=== PATIENT | female | born 1970 | race Caucasian/White ===

== ENCOUNTER 2017-07-08 21:03 | Inpatient (IN) | payer SELFPAY ==
[~2017-07-08] VITALS: Ht 162.6 cm; Wt 78.2 kg
[2017-07-08] VITALS (7 sets, daily range): BP systolic 88–136; BP diastolic 51–72; PULSE 80–111; RESP 12; TEMP 98.8; O2SAT 100
[~2017-07-08 21:03] MED LIST: ALPR.25 PO; ORPH100T PO; PARO20 PO; TYLETAB36 PO; XANA1TAB6 PO
[2017-07-08] MEDS ORDERED: HEPARIN SODIUM - IV 10,000 UNITS/10 ML VIAL IV STA (21:13)
[2017-07-08] MEDS ORDERED: SODIUM CHLOR 0.9% 1000 ML INJ 1,000 ML IV ONE (21:13)
[2017-07-08] MEDS ORDERED: HEPARIN SODIUM - IV 10,000 UNITS/10 ML VIAL ONE ×2 (21:13→21:36)
[2017-07-08] MEDS ORDERED: SODIUM CHLOR 0.9% 1000 ML INJ 1,000 ML IV SCH (21:15)
[2017-07-08] MEDS ORDERED: SODIUM CHLORIDE 0.9% FLUSH 10 ML FLUSH IVF PRN (21:15)
[2017-07-08] MEDS ORDERED: HEPARIN-NS/PF INJ 1,000 ML ONE (21:18)
[2017-07-08] MEDS ORDERED: SODIUM CHLORID 0.9% 500 ML INJ 500 ML ONE (21:20)
[2017-07-08] MEDS ORDERED: fentaNYL DRIP 250 ML IV PRN (21:30)
[2017-07-08] MEDS ORDERED: PROPOFOL 1000 MG/100 ML INJ 100 ML IV PRN ×2 (21:30→22:15)
[2017-07-08] MEDS ORDERED: MIDAZOLAM HCL 5 MG/ML VIAL (1 ML) IV ONE (21:30)
[2017-07-08] MEDS ORDERED: NOREPINEPHRINE 4 MG/4 ML AMP ONE (21:35)
--- NOTE | 2017-07-08 21:37 | RADRPT ---
EXAM DATE/TIME: 07/08/2017 21:20 [place] COMPARISON: No previous studies available for comparison. INDICATIONS : Stemi Alert MEDICAL HISTORY : Unresponsive SURGICAL HISTORY : Unresponsive ENCOUNTER: Initial ACUITY: 1 day PAIN SCORE: Non-responsive. LOCATION: Bilateral chest FINDINGS: A single AP supine portable view the chest was obtained and demonstrates an endotracheal tube in plac e with the tip approximately 2 cm above the ruthy. A nasogastric tube is seen coursing through the e sophagus and into the stomach. There are no infiltrates or effusions. The heart size is at the upper limits of normal. The bony thorax is intact. CONCLUSION: 1. Intubation and placement of nasogastric tube. 2. No acute cardiopulmonary disease. Himanshu Tamez MD on July 08, 2017 at 21:34 Board Certified Radiologist. This report was verified electronically.
[2017-07-08] MEDS ORDERED: IOHEXOL 350 MG/ML 100 ML BTL (for Cath Lab) OTHER ONE (21:39)
[2017-07-08] MEDS ORDERED: NOREPINEPHRINE-DEXTROSE DRIP 250 ML IV PRN (21:45)
[2017-07-08] MEDS ORDERED: TERBUTALINE INJ 1 MG/ML AMP SQ PRN (21:45)
--- NOTE | 2017-07-08 21:45 | PD ---
HPI Chief Complaint: STEMI Alert Time Seen by Provider: 21:13 Travel History International Travel<30 days: No Contact w/Intl Traveler<30days: No Traveled to known affect area: No History of Present Illness HPI 47-year-old female was brought him EMS unresponsive. Patient was reported with complaint of chest pain for the past 2 days. Patient collapsed in the bathroom tonight. EMS was called. Patient was brought to the ED for evaluation. Patient responded to painful stimuli on the way to the ED. Unable to obtain any past medical information except patient has history of chronic pain. STEMI alert was called from the field. PFSH Past Medical History Arthritis: Yes Asthma: Yes Bipolar Disorder: Yes Anxiety: Yes Depression: Yes Cancer: No Cardiovascular Problems: No Cerebrovascular Accident: No Diabetes: No Diminished Hearing: No Endocrine: No Gastrointestinal Disorders: Yes (STATES BOWEL PROBLEMS, NON-SPECIFIC) Genitourinary: No Hepatitis: No Hiatal Hernia: No Hypertension: No Immune Disorder: No Implanted Vascular Access Dvce: No Musculoskeletal: No Neurologic: No Psychiatric: Yes (DEPRESSION ) Reproductive: No Respiratory: No Immunizations Current: Yes Migraines: No Schizophrenia: Yes Seizures: No Sleep Apnea: Yes Thyroid Disease: No : 4 Para: 2 Miscarriage: 2 Ectopic : Yes (RIGHT) Dilation and Curettage (D&C): Yes Tubal Ligation: Yes Past Surgical History Appendectomy: Yes Section: Yes (X1) Cholecystectomy: Yes Ear Surgery: No Eye Surgery: No Gynecologic Surgery: Yes (C SECTION D& C TUBAL LIGATION ) Hysterectomy: Yes (RIGHT TUBE AND OVARY REMOVED. ) Joint Replacement: No Oral Surgery: Yes (TONS ) Pacemaker: No Tonsillectomy: Yes Other Surgery: Yes Social History Alcohol Use: Yes (rarely) Tobacco Use: Yes (1.5 PPD) Substance Use: Yes Allergies-Medications (Allergen,Severity, Reaction): Coded Allergies: No Known Allergies (Unverified , 11/22/14) Reported Meds & Prescriptions Reported Meds & Active Scripts Active Paxil 20 Mg Tab (Paroxetine Hcl) 20 Mg Tab 20 Mg PO DAILY Xanax 0.25 Mg (Alprazolam) 0.25 Mg Tab 0.25 Mg PO Q8HR Reported Norflex (Orphenadrine Citrate) 100 Mg Cheryl 100 Mg PO ONCE Tylenol #4 (Acetaminophen/Codeine Phosphate) Acetaminophen 300/60 Codeine Tab 1 Tab PO Q8H PRN Xanax 1 mg (Alprazolam) Alprazolam 1 mg Tab 1 Tab PO Q6H PRN Review of Systems General / Constitutional: No: Fever Eyes: No: Visual changes HENT: No: Headaches Cardiovascular: Positive: Chest Pain or Discomfort Respiratory: No: Shortness of Breath Gastrointestinal: No: Abdominal Pain Genitourinary: No: Dysuria Musculoskeletal: No: Pain Skin: No Rash Neurologic: No: Weakness Psychiatric: No: Depression Endocrine: No: Polydipsia Hematologic/Lymphatic: No: Easy Bruising Physical Exam Narrative GENERAL: Well-nourished, well-developed patient. SKIN: Focused skin assessment warm/dry. HEAD: Normocephalic. EYES: No scleral icterus. No injection or drainage. Pupils 2 mm equal reactive. NECK: Supple, trachea midline. No JVD or lymphadenopathy. CARDIOVASCULAR: Regular rate and rhythm without murmurs, gallops, or rubs. RESPIRATORY: Breath sounds equal bilaterally. No accessory muscle use. GASTROINTESTINAL: Abdomen soft, non-tender, nondistended. MUSCULOSKELETAL: No cyanosis, or edema. BACK: Nontender without obvious deformity. No CVA tenderness. Neurologic exam: Patient only responded to painful stimuli. Deep tendon Reflexes 1+ and equal. Negative Babinski. Data Data Orders Orders Heparin Inj (Heparin Inj) (07/08/17 21:13) Troponin I (07/08/17 21:13) Ckmb (Isoenzyme) Profile (07/08/17 21:13) Complete Blood Count With Diff (07/08/17 21:13) I-Stat Profile (07/08/17 21:13) I-Stat Creatinine (07/08/17 21:13) Calcium (07/08/17 21:13) Magnesium (Mg) (07/08/17 21:13) Prothrombin Time / Inr (Pt) (07/08/17 21:13) Act Partial Throm Time (Ptt) (07/08/17 21:13) B-Type Natriuretic Peptide (07/08/17 21:13) Chest, Single Ap (07/08/17 21:13) Electrocardiogram (07/08/17 21:13) Oxygen Administration (07/08/17 21:13) Iv Access Insert/Monitor (07/08/17 21:13) Oximetry (07/08/17 21:13) Sodium Chlor 0.9% 1000 Ml Inj (Ns 1000 M (07/08/17 21:13) Sodium Chloride 0.9% Flush (Ns Flush) (07/08/17 21:15) Heparin Inj (Heparin Inj) (07/08/17 21:13) Sodium Chlor 0.9% 1000 Ml Inj (Ns 1000 M (07/08/17 21:15) Admit Order (Ed Use Only) (07/08/17 21:15) [facility] Medical Decision Making Medical Screen Exam Complete: Yes Emergency Medical Condition: Yes Differential Diagnosis Differential diagnosis including STEMI, respiratory failure. Narrative Course 47-year-old female with 2 days history of chest pain and collapse in the bathroom tonight. Patient came in unresponsive except to painful stimuli. EKG showed ST elevation in leads I and anterolateral leads. ST depression in inferior leads. STEMI alert was called. Patient was intubated for airway protection. Normal saline solution 2 L IV bolus. Heparin 4000 units IV given. I spoke with puttier Dr. Duncan. Patient Will be taken to [facility] immediately. Fentanyl drip and propofol was ordered for sedation. The Levophed drip as needed to keep MAP above 65. Critical Care Narrative Aggregate critical care time was 60 minutes. Time to perform other separately billable procedures was not included in the critical care time. My time did not include minutes spent treating any other patients simultaneously or on activities that did not directly contribute to the patient's treatment. The services I provided to this patient were to treat and/or prevent clinically significant deterioration that could result in: I provided critical care services requiring my management, as noted below: Chart data review, documentation time, medication orders and management, vital sign assessments/reviewing monitor data, ordering and reviewing lab tests, ordering and interpreting/reviewing x-rays and diagnostic studies, care of the patient and discussion of the patient with the admitting physicians. Procedures Procedure Narrative After the risks and benefits were discussed the following procedure was performed: INTUBATION: The patient was put in optimal position for the procedure. Rapid sequence intubation was initiated by me using 20 milligrams of etomidate IV and 100 milligrams of succinylcholine IV. The patient was intubated with a 7.5 cuffed endotracheal tube. Tube placement was confirmed by visualization of the tube and balloon passing through the cords, capnometry and subsequent chest x- ray. Breath sounds were equal and well aerated bilaterally postintubation. No breath sounds over stomach. Patient tolerated procedure well. Diagnosis Primary Impression: STEMI (ST elevation myocardial infarction) Qualified Codes: I21.02 - ST elevation (STEMI) myocardial infarction involving left anterior descending coronary artery Additional Impression: Respiratory failure Qualified Codes: J96.00 - Acute respiratory failure, unspecified whether with hypoxia or hypercapnia Admitting Information Admitting Physician Requests: Admit Navi Jasso MD Jul 08, 2017 21:45
[2017-07-08] MEDS ORDERED: MIDAZOLAM HCL 2 MG/2 ML VIAL ONE ×3 (21:46→23:11)
[2017-07-08 21:51] LABS: I-STAT POTASSIUM 3.8 MMOL/L (3.5-4.9)
[2017-07-08 21:54] LABS: AUTOMATED NEUTROPHIL # 15.5 TH/MM3 (1.8-7.7); BASOPHIL # 0.2 TH/MM3 (0-0.2); BASOPHIL % 0.7 % (0.0-2.0); EOSINOPHIL # 0.3 TH/MM3 (0-0.4); EOSINOPHIL % 1.4 % (0.0-4.0); HEMATOCRIT 45.8 % (35.0-46.0); LYMPH % 26.5 % (9.0-44.0); LYMPHOCYTE # 6.2 TH/MM3 (1.0-4.8); MEAN CELL VOLUME 95.6 FL (80.0-100.0); MEAN CORPUSCULAR HEMOGLOBIN 31.1 PG (27.0-34.0); MEAN CORPUSCULAR HGB CONC 32.6 % (32.0-36.0); MONO % 5.3 % (0.0-8.0); NEUT % 66.1 % (16.0-70.0); PLATELET COUNT 442 TH/MM3 (150-450); RED BLOOD COUNT 4.79 MIL/MM3 (4.00-5.30); RED CELL DISTRIBUTION WIDTH 13.1 % (11.6-17.2); WHITE BLOOD COUNT 23.5 TH/MM3 (4.0-11.0)
[2017-07-08 21:56] LABS: HEMO FLAGS AUTO DIFF
[2017-07-08 22:03] LABS: APTT (PATIENT) 24.7 SEC (24.3-30.1); PROTHROMBIN TIME - PATIENT 11.3 SEC (9.8-11.6)
[2017-07-08 22:15] LABS: MAGNESIUM 2.1 MG/DL (1.5-2.5)
[2017-07-08] MEDS ORDERED: PROPOFOL 1000 MG/100 ML IV PRN (22:15)
[2017-07-08 22:22] LABS: BANDS 9 % (0-6); BASOPHILS 2 % (0-2); NEUTROPHIL # MANUAL DIFF 17.4 TH/MM3 (1.8-7.7); POLYS (SEG NEUTROPHILS) 65 % (16-70); WBC DIFF SAMPLE 100
[2017-07-08 22:23] LABS: PLATELET ESTIMATE SMEAR NORMAL (NORMAL); PLATELET MORPHOLOGY NORMAL (NORMAL); SCAN/DIFF FINAL DIFF MANUAL
[2017-07-08] MEDS ORDERED: PAXI10TA2 PO (22:27)
[2017-07-08] MEDS ORDERED: ALPR.25 PO (22:27)
[2017-07-08] MEDS ORDERED: HYDR-4107 PO (22:27)
[2017-07-08] MEDS ORDERED: BACL10TA PO (22:27)
[2017-07-08] MEDS ORDERED: HEPARIN-D5W 25,000 U/250 ML 0 ML ONE (22:28)
[2017-07-08] MEDS ORDERED: HEPARIN-D5W 25,000 U/250 ML 250 ML ONE (22:30)
[2017-07-08] MEDS ORDERED: ADENOSINE IV SOLN 3 MG/ML 2 ML VIAL ONE (22:34)
[2017-07-08] MEDS ORDERED: TICAGRELOR 90 MG TAB PO ONE (22:44)
[2017-07-08] MEDS: MIDAZOLAM 100 MG/100 ML INJ 100 ML IV PRN (23:08)
--- NOTE | 2017-07-08 23:50 | CATHPROC ---
Neurodyn HIS Report Study Information Study Number Admission Scheduled Start Study Start [id number] Jul 08 2017 9:17PM 07/08/2017 Jul 08 2017 9:29PM [place] [facility] Cardiac Catheterization Admit Source Facility Department Emergency department [facility] - [employer] Clerk Physician and Clinical Staff Initial Gustavo Aguilera [employer] Technician Catrachita Stafford,SALIMA [employer] Technician Ivonne Mckeon RN Other cathlab, cathlab Recorder José Manuel Sierra RCIS(BS) Scrub Marcello Adorno RT(R) Procedures Performed Procedure Location (Site) Vessel Name Coronary Angiograms LCA Left Coronary Coronary Angiograms RCA Right Coronary Drug Eluting Inflatio LAD Prox Left Coronary IABP Fem Art (right) Femoral Art IVUS LAD Prox Left Coronary L Heart Cath PTCA LAD Prox Left Coronary Wire insertion Fem Art (right) Femoral Art Equipment Time Lime [employer]n And Recausticizing Operator Description Size Mfg Part Number Used/Scraped WIRE, BALANCE MIDDLEWEIGHT [id number] 22:10 [employer] 190CM Used 190CM *[id number] TRANSDUCER, TRUWAVE [id number] 21:31 BARNETT DO * Used W/STOCKCOCK *[id number]- INTRODUCER SET, 21:53 [employer]. FR 5 SC-NT-U-SST Used MICROPUNCTURE, STIFFENED *[id number] [id number] *[id number] *[id number] BALLOON, FR8 50CC SENSATION [id number] 23:09 MAQUET FR 8 50CC Used PLUS 01U [id number] 21:31 [employer]ES PACK, CCL CUSTOM * Used *[id number] 22:11 [employer] BALLOON, 2.5 X 10MM EUPHORA 10MM Used *[id number] BALLOON, 3.0 X 15MM NC [id number] 22:27 MEDTRONIC 15MM Used EUPHORA *[id number] BALLOON, 3.5 X 12MM NC [id number] 22:43 MEDTRONIC 12MM Used EUPHORA *[id number] 22:18 MED[employer]IC STENT, 3.0 18MM GATO 3.0 18MM Used *[id number] 21:58 [employer]TR[employer]IC/AVE EBU 3.5 Z2 GUIDE CATHETER FR 6 Used *[id number] [id number] 21:58 Scale Computing 30 ASHLEY INDEFLATOR Used *[id number] 21:31 [employer] MEDICAL WIRE, 3MMJ .035 180CM 180CM Used *[id number] 21:31 NAMIC MANIFOLD, 4 PORT * Used *[id number] 21:31 NYCOMED OMNIPAQUE, 350 MG, 150ML 150ML [id number] Used [id number] 21:31 MURRIETA MEDICAL BLANKET,WARM AIR CCL * Used *[id number] 21:53 TERUMO MEDICAL SHEATH, FR6 TERUMO (10CM) FR 6 Used *[id number] CATHETER, [place] [employer] [place] [id number] 22:38 VOLCAN[employer] Used IMAGING *[id number] Equipment Model, Serial, Lot Number and Expiration Data Description Model Number Serial Number Lot Number Expiration Date STENT, 3.0 18MM GATO [id number] 03-21-2019 History: Allergies Allergy Reaction No Known Allergies History: Risk Factors Family History of Hypertension Dyslipidemia Previous MO Previous Heart Failure Premature CAD Yes Yes No No No Prior Valve Prior PCI Prior CABG Surgery No No No Cerebrovascular Peripheral Artery Chronic Lung On Dialysis Diabetes Disease Disease Disease No No No No No History: Stress Tests Stress or Imaging Studies Performed No History: Other Current Smoker No Labs Hgb (g/dl) Hct (%) 11.60-17.00 35.00-51.00 15.3 45 Creatinine (mg/dl) 0.50-1.30 1.4 Na (meq/l) K (meq/l) Cl (meq/l) 136.00-145.00 3.50-5.10 98.00-107.00 141 3.8 113 CPK-MB (ng/ML) 0.50-3.60 Not Drawn Medication Medication Total Dose (Bolus/Oral) Medication Total Dosage/Unit 1% XYLOCAINE 20 mL ADENOSINE 30 mcg BRILINTA 180 mg FENTANYL 50 mcg/hr HEPARIN 5300 units VERSED 3 mg VERSED 5 mg/hr Medications (Bolus/Oral) Medication Time Given Dosage/Unit Administered By Reason FENTANYL 07/08/2017 9:39:49 PM 50 mcg/hr cathlab, cathlab Patient arrived on 50 mcg/hr FENTANYL given by cathlab, cathlab in Right Antecubital via Peripheral I V. Pump/Drip Flow = 0 ml/hr using D5W. Ordered by Gustavo Duncan. VERSED 07/08/2017 9:48:39 PM 0.5 mg Hesher, Ivonne 0.5 mg VERSED given in lab by Ivonne Mckeon RN in Left Antecubital via Peripheral IV. Ordered by Gustavo Bobo. VERSED 07/08/2017 9:48:57 PM 0.5 mg Hesher, Ivonne 0.5 mg VERSED given in lab by Ivonne Mckeon RN in Left Antecubital via Peripheral IV. Ordered by Gustavo Bobo. 1% XYLOCAINE 07/08/2017 9:50:56 PM 20 mL Gustavo Duncan 20 mL 1% XYLOCAINE given in lab by Gustavo Duncan in Right Groin via Subcutaneous. HEPARIN 07/08/2017 10:08:29 PM 5300 units Catrachita Stafford 5300 units HEPARIN given in lab by Catrachita Stafford RN in Left Antecubital via Peripheral IV. Ordered by Gustavo Duncan. VERSED 07/08/2017 10:29:06 PM 2 mg/hr Catrachita Stafford 2 mg/hr VERSED given in lab by Catrachita Stafford RN in Left Antecubital via Peripheral IV. Pump/Drip F low = 0 ml/hr using [Solution Name]. Ordered by Gustavo Duncan. VERSED 07/08/2017 10:32:51 PM 1 mg Hesher, Ivonne 1 mg VERSED given in lab by Ivonne Mckeon RN in Left Antecubital via Peripheral IV. Ordered by Gustavo Max. ADENOSINE 07/08/2017 10:51:07 PM 30 mcg Gustavo Duncan 30 mcg ADENOSINE given in lab by Gustavo Duncan via Intra-coronary. BRILINTA 07/08/2017 11:05:44 PM 180 mg Catrachita Stafford 180 mg BRILINTA given in lab by Catrachita Stafford RN via Oral (NG TUBE). Ordered by Gustavo Duncan. VERSED 07/08/2017 11:09:45 PM 1 mg Hesher, Ivonne 1 mg VERSED given in lab by Ivonne Mckeon RN in Left Antecubital via Peripheral IV. Ordered by Gustavo Max. VERSED 07/08/2017 11:10:23 PM 3 mg/hr Catrachita Stafford 3 mg/hr VERSED given in lab by Catrachita Stafford, RN in Left Antecubital via Peripheral IV. Pump/Drip F low = 0 ml/hr using [Solution Name]. Ordered by Gustavo Duncan. Medication (Drip) Medication Time Given Dosage/Unit Concentration/Unit Diluent (ml) Solution HEPARIN DRIP 07/08/2017 10:33:38 PM 1000 units/hr 33895 units 250 D5W 1000 units/hr HEPARIN DRIP given in lab by Catrachita Stafford, RN in Right Antecubital via Peripheral IV . Pump/Drip Flow = 10 ml/hr [place] D5W [place] [address] units in 250 ml. Ordered by Gustavo Duncan. Initial Case Assessment Cardiovascular HR Rhythm Chest Pain 100 stemi 10 Edema Present Skin color Skin None Cyanotic Dry Cool Circulatory - Right Pulses Dorsalis Pedis Femoral 1 1 Scale (0,1,2,3,4,d) Circulatory - Left Pulses Dorsalis Pedis Femoral 1 1 Scale (0,1,2,3,4,d) Neurological State Oriented to time-place- Alert Moves all extremities person Respiration - General Respiration Rate SpO2 (%) (B/min) 15 96 Final Case Assessment Cardiovascular HR Rhythm NIBP Chest Pain 92 sinus 125/79 0 Edema Present Skin color Skin None Cyanotic Dry Cool Circulatory - Right Pulses Dorsalis Pedis Femoral 1 1 Scale (0,1,2,3,4,d) Circulatory - Left Pulses Dorsalis Pedis Femoral 1 1 Scale (0,1,2,3,4,d) Neurological State Oriented to time-place- Alert Moves all extremities person Respiration - General Respiration Rate SpO2 (%) (B/min) 15 96 Chronological Log Time Study Chronological Log 21:39:01 MD arrived. 21:39:15 Patient arrived via Bed intubated and responsive. 21:39:16 Patient Name, D.O.B, / Armband Verified By R.N. 21:39:17 Consent signed by the physician and the patient and verified by the [employer] Clerk staff. 21:39:17 Pre-op and post- op instructions given; patient acknowledges understanding of instructions. Verbal Stimulation=~VERBAL~ Physical Stimulation=~PHYSICAL~ Airway=~AIRWAY~ Respiration=~RESPIR ATION~ 21:39:18 TOTAL=~TOTAL~. (0=absent, 1=limited, 2=present) 21:39:32 Skin Breakdown- 21:39:33 Patient Warmer Placed on the Table. 21:39:34 Disposable Defibrillator Pads Placed On Patient. 21:39:34 Teto Prominences Protected 21:39:47 A # 20 IV was noted in the Antecubital (right). Grade = 0 21:39:48 A # 20 IV was noted in the Hand (right). Grade = 0 21:39:48 A # 18 IV was noted in the Antecubital (left). Grade = 0 Patient arrived on 50 mcg/hr FENTANYL given by cathlab cathgoyo in Right Antecubital via Periph eral IV. Pump/Drip Flow 21:39:49 = 0 ml/hr using D5W. Ordered by Gustavo Duncan. 21:39:50 History and physical on the chart or being dictated. 21:42:52 NIBP STAT measurement started. 21:45:04 NIBP STAT measurement started. 21:45:41 HR=90 bpm, CGIZ=944/95 mmhg, SpO2=90.0 %, Resp=16 B/min, Lorenzo=9, Jacob=2 Assessment: Initial Case, ON=303 BPM, Rhythm=stemi, Chest Pain=10, Edema=None, Color=Cyanotic, Skin = Dry, Cool Right Pulses: Roshan Ped=1, Femoral=1 21:46:20 Left Pulses: Roshan Ped=1, Femoral=1 Neurological: State=Alert, Ox3, MADRIGAL Respiration: Resp=15 B/min, SpO2=96 % 21:46:29 Ventricular Tachycardia noted. 21:46:31 Patient defibrillated at 200 joules. The ECG rhythm was noted as VT. Patient converted to s inus. 21:48:39 0.5 mg VERSED given in lab by Ivonne Mckeon, SALIMA in Left Antecubital via Peripheral IV. Ord ered by Gustavo Duncan. 21:48:57 0.5 mg VERSED given in lab by Ivonne Mckeon, SALIMA in Left Antecubital via Peripheral IV. Ord ered by Gustavo Duncan. 21:49:15 NIBP STAT measurement started. 21:49:30 Bilateral groins prepped with 2% chlorhexidine, and with a 3 min. waiting time. 21:50:05 Reference ECG taken Time Out. Correct patient, correct procedure,correct physician, ,power injector not loaded with contrast with surgical 21:50:14 team present. Time Out Concurred by , individual staff in procedure 21:50:19 Case Start 21:50:45 Pressure channel 1 zeroed. 21:50:56 20 mL 1% XYLOCAINE given in lab by Gustavo Duncan in Right Groin via Subcutaneous. Vitals capture started with the following parameters, Patient=Adult, Interval=5 min, Initial Pr bhfsrj=002 mmHg, 21:52:01 Deflation Rate=5 mmHg, Cuff placed on Left Ankle 21:52:48 Access site was Right Femoral Artery. A INTRODUCER SET, MICROPUNCTURE, STIFFENED FR 5 was advanced into the Fem Art (right) using the 21:52:54 Percutaneous technique. A SHEATH, FR6 TERUMO (10CM) FR 6 was exchanged in the Fem Art (right). This was necessary in or [place] to 21:53:11 accomodate a larger catheter. Vitals capture started with the following parameters, Patient=Adult, Interval=5 min, Initial Pr ubrpdm=851 mmHg, 21:54:23 Deflation Rate=5 mmHg, Cuff placed on Left Ankle 21:55:01 An injection in the Fem Art (right) was made through the SHEATH, FR6 TERUMO (10CM) FR 6. A JR 4.0 INFINITI CATHETER FR 6 was advanced over a wire. OMNIPAQUE, 350 MG, 150ML 150ML was us ed for 21:55:37 injections. Vitals capture started with the following parameters, Patient=Adult, Interval=5 min, Initial Pr yipuxy=872 mmHg, 21:56:39 Deflation Rate=5 mmHg, Cuff placed on Left Ankle Recorded Pressure: LV, FL=402, Condition=Condition 1 21:56:41 (Left Ventricle) LV 88/26/46 Recorded Pressure: LV, Ao, AV=650, Condition=Condition 1 21:56:53 (Left Ventricle) LV 89/28/44, (Aorta) Ao 102/60/81 21:57:13 The RCA was injected and visualized at various angles. OMNIPAQUE, 350 MG, 150ML 150ML used . 21:58:00 AM=945 bpm, NIBP=95/53 mmhg, SpO2=98.0 %, Resp=16 B/min, Lorenzo=9, Jacob=2 After removing the current catheter a EBU 3.5 Z2 GUIDE CATHETER FR 6 was advanced over a WIRE, 3MMJ .035 21:58:59 180CM 180CM. 22:00:09 Ventricular Tachycardia noted. 22:00:39 Patient Converted 22:01:40 The LCA was injected and visualized at various angles. OMNIPAQUE, 350 MG, 150ML 150ML used . Recorded Pressure: Ao, MB=452, Condition=Condition 1 22:02:40 (Aorta) Ao 83/55/69 Vitals capture started with the following parameters, Patient=Adult, Interval=5 min, Initial Pr fawzds=598 mmHg, 22:03:41 Deflation Rate=5 mmHg, Cuff placed on Left Ankle After removing the current catheter a JL 3.0 GUIDE CATHETER FR 6 was advanced over a WIRE, 3MMJ .035 180CM 22:03:48 180CM. 22:04:23 OU=691 bpm, XZQQ=551/59 mmhg, SpO2=99.0 %, Resp=16 B/min, Lorenzo=9, Jacob=2 5300 units HEPARIN given in lab by Catrachita Stafford, RN in Left Antecubital via Peripheral IV. O rdered by [place], 22:08:29 Gustavo. 22:09:45 A WIRE, BALANCE MIDDLEWEIGHT 190CM 190CM was inserted via Fem Art (right). Vitals capture started with the following parameters, Patient=Adult, Interval=5 min, Initial Pr igrixl=304 mmHg, 22:10:45 Deflation Rate=5 mmHg, Cuff placed on Left Ankle 22:12:20 Interventional wire has crossed the lesion Vitals capture started with the following parameters, Patient=Adult, Interval=5 min, Initial Pr caryey=845 mmHg, 22:13:01 Deflation Rate=5 mmHg, Cuff placed on Left Ankle A BALLOON, 2.5 X 10MM EUPHORA 10MM was inserted over WIRE, BALANCE MIDDLEWEIGHT 190CM 190CM via the :14:09 LAD Prox. 22:14:25 XN=898 bpm, NIBP=99/62 mmhg, BbW3=002.0 %, Resp=16 B/min, Lorenzo=9, Jacob=2 A BALLOON, 2.5 X 10MM EUPHORA 10MM over a WIRE, BALANCE MIDDLEWEIGHT 190CM 190CM in the LAD Pro x was 22:14:30 inflated using a 30 ASHLEY INDEFLATOR at 12 ashley for 10 sec. 22:16:50 Balloon Removed. 22:17:18 Activated Clotting Time Drawn Vitals capture started with the following parameters, Patient=Adult, Interval=5 min, Initial Pr lwojta=452 mmHg, 22:20:25 Deflation Rate=5 mmHg, Cuff placed on Left Ankle Vitals capture started with the following parameters, Patient=Adult, Interval=5 min, Initial Pr zryyea=996 mmHg, :22:42 Deflation Rate=5 mmHg, Cuff placed on Left Ankle 22:23:22 HR=95 bpm, EQYN=131/64 mmhg, SpO2=93.0 %, Resp=16 B/min 22:23:50 ACT (Normal Range 90-180) = 293 A STENT, 3.0 18MM GATO 3.0 18MM was advanced through a JL 3.0 GUIDE CATHETER FR 6 over a WIRE, BALANCE 22:23:55 MIDDLEWEIGHT 190CM 190CM. A STENT, 3.0 18MM GATO 3.0 18MM was deployed using a 30 ASHLEY INDEFLATOR at 12 atmospheres for 17 seconds in 22:25:05 the LAD Prox. 22:25:54 Delivery device removed A BALLOON, 3.0 X 15MM NC EUPHORA 15MM was inserted over WIRE, BALANCE MIDDLEWEIGHT 190CM 190CM via 22:27:33 the LAD Prox. 2 mg/hr VERSED given in lab by Catrachita Stafford, RN in Left Antecubital via Peripheral IV. Pump/ Drip Flow = 0 ml/hr 22:29:06 using [Solution Name]. Ordered by Gustavo Duncan. Vitals capture started with the following parameters, Patient=Adult, Interval=5 min, Initial Pr zdofkh=368 mmHg, 22:29:46 Deflation Rate=5 mmHg, Cuff placed on Left Ankle A BALLOON, 3.0 X 15MM NC EUPHORA 15MM over a WIRE, BALANCE MIDDLEWEIGHT 190CM 190CM in the LAD Prox 22:30:03 was inflated using a 30 ASHLEY INDEFLATOR at ~ASHLEY~ ashley for ~SECONDS~ sec. A BALLOON, 3.0 X 15MM NC EUPHORA 15MM over a WIRE, BALANCE MIDDLEWEIGHT 190CM 190CM in the LAD Prox 22:30:47 was inflated using a 30 ASHLEY INDEFLATOR at 12 ashley for 10 sec. A BALLOON, 3.0 X 15MM NC EUPHORA 15MM over a WIRE, BALANCE MIDDLEWEIGHT 190CM 190CM in the LAD Prox 22:31:13 was inflated using a 30 ASHLEY INDEFLATOR at 12 ashley for 10 sec. 22:31:25 HR=98 bpm, NIBP=82/55 mmhg, SpO2=97.0 %, Resp=16 B/min, Lorenzo=9, Jacob=2 22:31:32 Balloon Removed. 22:32:51 1 mg VERSED given in lab by Ivonne Mckeon, RN in Left Antecubital via Peripheral IV. Order ed by Gustavo Duncan. 1000 units/hr HEPARIN DRIP given in lab by Catrachita Stafford RN in Right Antecubital via Periphe ral IV. Pump/Drip Flow 22:33:38 = 10 ml/hr [place] D5[place] [address] units in 250 ml. Ordered by Tez Duncan Vitals capture started with the following parameters, Patient=Adult, Interval=5 min, Initial Pr robmsd=058 mmHg, 22:36:46 Deflation Rate=5 mmHg, Cuff placed on Left Ankle 22:37:24 UJ=467 bpm, LRLY=736/76 mmhg, Resp=16 B/min, Lorenzo=9, Jacob=2 22:38:09 An CATHETER, [employer] [employer] IMAG[employer] was advanced through the lesion. Images saved o [employer] IVUS hard drive 22:38:53 IVUS in progress using CATHETER, [employer] [employer] IM[employer] 22:41:45 IVUS catheter removed Vitals capture started with the following parameters, Patient=Adult, Interval=5 min, Initial Pr uxgape=646 mmHg, 22:43:55 Deflation Rate=5 mmHg, Cuff placed on Left Ankle A BALLOON, 3.5 X 12MM NC EUPHORA 12MM was inserted over WIRE, BALANCE MIDDLEWEIGHT 190CM 190CM via 22:45:12 the LAD Prox. Vitals capture started with the following parameters, Patient=Adult, Interval=5 min, Initial Pr dkbspt=198 mmHg, 22:46:16 Deflation Rate=5 mmHg, Cuff placed on Left Ankle A BALLOON, 3.5 X 12MM NC EUPHORA 12MM over a WIRE, BALANCE MIDDLEWEIGHT 190CM 190CM in the LAD Prox 22:46:45 was inflated using a 30 ASHLEY INDEFLATOR at 12 ashley for 20 sec. A BALLOON, 3.5 X 12MM NC EUPHORA 12MM over a WIRE, BALANCE MIDDLEWEIGHT 190CM 190CM in the LAD Prox 22:49:25 was inflated using a 30 ASHLEY INDEFLATOR at 6 ashley for 10 sec. Vitals capture started with the following parameters, Patient=Adult, Interval=5 min, Initial Pr jkxdzh=037 mmHg, 22:49:30 Deflation Rate=5 mmHg, Cuff placed on Left Ankle 22:49:56 Balloon Removed. 22:51:07 30 mcg ADENOSINE given in lab by Gustavo Duncan via Intra-coronary. 22:51:38 XG=421 bpm, HDUV=683/79 mmhg, JwT3=731.0 %, Resp=16 B/min, Lorenzo=9, Jacob=2 A BALLOON, 2.5 X 10MM EUPHORA 10MM was inserted over WIRE, BALANCE MIDDLEWEIGHT 190CM 190CM via the 22:55:42 LAD Prox. 22:56:21 Balloon Removed. 22:59:12 Wire removed After removing the current catheter a JR 4.0 INFINITI CATHETER FR 6 was advanced over a WIRE, 3 MMJ .035 180CM 23:00:33 180CM. Vitals capture started with the following parameters, Patient=Adult, Interval=5 min, Initial Pr pmopjt=246 mmHg, 23:00:49 Deflation Rate=5 mmHg, Cuff placed on Left Ankle Recorded Pressure: LV, EJ=007, Condition=Condition 1 23:02:23 (Left Ventricle) LV 108/28/35 23:02:25 FS=024 bpm, PTMX=128/62 mmhg, SpO2=99.0 %, Resp=19 B/min, Lorenzo=9, Jacob=2 Recorded Pressure: LV, Ao, MN=914, Condition=Condition 1 23:02:40 (Left Ventricle) LV 107/27/33, (Aorta) Ao 101/70/86 23:04:00 The RCA was injected and visualized at various angles. OMNIPAQUE, 350 MG, 150ML 150ML used . 23:04:04 Catheter was removed 23:05:44 180 mg BRILINTA given in lab by Catrachita Stafford, SALIMA via Oral (NG TUBE). Ordered by Gustavo Duncan. 23:07:01 AQ=384 bpm, DqW6=271.0 %, Resp=18 B/min, Lorenzo=9, Jacob=2 23:07:09 NIBP STAT measurement started. 23:07:34 RI=473 bpm, NjQ5=277.0 %, Resp=19 B/min, Lorenzo=9, Jacob=3 23:07:52 Sheath exchanged for intra-aortic balloon insertion. 23:09:45 1 mg VERSED given in lab by Ivonne Mckeon, RN in Left Antecubital via Peripheral IV. Order ed by Gustavo Duncan. 3 mg/hr VERSED given in lab by Catrachita Stafford, SALIMA in Left Antecubital via Peripheral IV. Pump/ Drip Flow = 0 ml/hr 23:10:23 using [Solution Name]. Ordered by Gustavo Duncan. An BALLOON, FR8 50CC SENSATION PLUS FR 8 50CC was advanced to the descending aorta. Proper plac ement was 23:11:08 confired under fluoroscopy and the balloon was sutured in place. Ratio = 1. Augmented BP 99/72 23:11:13 CR=070 bpm, NIBP=67/40 mmhg, SpO2=93 %, Resp=16 B/min, Lorenzo=9, Jacob=3 Vitals capture started with the following parameters, Patient=Adult, Interval=5 min, Initial Pr ukedvz=647 mmHg, 23:11:29 Deflation Rate=5 mmHg, Cuff placed on Left Ankle 23:12:33 EA=652 bpm, YPVX=471/62 mmhg, IcK8=740.0 %, Resp=16 B/min, Lorenzo=9, Jacob=3 23:17:38 VM=985 bpm, TZPH=266/79 mmhg, MlS0=224.0 %, Resp=16 B/min, Lorenzo=9, Jacob=3 23:21:06 Case End Assessment: Final Case, HR=92 BPM, Rhythm=sinus, NGCI=486/79 mmhg, Chest Pain=0, Edema=None, Color=Cyanotic, Skin = Dry, Cool Right Pulses: Roshan Ped=1, Femoral=1 23:21:09 Left Pulses: Roshan Ped=1, Femoral=1 Neurological: State=Alert, Ox3, MADRIGAL Respiration: Resp=15 B/min, SpO2=96 % 23:21:25 Catheter(s) removed without difficulty 23:21:26 In the Fem Art (right) the sheath was sutured in place by Gustavo Duncan. 23:21:37 Sterile dressing applied to site 23:21:38 No case complications noted. 23:21:39 Cine recording checked. 23:21:39 Cine recording checked. 23:21:42 Bedside Report will be given. 23:21:43 Implantable Device card placed in patient's chart. 23:21:45 Contrast Scanned 23:21:49 A Left Heart Cath was performed. 23:22:07 HR=89 bpm, HPHQ=731/59 mmhg, MpQ8=836.0 %, Resp=14 B/min, Lorenzo=9, Jacob=3 23:28:32 FK=067 bpm, NIBP=98/48 mmhg, AjN2=912.0 %, Resp=18 B/min, Lorenzo=9, Jacob=3 23:37:43 DPKM=669/63 mmhg, Lorenzo=9, Jacob=3 23:38:00 Vitals capture stopped. 23:38:[address] [facility] End Study - Contrast Media Used In Study Contrast Total Opened (mL) Total Used (mL) Total Wasted (mL) Omnipaque 200 200 0 End Study - Maximum Contrast Load Max Contrast Load (mL) 276.1 End Study - Radiation Exposure Fluoro Time (minutes) 25.2 End Study - Patient Disposition Complications Transferred To Interventional Outcome No Critical Care Bed successful
[2017-07-09] VITALS (11 sets, daily range): BP systolic 100–144; BP diastolic 77–93; PULSE 97–108; RESP 19–28; TEMP 98.3–100.7; O2SAT 96–99
[2017-07-09 01:21] LABS: BLOOD GAS BASE EXCESS -7.2 mmol/L (-2-2); BLOOD GAS CARBOXYHEMOGLOBIN 1.4 % (0-4); BLOOD GAS HCO3 18 mmol/L (22-26); BLOOD GAS METHEMOGLOBIN 1.3 % (0-2); BLOOD GAS O2 HGB SATURATION 97 % (90-100); BLOOD GAS OXYGEN CONTENT 20.8 Vol % (12.0-20.0); BLOOD GAS PCO2 34 mmHg (38-42); BLOOD GAS PO2 489 mmHg (61-120); BLOOD GAS TOTAL HGB 14.3 G/DL (12.0-16.0); CRITICAL VALUE NO; DRAW SITE LT RADIAL; FIO2 100 %; NUMBER OF ARTERIAL PUNCTURES 1; OXYGEN DEVICE VENTILATOR; STAT NO; TEMP CORR TO 98.6; ULNAR PULSE PRESENT; VENT SETTINGS PRVC16/550/1.0/+8
[2017-07-09] MEDS ORDERED: FAMOTIDINE 20 MG/2 ML VIAL IV PUSH SCH (02:00)
--- NOTE | 2017-07-09 02:14 | PD.CONS ---
[facility] Service Critical Care Medicine Consult Requested By Dr. Duncan Reason for Consult Critical care management acute respiratory failure Primary Care Physician German Sierra, DO History of Present Illness 47-year-old female with past medical history of endometriosis who presented to [facility] emergency department unresponsive. She had collapsed on the floor of the bathroom after having complained of chest pain for 2 days. She was intubated upon arrival. Pulse was not palpable and she received a few chest compressions but she was responsive. EKG showed anterior lateral STEMI with 3-6 mm of elevation in lead I, V2-V6, AVL with reciprocal depression. She was taken emergently to the laborer steel handling where she underwent drug- eluting stent to proximal LAD 90% occlusion. There is 60% lesion at left main for which Dr. Duncan has consulted [facility] for possible bypass. She was defibrillated 1 for V. tach in the laborer steel handling. IABP was placed. She is not requiring pressors/inotropes. She is following commands upon arrival to CVICU. Review of Systems ROS Limitations: Clinical Condition, Intubated Past Family Social History Allergies: Coded Allergies: No Known Allergies (Unverified , 11/22/14) Past Medical History Endometriosis Anxiety Depression Past Surgical History Cholecystectomy Appendectomy Tonsillectomy Right salpingo-oophorectomy due to ectopic . D&C Tubal ligation Reported Medications Baclofen 10 mg Lortab I/325 one by mouth every 4 hours when necessary pain Paxil 10 mg by mouth daily Xanax 0.25 mg Family History Sister of myocardial infarction in her 30s or 40s One of her brothers had a myocardial infarction in his 20s. Social History She is She has smoked since age 14, 3 packs of cigarettes per day No alcohol or illicit drug use She is not employed Physical Exam Vital Signs Vital Signs Date Time Temp Pulse Resp B/P (MAP) Pulse Ox O2 Delivery O2 Flow Rate FiO2 07/09/17 00:00 102/81 (108) 07/08/17 23:50 100 100 07/08/17 22:12 100 Bag Valve 15.00 07/08/17 21:35 71 12 100/64 (76) 100 15.00 07/08/17 21:30 100 100 07/08/17 21:25 80 12 88/61 (70) 100 15.00 07/08/17 21:20 87 12 94/51 (65) 100 07/08/17 21:13 98.8 82 12 136/72 (93) 100 15.00 Physical Exam She is in normal sinus rhythm at a rate of 99 200. Blood pressure 103/82 mean 107. Augmentation pressure 140. GENERAL: Well-nourished, well-developed patient who is orotracheally intubated. SKIN: Warm and dry. HEAD: Atraumatic. Normocephalic. EYES: Pupils equal and round, 5 mm and reactive to 3 mm bilaterally.. No scleral icterus. No injection or drainage. ENT: No nasal bleeding or discharge. Mucous membranes pink and moist. NECK: Trachea midline. No JVD. CARDIOVASCULAR: Regular rate and rhythm, sinus rhythm on the monitor. +rub left SBP. GASTROINTESTINAL: Abdomen soft, non-tender, nondistended. Bowel sounds present. : Guerrero in place with light yellow urine output. MUSCULOSKELETAL: Extremities without clubbing, cyanosis, or edema. IABP in place R groin. No hematoma. Palpable bilateral DP/WEB CONTENT DEVELOPER pulses. NEUROLOGICAL: Eyes open to voice. Follows commands by moving feet and squeezing hands bilaterally. No apparent focal deficit Laboratory Laboratory Tests Test 07/08/17 21:09 07/08/17 21:13 07/09/17 01:10 White Blood Count 23.5 Red Blood Count 4.79 Hemoglobin 14.9 Hematocrit 45.8 Mean Corpuscular Volume 95.6 Mean Corpuscular Hemoglobin 31.1 Mean Corpuscular Hemoglobin Concent 32.6 Red Cell Distribution Width 13.1 Platelet Count 442 Mean Platelet Volume 8.4 Neutrophils (%) (Auto) 66.1 Lymphocytes (%) (Auto) 26.5 Monocytes (%) (Auto) 5.3 Eosinophils (%) (Auto) 1.4 Basophils (%) (Auto) 0.7 Neutrophils # (Auto) 15.5 Lymphocytes # (Auto) 6.2 Monocytes # (Auto) 1.3 Eosinophils # (Auto) 0.3 Basophils # (Auto) 0.2 CBC Comment AUTO DIFF Differential Total Cells Counted 100 Neutrophils % (Manual) 65 Band Neutrophils % 9 Lymphocytes % 20 Monocytes % 4 Basophils % 2 Neutrophils # (Manual) 17.4 Differential Comment FINAL DIFF MANUAL Platelet Estimate NORMAL Platelet Morphology Comment NORMAL Red Cell Morphology Comment NORMAL Prothrombin Time 11.3 Prothromb Time International Ratio 1.0 Activated Partial Thromboplast Time 24.7 B-Type Natriuretic Peptide 2 Bedside Hemoglobin 15.3 Bedside Hematocrit 45.0 Bedside Sodium 141 Bedside Potassium 3.8 Bedside Chloride 113 Bedside Blood Urea Nitrogen 13 Bedside Creatinine 1.4 Bedside Glucose 141 Calcium Level 9.1 Magnesium Level 2.1 Total Creatine Kinase 50 Troponin I 0.02 Blood Gas Puncture Site LT RADIAL Blood Gas Patient Temperature 98.6 Blood Gas HCO3 18 Blood Gas Base Excess -7.2 Blood Gas Oxygen Saturation 97 Arterial Blood pH 7.33 Arterial Blood Partial Pressure CO2 34 Arterial Blood Partial Pressure O2 489 Arterial Blood Oxygen Content 20.8 Arterial Blood Carboxyhemoglobin 1.4 Arterial Blood Methemoglobin 1.3 Blood Gas Hemoglobin 14.3 Oxygen Delivery Device VENTILATOR Blood Gas Ventilator Setting PRVC16/550/1.0/+8 Blood Gas Inspired Oxygen 100 Result Diagram: 07/08/172108 Assessment and Plan Problem List: (1) Anxiety ICD Code: F41.9 - Anxiety disorder, unspecified Status: Chronic (2) Leukocytosis ICD Code: D72.829 - Elevated white blood cell count, unspecified Status: Acute (3) Status post insertion of drug-eluting stent into left anterior descending ( LAD) artery ICD Code: Z95.5 - Presence of coronary angioplasty implant and graft Status: Acute (4) Left main coronary artery disease ICD Code: I25.10 - Atherosclerotic heart disease of havasupai coronary artery without angina pectoris (5) GERRTUDE (acute kidney injury) ICD Code: N17.9 - Acute kidney failure, unspecified Status: Acute (6) Tobacco abuse ICD Code: Z72.0 - Tobacco use Status: Acute (7) Cardiogenic shock ICD Code: R57.0 - Cardiogenic shock Status: Acute (8) On intra-aortic balloon pump assist ICD Code: Z98.890 - Other specified postprocedural states Status: Acute (9) Hyperglycemia ICD Code: R73.9 - Hyperglycemia, unspecified Status: Acute (10) Respiratory failure ICD Code: J96.90 - Respiratory failure, unspecified, unspecified whether with hypoxia or hypercapnia Status: Acute (11) STEMI (ST elevation myocardial infarction) ICD Code: I21.3 - ST elevation (STEMI) myocardial infarction of unspecified site Status: Acute Assessment and Plan NEURO: Depression Anxiety She is alert and following commands. Fentanyl/Versed for sedation. Target RASS -2 Hold Paxil 10 mg daily, Xanax her 0.25 mg, baclofen 10 mg for now. Unknown frequency of baclofen dosing, will need to confirm. RESP: Acute respiratory failure Tobacco abuse Intubated 07/08 in the ED. Ventilator bundle PRVC tidal volume 500/rate 18/I time 1/PEEP 5/FiO2 60%. Wean FiO2 for sat greater than 92%. Obtained chest x-ray. DuoNeb every 6 hours. Albuterol every 2 hours as needed. CV: Anterolateral STEMI now status post drug-eluting stent to the LAD Multivessel coronary artery disease with 60% left main lesion. Cardiogenic shock She underwent drug-eluting stent to the LAD. (07/08, Dr. Alejandra Duncan) Has L main 60% stenosis and CVS is being consulted for possible bypass. IABP placed to augment coronary perfusion. LVEDP 30. IABP 1:1 with augmentation pressure 135, BP 103/82 Mean 107. Aspirin 81 daily. Brillinta 90 mg by mouth twice a day. On heparin drip with goal PTT 40-75. No beta jayce at this time as blood pressure has been low. Follow-up 2-D echo Cardio thoracic surgery consult Lipid panel pending. Atorvastatin 80 mg by mouth daily at bedtime. GI: Nothing by mouth. OGT tube to low intermittent wall suction. FEN/RENAL: Guerrero is in place and will need to remain due to cardiogenic shock and need to for close monitoring of urine output. Lasix 20 mg IVx1 KCL 25 MEQ x1. ICU electrolyte replacement protocol. ID: Leukocytosis likely secondary to myocardial infarction. Monitor for signs and symptoms of infection. HEME: Hemoglobin normal. On heparin drip, Brillinta ENDO: Acute hyperglycemia likely secondary to stress response. We'll check hemoglobin A1c. Monitor bedside glucose before meals at bedtime and initiate low-dose insulin sliding scale as indicated. PROPH: On heparin drip which will also for DVT prophylaxis. Famotidine 20 mg IV every 12 for stress ulcer prophylaxis. ACCESS: Right groin intra-aortic balloon pump 07/08/#1 Presented to laborer steel handling to assist with patient sedation. Patient critically ill in cardiogenic shock, restless and in need of additional sedation to facilitate cardiac cath and enable reperfusion. Discussed with Dr. Duncan. Updated patients daughter at bedside. Discussed with laborer steel handling RN and ICU bedside RN. CCT 60 minutes Problem Qualifiers (1) Respiratory failure: Qualified Codes: J96.00 - Acute respiratory failure, unspecified whether with hypoxia or hypercapnia (2) STEMI (ST elevation myocardial infarction): Qualified Codes: I21.02 - ST elevation (STEMI) myocardial infarction involving left anterior descending coronary artery Sheela Hagen MD Jul 09, 2017 02:14
[2017-07-09] MEDS ORDERED: POTASSIUM CHLORIDE 25 MEQ EFFERVESCENT TAB PO PRN (02:15)
[2017-07-09] MEDS ORDERED: MAGNESIUM SULFATE INJ 2 GM in SODIUM CHLORIDE 0.9% INJ 96 ML IV PRN (02:15)
[2017-07-09] MEDS ORDERED: MAGNESIUM SULFATE INJ 4 GM in SODIUM CHLORIDE 0.9% INJ 92 ML IV PRN (02:15)
[2017-07-09] MEDS ORDERED: POTASSIUM PHOSPHATE MONOBASIC 500 MG TAB PO PRN (02:15)
[2017-07-09] MEDS ORDERED: RESP: ALBUTEROL 2.5 MG/3 ML NEB (PRN) NEB (02:15)
[2017-07-09] MEDS ORDERED: DEXTROSE 50% IN WATER 50 ML VIAL(D50) IV PUSH PRN (02:15)
[2017-07-09] MEDS ORDERED: POTASSIUM CHLOR 40 MEQ PREMIX 100 ML IV PRN ×2 (02:15)
[2017-07-09] MEDS ORDERED: POTASSIUM CHLOR 20 MEQ PREMIX 100 ML IV PRN ×2 (02:15)
[2017-07-09] MEDS ORDERED: SODIUM PHOSPHATE INJ 30 MMOL in SODIUM CHLOR 0.9% 250 ML INJ 240 ML IV PRN (02:15)
[2017-07-09] MEDS ORDERED: POTASSIUM PHOSPHATE MONOBASIC 500 MG TAB PO/TUBE PRN (02:15)
[2017-07-09] MEDS ORDERED: GLUCAGON 1 MG/ML VIAL OTHER PRN (02:15)
[2017-07-09] MEDS ORDERED: MAGNESIUM OXIDE 400 MG TAB PO PRN (02:15)
[2017-07-09] MEDS ORDERED: POTASSIUM PHOSPHATE INJ 30 MMOL in SODIUM CHLOR 0.9% 250 ML INJ 250 ML IV PRN (02:15)
--- NOTE | 2017-07-09 02:44 | RADRPT ---
EXAM DATE/TIME: 07/09/2017 02:20 [place] COMPARISON: CHEST SINGLE AP, July 08, 2017, 21:20. INDICATIONS : Short of breath. MEDICAL HISTORY : None. SURGICAL HISTORY : None. ENCOUNTER: Subsequent ACUITY: 1 day PAIN SCORE: 0/10 LOCATION: Bilateral chest FINDINGS: There is an endotracheal tube in good position and nasogastric tube entering stomach. Resumed aortic balloon pump tip is projected over the transverse aorta. Minimal basilar dependent atelectasis. No pn eumothorax or significant effusion. Heart size upper limits normal. CONCLUSION: 1. Endotracheal tube and nasogastric tube in good position. Tip of aortic balloon pump overlies trans verse aorta. Minimal basilar atelectasis. John Jacobson MD on July 09, 2017 at 2:41 Board Certified Radiologist. This report was verified electronically.
[2017-07-09] MEDS ORDERED: FUROSEMIDE 20 MG/2 ML VIAL IV PUSH ONE (02:45)
[2017-07-09] MEDS ORDERED: POTASSIUM CHLORIDE 25 MEQ EFFERVESCENT TAB OG-TUBE ONE (02:45)
[2017-07-09] MEDS: fentaNYL DRIP 250 ML IV PRN ×2 (03:53→23:08)
[2017-07-09] MEDS: HEPARIN-D5W 25,000 U/250 ML 250 ML IV PRN ×2 (03:53→16:54)
[2017-07-09] MEDS: RESP: ALBUTEROL 2.5 MG/IPRATROPIUM 0.5 MG NEB (SCH) NEB ×4 (05:28→20:36)
[2017-07-09] MEDS ORDERED: AMIODARONE INJ 150 MG in DEXTROSE 5% IN WATER 100ML INJ 100 ML IV ONE ×2 (05:34)
[2017-07-09] MEDS ORDERED: HEPARIN SODIUM - IV 10,000 UNITS/10 ML VIAL IV PRN (06:00)
--- NOTE | 2017-07-09 06:04 | MH ---
cc: GUSTAVO RUEDA DO DATE OF ADMISSION: 07/08/2017 CHIEF COMPLAINT Chest pain, syncope. HISTORY OF CHIEF COMPLAINT Brittni Shaffer is a 47-year-old female who presented to [facility] unresponsive on July 08, 2017. Per the family, the patient was out working in the yard today. She had been complaining of having chest pain for the past two days or so. She decided that she would go take a bath tonight and after getting out of the bath she called for help from the family. They called and by the time EMS got there she was collapsed on the floor. She was brought to the emergency room and was unresponsive and so she was intubated. EKG in the field as well as in the emergency room showed extensive ST elevations in anterior lateral portion. The patient is unable to supply any history. The history is taken from the ER physician and the chart. I was called emergently to evaluate the patient due to the STEMI and shock state with a blood pressure of 80/40. PAST MEDICAL HISTORY 1. Arthritis. 2. Asthma. 3. Bipolar. 4. Anxiety. 5. Depression. 6. Previous suicidal attempts (2008, 2009) PAST SURGICAL HISTORY 1. Appendectomy. 2. . 3. Cholecystectomy. 4. Partial hysterectomy 5. Tonsillectomy. ALLERGIES No known drug allergies. MEDICATIONS 1. Baclofen 10 mg. 2. Hydrocodone/acetaminophen 5/300 every 4 hours as needed for pain. 3. Paxil 10 mg. 4. Xanax 0.25 mg. FAMILY HISTORY Unable to obtain. SOCIAL HISTORY The patient rarely drinks. She smokes 1-1/2 pack of cigarettes daily. REVIEW OF SYSTEMS 14-systems were reviewed including osteopathic pertinent positives and negatives above, otherwise negative. PHYSICAL EXAMINATION VITAL SIGNS: Heart rate 80, blood pressure 88/61, respirations 12, pulse ox 100%, intubated. IN GENERAL: The patient is currently sedated and mostly unresponsive. Pupils are equal and reactive. Mucous membranes moist. NECK: Supple. No JVD at 45 degrees. No carotid bruits heard bilaterally. Carotid upstroke is brisk in nature. HEART: Regular rate and rhythm. Positive first and second heart sounds with no murmurs, gallops or rubs. LUNGS: Decreased breath sounds at the bilateral bases with no overt wheezes, rales or rhonchi. ABDOMEN: Soft, non-tender, non-distended. No organomegaly noted. EXTREMITIES: No clubbing, cyanosis or edema. Femoral and distal pulses intact bilaterally. NEUROLOGICALLY: Unable to obtain secondary to current condition. OSTEOPATHICALLY: Unable to obtain due to current situation. LABORATORY FINDINGS White blood cells 23.5, hemoglobin 14.9, hematocrit 45.8, platelets 442. INR 1.0. Potassium 3.8, BUN 13, creatinine 1.4. Troponin 0.02. ELECTROCARDIOGRAM (July 08, 2017) Sinus rhythm, ST elevations anterior laterally consistent with an acute ST elevation myocardial infarction. IMPRESSIONS 1. Acute anterior lateral ST elevation myocardial infarction. 2. Collapse secondary to acute ST elevation myocardial infarction. 3. Cardiogenic shock. 4. History of anxiety and depression. RECOMMENDATIONS 1. Ms. Shaffer has been stabilized as best we can and she needs to go to the cardiac catheterization lab as emergently as possible. 2. Postprocedure we will check an echo to look at her overall left ventricular function, cardiac structure and possible valvopathies. 3. Risks, benefits and alternatives were explained to the family and they consented as such. Thank you for allowing me to see Brittni Shaffer. If there are any questions, please do not hesitate to call. Gustavo Rueda DO VGP/SSB /12:37 AM /5:52 AM NORI
--- NOTE | 2017-07-09 06:31 | MA ---
cc: GUSTAVO RUEDA DO DATE OF PROCEDURE July 08, 2017 PROCEDURE Left heart catheterization, coronary angiogram, Felton drug-eluting stent (3 x 18) to the proximal LAD, IVUS left main, intraaortic balloon pump placement. Complex case. PREPROCEDURE DIAGNOSES 1. Anterior lateral STEMI. 2. Cardiogenic shock. 3. Ventricular tachycardia status post cardioversion. POSTPROCEDURE DIAGNOSES 1. Anterior lateral stenting. 2. Cardiogenic shock. 3. Ventricular tachycardia status post cardioversion, Leobardo drug-eluting stent (3 x 18) to the proximal LAD, IVUS left main. 4. Intraaortic balloon pump placement. MEDICATIONS 1. Versed 5 mg. 2. Heparin 5300 units. 3. Fentanyl drip. 4. Adenosine 30 mcg intracoronary 5. Brilinta 180 mg. CONTRAST USED 200 cc. FLUOROSCOPY 25.2 minutes MODERATE SEDATION 90 minutes ESTIMATED BLOOD LOSS 40 cc PROCEDURAL SUMMARY Brittni Shaffer is a 47-year-old female who collapsed while at home. She was brought in by emergency personnel to the [facility] and on EKG she was found to have anterior lateral ST elevations. Because she was so lethargic it was felt better that she be intubated before going to the [employer]. I talked to the family extensively about risks, benefits and alternatives and they consented as such. She was brought to lab and prepped in the usual sterile fashion. During prepping of her, she went into ventricular tachycardia was treated with cardioversion with 200 joules. Of note, due to needing to stabilizing the patient, intubating the patient, talking with family, the door to balloon time was missed. The right femoral artery was accessed using a modified Seldinger technique and placement of a 6-Lao sheath. This was easily aspirated and flushed. A JR-4 was then advanced to the ascending aorta and across the aortic valve for measurement of left ventricular pressure. This was then pulled back across the aortic valve showing no significant gradient of aortic stenosis. The JR-4 was used for selective angiography of the right coronary artery system. An EBU 3.5 catheter was then attempted to use on the left coronary system but was unable to fully engage the left main due to the angle On the first shot with the EBU, there was concern for left main disease. Heparin was given as an additional anticoagulant. The EBU 3.5 guide catheter was exchanged out for a JL3 guide. This was noted to dampened upon placement into the left main. Because of this, a BMW wire was floated into the distal diagonal while the guide was unengaged. A Compliant balloon ( 2.5 x 10) was then inflated over the lesion. This was exchanged out for an Felton drug-eluting stent (3 x 18) which was used to cover the entire length of the lesion. A Non-Compliant balloon (3 x 15) was then used to post-dilate the stent. Post dilatation, there was noted to be sluggish to no reflow to the distal apical LAD. Because there was significant left main disease it was felt that this needed to be further evaluated. An IVUS catheter was then placed distal to my stent and pulled back while recording. The stent appears mildly under-deployed throughout the midportion. The left main ostium area was measured at 3.7 mm2, showing significant stenosis. A Non-Compliant balloon (3.5 x 12)) was then used to dilate throughout the midportion of the stent. Because of the slow flow distally, the patient was given 30 mcg of adenosine intracoronary. The wire was noted to be in the diagonal and so it was pulled back and placed down the LAD. The Compliant balloon (2.5 x 10) was then run down the distal part of the LAD for [place]. Overall, the no reflow appeared less in nature. It was not felt that this was able to be intervened on with a balloon and stent, so felt that I should place an IABP. At this time the LAD has been stented but she has known left main disease by IVUS. I felt that, because she was young and had stabilized hemodynamically with a blood pressure of 116/70, I felt it was reasonable for her to be evaluated by CT surgery for CABG. The guide catheter was exchanged for a JR-4 diagnostic catheter which was used to measure left ventricular pressures. A final angiogram of the right coronary artery was done due to possible EKG changes on our hemodynamic monitor. No change in the RCA was noted. At this time, because of the elevated LVEDP, slow flow in the distal LAD and presenting symptoms, it was felt that an intraaortic balloon pump should be placed. At this time all equipment except of the intraaortic balloon pump was removed. Augmented pressure from the balloon pump was 140. The patient left the cardiac catheterization lab stable but in a very guarded condition. She was given Brilinta 180 mg through her OG tube. FINDINGS Left main 60% ostial. IVUS left main area 3.7 mm2. LAD proximal 90% lesion, status post Leobardo drug-eluting stent (3 x 18). Distal portion of the LAD appears to taper down. It gives off two small diagonals with no significant disease. Left circumflex overall is a small vessel with mild luminal irregularities. It gives off two obtuse marginals with no significant disease. RCA: Normal-size vessel with 30% disease in the midportion. Otherwise dominant vessel by nature. LVEDP 38. IMPRESSIONS 1. Anterior lateral ST elevation myocardial infarction. 2. Syncope with collapse secondary to #1. 3. Cardiogenic shock. 4. Ventricular tachycardia, status post cardioversion. 5. Leobardo drug-eluting stent (3 x 18) to LAD with residual left main disease. RECOMMENDATIONS 1. Ms. Anthony will be watched in the intensive care unit for now. 2. She will be placed on aspirin and Brilinta and this should continue for least one year. 3. We will hold off on beta jayce therapy at this time as she is somewhat recovering from cardiogenic shock at this time. 4. We will add statin therapy. 5. We will check a 2-D echo to look at her overall left ventricular function, cardiac structure and possible valvopathies. 6. As far as her intraaortic balloon pump goes, for now the plan will be to wean it tomorrow and removed if possible. 7. We will have Cardiothoracic Surgery see her while here for consideration of possible bypass due to left main disease. Thank you for allowing me to see Brittni Shaffer. If there area any questions, please do not hesitate to call. Gustavo Rueda DO VGP/SSB /12:48 AM /6:12 AM MTDSelvin
[2017-07-09 07:11] LABS: AUTOMATED NEUTROPHIL # 14.4 TH/MM3 (1.8-7.7); BASOPHIL # 0.1 TH/MM3 (0-0.2); BASOPHIL % 0.5 % (0.0-2.0); EOSINOPHIL % 0.1 % (0.0-4.0); HEMATOCRIT 43.1 % (35.0-46.0); HEMO FLAGS DIFF FINAL; LYMPH % 12.7 % (9.0-44.0); LYMPHOCYTE # 2.3 TH/MM3 (1.0-4.8); MEAN CELL VOLUME 95.2 FL (80.0-100.0); MEAN CORPUSCULAR HEMOGLOBIN 31.3 PG (27.0-34.0); MEAN CORPUSCULAR HGB CONC 32.9 % (32.0-36.0); MONO % 5.3 % (0.0-8.0); NEUT % 81.4 % (16.0-70.0); PLATELET COUNT 307 TH/MM3 (150-450); RED BLOOD COUNT 4.53 MIL/MM3 (4.00-5.30); RED CELL DISTRIBUTION WIDTH 13.3 % (11.6-17.2); WHITE BLOOD COUNT 17.7 TH/MM3 (4.0-11.0)
[2017-07-09] MEDS: AMIODARONE INJ 450 MG in DEXTROSE 5% IN WATE(EXCEL) INJ 241 ML IV SCH ×6 (07:16→19:00)
[2017-07-09 07:26] LABS: APTT (PATIENT) 40.8 SEC (24.3-30.1)
[2017-07-09 07:32] LABS: ANION GAP 11 MEQ/L (5-15); BICARBONATE 21.2 MEQ/L (21.0-32.0); BLOOD UREA NITROGEN 13 MG/DL (7-18); CHLORIDE 108 MEQ/L (98-107); GLOMERULAR FILTRATION RATE 73 ML/MIN (>89); POTASSIUM 4.1 MEQ/L (3.5-5.1); SODIUM (NA) 140 MEQ/L (136-145)
[2017-07-09 07:35] LABS: HDL CHOLESTEROL 38.9 MG/DL (40.0-60.0); LDL CHOLESTEROL 77 MG/DL (0-99)
[2017-07-09] MEDS: INSULIN ASPART SUPPLEMENTAL SCALE SQ SCH ×4 (08:00→21:00)
[2017-07-09] MEDS: ASPIRIN 81 MG CHEW TAB PO SCH (09:00)
[2017-07-09] MEDS ORDERED: TICAGRELOR 90 MG TAB PO SCH (09:00)
[2017-07-09] MEDS: CHLORHEXIDINE 0.12% (ORAL KIT) 15 ML CUP MT SCH ×2 (09:42→22:17)
[2017-07-09 10:42] LABS: BACTERIA, URINE FEW /hpf; BLOOD, URINE TRACE (NEG); GLUCOSE,URINE NEG (NEG); KETONE, URINE NEG (NEG); MUCUS URINE FEW /lpf (OCC); NITRITE,URINE NEG (NEG); PH, URINE 5.5 (5.0-8.5); URINE COLOR YELLOW (YELLW/STRAW)
[2017-07-09 10:45] LABS: COMMENT (UR) CATH-CULTURE IND; CULTURE IF INDICATED CATH CULTURE IND
[2017-07-09] MEDS: MIDAZOLAM 100 MG/100 ML INJ 100 ML IV PRN (11:23)
[2017-07-09] MEDS ORDERED: CHLORHEXIDINE GLUCONATE 4% SOLN 120 ML BTL TOPICAL SCH (12:00)
[2017-07-09] MEDS ORDERED: SODIUM CHLORIDE 0.9% FLUSH 10 ML FLUSH IV FLUSH PRN (12:00)
[2017-07-09] MEDS ORDERED: PAPAVERINE INJ 60 MG, NITROGLYCERIN INJ 100 MCG, DILTIAZEM INJ 100 MG in SODIUM CHLORID... IRRIGATION SCH (12:00)
[2017-07-09] MEDS ORDERED: INSULIN REGULAR (IV INFUSION) 100 UNITS in SODIUM CHLORIDE 0.9% INJ 100 ML IV SCH (12:00)
[2017-07-09] MEDS ORDERED: ceFAZolin 2 GM PREMIX 50 ML IV SCH (12:00)
[2017-07-09] MEDS ORDERED: CEFAZOLIN INJ 500 MG in SODIUM CHLORIDE 0.9% IRR BTL 500 ML IRRIGATION SCH (12:00)
[2017-07-09] MEDS ORDERED: METOPROLOL TARTRATE 25 MG TAB PO SCH (12:00)
--- NOTE | 2017-07-09 12:40 | MB ---
cc: MADYSON PRYOR MD DATE OF CONSULTATION 07/09/2017 DATE OF 1970 HISTORY OF PRESENT ILLNESS A 47-year-old female who apparently he was found by her family. She was working out in the yard yesterday and, this is per the emergency department notes. She had been complaining of chest pain for the past day or so, decided she would take a bath last evening. After she got out of that she called for help. They called and by the time the EMS got there she was collapsed on the floor. She was brought into the emergency room initially unresponsive. The pulse was not palpable. She received some compressions. She was found to have an ST-segment NM, immediately went to the oil field laborer, was also emergently intubated in the emergency department. Her EKG showed extensive anterior lateral ST-segment NM. The patient was also in cardiogenic shock. She also had some V-tach which required cardioversion. The patient had an [place] drug eluting stent to the proximal LAD and also placement of an intraaortic balloon pump for left main disease. The cardiac cath showed left main disease 60% ostial, the LAD had a proximal 90% lesion post drug-eluting stent, the left circ was a small vessel with mild luminal irregularities. The RCA had 30% in the midportion. Echocardiogram is pending to evaluate for ventricular function. We were consulted to evaluate for coronary artery bypass grafting to the LAD and the circ. PAST MEDICAL HISTORY Per notes showed - 1. Arthritis. 2. Asthma. 3. Bipolar disorder. 4. Anxiety, depression. 5. She has had two prior suicidal attempts in 2008 and 2009. 6. Endometriosis. PAST SURGICAL HISTORY 1. Appendectomy. 2. . 3. Cholecystectomy. 4. Partial hysterectomy. 5. Tonsillectomy. 6. Tight salpingo-oophorectomy secondary to ectopic . ALLERGIES No known allergies. HOME MEDICATIONS 1. Baclofen. 2. Lortab p.r.n. 3. Paxil. 4. Xanax. FAMILY HISTORY Significant for sister in her 30s or 40s with an NM. Brother had an NM in his 20s. SOCIAL HISTORY Patient is . Smokes 1-1/2 packs per day since the age of 14. REVIEW OF SYSTEMS Unobtainable. PHYSICAL EXAMINATION VITAL SIGNS: On exam blood pressure is 102/70, heart rate 98-100. The patient is afebrile. GENERAL: She is orally intubated, sedated on Versed and Fentanyl. Senile she will open her eyes. She will follow simple commands. However, during the evening she was somewhat combative. At this time now she does open her eyes. She will nod yes or no appropriately, move all extremities. HEENT: The patient's pupils are approximately 2-3 mm, midline reactive. She is orally intubated. Oral mucosa pink, moist. NECK: Supple. No JVD. HEART: Heart sounds S1-S2, regular rate and rhythm. No audible rubs, murmurs, gallops. LUNGS: Diminished in the bases, otherwise clear to auscultation. ABDOMEN: Slightly distended with hypoactive bowel sounds. OG tube is in place to low intermittent suction. EXTREMITIES: No cyanosis, clubbing or edema. She does have good distal pulses. The intraaortic balloon pump is one-to-one with good augmentation. LABORATORY FINDINGS Hemoglobin 14, hematocrit of 43, white cell count of 17 down from 23, platelet count of 307. Sodium 140, potassium 4.1, BUN 13, creatinine 0.84. Troponin as high as 40. Triglycerides 289, cholesterol 134, HDL of 38. CURRENT MEDICATIONS The patient is currently on - 1. Heparin drip. 2. Amiodarone. 3. Lasix. 4. Proton pump inhibitor. CHEST X-RAY ET tube in proper position. The IAB PE at the third intercostal space left sternal border. IMPRESSION This is a unfortunate 47-year-old female with extensive ST-segment NM to the anterior lateral wall with reciprocal changes in her inferior leads, status post emergent drug eluting stent to the proximal LAD, left main with 60% ostial stenosis. The cardiac films will be reviewed by Dr. Madyson Pryor in evaluation for coronary artery bypass grafting. We will await her 2-D echo to continue with her STS data and risk mortality. We will need to discuss this with her family since she will be unable to consent at this time. Hopefully the patient can be weaned, then extubated and then further well discussed with the patient regarding surgery. The procedures, alternatives and risks will be discussed then with the patient and then the family. Dictated by: FRIDA Perez Madyson BURTON/SSB /11:38 AM /12:36 PM
--- NOTE | 2017-07-09 13:22 | RADRPT ---
EXAM DATE/TIME: 07/09/2017 12:31 [facility] COMPARISON: No previous studies available for comparison. INDICATIONS : Pre-op cardiac surgery. MEDICAL HISTORY : Arthritis. Schizophrenia. Bipolar disorder. SURGICAL HISTORY : Tonsillectomy.Appendectomy. Cholecystectomy. section. Tubal ligation. Hysterectomy. Dilation and curettage. ENCOUNTER: Initial ACUITY: 1 day PAIN SCORE: Non-responsive LOCATION: Bilateral legs. TECHNIQUE: Venous ultrasound of the left and right leg was performed from the inguinal ligament to the proximal calf. Real-time, color Doppler and spectral tracing, compression and augmentation techniques were us ed. FINDINGS: RIGHT LEG: There is normal compressibility of the deep venous system from the inguinal region to the proximal ca lf. No echogenic clot is seen in the lumen of the femoral, popliteal, and posterior tibial veins. T here is a normal response of the venous system to proximal and distal augmentation and respiration. Common femoral is not visualized secondary to the patient's ventricular assist device obscuring evalu ation of this region. LEFT LEG: There is normal compressibility of the deep venous system from the inguinal region to the proximal ca lf. No echogenic clot is seen in the lumen of the common femoral, femoral, popliteal, and posterior tibial veins. There is a normal response of the venous system to proximal and distal augmentation an d respiration. CONCLUSION: Normal examination. Kade Tsang MD on July 09, 2017 at 13:20 Board Certified Radiologist. This report was verified electronically.
[2017-07-09] MEDS: LEVOFLOXACIN 500 MG PREMIX INJ 100 ML IV SCH (14:06)
[2017-07-09] MEDS: FAMOTIDINE 20 MG/2 ML VIAL IV PUSH SCH (14:07)
[2017-07-09 14:08] LABS: APTT (PATIENT) 30.6 SEC (24.3-30.1)
--- NOTE | 2017-07-09 14:17 | EKG ---
Date Performed: 07/09/2017 Time Performed: 06:07:00 PTAGE: 47 years EKG: CONSIDER ACUTE ST ELEVATION [place] Sinus rhythm Lateral ST elevation, CONSIDER ACUTE INFARCT Compared to prior tracing no significant change Abnorma l ECG PREVIOUS TRACING : 07/08/2017 21.07 DOCTOR: Baldev Anderson Interpretating Date/Time 07/09/2017 14:16:07
[2017-07-09 14:27] LABS: HEMOGLOBIN A1b 1.9 %; HEMOGLOBIN Ao 85.3 %; HEMOGLOBIN LA1C 2.3 %; HEMOGLOBIN P3 3.8 %
[2017-07-09] MEDS: HEPARIN SODIUM - IV 10,000 UNITS/10 ML VIAL IV PRN ×2 (14:27→23:56)
--- NOTE | 2017-07-09 14:27 | RADRPT ---
EXAM DATE/TIME: 07/09/2017 12:38 [facility] COMPARISON: US LEG BILATERAL VENOUS DOPPLER, July 09, 2017, 12:31. INDICATIONS : Pre-op cardiac surgery. MEDICAL HISTORY : Arthritis. Schizophrenia. Bipolar disorder. SURGICAL HISTORY : Tonsillectomy. Appendectomy. Cholecystectomy. section. Tubal ligation. Hysterectomy. Dilatio n and curettage. ENCOUNTER: Initial ACUITY: 1 day PAIN SCORE: Non-responsive LOCATION: Bilateral legs. GREATER SAPHENOUS VEIN THIGH: PROXIMAL: Right 4 mm Left 5 mm MID: Right 4 mm Left 4 mm DISTAL: Right 3 mm Left 4 mm CALF: PROXIMAL: Right Non-visualized Left 4 mm MID: Right Non-visualized Left 3 mm DISTAL: Right Non-visualized Left 3 mm FINDINGS: The venous system of the lower extremities are patent by color Doppler imaging. Measurements of the leg veins (in mm) are listed above. CONCLUSION: 1. Vein mapping as above. Enrrique Molina MD on July 09, 2017 at 14:24 Board Certified Radiologist. This report was verified electronically.
--- NOTE | 2017-07-09 14:28 | RADRPT ---
EXAM DATE/TIME: 07/09/2017 12:18 [facility] COMPARISON: No previous studies available for comparison. INDICATIONS : Pre-op cardiac surgery. MEDICAL HISTORY : Arthritis. Schizophrenia. Bipolar disorder. SURGICAL HISTORY : Tonsillectomy. Appendectomy. Cholecystectomy. section. Tubal ligation. Hysterectomy. Dilatio n and curettage. ENCOUNTER: Initial ACUITY: 1 day PAIN SCORE: Nonresponsive. LOCATION: Bilateral neck PEAK SYSTOLIC VELOCITIES (cm/sec): ICA/CCA RATIO: Right: 1.3 Left: 0.9 ICA: Right: 105 Left: 76 CCA: Right: 84 Left: 83 ECA: Right: 121 Left: 57 VERTEBRAL: Right: 59 antegrade Left: 50 antegrade Elevated flow velocities and ICA/CCA ratios have been found to correlate with increased degrees of vessel stenosis, calculated as percentage of diameter relative to a normal segment of distal ICA/CCA FINDINGS: RIGHT CAROTID: No significant stenosis is visualized. The waveforms are within normal limits. LEFT CAROTID: No significant stenosis is visualized. The waveforms are within normal limits. VERTEBRAL ARTERIES: Antegrade flow is seen in both vertebral arteries. MISCELLANEOUS: None. CONCLUSION: 1. No hemodynamically significant carotid artery stenosis identified. 2. Both vertebral arteries are patent. Enrrique Molina MD on July 09, 2017 at 14:25 Board Certified Radiologist. This report was verified electronically.
[2017-07-09 14:31] LABS: ALT (GPT) 119 U/L (10-53); AST (GOT) 410 U/L (15-37)
[2017-07-09 14:34] LABS: ALKALINE PHOSPHATASE 112 U/L (45-117); INDIRECT BILIRUBIN 0.7 MG/DL (0.0-0.8); TOTAL BILIRUBIN ADULT 0.9 MG/DL (0.2-1.0)
--- NOTE | 2017-07-09 15:17 | EKG ---
Date Performed: 07/08/2017 Time Performed: 21:07:07 PTAGE: 47 years EKG: JUNCTIONAL RHYTHM MARKED ST ELEVATION, CONSIDER ANTEROLATERAL INJURY ACUTE ID PREVIOUS TRACING : 08/23/2010 19.54 Acute anterolateral myocardial infarction. Clinical c orrelation strongly recommended. New since prior tracing. DOCTOR: Baldev Anderson Interpretating Date/Time 07/09/2017 15:17:03
--- NOTE | 2017-07-09 15:17 | ECHRPT ---
Indication: STEMI CONCLUSIONS Normal left ventricular size. Wall thickness is normal. The left ventricular systolic function is moderately reduced with an estimated ejection fraction of 40%. There is mild global hypokinesis with distal anteroseptal wall motion abnormality. BP: 106 / 86 HR: 95 Rhythm: Sinus MEASUREMENTS (Male / Female) Normal Values Technical Quality:Fair 2D ECHO LV Diastolic Diameter PLAX 5.3 cm 4.2 - 5.9 / 3.9 - 5.3 cm LV Systolic Diameter PLAX 4.7 cm IVS Diastolic Thickness 0.8 cm 0.6 - 1.0 / 0.6 - 0.9 cm LVPW Diastolic Thickness 0.6 cm 0.6 - 1.0 / 0.6 - 0.9 cm LV Relative Wall Thickness 0.3 LVOT Diameter 1.9 cm Aortic Root Diameter 3.0 cm LA Systolic Diameter LX 3.3 cm 3.0 - 4.0 / 2.7 - 3.8 cm M-MODE AV Cusp Separation MM 2.0 cm DOPPLER AV Peak Velocity 130.0 cm/s AV Peak Gradient 6.8 mmHg AV Mean Gradient 3.0 mmHg AV Velocity Time Integral 16.0 cm LVOT Peak Velocity 71.4 cm/s LVOT Peak Gradient 2.0 mmHg LVOT Velocity Time Integral 9.7 cm LVOT Cardiac Index 1355.9 cm/minm AV Area Cont Eq vti 1.7 cm AV Area Cont Eq pk 1.6 cm Mitral E Point Velocity 77.5 cm/s Mitral A Point Velocity 66.1 cm/s Mitral E to A Ratio 1.2 LV E' Lateral Velocity 3.5 cm/s Mitral E to LV E' Lateral Ratio 22.1 LV E' Septal Velocity 6.5 cm/s Mitral E to LV E' Septal Ratio 11.9 TR Peak Velocity 256.0 cm/s TR Peak Gradient 26.2 mmHg Right Atrial Pressure 10.0 mmHg Pulmonary Artery Systolic Pressu 36.2 mmHg Right Ventricular Systolic Press 36.2 mmHg PV Peak Velocity 54.9 cm/s PV Peak Gradient 1.2 mmHg FINDINGS LEFT VENTRICLE Normal left ventricular size. Wall thickness is normal. The left ventricular systolic function is moderately reduced with an estimated ejection fraction of 40%. RIGHT VENTRICLE Normal right ventricular size and systolic function. LEFT ATRIUM The left atrial size is mildly dilated. RIGHT ATRIUM The right atrial size is mildly dilated. ATRIAL SEPTUM No atrial level shunt is demonstrated by color flow Doppler interrogation. AORTA The aortic root and proximal ascending aorta are normal in size on limited imaging. MITRAL VALVE Structurally normal mitral valve. Trace mitral valve regurgitation. AORTIC VALVE Trileaflet aortic valve. No aortic valve stenosis or regurgitation. TRICUSPID VALVE Structurally normal tricuspid valve. There is trace tricuspid valve regurgitation. Normal estimated pulmonary pressures. PULMONARY VALVE No pulmonary valve regurgitation or stenosis. VESSELS The inferior vena cava (IVC) is normal in size. There is less than 50% respiratory change in dimension of the inferior vena cava (abnormal). PERICARDIUM No pericardial effusion. Ama Machuca MD, FACC (Electronically Signed) Final Date:09 July 2017 15:15
--- NOTE | 2017-07-09 15:23 | EKG ---
Date Performed: 07/09/2017 Time Performed: 01:59:28 PTAGE: 47 years EKG: CONSIDER ACUTE ST ELEVATION [place] Sinus tachycardia Lateral ST elevation, CONSIDER ACU TE INFARCT Abnormal ECG PREVIOUS TRACING 07/08/2017 21.07 Significant improvement of injury pattern, but with mild per sistent ST elevation in the anterolateral leads. DOCTOR: Baldev Anderson Interpretating Date/Time 07/09/2017 15:21:39
[2017-07-09] MEDS ORDERED: TIROFIBAN BOLUS IV ONE (16:30)
[2017-07-09 16:34] LABS: HEMOGLOBIN A1a 1.1 %; HEMOGLOBIN A1b 1.9 %; HEMOGLOBIN Ao 85.3 %; HEMOGLOBIN LA1C 2.1 %; HEMOGLOBIN P3 3.8 %
[2017-07-09] MEDS: TIROFIBAN INFUSION INJ 250 ML IV SCH (17:08)
--- NOTE | 2017-07-09 17:23 | PD.CARD.PN ---
Subjective Subjective Remarks Stable overnight Minimal short runs of VT noted with some ectopy IABP at 1:1 Objective Medications Current Medications Medications (Trade) Dose Ordered Sig/Latisha Route Start Time Stop Time Status Last Admin (NS Flush) 2 ml UNSCH PRN IVF 07/08/17 21:15 Norepinephrine Bitartrate 250 ml @ 7.5 mls/hr TITRATE PRN IV 07/08/17 21:45 (Brethine Inj) 1 mg UNSCH PRN SQ 07/08/17 21:45 Midazolam HCl 100 ml @ 2 mls/hr TITRATE PRN IV 07/08/17 22:15 07/09/17 11:23 (Aspirin Chew) 81 mg DAILY PO 07/09/17 09:00 (Brilinta) 90 mg BID PO 07/09/17 09:00 Future Hold (Lipitor) 80 mg HS PO 07/09/17 21:00 (Heparin Inj) 5,000 units UNSCH PRN IV 07/09/17 06:00 (Heparin Inj) 2,500 units UNSCH PRN IV 07/09/17 06:00 07/09/17 14:27 Heparin Sodium/ Dextrose 250 ml @ 9.6 mls/hr TITRATE PRN IV 07/09/17 00:00 07/09/17 16:54 (Duoneb Neb) 1 ampule Q6HR NEB NEB 07/09/17 04:00 07/09/17 16:42 (Albuterol Neb) 2.5 mg Q2HR NEB PRN NEB 07/09/17 02:15 (Peridex 0.12% Liq) 15 ml BID@08,20 MT 07/09/17 08:00 07/09/17 09:42 Fentanyl Citrate 250 ml @ 5 mls/hr TITRATE PRN IV 07/09/17 02:15 07/09/17 03:53 (D50w (Vial) Inj) 50 ml UNSCH PRN IV PUSH 07/09/17 02:15 (Glucagon Inj) 1 mg UNSCH PRN OTHER 07/09/17 02:15 (NovoLOG SUPPLEMENTAL SCALE) 1 ACHS SLIDING SCALE SQ 07/09/17 08:00 Potassium Chloride 100 ml @ 50 mls/hr Q2H PRN IV 07/09/17 02:15 Potassium Chloride 100 ml @ 50 mls/hr Q2H PRN IV 07/09/17 02:15 (K-Lyte Cl Eff) 50 meq UNSCH PRN PO 07/09/17 02:15 Potassium Chloride 100 ml @ 25 mls/hr UNSCH PRN IV 07/09/17 02:15 Potassium Chloride 100 ml @ 50 mls/hr Q2H PRN IV 07/09/17 02:15 Magnesium Sulfate 4 gm/Sodium Chloride 100 ml @ 50 mls/hr UNSCH PRN IV 07/09/17 02:15 (Mag-Ox) 800 mg UNSCH PRN PO 07/09/17 02:15 Magnesium Sulfate 2 gm/Sodium Chloride 100 ml @ 50 mls/hr UNSCH PRN IV 07/09/17 02:15 (K-Phos) 2,000 mg Q4H PRN PO 07/09/17 02:15 Sodium Phosphate 30 mmol/Sodium Chloride 250 ml @ 42 mls/hr UNSCH PRN IV 07/09/17 02:15 (K-Phos) 2,000 mg UNSCH PRN PO/TUBE 07/09/17 02:15 Potassium Phosphate 30 mmol/ Sodium Chloride 260 ml @ 42 mls/hr UNSCH PRN IV 07/09/17 02:15 Amiodarone HCl 450 mg/Dextrose 250 ml @ 33 mls/hr Q7H35M IV 07/09/17 05:44 07/09/17 13:31 (NS Flush) 2 ml BID IV FLUSH 07/09/17 21:00 (NS Flush) 2 ml UNSCH PRN IV FLUSH 07/09/17 12:00 Papaverine HCl 60 mg/Nitroglycerin 100 mcg/Diltiazem HCl 100 mg/Sodium Chloride 100 ml @ 0 mls/hr LEGAL RESEARCHER IRRIGATION 07/09/17 12:00 07/16/17 11:59 Cefazolin Sodium 500 mg/Sodium Chloride 505 ml @ 0 mls/hr LEGAL RESEARCHER IRRIGATION 07/09/17 12:00 07/16/17 11:59 Cefazolin Sodium/ Dextrose 50 ml @ 100 mls/hr LEGAL RESEARCHER IV 07/09/17 12:00 07/16/17 11:59 (Lopressor) 12.5 mg LEGAL RESEARCHER PO 07/09/17 12:00 07/16/17 11:59 (Hibiclens 4% Top Soln) 1 applic LEGAL RESEARCHER TOPICAL 07/09/17 12:00 07/16/17 11:59 Insulin Human Regular 100 units/ Sodium Chloride 101 ml @ 0 mls/hr LEGAL RESEARCHER IV 07/09/17 12:00 07/16/17 11:59 (Pepcid Inj) 20 mg Q12H IV PUSH 07/09/17 14:00 07/09/17 14:07 Levofloxacin/ Dextrose 100 ml @ 100 mls/hr Q24H IV 07/09/17 14:00 07/09/17 14:06 Tirofiban/Sodium Chloride 250 ml @ 14.814 mls/ hr [id number] IV 07/09/17 16:24 07/09/17 17:08 Vital Signs / I&O Vital Signs Date Time Temp Pulse Resp B/P (MAP) Pulse Ox O2 Delivery O2 Flow Rate FiO2 07/09/17 16:42 98 40 07/09/17 16:00 111/88 07/09/17 15:00 105 07/09/17 15:00 110/86 07/09/17 15:00 40 07/09/17 15:00 100.3 106 23 144/87 (106) 96 07/09/17 14:00 110/84 07/09/17 13:31 103 140/94 07/09/17 13:00 111/85 07/09/17 12:00 109/84 07/09/17 11:28 98 40 07/09/17 11:00 40 07/09/17 11:00 99.6 97 26 127/93 (104) 98 07/09/17 11:00 104/81 07/09/17 11:00 97 07/09/17 10:00 107/82 07/09/17 09:00 108/82 07/09/17 08:00 102/79 07/09/17 07:16 100 135/94 07/09/17 07:00 97 07/09/17 07:00 98.6 98 28 125/88 (100) 98 07/09/17 07:00 40 07/09/17 07:00 104/82 07/09/17 06:22 95 106/83 07/09/17 06:00 109/62 07/09/17 05:00 99/88 07/09/17 04:11 99 50 07/09/17 04:00 102/83 07/09/17 03:00 97 07/09/17 03:00 102/81 (108) 07/09/17 03:00 98.6 100 22 101/81 (88) 98 07/09/17 03:00 50 07/09/17 02:00 105/82 (108) 07/09/17 00:00 98.3 101 24 104/84 (91) 98 07/09/17 00:00 101 07/09/17 00:00 102/81 (108) 07/08/17 23:50 100 100 07/08/17 22:12 100 Bag Valve 15.00 07/08/17 21:35 71 12 100/64 (76) 100 15.00 07/08/17 21:30 100 100 07/08/17 21:25 80 12 88/61 (70) 100 15.00 07/08/17 21:20 87 12 94/51 (65) 100 07/08/17 21:13 98.8 82 12 136/72 (93) 100 15.00 I/O 07/08/17 07/08/17 07/08/17 07/09/17 07/09/17 07/09/17 07:00 15:00 23:00 07:00 15:00 23:00 Intake Total 218 ml Output Total 2200 ml Balance -1982 ml Intake IV Total 218 ml Output Urine Total 1800 ml Gastric Drainage Total 400 ml Physical Exam GENERAL: Sedated and intubated SKIN: Warm and dry. HEAD: Atraumatic. Normocephalic. EYES: Pupils equal and round. No scleral icterus. No injection or drainage. ENT: No nasal bleeding or discharge. Mucous membranes pink and moist. NECK: Trachea midline. No JVD. CARDIOVASCULAR: Tachycardic, no murmurs noted RESPIRATORY: No accessory muscle use. Decreased breath sounds bilaterally GASTROINTESTINAL: Abdomen soft, non-tender, nondistended. Hepatic and splenic margins not palpable. MUSCULOSKELETAL: Extremities without clubbing, cyanosis, or edema. No obvious deformities. Bilateral distal pulses intact, palpable NEUROLOGICAL: Sedated on the vent, does wake and follow commands Laboratory Laboratory Tests Test 07/08/17 21:09 07/08/17 21:13 07/09/17 01:10 07/09/17 06:43 White Blood Count 23.5 TH/MM3 17.7 TH/MM3 Red Blood Count 4.79 MIL/MM3 4.53 MIL/MM3 Hemoglobin 14.9 GM/DL 14.2 GM/DL Hematocrit 45.8 % 43.1 % Mean Corpuscular Volume 95.6 FL 95.2 FL Mean Corpuscular Hemoglobin 31.1 PG 31.3 PG Mean Corpuscular Hemoglobin Concent 32.6 % 32.9 % Red Cell Distribution Width 13.1 % 13.3 % Platelet Count 442 TH/MM3 307 TH/MM3 Mean Platelet Volume 8.4 FL 7.9 FL Neutrophils (%) (Auto) 66.1 % 81.4 % Lymphocytes (%) (Auto) 26.5 % 12.7 % Monocytes (%) (Auto) 5.3 % 5.3 % Eosinophils (%) (Auto) 1.4 % 0.1 % Basophils (%) (Auto) 0.7 % 0.5 % Neutrophils # (Auto) 15.5 TH/MM3 14.4 TH/MM3 Lymphocytes # (Auto) 6.2 TH/MM3 2.3 TH/MM3 Monocytes # (Auto) 1.3 TH/MM3 0.9 TH/MM3 Eosinophils # (Auto) 0.3 TH/MM3 0.0 TH/MM3 Basophils # (Auto) 0.2 TH/MM3 0.1 TH/MM3 CBC Comment AUTO DIFF DIFF FINAL Differential Total Cells Counted 100 Neutrophils % (Manual) 65 % Band Neutrophils % 9 % Lymphocytes % 20 % Monocytes % 4 % Basophils % 2 % Neutrophils # (Manual) 17.4 TH/MM3 Differential Comment FINAL DIFF MANUAL Platelet Estimate NORMAL Platelet Morphology Comment NORMAL Red Cell Morphology Comment NORMAL Prothrombin Time 11.3 SEC Prothromb Time International Ratio 1.0 RATIO Activated Partial Thromboplast Time 24.7 SEC 40.8 SEC B-Type Natriuretic Peptide 2 PG/ML Bedside Hemoglobin 15.3 G/DL Bedside Hematocrit 45.0 % Bedside Sodium 141 MMOL/L Bedside Potassium 3.8 MMOL/L Bedside Chloride 113 MMOL/L Bedside Blood Urea Nitrogen 13 MG/DL Bedside Creatinine 1.4 MG/DL Bedside Glucose 141 MG/DL Calcium Level 9.1 MG/DL 8.9 MG/DL Magnesium Level 2.1 MG/DL Total Creatine Kinase 50 U/L Troponin I 0.02 NG/ML GREATER THAN 40.00 NG/ML Blood Gas Puncture Site LT RADIAL Blood Gas Patient Temperature 98.6 Blood Gas HCO3 18 mmol/L Blood Gas Base Excess -7.2 mmol/L Blood Gas Oxygen Saturation 97 % Arterial Blood pH 7.33 Arterial Blood Partial Pressure CO2 34 mmHg Arterial Blood Partial Pressure O2 489 mmHg Arterial Blood Oxygen Content 20.8 Vol % Arterial Blood Carboxyhemoglobin 1.4 % Arterial Blood Methemoglobin 1.3 % Blood Gas Hemoglobin 14.3 G/DL Oxygen Delivery Device VENTILATOR Blood Gas Ventilator Setting PRVC16/550/1.0/+8 Blood Gas Inspired Oxygen 100 % Blood Urea Nitrogen 13 MG/DL Creatinine 0.84 MG/DL Random Glucose 123 MG/DL Sodium Level 140 MEQ/L Potassium Level 4.1 MEQ/L Chloride Level 108 MEQ/L Carbon Dioxide Level 21.2 MEQ/L Anion Gap 11 MEQ/L Estimat Glomerular Filtration Rate 73 ML/MIN Triglycerides Level 289 MG/DL Cholesterol Level 174 MG/DL LDL Cholesterol 77 MG/DL HDL Cholesterol 38.9 MG/DL Cholesterol/HDL Ratio 4.47 RATIO Test 07/09/17 09:45 07/09/17 13:30 Urine Color YELLOW Urine Turbidity CLOUDY Urine pH 5.5 Urine Specific [place] 1.030 Urine Protein TRACE mg/dL Urine Glucose (UA) NEG mg/dL Urine Ketones NEG mg/dL Urine Occult Blood TRACE Urine Nitrite NEG Urine Bilirubin NEG Urine Urobilinogen LESS THAN 2.0 MG/DL Urine Leukocyte Esterase SMALL Urine RBC /hpf Urine WBC 13 /hpf Urine WBC Clumps OCC Urine Amorphous Sediment MANY Urine Bacteria FEW /hpf Urine Mucus FEW /lpf Microscopic Urinalysis Comment CATH-CULTURE IND Activated Partial Thromboplast Time 30.6 SEC Hemoglobin A1c 5.3 % Total Bilirubin 0.9 MG/DL Direct Bilirubin 0.2 MG/DL Indirect Bilirubin 0.7 MG/DL Aspartate Amino Transf (AST/SGOT) 410 U/L Alanine Aminotransferase (ALT/SGPT) 119 U/L Alkaline Phosphatase 112 U/L Troponin I GREATER THAN 40.00 NG/ML Total Protein 7.3 GM/DL Albumin 3.5 GM/DL Assessment and Plan Problem List: (1) STEMI (ST elevation myocardial infarction) ICD Codes: I21.3 - ST elevation (STEMI) myocardial infarction of unspecified site Status: Acute (2) Cardiogenic shock ICD Codes: R57.0 - Cardiogenic shock Status: Acute (3) Status post insertion of drug-eluting stent into left anterior descending ( LAD) artery ICD Codes: Z95.5 - Presence of coronary angioplasty implant and graft Status: Acute (4) Ventricular tachycardia ICD Codes: I47.2 - Ventricular tachycardia (5) On intra-aortic balloon pump assist ICD Codes: Z98.890 - Other specified postprocedural states Status: Acute (6) Left main coronary artery disease ICD Codes: I25.10 - Atherosclerotic heart disease of [place] coronary artery without angina pectoris (7) Tobacco abuse ICD Codes: Z72.0 - Tobacco use Status: Acute (8) Respiratory failure ICD Codes: J96.90 - Respiratory failure, unspecified, unspecified whether with hypoxia or hypercapnia Status: Acute Assessment and Plan 1) STEMI/Cardiogenic shock S/p JB to LAD Con't ASA Brilinta held for possible CABG Will place on Heparin and Aggrastat drip 2) IABP for cardiogenic shock Attempted to wean down today Blood pressure stable but heart rate increased Will attempt again tomorrow Plan for DC of IABP and switch out IABP sheath for 8.5 Fr sheath with handle for A-line while on Heparin/Aggrastat, also if she becomes unstable hemodynamically or electrically due to Left main disease 3) Left main disease (Area 3.7mm2 by IVUS) Consideration of CABG by Dr. Candelario 4) Vent per critical care Consideration of extubating tomorrow if possible 5) Ventricular tachycardia Will continue on Amiodarone drip for now pre-operatively Problem Qualifiers (1) STEMI (ST elevation myocardial infarction): Qualified Codes: I21.02 - ST elevation (STEMI) myocardial infarction involving left anterior descending coronary artery (2) Respiratory failure: Qualified Codes: J96.00 - Acute respiratory failure, unspecified whether with hypoxia or hypercapnia Gustavo Duncan DO Jul 09, 2017 17:23
[2017-07-09] MEDS: SODIUM CHLORIDE 0.9% FLUSH 10 ML FLUSH IV FLUSH SCH (22:17)
[2017-07-09] MEDS: ATORVASTATIN 80 MG TAB PO SCH (22:18)
[2017-07-09 23:31] LABS: AUTOMATED NEUTROPHIL # 13.7 TH/MM3 (1.8-7.7); BASOPHIL # 0.1 TH/MM3 (0-0.2); BASOPHIL % 0.6 % (0.0-2.0); HEMATOCRIT 41.7 % (35.0-46.0); HEMO FLAGS DIFF FINAL; LYMPH % 15.8 % (9.0-44.0); LYMPHOCYTE # 2.8 TH/MM3 (1.0-4.8); MEAN CELL VOLUME 95.2 FL (80.0-100.0); MEAN CORPUSCULAR HEMOGLOBIN 32.1 PG (27.0-34.0); MEAN CORPUSCULAR HGB CONC 33.7 % (32.0-36.0); MONO % 6.7 % (0.0-8.0); NEUT % 76.9 % (16.0-70.0); PLATELET COUNT 255 TH/MM3 (150-450); RED BLOOD COUNT 4.38 MIL/MM3 (4.00-5.30); RED CELL DISTRIBUTION WIDTH 13.1 % (11.6-17.2); WHITE BLOOD COUNT 17.8 TH/MM3 (4.0-11.0)
[2017-07-09 23:41] LABS: APTT (PATIENT) 35.7 SEC (24.3-30.1)
[2017-07-10] VITALS (13 sets, daily range): BP systolic 90–131; BP diastolic 24–86; PULSE 101–116; RESP 15–22; TEMP 98.5–100.7; O2SAT 95–100
[2017-07-10] MEDS: FAMOTIDINE 20 MG/2 ML VIAL IV PUSH SCH ×2 (02:00→13:40)
[2017-07-10] MEDS: RESP: ALBUTEROL 2.5 MG/IPRATROPIUM 0.5 MG NEB (SCH) NEB ×4 (04:30→23:10)
[2017-07-10] MEDS: MIDAZOLAM 100 MG/100 ML INJ 100 ML IV PRN (06:05)
[2017-07-10 06:08] LABS: APTT (PATIENT) 49.7 SEC (24.3-30.1)
[2017-07-10 06:09] LABS: AUTOMATED NEUTROPHIL # 11.2 TH/MM3 (1.8-7.7); BASOPHIL # 0.1 TH/MM3 (0-0.2); BASOPHIL % 0.5 % (0.0-2.0); EOSINOPHIL # 0.1 TH/MM3 (0-0.4); EOSINOPHIL % 0.5 % (0.0-4.0); HEMATOCRIT 39.8 % (35.0-46.0); HEMO FLAGS DIFF FINAL; LYMPH % 19.7 % (9.0-44.0); LYMPHOCYTE # 3.1 TH/MM3 (1.0-4.8); MEAN CELL VOLUME 94.8 FL (80.0-100.0); MEAN CORPUSCULAR HGB CONC 33.8 % (32.0-36.0); MONO % 7.3 % (0.0-8.0); PLATELET COUNT 262 TH/MM3 (150-450); RED CELL DISTRIBUTION WIDTH 13.2 % (11.6-17.2); WHITE BLOOD COUNT 15.6 TH/MM3 (4.0-11.0)
[2017-07-10 06:24] LABS: BICARBONATE 23.3 MEQ/L (21.0-32.0); POTASSIUM 3.7 MEQ/L (3.5-5.1)
[2017-07-10] MEDS: TIROFIBAN INFUSION INJ 250 ML IV SCH (07:23)
[2017-07-10] MEDS: AMIODARONE INJ 450 MG in DEXTROSE 5% IN WATE(EXCEL) INJ 241 ML IV SCH ×4 (07:24→21:34)
[2017-07-10] MEDS: INSULIN ASPART SUPPLEMENTAL SCALE SQ SCH ×4 (08:00→21:00)
[2017-07-10] MEDS: CHLORHEXIDINE 0.12% (ORAL KIT) 15 ML CUP MT SCH ×2 (08:00→20:00)
[2017-07-10] MEDS: ASPIRIN 81 MG CHEW TAB PO SCH (09:45)
[2017-07-10] MEDS: SODIUM CHLORIDE 0.9% FLUSH 10 ML FLUSH IV FLUSH SCH ×2 (09:46→20:07)
--- NOTE | 2017-07-10 09:49 | PD.CAR.PN ---
CVT Progress Note Subjective/Hospital Course: sts data discussed with pt and family RISK SCORES About the STS Risk Calculator Procedure: CAB Only Risk of Mortality: 0.737% Morbidity or Mortality: 14.1% Long Length of Stay: 3.48% Short Length of Stay: 52.802% Permanent Stroke: 0.273% Prolonged Ventilation: 14.955% DSW Infection: 0.237% Renal Failure: 0.778% Reoperation: 4.147% Objective: Vital Signs Date Time Temp Pulse Resp B/P (MAP) Pulse Ox O2 Delivery O2 Flow Rate FiO2 07/10/17 09:00 85/67 (71) 07/10/17 08:00 86/67 (91) 07/10/17 07:24 102 111/71 07/10/17 07:00 100.2 104 20 90/70 (77) 97 07/10/17 07:00 90/70 (95) 07/10/17 07:00 97 Mechanical Ventilator 40 07/10/17 07:00 102 07/10/17 07:00 40 07/10/17 06:00 07/10/17 05:00 07/10/17 04:30 98 40 07/10/17 04:00 40 07/10/17 04:00 108 07/10/17 04:00 95/73 (93) 07/10/17 04:00 100.3 109 19 95/73 (80) 97 07/10/17 04:00 97 Mechanical Ventilator 40 07/10/17 03:00 07/10/17 02:08 97 40 07/10/17 02:00 07/10/17 01:00 07/10/17 00:00 98 Mechanical Ventilator 40 07/10/17 00:00 96/72 (93) 07/10/17 00:00 100.0 114 22 96/72 (80) 98 07/10/17 00:00 40 07/10/17 00:00 114 07/09/17 23:45 98 40 07/09/17 23:00 07/09/17 22:00 07/09/17 21:00 07/09/17 20:36 99 40 07/09/17 20:00 97 Mechanical Ventilator 40 07/09/17 20:00 100.7 108 19 100/77 (85) 97 07/09/17 20:00 40 07/09/17 20:00 108 07/09/17 20:00 100/77 (98) 07/09/17 19:00 112 135/84 07/09/17 18:00 108/80 07/09/17 17:00 112/86 07/09/17 16:42 98 40 07/09/17 16:00 111/88 07/09/17 15:00 105 07/09/17 15:00 110/86 07/09/17 15:00 40 07/09/17 15:00 100.3 106 23 144/87 (106) 96 07/09/17 14:00 110/84 07/09/17 13:31 103 140/94 07/09/17 13:00 111/85 07/09/17 12:00 109/84 07/09/17 11:28 98 40 07/09/17 11:00 40 07/09/17 11:00 99.6 97 26 127/93 (104) 98 07/09/17 11:00 104/81 07/09/17 11:00 97 07/09/17 10:00 107/82 Labs: Laboratory Tests Test 07/09/17 21:49 07/10/17 05:09 White Blood Count 17.8 TH/MM3 (4.0-11.0) 15.6 TH/MM3 (4.0-11.0) Red Blood Count 4.38 MIL/MM3 (4.00-5.30) 4.20 MIL/MM3 (4.00-5.30) Hemoglobin 14.1 GM/DL (11.6-15.3) 13.4 GM/DL (11.6-15.3) Hematocrit 41.7 % (35.0-46.0) 39.8 % (35.0-46.0) Mean Corpuscular Volume 95.2 FL (80.0-100.0) 94.8 FL (80.0-100.0) Mean Corpuscular Hemoglobin 32.1 PG (27.0-34.0) 32.0 PG (27.0-34.0) Mean Corpuscular Hemoglobin Concent 33.7 % (32.0-36.0) 33.8 % (32.0-36.0) Red Cell Distribution Width 13.1 % (11.6-17.2) 13.2 % (11.6-17.2) Platelet Count 255 TH/MM3 (150-450) 262 TH/MM3 (150-450) Mean Platelet Volume 8.6 FL (7.0-11.0) 8.3 FL (7.0-11.0) Neutrophils (%) (Auto) 76.9 % (16.0-70.0) 72.0 % (16.0-70.0) Lymphocytes (%) (Auto) 15.8 % (9.0-44.0) 19.7 % (9.0-44.0) Monocytes (%) (Auto) 6.7 % (0.0-8.0) 7.3 % (0.0-8.0) Eosinophils (%) (Auto) 0.0 % (0.0-4.0) 0.5 % (0.0-4.0) Basophils (%) (Auto) 0.6 % (0.0-2.0) 0.5 % (0.0-2.0) Neutrophils # (Auto) 13.7 TH/MM3 (1.8-7.7) 11.2 TH/MM3 (1.8-7.7) Lymphocytes # (Auto) 2.8 TH/MM3 (1.0-4.8) 3.1 TH/MM3 (1.0-4.8) Monocytes # (Auto) 1.2 TH/MM3 (0-0.9) 1.1 TH/MM3 (0-0.9) Eosinophils # (Auto) 0.0 TH/MM3 (0-0.4) 0.1 TH/MM3 (0-0.4) Basophils # (Auto) 0.1 TH/MM3 (0-0.2) 0.1 TH/MM3 (0-0.2) CBC Comment DIFF FINAL DIFF FINAL Differential Comment Activated Partial Thromboplast Time 35.7 SEC (24.3-30.1) 49.7 SEC (24.3-30.1) Platelet Function P2Y12 React Units PRU (194-418) Blood Urea Nitrogen 16 MG/DL (7-18) Creatinine 0.80 MG/DL (0.50-1.00) Random Glucose 109 MG/DL (74-106) Calcium Level 9.0 MG/DL (8.5-10.1) Phosphorus Level 3.1 MG/DL (2.5-4.9) Magnesium Level 2.0 MG/DL (1.5-2.5) Sodium Level 137 MEQ/L (136-145) Potassium Level 3.7 MEQ/L (3.5-5.1) Chloride Level 104 MEQ/L (98-107) Carbon Dioxide Level 23.3 MEQ/L (21.0-32.0) Anion Gap 10 MEQ/L (5-15) Estimat Glomerular Filtration Rate 77 ML/MIN (>89) Result Diagram: 07/10/17 0509 07/10/17 0509 (1) STEMI (ST elevation myocardial infarction) (2) Cardiogenic shock (3) Status post insertion of drug-eluting stent into left anterior descending ( LAD) artery (4) Ventricular tachycardia (5) On intra-aortic balloon pump assist (6) Left main coronary artery disease (7) Tobacco abuse (8) Respiratory failure Problem Qualifiers (1) STEMI (ST elevation myocardial infarction): Qualified Codes: I21.02 - ST elevation (STEMI) myocardial infarction involving left anterior descending coronary artery (2) Respiratory failure: Qualified Codes: J96.00 - Acute respiratory failure, unspecified whether with hypoxia or hypercapnia Afshan Rodríguez Jul 10, 2017 09:49
--- NOTE | 2017-07-10 09:53 | RADRPT ---
EXAM DATE/TIME: 07/10/2017 09:13 [place] COMPARISON: CHEST SINGLE AP, July 09, 2017, 2:20. INDICATIONS : Ballon pump tube and endotracheal tube placements. MEDICAL HISTORY : Arthritis. Schizophrenia, bipolar disorder SURGICAL HISTORY : Tonsillectomy. Appendectomy. Cholecystectomy. , tubal ligation, hysterectomy dilation and c urrettage ENCOUNTER: Initial ACUITY: 2 days PAIN SCORE: Non-responsive. LOCATION: Bilateral chest FINDINGS: The heart is at the upper limits of normal in size. The endotracheal tube and nasogastric tube are in good position. The lungs are clear. The exam does appear stable compared to the prior. The visualized bony structures are grossly intact. CONCLUSION: 1. The support equipment is in good position. 2. The lungs are clear. Enrrique Molina MD on July 10, 2017 at 9:51 Board Certified Radiologist. This report was verified electronically.
--- NOTE | 2017-07-10 10:21 | PD.CAR.PN ---
CVT Progress Note Subjective/Hospital Course: $&/ yr old female brought in unresponsive by EMS, intubated in ED, pulse initially not palpable , CPR was given / ACLS/ EKG showed extensive ST elevations anterior lateral leads/ Code STEMI activated/ pt went to cardiac catheterization technician, underwent emergent PCI with stent to LAD ( drug eluting) , IABP placed, one dose of Brilinta given , now on Heparin and aggrastat . We were consulted to eval for CABG x 2 / LAD/ Circ / Echo showed EF 40% PMH: arthritis, asthma, tobacco abuse, Bipolar disorder, anxiety depression, previous suicidal attempts 07/10 pt remains intubated on vent, 40% fi02 sedated with versed and fentanly, she will open eyes , follow simple commands and moves all extremities IABP 1:2 augmentation , + distal pulses unable to get PRU p2y12 ( pt on aggrastat / would need to be off x 48hrs to have accurate results per Lab plan for surgery timing per Dr Candelario Objective: GENERAL: orally intubated on vent SKIN: Warm and dry. HEAD: Normocephalic. EYES: No scleral icterus. No injection or drainage. NECK: Supple, trachea midline. No JVD or lymphadenopathy. CARDIOVASCULAR: Regular rate and rhythm without murmurs, gallops, or rubs. slightly tachycardic, IABP left groin , + distal pulses RESPIRATORY: Breath sounds equal bilaterally. No accessory muscle use. orally intubated on vent PSV mode GASTROINTESTINAL: Abdomen soft, non-tender, slightly distended OG tube in place car cath in place, urine cloudy with some light bloody sediment MUSCULOSKELETAL: No cyanosis, or edema. BACK: Nontender without obvious deformity. No CVA tenderness. Vital Signs Date Time Temp Pulse Resp B/P (MAP) Pulse Ox O2 Delivery O2 Flow Rate FiO2 07/10/17 09:00 85/67 (71) 07/10/17 08:00 86/67 (91) 07/10/17 07:24 102 111/71 07/10/17 07:00 100.2 104 20 90/70 (77) 97 07/10/17 07:00 90/70 (95) 07/10/17 07:00 97 Mechanical Ventilator 40 07/10/17 07:00 102 07/10/17 07:00 40 07/10/17 06:00 07/10/17 05:00 07/10/17 04:30 98 40 07/10/17 04:00 40 07/10/17 04:00 108 07/10/17 04:00 95/73 (93) 07/10/17 04:00 100.3 109 19 95/73 (80) 97 07/10/17 04:00 97 Mechanical Ventilator 40 07/10/17 03:00 07/10/17 02:08 97 40 07/10/17 02:00 07/10/17 01:00 07/10/17 00:00 98 Mechanical Ventilator 40 07/10/17 00:00 96/72 (93) 07/10/17 00:00 100.0 114 22 96/72 (80) 98 07/10/17 00:00 40 07/10/17 00:00 114 07/09/17 23:45 98 40 07/09/17 23:00 07/09/17 22:00 07/09/17 21:00 07/09/17 20:36 99 40 07/09/17 20:00 97 Mechanical Ventilator 40 07/09/17 20:00 100.7 108 19 100/77 (85) 97 07/09/17 20:00 40 07/09/17 20:00 108 07/09/17 20:00 100/77 (98) 07/09/17 19:00 112 135/84 07/09/17 18:00 108/80 07/09/17 17:00 112/86 07/09/17 16:42 98 40 07/09/17 16:00 111/88 07/09/17 15:00 105 07/09/17 15:00 110/86 07/09/17 15:00 40 07/09/17 15:00 100.3 106 23 144/87 (106) 96 07/09/17 14:00 110/84 07/09/17 13:31 103 140/94 07/09/17 13:00 111/85 07/09/17 12:00 109/84 07/09/17 11:28 98 40 07/09/17 11:00 40 07/09/17 11:00 99.6 97 26 127/93 (104) 98 07/09/17 11:00 104/81 07/09/17 11:00 97 07/09/17 10:00 107/82 Labs: Laboratory Tests Test 07/10/17 05:09 White Blood Count 15.6 TH/MM3 (4.0-11.0) Red Blood Count 4.20 MIL/MM3 (4.00-5.30) Hemoglobin 13.4 GM/DL (11.6-15.3) Hematocrit 39.8 % (35.0-46.0) Mean Corpuscular Volume 94.8 FL (80.0-100.0) Mean Corpuscular Hemoglobin 32.0 PG (27.0-34.0) Mean Corpuscular Hemoglobin Concent 33.8 % (32.0-36.0) Red Cell Distribution Width 13.2 % (11.6-17.2) Platelet Count 262 TH/MM3 (150-450) Mean Platelet Volume 8.3 FL (7.0-11.0) Neutrophils (%) (Auto) 72.0 % (16.0-70.0) Lymphocytes (%) (Auto) 19.7 % (9.0-44.0) Monocytes (%) (Auto) 7.3 % (0.0-8.0) Eosinophils (%) (Auto) 0.5 % (0.0-4.0) Basophils (%) (Auto) 0.5 % (0.0-2.0) Neutrophils # (Auto) 11.2 TH/MM3 (1.8-7.7) Lymphocytes # (Auto) 3.1 TH/MM3 (1.0-4.8) Monocytes # (Auto) 1.1 TH/MM3 (0-0.9) Eosinophils # (Auto) 0.1 TH/MM3 (0-0.4) Basophils # (Auto) 0.1 TH/MM3 (0-0.2) CBC Comment DIFF FINAL Differential Comment Activated Partial Thromboplast Time 49.7 SEC (24.3-30.1) Platelet Function P2Y12 React Units PRU (194-418) Blood Urea Nitrogen 16 MG/DL (7-18) Creatinine 0.80 MG/DL (0.50-1.00) Random Glucose 109 MG/DL (74-106) Calcium Level 9.0 MG/DL (8.5-10.1) Phosphorus Level 3.1 MG/DL (2.5-4.9) Magnesium Level 2.0 MG/DL (1.5-2.5) Sodium Level 137 MEQ/L (136-145) Potassium Level 3.7 MEQ/L (3.5-5.1) Chloride Level 104 MEQ/L (98-107) Carbon Dioxide Level 23.3 MEQ/L (21.0-32.0) Anion Gap 10 MEQ/L (5-15) Estimat Glomerular Filtration Rate 77 ML/MIN (>89) Result Diagram: 07/10/17 0509 07/10/17 0509 Telemetry: NSR (1) STEMI (ST elevation myocardial infarction) Plan: ASA , Heparin Aggrastat, statin eval for possible surgery on SUN (2) Cardiogenic shock Plan: resolved (3) Status post insertion of drug-eluting stent into left anterior descending ( LAD) artery Plan: will need to be on Brilinta post surgery (4) Ventricular tachycardia Plan: resolved, remains on amiodarone (5) On intra-aortic balloon pump assist Plan: 1:2 for possible removal today (6) Left main coronary artery disease (7) Tobacco abuse Plan: smoking cessation (8) Respiratory failure Plan: vent per [facility] Problem Qualifiers (1) STEMI (ST elevation myocardial infarction): Qualified Codes: I21.02 - ST elevation (STEMI) myocardial infarction involving left anterior descending coronary artery (2) Respiratory failure: Qualified Codes: J96.00 - Acute respiratory failure, unspecified whether with hypoxia or hypercapnia Afshan Rodríguez Jul 10, 2017 10:21
--- NOTE | 2017-07-10 12:52 | PD.CARD.PN ---
Subjective Subjective Remarks No events overnight Hemodynamically stable Wakes up, follows commands Urine with pink tinge, no gross hematuria Objective Medications Current Medications Medications (Trade) Dose Ordered Sig/Latisha Route Start Time Stop Time Status Last Admin (NS Flush) 2 ml UNSCH PRN IVF 07/08/17 21:15 Norepinephrine Bitartrate 250 ml @ 7.5 mls/hr TITRATE PRN IV 07/08/17 21:45 (Brethine Inj) 1 mg UNSCH PRN SQ 07/08/17 21:45 Midazolam HCl 100 ml @ 2 mls/hr TITRATE PRN IV 07/08/17 22:15 07/10/17 06:05 (Aspirin Chew) 81 mg DAILY PO 07/09/17 09:00 07/10/17 09:45 (Brilinta) 90 mg BID PO 07/09/17 09:00 Future Hold (Lipitor) 80 mg HS PO 07/09/17 21:00 07/09/17 22:18 (Heparin Inj) 5,000 units UNSCH PRN IV 07/09/17 06:00 (Heparin Inj) 2,500 units UNSCH PRN IV 07/09/17 06:00 07/09/17 23:56 Heparin Sodium/ Dextrose 250 ml @ 9.6 mls/hr TITRATE PRN IV 07/09/17 00:00 07/09/17 16:54 (Duoneb Neb) 1 ampule Q6HR NEB NEB 07/09/17 04:00 07/10/17 11:01 (Albuterol Neb) 2.5 mg Q2HR NEB PRN NEB 07/09/17 02:15 (Peridex 0.12% Liq) 15 ml BID@08,20 MT 07/09/17 08:00 07/10/17 08:00 Fentanyl Citrate 250 ml @ 5 mls/hr TITRATE PRN IV 07/09/17 02:15 07/09/17 23:08 (D50w (Vial) Inj) 50 ml UNSCH PRN IV PUSH 07/09/17 02:15 (Glucagon Inj) 1 mg UNSCH PRN OTHER 07/09/17 02:15 (NovoLOG SUPPLEMENTAL SCALE) 1 ACHS SLIDING SCALE SQ 07/09/17 08:00 Potassium Chloride 100 ml @ 50 mls/hr Q2H PRN IV 07/09/17 02:15 Potassium Chloride 100 ml @ 50 mls/hr Q2H PRN IV 07/09/17 02:15 (K-Lyte Cl Eff) 50 meq UNSCH PRN PO 07/09/17 02:15 Potassium Chloride 100 ml @ 25 mls/hr UNSCH PRN IV 07/09/17 02:15 Potassium Chloride 100 ml @ 50 mls/hr Q2H PRN IV 07/09/17 02:15 Magnesium Sulfate 4 gm/Sodium Chloride 100 ml @ 50 mls/hr UNSCH PRN IV 07/09/17 02:15 (Mag-Ox) 800 mg UNSCH PRN PO 07/09/17 02:15 Magnesium Sulfate 2 gm/Sodium Chloride 100 ml @ 50 mls/hr UNSCH PRN IV 07/09/17 02:15 (K-Phos) 2,000 mg Q4H PRN PO 07/09/17 02:15 Sodium Phosphate 30 mmol/Sodium Chloride 250 ml @ 42 mls/hr UNSCH PRN IV 07/09/17 02:15 (K-Phos) 2,000 mg UNSCH PRN PO/TUBE 07/09/17 02:15 Potassium Phosphate 30 mmol/ Sodium Chloride 260 ml @ 42 mls/hr UNSCH PRN IV 07/09/17 02:15 Amiodarone HCl 450 mg/Dextrose 250 ml @ 33 mls/hr Q7H35M IV 07/09/17 05:44 07/10/17 07:24 (NS Flush) 2 ml BID IV FLUSH 07/09/17 21:00 07/10/17 09:46 (NS Flush) 2 ml UNSCH PRN IV FLUSH 07/09/17 12:00 Papaverine HCl 60 mg/Nitroglycerin 100 mcg/Diltiazem HCl 100 mg/Sodium Chloride 100 ml @ 0 mls/hr PAINT STRIPING MACHINE OPERATOR IRRIGATION 07/09/17 12:00 07/16/17 11:59 Cefazolin Sodium 500 mg/Sodium Chloride 505 ml @ 0 mls/hr PA[employer] STRIPING MACHINE OPERATOR IRRIGATION 07/09/17 12:00 07/16/17 11:59 Cefazolin Sodium/ Dextrose 50 ml @ 100 mls/hr PAINT STRIPING MACHINE OPERATOR IV 07/09/17 12:00 07/16/17 11:59 (Lopressor) 12.5 mg PAINT STRIPING MACHINE OPERATOR PO 07/09/17 12:00 07/16/17 11:59 (Hibiclens 4% Top Soln) 1 applic PAINT STRIPING MACHINE OPERATOR TOPICAL 07/09/17 12:00 07/16/17 11:59 Insulin Human Regular 100 units/ Sodium Chloride 101 ml @ 0 mls/hr PAINT STRIPING MACHINE OPERATOR IV 07/09/17 12:00 07/16/17 11:59 (Pepcid Inj) 20 mg Q12H IV PUSH 07/09/17 14:00 07/10/17 02:00 Levofloxacin/ Dextrose 100 ml @ 100 mls/hr Q24H IV 07/09/17 14:00 07/09/17 14:06 Tirofiban/Sodium Chloride 250 ml @ 14.814 mls/ hr [id number] IV 07/09/17 16:24 07/10/17 07:23 Vital Signs / I&O Vital Signs Date Time Temp Pulse Resp B/P (MAP) Pulse Ox O2 Delivery O2 Flow Rate FiO2 07/10/17 11:02 97 40 07/10/17 11:00 98 Mechanical Ventilator 40 07/10/17 11:00 92/73 (81) 07/10/17 11:00 100.1 105 21 92/73 (79) 98 07/10/17 11:00 105 07/10/17 11:00 40 07/10/17 10:00 90/71 (87) 07/10/17 09:00 85/67 (71) 07/10/17 08:00 86/67 (91) 07/10/17 07:24 102 111/71 07/10/17 07:00 100.2 104 20 90/70 (77) 97 07/10/17 07:00 90/70 (95) 07/10/17 07:00 97 Mechanical Ventilator 40 07/10/17 07:00 102 07/10/17 07:00 40 07/10/17 06:00 07/10/17 05:00 07/10/17 04:30 98 40 07/10/17 04:00 40 07/10/17 04:00 108 07/10/17 04:00 95/73 (93) 07/10/17 04:00 100.3 109 19 95/73 (80) 97 07/10/17 04:00 97 Mechanical Ventilator 40 07/10/17 03:00 07/10/17 02:08 97 40 07/10/17 02:00 07/10/17 01:00 07/10/17 00:00 98 Mechanical Ventilator 40 07/10/17 00:00 96/72 (93) 07/10/17 00:00 100.0 114 22 96/72 (80) 98 07/10/17 00:00 40 07/10/17 00:00 114 07/09/17 23:45 98 40 07/09/17 23:00 07/09/17 22:00 07/09/17 21:00 07/09/17 20:36 99 40 07/09/17 20:00 97 Mechanical Ventilator 40 07/09/17 20:00 100.7 108 19 100/77 (85) 97 07/09/17 20:00 40 07/09/17 20:00 108 07/09/17 20:00 100/77 (98) 07/09/17 19:00 112 135/84 07/09/17 18:00 108/80 07/09/17 17:00 112/86 07/09/17 16:42 98 40 07/09/17 16:00 111/88 07/09/17 15:00 105 07/09/17 15:00 110/86 07/09/17 15:00 40 07/09/17 15:00 100.3 106 23 144/87 (106) 96 07/09/17 14:00 110/84 07/09/17 13:31 103 140/94 07/09/17 13:00 111/85 I/O 07/09/17 07/09/17 07/09/17 07/10/17 07/10/17 07/10/17 07:00 15:00 23:00 07:00 15:00 23:00 Intake Total 218 ml 821 ml 719 ml Output Total 2200 ml 725 ml 630 ml Balance -1982 ml 96 ml 89 ml Intake Oral 0 ml 0 ml IV Total 218 ml 821 ml 719 ml Output Urine Total 1800 ml 525 ml 430 ml Gastric Drainage Total 400 ml 200 ml 200 ml # Bowel Movements 0 0 Physical Exam GENERAL: Sedated and intubated SKIN: Warm and dry. HEAD: Atraumatic. Normocephalic. EYES: Pupils equal and round. No scleral icterus. No injection or drainage. ENT: No nasal bleeding or discharge. Mucous membranes pink and moist. NECK: Trachea midline. No JVD. CARDIOVASCULAR: Tachycardic, no murmurs noted RESPIRATORY: No accessory muscle use. Decreased breath sounds bilaterally GASTROINTESTINAL: Abdomen soft, non-tender, nondistended. Hepatic and splenic margins not palpable. MUSCULOSKELETAL: Extremities without clubbing, cyanosis, or edema. No obvious deformities. Bilateral distal pulses intact, palpable NEUROLOGICAL: Sedated on the vent, does wake and follow commands Laboratory Laboratory Tests Test 07/09/17 13:30 07/09/17 21:49 07/10/17 05:09 07/10/17 12:30 Activated Partial Thromboplast Time 30.6 SEC 35.7 SEC 49.7 SEC Hemoglobin A1c 5.4 % Total Bilirubin 0.9 MG/DL Direct Bilirubin 0.2 MG/DL Indirect Bilirubin 0.7 MG/DL Aspartate Amino Transf (AST/SGOT) 410 U/L Alanine Aminotransferase (ALT/SGPT) 119 U/L Alkaline Phosphatase 112 U/L Troponin I GREATER THAN 40.00 NG/ML Total Protein 7.3 GM/DL Albumin 3.5 GM/DL White Blood Count 17.8 TH/MM3 15.6 TH/MM3 Red Blood Count 4.38 MIL/MM3 4.20 MIL/MM3 Hemoglobin 14.1 GM/DL 13.4 GM/DL Hematocrit 41.7 % 39.8 % Mean Corpuscular Volume 95.2 FL 94.8 FL Mean Corpuscular Hemoglobin 32.1 PG 32.0 PG Mean Corpuscular Hemoglobin Concent 33.7 % 33.8 % Red Cell Distribution Width 13.1 % 13.2 % Platelet Count 255 TH/MM3 262 TH/MM3 Mean Platelet Volume 8.6 FL 8.3 FL Neutrophils (%) (Auto) 76.9 % 72.0 % Lymphocytes (%) (Auto) 15.8 % 19.7 % Monocytes (%) (Auto) 6.7 % 7.3 % Eosinophils (%) (Auto) 0.0 % 0.5 % Basophils (%) (Auto) 0.6 % 0.5 % Neutrophils # (Auto) 13.7 TH/MM3 11.2 TH/MM3 Lymphocytes # (Auto) 2.8 TH/MM3 3.1 TH/MM3 Monocytes # (Auto) 1.2 TH/MM3 1.1 TH/MM3 Eosinophils # (Auto) 0.0 TH/MM3 0.1 TH/MM3 Basophils # (Auto) 0.1 TH/MM3 0.1 TH/MM3 CBC Comment DIFF FINAL DIFF FINAL Differential Comment Platelet Function P2Y12 React Units PRU Blood Urea Nitrogen 16 MG/DL Creatinine 0.80 MG/DL Random Glucose 109 MG/DL Calcium Level 9.0 MG/DL Phosphorus Level 3.1 MG/DL Magnesium Level 2.0 MG/DL Sodium Level 137 MEQ/L Potassium Level 3.7 MEQ/L Chloride Level 104 MEQ/L Carbon Dioxide Level 23.3 MEQ/L Anion Gap 10 MEQ/L Estimat Glomerular Filtration Rate 77 ML/MIN Assessment and Plan Problem List: (1) STEMI (ST elevation myocardial infarction) ICD Codes: I21.3 - ST elevation (STEMI) myocardial infarction of unspecified site Status: Acute (2) Cardiogenic shock ICD Codes: R57.0 - Cardiogenic shock Status: Acute (3) Status post insertion of drug-eluting stent into left anterior descending ( LAD) artery ICD Codes: Z95.5 - Presence of coronary angioplasty implant and graft Status: Acute (4) Ventricular tachycardia ICD Codes: I47.2 - Ventricular tachycardia (5) On intra-aortic balloon pump assist ICD Codes: Z98.890 - Other specified postprocedural states Status: Acute (6) Left main coronary artery disease ICD Codes: I25.10 - Atherosclerotic heart disease of [place] coronary artery without angina pectoris (7) Tobacco abuse ICD Codes: Z72.0 - Tobacco use Status: Acute (8) Respiratory failure ICD Codes: J96.90 - Respiratory failure, unspecified, unspecified whether with hypoxia or hypercapnia Status: Acute Assessment and Plan 1) STEMI/Cardiogenic shock S/p JB to LAD Con't ASA Brilinta held for possible CABG Heparin and Aggrastat drip started 2) IABP for cardiogenic shock IABP removed (07/10/17) sterilely at the bedside 8.5 chadian sheath for A-line, or incase she becomes electrically or hemodynamically compromised for replacing IABP 3) Left main disease (Area 3.7mm2 by IVUS) Plan CABG by Dr. Candelario, possible 4) Vent per critical care Consideration of extubating today if possible 5) Ventricular tachycardia Will continue on Amiodarone drip for now pre-operatively No further events 6) Discussed with critical care, nursing and CT surgery Problem Qualifiers (1) STEMI (ST elevation myocardial infarction): Qualified Codes: I21.02 - ST elevation (STEMI) myocardial infarction involving left anterior descending coronary artery (2) Respiratory failure: Qualified Codes: J96.00 - Acute respiratory failure, unspecified whether with hypoxia or hypercapnia Gustavo Duncan DO Jul 10, 2017 12:51
[2017-07-10 12:56] LABS: APTT (PATIENT) 38.5 SEC (24.3-30.1)
[2017-07-10] MEDS: HEPARIN SODIUM - IV 10,000 UNITS/10 ML VIAL IV PRN ×2 (13:38→20:40)
[2017-07-10] MEDS: HEPARIN-D5W 25,000 U/250 ML 250 ML IV PRN (13:39)
[2017-07-10] MEDS: LEVOFLOXACIN 500 MG PREMIX INJ 100 ML IV SCH (13:40)
--- NOTE | 2017-07-10 15:29 | HHI.CCPN ---
Subjective Remarks/Hospital Course 07/09: 47-year-old female with past medical history of endometriosis who presented to [facility] emergency department unresponsive. She had collapsed on the floor of the bathroom after having complained of chest pain for 2 days. She was intubated upon arrival. Pulse was not palpable and she received a few chest compressions but she was responsive. EKG showed anterior lateral STEMI with 3-6 mm of elevation in lead I, V2-V6, AVL with reciprocal depression. She was taken emergently to the photo lab specialist where she underwent drug-eluting stent to proximal LAD 90% occlusion. There is 60% lesion at left main for which Dr. Duncan has consulted [facility] for possible bypass. She was defibrillated 1 for V. tach in the photo lab specialist. IABP was placed. She is not requiring pressors/inotropes. She is following commands upon arrival to CVICU. 07/10: Remains sedated, arousable, orally intubated on mechanical ventilation. IABP just discontinued. Objective Vital Signs Date Time Temp Pulse Resp B/P (MAP) Pulse Ox O2 Delivery O2 Flow Rate FiO2 07/10/17 15:00 40 07/10/17 15:00 97 Mechanical Ventilator 07/10/17 11:00 92/73 (81) 07/10/17 11:00 100.1 105 21 07/08/17 22:12 15.00 Intake and Output 07/10/17 07/10/17 07/11/17 08:00 16:00 00:00 Intake Total 670 ml Output Total 630 ml Balance 40 ml Result Diagram: 07/10/17 0509 07/10/17 0509 Objective Remarks GENERAL: Well-nourished, well-developed patient who is orotracheally intubated. SKIN: Warm and dry. HEAD: Atraumatic. Normocephalic. EYES: Pupils equal and round, 5 mm and reactive to 3 mm bilaterally.. No scleral icterus. No injection or drainage. ENT: No nasal bleeding or discharge. Mucous membranes pink and moist. NECK: Trachea midline. No JVD. CARDIOVASCULAR: Regular rate and rhythm, sinus rhythm on the monitor. GASTROINTESTINAL: Abdomen soft, non-tender, nondistended. Bowel sounds present. : Guerrero in place with light yellow urine output. MUSCULOSKELETAL: Extremities without clubbing, cyanosis, or edema. Dressing in place R groin. No hematoma. Palpable bilateral DP/LUMP ROOM SUPERVISOR pulses. NEUROLOGICAL: Eyes open to voice. Follows commands by moving feet and squeezing hands bilaterally. No apparent focal deficit A/P Problem List: (1) Anxiety ICD Code: F41.9 - Anxiety disorder, unspecified Status: Chronic (2) Leukocytosis ICD Code: D72.829 - Elevated white blood cell count, unspecified Status: Acute (3) Status post insertion of drug-eluting stent into left anterior descending ( LAD) artery ICD Code: Z95.5 - Presence of coronary angioplasty implant and graft Status: Acute (4) Left main coronary artery disease ICD Code: I25.10 - Atherosclerotic heart disease of [place] coronary artery without angina pectoris (5) GERTRUDE (acute kidney injury) ICD Code: N17.9 - Acute kidney failure, unspecified Status: Acute (6) Tobacco abuse ICD Code: Z72.0 - Tobacco use Status: Acute (7) Cardiogenic shock ICD Code: R57.0 - Cardiogenic shock Status: Acute (8) On intra-aortic balloon pump assist ICD Code: Z98.890 - Other specified postprocedural states Status: Acute (9) Hyperglycemia ICD Code: R73.9 - Hyperglycemia, unspecified Status: Acute (10) Respiratory failure ICD Code: J96.90 - Respiratory failure, unspecified, unspecified whether with hypoxia or hypercapnia Status: Acute (11) STEMI (ST elevation myocardial infarction) ICD Code: I21.3 - ST elevation (STEMI) myocardial infarction of unspecified site Status: Acute Assessment and Plan NEURO: Depression Anxiety She is alert and following commands. Fentanyl/Versed for sedation. Target RASS -2 Hold Paxil 10 mg daily, Xanax her 0.25 mg, baclofen 10 mg for now. Unknown frequency of baclofen dosing, will need to confirm. RESP: Acute respiratory failure Tobacco abuse Intubated 07/08 in the ED. Ventilator bundle PRVC tidal volume 500/rate 18/I time 1/PEEP 5/FiO2 60%. Wean FiO2 for sat greater than 92%. DuoNeb every 6 hours. Albuterol every 2 hours as needed. Start daily C Pap trials to decide extubation. CV: Anterolateral STEMI now status post drug-eluting stent to the LAD Multivessel coronary artery disease with 60% left main lesion. Cardiogenic shock She underwent drug-eluting stent to the LAD. (07/08, Dr. Alejandra Duncan) Has L main 60% stenosis and CVS consulted for possible bypass. IABP placed to augment coronary perfusion, discontinued 07/10. Aspirin 81 daily. Brillinta held for CABG and pt. on Aggrastat gtt. On heparin drip with goal PTT 40-75. No beta jayce at this time as blood pressure has been low. Follow-up 2-D echo Cardio thoracic surgery consult Lipid panel pending. Atorvastatin 80 mg by mouth daily at bedtime. GI: Nothing by mouth. OGT tube to low intermittent wall suction. FEN/RENAL: Guerrero is in place and will need to remain due to cardiogenic shock and need to for close monitoring of urine output. Lasix 20 mg IVx1 KCL 25 MEQ x1. ICU electrolyte replacement protocol. ID: Leukocytosis likely secondary to myocardial infarction. Monitor for signs and symptoms of infection. HEME: Hemoglobin normal. On heparin drip, Brillinta ENDO: Acute hyperglycemia likely secondary to stress response. We'll check hemoglobin A1c. Monitor bedside glucose before meals at bedtime and initiate low-dose insulin sliding scale as indicated. PROPH: On heparin drip which will also for DVT prophylaxis. Famotidine 20 mg IV every 12 for stress ulcer prophylaxis. ACCESS: Right groin intra-aortic balloon pump 07/08. discontinued 07/10.(Sheath left for A line) d/w Dr. Duncan CCT 40 minutes Problem Qualifiers (1) Respiratory failure: Qualified Codes: J96.00 - Acute respiratory failure, unspecified whether with hypoxia or hypercapnia (2) STEMI (ST elevation myocardial infarction): Qualified Codes: I21.02 - ST elevation (STEMI) myocardial infarction involving left anterior descending coronary artery Clinton Mata MD Jul 10, 2017 15:29
[2017-07-10] MEDS: ATORVASTATIN 80 MG TAB PO SCH (20:07)
[2017-07-10] MEDS: METOPROLOL TARTRATE 25 MG TAB PO SCH (20:08)
[2017-07-10 20:30] LABS: APTT (PATIENT) 38.3 SEC (24.3-30.1)
[2017-07-11] VITALS (7 sets, daily range): BP systolic 98–135; BP diastolic 36–84; PULSE 90–98; RESP 15–24; TEMP 98.4–99.7; O2SAT 91–96
[2017-07-11] MEDS: TIROFIBAN INFUSION INJ 250 ML IV SCH ×2 (00:06→17:31)
[2017-07-11] MEDS: FAMOTIDINE 20 MG/2 ML VIAL IV PUSH SCH ×2 (02:30→13:38)
[2017-07-11 02:56] LABS: AUTOMATED NEUTROPHIL # 11.2 TH/MM3 (1.8-7.7); BASOPHIL # 0.1 TH/MM3 (0-0.2); BASOPHIL % 0.5 % (0.0-2.0); EOSINOPHIL # 0.2 TH/MM3 (0-0.4); EOSINOPHIL % 1.5 % (0.0-4.0); HEMO FLAGS DIFF FINAL; LYMPH % 16.7 % (9.0-44.0); LYMPHOCYTE # 2.5 TH/MM3 (1.0-4.8); MEAN CELL VOLUME 93.9 FL (80.0-100.0); MEAN CORPUSCULAR HEMOGLOBIN 31.8 PG (27.0-34.0); MEAN CORPUSCULAR HGB CONC 33.9 % (32.0-36.0); MONO % 7.1 % (0.0-8.0); NEUT % 74.2 % (16.0-70.0); PLATELET COUNT 259 TH/MM3 (150-450); RED BLOOD COUNT 4.05 MIL/MM3 (4.00-5.30); RED CELL DISTRIBUTION WIDTH 13.3 % (11.6-17.2); WHITE BLOOD COUNT 15.1 TH/MM3 (4.0-11.0)
[2017-07-11 03:15] LABS: APTT (PATIENT) 44.9 SEC (24.3-30.1)
[2017-07-11] MEDS: RESP: ALBUTEROL 2.5 MG/IPRATROPIUM 0.5 MG NEB (SCH) NEB ×4 (04:23→21:45)
[2017-07-11] MEDS: CHLORHEXIDINE 0.12% (ORAL KIT) 15 ML CUP MT SCH ×2 (08:00→20:00)
[2017-07-11] MEDS: INSULIN ASPART SUPPLEMENTAL SCALE SQ SCH ×4 (08:00→21:00)
[2017-07-11] MEDS ORDERED: FUROSEMIDE 40 MG/4 ML VIAL ONE (08:08)
[2017-07-11] MEDS ORDERED: FUROSEMIDE 40 MG/4 ML VIAL IV PUSH ONE (08:30)
[2017-07-11 08:52] LABS: APTT (PATIENT) 41.5 SEC (24.3-30.1)
[2017-07-11] MEDS: METOPROLOL TARTRATE 25 MG TAB PO SCH ×2 (09:28→20:30)
[2017-07-11] MEDS: ASPIRIN 81 MG CHEW TAB PO SCH (09:28)
--- NOTE | 2017-07-11 09:53 | HHI.CCPN ---
Subjective Remarks/Hospital Course 07/09: 47-year-old female with past medical history of endometriosis who presented to [facility] emergency department unresponsive. She had collapsed on the floor of the bathroom after having complained of chest pain for 2 days. She was intubated upon arrival. Pulse was not palpable and she received a few chest compressions but she was responsive. EKG showed anterior lateral STEMI with 3-6 mm of elevation in lead I, V2-V6, AVL with reciprocal depression. She was taken emergently to the geotechnical laboratory technician where she underwent drug-eluting stent to proximal LAD 90% occlusion. There is 60% lesion at left main for which Dr. Duncan has consulted [facility] for possible bypass. She was defibrillated 1 for V. tach in the geotechnical laboratory technician. IABP was placed. She is not requiring pressors/inotropes. She is following commands upon arrival to CVICU. 07/10: Remains sedated, arousable, orally intubated on mechanical ventilation. IABP just discontinued. 07/11: Extubated on 07/10 following removal of intra-aortic balloon pump. On nasal cannula overnight 5 L/m. Appears comfortable. Objective Vital Signs Date Time Temp Pulse Resp B/P (MAP) Pulse Ox O2 Delivery O2 Flow Rate FiO2 07/11/17 09:16 93 Nasal Cannula 5.00 07/11/17 07:00 99.6 91 24 98/74 (82) 132/78 (96) 07/10/17 15:00 40 Intake and Output 07/11/17 07/11/17 07/12/17 08:00 16:00 00:00 Intake Total 930 ml Output Total 1385 ml Balance -455 ml Result Diagram: 07/11/17 0234 07/10/17 0509 Other Results Microbiology Date/Time Source Procedure Growth Status 07/09/17 09:45 Urine Catheterized Urine Urine Culture - Final NO GROWTH IN 48 HOURS. Complete Imaging Last 48 hours Impressions Chest X-Ray 07/10/17 0000 Signed Impressions: Service Date/Time: Monday, July 10, 2017 09:13 - CONCLUSION: 1. The support equipment is in good position. 2. The lungs are clear. Enrrique Molina MD Objective Remarks GENERAL: Well-nourished, well-developed patient laying in bed in no acute distress on nasal cannula 5 L/m SKIN: Warm and dry. HEAD: Atraumatic. Normocephalic. EYES: Pupils equal and round, 5 mm and reactive to 3 mm bilaterally.. No scleral icterus. No injection or drainage. ENT: No nasal bleeding or discharge. Mucous membranes pink and moist. NECK: Trachea midline. No JVD. CARDIOVASCULAR: Regular rate and rhythm, sinus rhythm on the monitor. Resp: Good air entry bilaterally, no wheezing or crackles. GASTROINTESTINAL: Abdomen soft, non-tender, nondistended. Bowel sounds present. : Guerrero in place with light yellow urine output. MUSCULOSKELETAL: Extremities without clubbing, cyanosis, or edema. Dressing in place R groin. No hematoma. Palpable bilateral DP/MOTORCYCLE TESTER pulses. NEUROLOGICAL: Drowsy, easily arousable. Follows commands by moving feet and squeezing hands bilaterally. No apparent focal deficit A/P Problem List: (1) Anxiety ICD Code: F41.9 - Anxiety disorder, unspecified Status: Chronic (2) Leukocytosis ICD Code: D72.829 - Elevated white blood cell count, unspecified Status: Acute (3) Status post insertion of drug-eluting stent into left anterior descending ( LAD) artery ICD Code: Z95.5 - Presence of coronary angioplasty implant and graft Status: Acute (4) Left main coronary artery disease ICD Code: I25.10 - Atherosclerotic heart disease of [place] coronary artery without angina pectoris (5) GERTRUDE (acute kidney injury) ICD Code: N17.9 - Acute kidney failure, unspecified Status: Acute (6) Tobacco abuse ICD Code: Z72.0 - Tobacco use Status: Acute (7) Cardiogenic shock ICD Code: R57.0 - Cardiogenic shock Status: Acute (8) On intra-aortic balloon pump assist ICD Code: Z98.890 - Other specified postprocedural states Status: Acute (9) Hyperglycemia ICD Code: R73.9 - Hyperglycemia, unspecified Status: Acute (10) Respiratory failure ICD Code: J96.90 - Respiratory failure, unspecified, unspecified whether with hypoxia or hypercapnia Status: Acute (11) STEMI (ST elevation myocardial infarction) ICD Code: I21.3 - ST elevation (STEMI) myocardial infarction of unspecified site Status: Acute Assessment and Plan NEURO: Depression Anxiety She is alert and following commands. Hold Paxil 10 mg daily, Xanax her 0.25 mg, baclofen 10 mg for now. Unknown frequency of baclofen dosing, will need to confirm. RESP: Acute respiratory failure Tobacco abuse Intubated 07/08 in the ED. extubated following C Pap trial on 07/10, currently on nasal cannula 5 L/m. We'll diurese DuoNeb every 6 hours. Albuterol every 2 hours as needed. CV: Anterolateral STEMI now status post drug-eluting stent to the LAD Multivessel coronary artery disease with 60% left main lesion. Cardiogenic shock She underwent drug-eluting stent to the LAD. (07/08, Dr. Alejandra Duncan) Has L main 60% stenosis and CVS consulted for possible bypass. IABP placed to augment coronary perfusion, discontinued 07/10. Aspirin 81 daily. Brillinta held for CABG and pt. on Aggrastat gtt. On heparin drip with goal PTT 40-75. Beta jayce per cardiology Follow-up 2-D echo Cardio thoracic surgery consult-patient needs CABG, to be scheduled by CT surgery. Atorvastatin 80 mg by mouth daily at bedtime. GI: Nothing by mouth. OGT tube to low intermittent wall suction. FEN/RENAL: Guerrero is in place and will need to remain due to need to for close monitoring of urine output and diuresis. Lasix 20 mg IVx1 KCL 25 MEQ x1. ICU electrolyte replacement protocol. ID: Leukocytosis likely secondary to myocardial infarction. Monitor for signs and symptoms of infection. HEME: Hemoglobin normal. On heparin drip, Brillinta ENDO: Acute hyperglycemia likely secondary to stress response. We'll check hemoglobin A1c. Monitor bedside glucose before meals at bedtime and initiate low-dose insulin sliding scale as indicated. PROPH: On heparin drip which will also for DVT prophylaxis. Famotidine 20 mg IV every 12 for stress ulcer prophylaxis. ACCESS: Right groin intra-aortic balloon pump 07/08. discontinued 07/10.(Sheath left for A line) Further recommendations per cardiology and CT surgery. If surgery delayed further, will transfer to hospitalist service and patient may be transferred out of ICU when okay with cardiology and CT surgery. Problem Qualifiers (1) Respiratory failure: Qualified Codes: J96.00 - Acute respiratory failure, unspecified whether with hypoxia or hypercapnia (2) STEMI (ST elevation myocardial infarction): Qualified Codes: I21.02 - ST elevation (STEMI) myocardial infarction involving left anterior descending coronary artery Clinton Mata MD Jul 11, 2017 09:53
[2017-07-11 10:05] LABS: PROTHROMBIN TIME - PATIENT 11.4 SEC (9.8-11.6)
--- NOTE | 2017-07-11 10:29 | PD.CAR.PN ---
CVT Progress Note Subjective/Hospital Course: 47/ yr old female brought in unresponsive by EMS, intubated in ED, pulse initially not palpable , CPR was given / ACLS/ EKG showed extensive ST elevations anterior lateral leads/ Code STEMI activated/ pt went to rn labor delivery, underwent emergent PCI with stent to LAD ( drug eluting) , IABP placed, one dose of Brilinta given , now on Heparin and aggrastat . We were consulted to eval for CABG x 2 / LAD/ Circ / Echo showed EF 40% PMH: arthritis, asthma, tobacco abuse, Bipolar disorder, anxiety depression, previous suicidal attempts 07/10 pt remains intubated on vent, 40% fi02 sedated with versed and fentanly, she will open eyes , follow simple commands and moves all extremities IABP 1:2 augmentation , + distal pulses unable to get PRU p2y12 ( pt on aggrastat / would need to be off x 48hrs to have accurate results per Lab plan for surgery timing per Dr Candelario 07/11 pt extubated yesterday, now on nasal cannula needs aggressive pulm toileting continue nebs/ ezpap acapella no pressors alert and oriented / will be able to sign own surgical consent scheduled for surgery in am Objective: GENERAL: A&O x 3 SKIN: Warm and dry. HEAD: Normocephalic. EYES: No scleral icterus. No injection or drainage. NECK: Supple, trachea midline. No JVD or lymphadenopathy. CARDIOVASCULAR: Regular rate and rhythm without murmurs, gallops, or rubs. right fem venous sheath in place / + distal pulses RESPIRATORY: Breath sounds equal bilaterally. No accessory muscle use. coarse bilateral breath sounds GASTROINTESTINAL: Abdomen soft, non-tender, nondistended. MUSCULOSKELETAL: No cyanosis, or edema. BACK: Nontender without obvious deformity. No CVA tenderness. Vital Signs Date Time Temp Pulse Resp B/P (MAP) Pulse Ox O2 Delivery O2 Flow Rate FiO2 07/11/17 09:16 93 Nasal Cannula 5.00 07/11/17 07:00 99.6 91 24 98/74 (82) 92 132/78 (96) 07/11/17 07:00 93 Nasal Cannula 5.00 07/11/17 07:00 92 07/11/17 03:10 99.3 97 15 99/68 (78) 95 135/83 (100) 07/11/17 03:10 95 Nasal Cannula 4.00 07/11/17 03:10 98 07/10/17 23:39 98.9 101 15 108/73 (85) 95 131/80 (97) 07/10/17 23:39 104 07/10/17 23:39 95 Nasal Cannula 4.00 07/10/17 23:10 95 Nasal Cannula 4.00 07/10/17 21:34 100 138/87 07/10/17 19:39 98.5 112 16 107/74 (85) 96 127/86 (100) 07/10/17 19:39 96 Nasal Cannula 4.00 07/10/17 19:36 112 07/10/17 16:17 96 Nasal Cannula 4.00 07/10/17 15:50 95 Nasal Cannula 4.00 07/10/17 15:50 95 Nasal Cannula 4 07/10/17 15:00 111 07/10/17 15:00 100.7 116 22 126/78 (94) 100 07/10/17 15:00 40 07/10/17 15:00 97 Mechanical Ventilator 40 07/10/17 13:35 40 07/10/17 11:02 97 40 07/10/17 11:00 98 Mechanical Ventilator 40 07/10/17 11:00 92/73 (81) 07/10/17 11:00 100.1 105 21 92/73 (79) 98 07/10/17 11:00 105 07/10/17 11:00 40 Labs: Laboratory Tests Test 07/11/17 02:34 07/11/17 08:00 07/11/17 09:30 White Blood Count 15.1 TH/MM3 (4.0-11.0) Red Blood Count 4.05 MIL/MM3 (4.00-5.30) Hemoglobin 12.9 GM/DL (11.6-15.3) Hematocrit 38.0 % (35.0-46.0) Mean Corpuscular Volume 93.9 FL (80.0-100.0) Mean Corpuscular Hemoglobin 31.8 PG (27.0-34.0) Mean Corpuscular Hemoglobin Concent 33.9 % (32.0-36.0) Red Cell Distribution Width 13.3 % (11.6-17.2) Platelet Count 259 TH/MM3 (150-450) Mean Platelet Volume 8.0 FL (7.0-11.0) Neutrophils (%) (Auto) 74.2 % (16.0-70.0) Lymphocytes (%) (Auto) 16.7 % (9.0-44.0) Monocytes (%) (Auto) 7.1 % (0.0-8.0) Eosinophils (%) (Auto) 1.5 % (0.0-4.0) Basophils (%) (Auto) 0.5 % (0.0-2.0) Neutrophils # (Auto) 11.2 TH/MM3 (1.8-7.7) Lymphocytes # (Auto) 2.5 TH/MM3 (1.0-4.8) Monocytes # (Auto) 1.1 TH/MM3 (0-0.9) Eosinophils # (Auto) 0.2 TH/MM3 (0-0.4) Basophils # (Auto) 0.1 TH/MM3 (0-0.2) CBC Comment DIFF FINAL Differential Comment Activated Partial Thromboplast Time 44.9 SEC (24.3-30.1) 41.5 SEC (24.3-30.1) Prothrombin Time 11.4 SEC (9.8-11.6) Prothromb Time International Ratio 1.0 RATIO Result Diagram: 07/11/17 0234 07/10/17 0509 Telemetry: NSR (1) STEMI (ST elevation myocardial infarction) Plan: ASA , Heparin Aggrastat, statin stop aggrastat at 10pm tonight hold Heparin gtt 4 hrs prior to surgery for surgery in am (2) Cardiogenic shock Plan: resolved (3) Status post insertion of drug-eluting stent into left anterior descending ( LAD) artery Plan: will need to be on Brilinta post surgery (4) Ventricular tachycardia Plan: resolved, remains on amiodarone (5) Left main coronary artery disease (6) Tobacco abuse Plan: smoking cessation (7) Respiratory failure Plan: resolved, continue aggressive pulm toileting Problem Qualifiers (1) STEMI (ST elevation myocardial infarction): Qualified Codes: I21.02 - ST elevation (STEMI) myocardial infarction involving left anterior descending coronary artery (2) Respiratory failure: Qualified Codes: J96.00 - Acute respiratory failure, unspecified whether with hypoxia or hypercapnia Afshan Rodríguez Jul 11, 2017 10:29
[2017-07-11 10:59] LABS: BICARBONATE 24.4 MEQ/L (21.0-32.0); POTASSIUM 2.9 MEQ/L (3.5-5.1)
[2017-07-11] MEDS: HEPARIN-D5W 25,000 U/250 ML 250 ML IV PRN (11:54)
[2017-07-11] MEDS: POTASSIUM CHLOR 20 MEQ PREMIX 100 ML IV SCH ×3 (12:00→20:00)
[2017-07-11] MEDS ORDERED: POTASSIUM CHLORIDE 20 MEQ CONTROLLED RELEASE TAB PO ONE (12:00)
[2017-07-11] MEDS: AMIODARONE INJ 450 MG in DEXTROSE 5% IN WATE(EXCEL) INJ 241 ML IV SCH ×2 (13:27)
[2017-07-11] MEDS: SODIUM CHLORIDE 0.9% FLUSH 10 ML FLUSH IV FLUSH SCH ×2 (13:28→21:00)
[2017-07-11] MEDS: LEVOFLOXACIN 500 MG PREMIX INJ 100 ML IV SCH (13:37)
[2017-07-11] MEDS ORDERED: POTASSIUM CHLORIDE 25 MEQ EFFERVESCENT TAB PO PRN (13:45)
[2017-07-11] MEDS ORDERED: MAGNESIUM OXIDE 400 MG TAB PO PRN (13:45)
[2017-07-11] MEDS ORDERED: POTASSIUM CHLOR 20 MEQ PREMIX 100 ML IV PRN ×2 (13:45)
[2017-07-11] MEDS ORDERED: POTASSIUM PHOSPHATE MONOBASIC 500 MG TAB PO/TUBE PRN (13:45)
[2017-07-11] MEDS ORDERED: SODIUM PHOSPHATE INJ 30 MMOL in SODIUM CHLOR 0.9% 250 ML INJ 240 ML IV PRN (13:45)
[2017-07-11] MEDS ORDERED: POTASSIUM PHOSPHATE MONOBASIC 500 MG TAB PO PRN (13:45)
[2017-07-11] MEDS ORDERED: POTASSIUM PHOSPHATE INJ 30 MMOL in SODIUM CHLOR 0.9% 250 ML INJ 250 ML IV PRN (13:45)
[2017-07-11] MEDS ORDERED: MAGNESIUM SULFATE INJ 4 GM in SODIUM CHLORIDE 0.9% INJ 92 ML IV PRN (13:45)
[2017-07-11] MEDS ORDERED: MAGNESIUM SULFATE INJ 2 GM in SODIUM CHLORIDE 0.9% INJ 96 ML IV PRN (13:45)
[2017-07-11] MEDS ORDERED: POTASSIUM CHLOR 40 MEQ PREMIX 100 ML IV PRN ×2 (13:45)
--- NOTE | 2017-07-11 17:23 | PD.CARD.PN ---
Subjective Subjective Remarks Doing well IABP out, extubated No complaints Objective Medications Current Medications Medications (Trade) Dose Ordered Sig/Latisha Route Start Time Stop Time Status Last Admin (NS Flush) 2 ml UNSCH PRN IVF 07/08/17 21:15 (Brethine Inj) 1 mg UNSCH PRN SQ 07/08/17 21:45 (Aspirin Chew) 81 mg DAILY PO 07/09/17 09:00 07/11/17 09:28 (Brilinta) 90 mg BID PO 07/09/17 09:00 Future Hold (Lipitor) 80 mg HS PO 07/09/17 21:00 07/10/17 20:07 (Heparin Inj) 5,000 units UNSCH PRN IV 07/09/17 06:00 (Heparin Inj) 2,500 units UNSCH PRN IV 07/09/17 06:00 07/10/17 20:40 Heparin Sodium/ Dextrose 250 ml @ 9.6 mls/hr TITRATE PRN IV 07/09/17 00:00 07/11/17 11:54 (Duoneb Neb) 1 ampule Q6HR NEB NEB 07/09/17 04:00 07/11/17 16:40 (Albuterol Neb) 2.5 mg Q2HR NEB PRN NEB 07/09/17 02:15 (Peridex 0.12% Liq) 15 ml BID@08,20 MT 07/09/17 08:00 07/11/17 08:00 (D50w (Vial) Inj) 50 ml UNSCH PRN IV PUSH 07/09/17 02:15 (Glucagon Inj) 1 mg UNSCH PRN OTHER 07/09/17 02:15 (NovoLOG SUPPLEMENTAL SCALE) 1 ACHS SLIDING SCALE SQ 07/09/17 08:00 Potassium Chloride 100 ml @ 50 mls/hr Q2H PRN IV 07/09/17 02:15 Potassium Chloride 100 ml @ 50 mls/hr Q2H PRN IV 07/09/17 02:15 07/11/17 11:35 (K-Lyte Cl Eff) 50 meq UNSCH PRN PO 07/09/17 02:15 07/11/17 13:00 Potassium Chloride 100 ml @ 25 mls/hr UNSCH PRN IV 07/09/17 02:15 Potassium Chloride 100 ml @ 50 mls/hr Q2H PRN IV 07/09/17 02:15 Magnesium Sulfate 4 gm/Sodium Chloride 100 ml @ 50 mls/hr UNSCH PRN IV 07/09/17 02:15 (Mag-Ox) 800 mg UNSCH PRN PO 07/09/17 02:15 Magnesium Sulfate 2 gm/Sodium Chloride 100 ml @ 50 mls/hr UNSCH PRN IV 07/09/17 02:15 (K-Phos) 2,000 mg Q4H PRN PO 07/09/17 02:15 Sodium Phosphate 30 mmol/Sodium Chloride 250 ml @ 42 mls/hr UNSCH PRN IV 07/09/17 02:15 (K-Phos) 2,000 mg UNSCH PRN PO/TUBE 07/09/17 02:15 Potassium Phosphate 30 mmol/ Sodium Chloride 260 ml @ 42 mls/hr UNSCH PRN IV 07/09/17 02:15 Amiodarone HCl 450 mg/Dextrose 250 ml @ 33 mls/hr Q7H35M IV 07/09/17 05:44 07/11/17 13:27 (NS Flush) 2 ml BID IV FLUSH 07/09/17 21:00 07/11/17 13:28 (NS Flush) 2 ml UNSCH PRN IV FLUSH 07/09/17 12:00 Papaverine HCl 60 mg/Nitroglycerin 100 mcg/Diltiazem HCl 100 mg/Sodium Chloride 100 ml @ 0 mls/hr OPERATING SYSTEM DESIGNER IRRIGATION 07/09/17 12:00 07/16/17 11:59 Cefazolin Sodium 500 mg/Sodium Chloride 505 ml @ 0 mls/hr OPERATING SYSTEM DESIGNER IRRIGATION 07/09/17 12:00 07/16/17 11:59 Cefazolin Sodium/ Dextrose 50 ml @ 100 mls/hr OPERATING SYSTEM DESIGNER IV 07/09/17 12:00 07/16/17 11:59 (Lopressor) 12.5 mg OPERATING SYSTEM DESIGNER PO 07/09/17 12:00 07/16/17 11:59 (Hibiclens 4% Top Soln) 1 applic OPERATING SYSTEM DESIGNER TOPICAL 07/09/17 12:00 07/16/17 11:59 Insulin Human Regular 100 units/ Sodium Chloride 101 ml @ 0 mls/hr OPERATING SYSTEM DESIGNER IV 07/09/17 12:00 07/16/17 11:59 (Pepcid Inj) 20 mg Q12H IV PUSH 07/09/17 14:00 07/11/17 13:38 Levofloxacin/ Dextrose 100 ml @ 100 mls/hr Q24H IV 07/09/17 14:00 07/11/17 13:37 Tirofiban/Sodium Chloride 250 ml @ 14.814 mls/ hr [id number] IV 07/09/17 16:24 07/11/17 00:06 (Lopressor) 12.5 mg Q12HR PO 07/10/17 21:00 07/11/17 09:28 Potassium Chloride 100 ml @ 50 mls/hr Q2H IV 07/11/17 12:00 07/11/17 13:29 Potassium Chloride 100 ml @ 50 mls/hr Q2H PRN IV 07/11/17 13:45 Potassium Chloride 100 ml @ 50 mls/hr Q2H PRN IV 07/11/17 13:45 (K-Lyte Cl Eff) 50 meq UNSCH PRN PO 07/11/17 13:45 Potassium Chloride 100 ml @ 25 mls/hr UNSCH PRN IV 07/11/17 13:45 Potassium Chloride 100 ml @ 50 mls/hr Q2H PRN IV 07/11/17 13:45 Magnesium Sulfate 4 gm/Sodium Chloride 100 ml @ 50 mls/hr UNSCH PRN IV 07/11/17 13:45 (Mag-Ox) 800 mg UNSCH PRN PO 07/11/17 13:45 Magnesium Sulfate 2 gm/Sodium Chloride 100 ml @ 50 mls/hr UNSCH PRN IV 07/11/17 13:45 (K-Phos) 2,000 mg Q4H PRN PO 07/11/17 13:45 Sodium Phosphate 30 mmol/Sodium Chloride 250 ml @ 42 mls/hr UNSCH PRN IV 07/11/17 13:45 (K-Phos) 2,000 mg UNSCH PRN PO/TUBE 07/11/17 13:45 Potassium Phosphate 30 mmol/ Sodium Chloride 260 ml @ 42 mls/hr UNSCH PRN IV 07/11/17 13:45 Vital Signs / I&O Vital Signs Date Time Temp Pulse Resp B/P (MAP) Pulse Ox O2 Delivery O2 Flow Rate FiO2 07/11/17 13:27 89 121/72 07/11/17 11:00 94 Nasal Cannula 5.00 07/11/17 11:00 99.7 93 18 105/77 (86) 91 126/78 (94) 07/11/17 11:00 96 07/11/17 09:16 93 Nasal Cannula 5.00 07/11/17 07:00 99.6 91 24 98/74 (82) 92 132/78 (96) 07/11/17 07:00 93 Nasal Cannula 5.00 07/11/17 07:00 92 07/11/17 03:10 99.3 97 15 99/68 (78) 95 135/83 (100) 07/11/17 03:10 95 Nasal Cannula 4.00 07/11/17 03:10 98 07/10/17 23:39 98.9 101 15 108/73 (85) 95 131/80 (97) 07/10/17 23:39 104 07/10/17 23:39 95 Nasal Cannula 4.00 07/10/17 23:10 95 Nasal Cannula 4.00 07/10/17 21:34 100 138/87 07/10/17 19:39 98.5 112 16 107/74 (85) 96 127/86 (100) 07/10/17 19:39 96 Nasal Cannula 4.00 07/10/17 19:36 112 I/O 07/10/17 07/10/17 07/10/17 07/11/17 07/11/17 07/11/17 07:00 15:00 23:00 07:00 15:00 23:00 Intake Total 719 ml 397 ml 352 ml 930 ml 100 ml Output Total 630 ml 600 ml 1385 ml Balance 89 ml 397 ml -248 ml -455 ml 100 ml Intake Oral 0 ml 0 ml 400 ml IV Total 719 ml 397 ml 352 ml 530 ml 100 ml Output Urine Total 430 ml 500 ml 1385 ml Gastric Drainage Total 200 ml 100 ml # Bowel Movements 0 0 Physical Exam GENERAL: NAD, AAOx3 SKIN: Warm and dry. HEAD: Atraumatic. Normocephalic. EYES: Pupils equal and round. No scleral icterus. No injection or drainage. ENT: No nasal bleeding or discharge. Mucous membranes pink and moist. NECK: Trachea midline. No JVD. CARDIOVASCULAR: RRR, no murmurs noted RESPIRATORY: No accessory muscle use. Decreased breath sounds bilaterally GASTROINTESTINAL: Abdomen soft, non-tender, nondistended. Hepatic and splenic margins not palpable. MUSCULOSKELETAL: Extremities without clubbing, cyanosis, or edema. No obvious deformities. Bilateral distal pulses intact, palpable. Right femoral line, no hematoma NEUROLOGICAL: No focal deficits Laboratory Laboratory Tests Test 07/10/17 17:30 07/10/17 20:01 07/11/17 02:34 07/11/17 08:00 Nasal Screen MRSA (PCR) MRSA NOT DETECTED Activated Partial Thromboplast Time 38.3 SEC 44.9 SEC 41.5 SEC White Blood Count 15.1 TH/MM3 Red Blood Count 4.05 MIL/MM3 Hemoglobin 12.9 GM/DL Hematocrit 38.0 % Mean Corpuscular Volume 93.9 FL Mean Corpuscular Hemoglobin 31.8 PG Mean Corpuscular Hemoglobin Concent 33.9 % Red Cell Distribution Width 13.3 % Platelet Count 259 TH/MM3 Mean Platelet Volume 8.0 FL Neutrophils (%) (Auto) 74.2 % Lymphocytes (%) (Auto) 16.7 % Monocytes (%) (Auto) 7.1 % Eosinophils (%) (Auto) 1.5 % Basophils (%) (Auto) 0.5 % Neutrophils # (Auto) 11.2 TH/MM3 Lymphocytes # (Auto) 2.5 TH/MM3 Monocytes # (Auto) 1.1 TH/MM3 Eosinophils # (Auto) 0.2 TH/MM3 Basophils # (Auto) 0.1 TH/MM3 CBC Comment DIFF FINAL Differential Comment Test 07/11/17 09:30 Prothrombin Time 11.4 SEC Prothromb Time International Ratio 1.0 RATIO Blood Urea Nitrogen 9 MG/DL Creatinine 0.72 MG/DL Random Glucose 139 MG/DL Calcium Level 9.6 MG/DL Magnesium Level 2.0 MG/DL Sodium Level 136 MEQ/L Potassium Level 2.9 MEQ/L Chloride Level 102 MEQ/L Carbon Dioxide Level 24.4 MEQ/L Anion Gap 10 MEQ/L Estimat Glomerular Filtration Rate 87 ML/MIN Assessment and Plan Problem List: (1) STEMI (ST elevation myocardial infarction) ICD Codes: I21.3 - ST elevation (STEMI) myocardial infarction of unspecified site Status: Acute (2) Cardiogenic shock ICD Codes: R57.0 - Cardiogenic shock Status: Acute (3) Status post insertion of drug-eluting stent into left anterior descending ( LAD) artery ICD Codes: Z95.5 - Presence of coronary angioplasty implant and graft Status: Acute (4) Ventricular tachycardia ICD Codes: I47.2 - Ventricular tachycardia (5) Left main coronary artery disease ICD Codes: I25.10 - Atherosclerotic heart disease of [place] coronary artery without angina pectoris (6) Tobacco abuse ICD Codes: Z72.0 - Tobacco use Status: Acute (7) Respiratory failure ICD Codes: J96.90 - Respiratory failure, unspecified, unspecified whether with hypoxia or hypercapnia Status: Acute Assessment and Plan 1) STEMI/Cardiogenic shock S/p JB to LAD Con't ASA Brilinta held for possible CABG Heparin and Aggrastat drip started 2) IABP for cardiogenic shock IABP removed (07/10/17) sterilely at the bedside 8.5 chadian sheath for A-line, or incase she becomes electrically or hemodynamically compromised for replacing IABP 3) Left main disease (Area 3.7mm2 by IVUS) Plan CABG by Dr. Candelario, possible tomorrow 4) Vent per critical care Consideration of extubating today if possible 5) Ventricular tachycardia Will continue on Amiodarone drip for now pre-operatively No further events 6) Discussed with critical care, nursing and CT surgery Problem Qualifiers (1) STEMI (ST elevation myocardial infarction): Qualified Codes: I21.02 - ST elevation (STEMI) myocardial infarction involving left anterior descending coronary artery (2) Respiratory failure: Qualified Codes: J96.00 - Acute respiratory failure, unspecified whether with hypoxia or hypercapnia Gustavo Duncan DO Jul 11, 2017 17:23
[2017-07-11] MEDS: ATORVASTATIN 80 MG TAB PO SCH (20:29)
[2017-07-12] VITALS (8 sets, daily range): BP systolic 71–116; BP diastolic 48–72; PULSE 75–95; RESP 16–41; TEMP 98.3–99.3; O2SAT 93–100
[2017-07-12] MEDS ORDERED: ACETAMINOPHEN 500 MG CPLT PO PRN
[2017-07-12] MEDS ORDERED: CHLORHEXIDINE GLUCONATE 2 % 1 PACK (2 CLOTHS) TOPICAL PRN (01:30)
[2017-07-12] MEDS ORDERED: POVIDONE IODINE 5% (ANTISEPSIS KIT) 4 APPLICATIONS EACH NARE PRN (01:30)
[2017-07-12] MEDS ORDERED: INSULIN HUMAN REGULAR 1,000 UNITS/10 ML VIAL SQ PRN (01:30)
[2017-07-12] MEDS ORDERED: LACTATED RINGER'S 1000 ML IV PRN (01:30)
[2017-07-12] MEDS ORDERED: SODIUM CHLORID 0.9% 500 ML IV PRN (01:30)
[2017-07-12] MEDS: AMIODARONE INJ 450 MG in DEXTROSE 5% IN WATE(EXCEL) INJ 241 ML IV SCH ×4 (01:59→05:34)
[2017-07-12] MEDS: FAMOTIDINE 20 MG/2 ML VIAL IV PUSH SCH (02:27)
[2017-07-12] MEDS: RESP: ALBUTEROL 2.5 MG/IPRATROPIUM 0.5 MG NEB (SCH) NEB ×4 (03:18→21:25)
[2017-07-12 05:16] LABS: AUTOMATED NEUTROPHIL # 9.5 TH/MM3 (1.8-7.7); BASOPHIL # 0.1 TH/MM3 (0-0.2); BASOPHIL % 0.6 % (0.0-2.0); EOSINOPHIL # 0.6 TH/MM3 (0-0.4); EOSINOPHIL % 4.6 % (0.0-4.0); HEMATOCRIT 37.3 % (35.0-46.0); HEMO FLAGS DIFF FINAL; LYMPH % 17.8 % (9.0-44.0); LYMPHOCYTE # 2.4 TH/MM3 (1.0-4.8); MEAN CELL VOLUME 93.5 FL (80.0-100.0); MEAN CORPUSCULAR HEMOGLOBIN 32.5 PG (27.0-34.0); MEAN CORPUSCULAR HGB CONC 34.7 % (32.0-36.0); MONO % 7.2 % (0.0-8.0); NEUT % 69.8 % (16.0-70.0); PLATELET COUNT 261 TH/MM3 (150-450); RED BLOOD COUNT 3.99 MIL/MM3 (4.00-5.30); RED CELL DISTRIBUTION WIDTH 12.9 % (11.6-17.2); WHITE BLOOD COUNT 13.7 TH/MM3 (4.0-11.0)
[2017-07-12] MEDS: METOPROLOL TARTRATE 25 MG TAB PO SCH (05:28)
--- NOTE | 2017-07-12 06:44 | HHI.CCPN ---
Subjective Remarks/Hospital Course 07/09: 47-year-old female with past medical history of endometriosis who presented to [facility] emergency department unresponsive. She had collapsed on the floor of the bathroom after having complained of chest pain for 2 days. She was intubated upon arrival. Pulse was not palpable and she received a few chest compressions but she was responsive. EKG showed anterior lateral STEMI with 3-6 mm of elevation in lead I, V2-V6, AVL with reciprocal depression. She was taken emergently to the [facility] where she underwent drug-eluting stent to proximal LAD 90% occlusion. There is 60% lesion at left main for which Dr. Duncan has consulted [facility] for possible bypass. She was defibrillated 1 for V. tach in the [facility]. IABP was placed. She is not requiring pressors/inotropes. She is following commands upon arrival to CVICU. 07/10: Remains sedated, arousable, orally intubated on mechanical ventilation. IABP just discontinued. 07/11: Extubated on 07/10 following removal of intra-aortic balloon pump. On nasal cannula overnight 5 L/m. Appears comfortable. 07/12: Resting comfortably on nasal cannula. Awaiting CABG this AM. Denies CP/ SOB. Objective Vital Signs Date Time Temp Pulse Resp B/P (MAP) Pulse Ox O2 Delivery O2 Flow Rate FiO2 07/12/17 05:34 86 116/66 07/12/17 03:00 98.3 16 96 07/12/17 03:00 Nasal Cannula 5.00 07/10/17 15:00 40 Intake and Output 07/12/17 07/12/17 07/13/17 08:00 16:00 00:00 Intake Total 667 ml Output Total 725 ml Balance -58 ml Result Diagram: 07/12/17 0500 07/11/17 2120 Other Results Microbiology Date/Time Source Procedure Growth Status 07/09/17 09:45 Urine Catheterized Urine Urine Culture - Final NO GROWTH IN 48 HOURS. Complete Imaging Last 48 hours Impressions Chest X-Ray 07/10/17 0000 Signed Impressions: Service Date/Time: Monday, July 10, 2017 09:13 - CONCLUSION: 1. The support equipment is in good position. 2. The lungs are clear. Enrrique Molina MD Objective Remarks GENERAL: Well-nourished, well-developed patient laying in bed in no acute distress on nasal cannula 5 L/m SKIN: Warm and dry. HEAD: Atraumatic. Normocephalic. EYES: No pallor/icterus. No injection or drainage. ENT: No nasal bleeding or discharge. Mucous membranes pink and moist. NECK: Trachea midline. No JVD. CARDIOVASCULAR: Regular rate and rhythm, sinus rhythm on the monitor. Resp: Good air entry bilaterally, no wheezing or crackles. GASTROINTESTINAL: Abdomen soft, non-tender, nondistended. Bowel sounds present. : Guerrero in place with light yellow urine output. MUSCULOSKELETAL: Extremities without clubbing, cyanosis, or edema. Dressing in place R groin. No hematoma. Palpable bilateral DP/INFORMATION RECEPTIONIST pulses. NEUROLOGICAL: AAO x3. No apparent focal deficit A/P Problem List: (1) Anxiety ICD Code: F41.9 - Anxiety disorder, unspecified Status: Chronic (2) Leukocytosis ICD Code: D72.829 - Elevated white blood cell count, unspecified Status: Acute (3) Status post insertion of drug-eluting stent into left anterior descending ( LAD) artery ICD Code: Z95.5 - Presence of coronary angioplasty implant and graft Status: Acute (4) Left main coronary artery disease ICD Code: I25.10 - Atherosclerotic heart disease of [place] coronary artery without angina pectoris (5) GERTRUDE (acute kidney injury) ICD Code: N17.9 - Acute kidney failure, unspecified Status: Acute (6) Tobacco abuse ICD Code: Z72.0 - Tobacco use Status: Acute (7) Cardiogenic shock ICD Code: R57.0 - Cardiogenic shock Status: Acute (8) On intra-aortic balloon pump assist ICD Code: Z98.890 - Other specified postprocedural states Status: Acute (9) Hyperglycemia ICD Code: R73.9 - Hyperglycemia, unspecified Status: Acute (10) Respiratory failure ICD Code: J96.90 - Respiratory failure, unspecified, unspecified whether with hypoxia or hypercapnia Status: Acute (11) STEMI (ST elevation myocardial infarction) ICD Code: I21.3 - ST elevation (STEMI) myocardial infarction of unspecified site Status: Acute Assessment and Plan NEURO: Depression Anxiety She is alert and following commands. Hold Paxil 10 mg daily, Xanax her 0.25 mg, baclofen 10 mg for now. Unknown frequency of baclofen dosing, will need to confirm. RESP: Acute respiratory failure Tobacco abuse Intubated 07/08 in the ED. extubated following C Pap trial on 07/10, currently on nasal cannula 5 L/m. Diuresed DuoNeb every 6 hours. Albuterol every 2 hours as needed. CV: Anterolateral STEMI now status post drug-eluting stent to the LAD Multivessel coronary artery disease with 60% left main lesion. Cardiogenic shock She underwent drug-eluting stent to the LAD. (07/08, Dr. Alejandra Duncan) Has L main 60% stenosis and CVS consulted for possible bypass. IABP placed to augment coronary perfusion, discontinued 07/10. Aspirin 81 daily. Brillinta held for CABG. Off heparin/ Aggrastat. Beta jayce per cardiology Follow-up 2-D echo Cardio thoracic surgery consult-patient needs CABG, to be scheduled by CT surgery. Atorvastatin 80 mg by mouth daily at bedtime. GI: Nothing by mouth. OGT tube to low intermittent wall suction. FEN/RENAL: Guerrero is in place and will need to remain due to need to for close monitoring of urine output and diuresis. Lasix 20 mg IVx1 KCL 25 MEQ x1. ICU electrolyte replacement protocol. ID: Leukocytosis likely secondary to myocardial infarction. Monitor for signs and symptoms of infection. HEME: Hemoglobin normal. On heparin drip, Brillinta ENDO: Acute hyperglycemia likely secondary to stress response. We'll check hemoglobin A1c. Monitor bedside glucose before meals at bedtime and initiate low-dose insulin sliding scale as indicated. PROPH: SCDs for DVT prophylaxis. SQ lovenox post CABG when OK with CTS. Famotidine 20 mg IV every 12 for stress ulcer prophylaxis. ACCESS: Right groin intra-aortic balloon pump 07/08. discontinued 07/10.(Sheath left for A line) Further recommendations per cardiology and CT surgery. Problem Qualifiers (1) Respiratory failure: Qualified Codes: J96.00 - Acute respiratory failure, unspecified whether with hypoxia or hypercapnia (2) STEMI (ST elevation myocardial infarction): Qualified Codes: I21.02 - ST elevation (STEMI) myocardial infarction involving left anterior descending coronary artery Clinton Mata MD Jul 12, 2017 06:44
[2017-07-12] MEDS ORDERED: HEPARIN SODIUM - SQ 10,000 UNITS/ML VIAL ONE (07:07)
[2017-07-12] MEDS ORDERED: VANCOMYCIN HCL 1000 MG VIAL ONE (07:08)
[2017-07-12] MEDS ORDERED: ceFAZolin 2 GM PREMIX 50 ML ONE (07:08)
[2017-07-12] MEDS ORDERED: SODIUM CHLORIDE 0.9% INJ 50 ML ONE (07:24)
[2017-07-12] MEDS ORDERED: DEXMEDETOMIDINE HCL 200 MCG/2 ML VIAL ONE (07:25)
[2017-07-12] MEDS ORDERED: BUPIVACAINE LIPOSO PF 1.3% INJ 20 ML, DEXAMETHASONE INJ 4 MG, MORPHINE INJ 8 MG in SODI... IRRIGATION ONE (07:45)
[2017-07-12] MEDS: ASPIRIN 81 MG CHEW TAB PO SCH (09:00)
[2017-07-12] MEDS ORDERED: ePHEDrine/NS 25 MG/5 ML SYR IV ONE (09:56)
[2017-07-12] MEDS ORDERED: NORMOSOL R INJ 3,000 ML IV ONE (09:56)
[2017-07-12] MEDS ORDERED: ARTIFICIAL TEARS OPTH OINT 3.5 APPLIC/3.5 GM TUBO ONE (09:56)
[2017-07-12] MEDS ORDERED: HEPARIN - 10,000 UNITS/ML IV ADDITIVE IV ONE (09:56)
[2017-07-12] MEDS ORDERED: PHENYLEPH/NS 1000 MCG/10 ML SYR IV ONE (09:56)
[2017-07-12] MEDS ORDERED: LACTATED RINGER'S 1000 ML INJ 2,000 ML IV ONE (09:56)
[2017-07-12] MEDS ORDERED: AMINOCAPROIC ACID INJ 250 MG/ML 20 ML VIAL IV ONE (09:56)
[2017-07-12] MEDS ORDERED: MAGNESIUM SULFATE 1000 MG/2 ML VIAL (PED) IV ONE (09:56)
[2017-07-12] MEDS ORDERED: SODIUM CHLORID 0.9% 500 ML INJ 500 ML IV ONE (09:56)
[2017-07-12] MEDS ORDERED: MIDAZOLAM HCL 5 MG/5 ML VIAL IV ONE (09:56)
[2017-07-12] MEDS: DOBUTamine PREMIX DRIP 250 ML IV SCH (12:46)
[2017-07-12] MEDS ORDERED: ceFAZolin INJ 1,000 MG VIAL ONE (12:53)
--- NOTE | 2017-07-12 12:57 | PD.OP ---
cc: Deepak Candelario MD; Gustavo Duncan DO Operative Report Date of Surgery: Jul 12, 2017 Preoperative Diagnosis: Postoperative Diagnosis: Procedure: 1. Urgent Off-pump Coronary Artery Bypass Grafting x 2 with Left Internal Mammary Artery (FINNEY) to the Left Anterior Descending (LAD), reverse saphenous vein graft to the OM1 2. Left Leg Endoscopic Vein Guion 3. Intraoperative Vein Mapping 4. Multi-Level Intercostal Nerve Block. Surgeon: Deepak Candelario Filer And Sander(s): Irene Romero Operation and Findings: PREPROCEDURE DIAGNOSES 1. Severe Left Main Coronary Artery Disease. 2. Acute Myocardial Infarction 3. Cardiogenic Shock 4. Moderate Left Ventricular Dysfunction POSTPROCEDURE DIAGNOSES Same SURGICAL PROCEDURE 1. Urgent Off-pump Coronary Artery Bypass Grafting x 2 with Left Internal Mammary Artery (FINNEY) to the Left Anterior Descending (LAD), reverse saphenous vein graft to the OM1 2. Left Leg Endoscopic Vein Guion 3. Intraoperative Vein Mapping 4. Multi-Level Intercostal Nerve Block. SURGEON Deepak Candelario MD BACK MAKER ANTWON Hardy ANESTHESIA General endotracheal ELECTRICAL ENGINEER LUBNA Rojas MD PREPARATION ChloraPrep. COUNTS Needle, sponge, and instrument counts were correct. DRAINS Two 32-[place] mediastinal tubes. COMPLICATIONS None. INDICATIONS FOR PROCEDURE The patient is a 47-year-old presenting with AMI, cardiac arrest and cardiogenic shock. Pt underwent emergent PCI to the LAD but was noted to have severe Left Main ostial stenosis and, therefore, is being brought to the operating room for surgical revascularization therapy. PROCEDURE Patient was brought to the operating room and placed supine on the OR table. Following the induction of adequate general endotracheal anesthesia and placement of appropriate monitoring devices, intraoperative vein mapping was performed which revealed suitable-caliber conduit in both legs. The patient was then prepped and draped in standard sterile fashion. Next, 2500 units of intravenous heparin was given. The left greater saphenous vein was harvested endoscopically. This appeared to be a useable-caliber conduit. Simultaneously, a median sternotomy was performed and the left internal mammary artery dissected free off the posterior sternal table. The patient was systemically heparinized and anticoagulation monitored by serial ACT measurements. The internal mammary artery had good pulsatile flow in it and was a decent-caliber conduit. The pericardium was then divided in the midline, the cradle created and targets analyzed. At this point, all anastomoses were performed in a beating -heart fashion using the Maquet stabilizing system. The left internal mammary artery was anastomosed to the LAD (2 mm) in an end-to-side fashion using 7-0 Prolene. The next segment was anastomosed to the OM1 (1 mm) in an end-to-side fashion using a running 7-0 Prolene. The proximal anastomosis was then constructed to the ascending aorta in a running manner using 6-0 Prolene. All anastomotic sites were inspected and appeared to be hemostatic and patent. Protamine solution was given. Strict hemostasis was assured. The closure was undertaken. 2 chest tubes were placed. The pericardium was reapproximated in the midline. Bilateral multi-level intercostal nerve block was performed using Exparel solution. The sternum was approximated using sternal wires. The muscular and fascial layer were then closed in 3 layers. The endoscopic vein harvest site was closed in 2 layers. The patient tolerated the procedure well and was transferred to CVICU in stable condition. Deepak Candelario MD Jul 12, 2017 12:57
[2017-07-12] MEDS ORDERED: CALCIUM CHLORIDE INJ 1 GM in SODIUM CHLORIDE 0.9% INJ 100 ML IV PRN (13:00)
[2017-07-12] MEDS ORDERED: Post-op Orders (for Pharmacy) MISC OTHER ONE (13:00)
[2017-07-12] MEDS ORDERED: CLEVIDIPINE INJ 50 ML IV PRN (13:00)
[2017-07-12] MEDS ORDERED: SODIUM BICARBONATE 8.4% SOLN 50 MEQ/50 ML VIAL IV PUSH PRN ×2 (13:00)
[2017-07-12] MEDS ORDERED: CALCIUM CHLORIDE 10% 1 GRAM/10 ML VIAL IV PUSH PRN (13:00)
[2017-07-12] MEDS ORDERED: NITROGLYCERIN-D5W 50 MG/250 ML 250 ML IV PRN (13:00)
[2017-07-12] MEDS ORDERED: DEXMEDETOMIDINE INJ 200 MCG in SODIUM CHLORIDE 0.9% INJ 50 ML IV PRN (13:00)
[2017-07-12] MEDS ORDERED: MORPHINE SULFATE 4 MG/ML INJ IV PUSH PRN (13:00)
[2017-07-12] MEDS ORDERED: POTASSIUM CHLOR 20 MEQ PREMIX 100 ML IV PRN ×3 (13:00)
[2017-07-12] MEDS ORDERED: ONDANSETRON HCL 4 MG/2 ML VIAL IV PUSH PRN (13:00)
[2017-07-12] MEDS ORDERED: DOPamine INJ PREMIX 500 ML IV PRN (13:00)
[2017-07-12] MEDS ORDERED: PHENYLEPHRINE INJ 40 MG in DEXTROSE 5% IN WATE 500 ML INJ 496 ML IV PRN ×2 (13:00)
[2017-07-12] MEDS ORDERED: RESP: RACEPINEPHRINE 2.25% 0.5 ML NEB NEB PRN (13:00)
[2017-07-12] MEDS ORDERED: MEPERIDINE HCL 25 MG/ML VIAL IV PUSH PRN (13:00)
[2017-07-12] MEDS ORDERED: hydrALAZINE HCL 20 MG/ML VIAL IV PUSH PRN (13:00)
[2017-07-12] MEDS ORDERED: INSULIN REGULAR (IV INFUSION) 100 UNITS in SODIUM CHLORIDE 0.9% INJ 99 ML IV SCH (13:00)
[2017-07-12] MEDS ORDERED: MAGNESIUM SULFATE INJ 2 GM in SODIUM CHLORIDE 0.9% INJ 100 ML IV PRN ×4 (13:00)
[2017-07-12] MEDS ORDERED: RESP: ALBUTEROL 2.5 MG/IPRATROPIUM 0.5 MG NEB (PRN) NEB (13:00)
[2017-07-12] MEDS ORDERED: SODIUM CHLORIDE 0.9% FLUSH 10 ML FLUSH IV FLUSH PRN (13:00)
[2017-07-12] MEDS ORDERED: POTASSIUM CHLORIDE 20 MEQ CONTROLLED RELEASE TAB PO PRN ×2 (13:00)
[2017-07-12] MEDS ORDERED: ACETAMINOPHEN 325 MG TAB PO PRN (13:00)
[2017-07-12] MEDS ORDERED: DEXTROSE 50% IN WATER 50 ML VIAL(D50) IV PUSH PRN (13:00)
[2017-07-12] MEDS ORDERED: ACETAMINOPHEN 650 MG SUPP RECTAL PRN (13:00)
--- NOTE | 2017-07-12 14:28 | RADRPT ---
EXAM DATE/TIME: 07/12/2017 14:08 [facility] COMPARISON: CHEST SINGLE AP, July 10, 2017, 9:13. INDICATIONS : Post open heart surgery. MEDICAL HISTORY : Arthritis. Schizophrenia. Bipolar disorder. SURGICAL HISTORY : Tonsillectomy.Appendectomy. Cholecystectomy. section. Tubal ligation. Hysterectomy. Dilation and curettage. ENCOUNTER: Subsequent ACUITY: 1 day PAIN SCORE: Non-responsive. LOCATION: Bilateral chest FINDINGS: Single AP view of the chest. Endotracheal tube and nasogastric tube remain in place. Right IJ central venous catheter is now in place with the tip at the cavoatrial junction. Left-sided chest tube now i n place. Mild patchy atelectasis at the lung bases. No evidence of pleural effusion or pneumothorax. CONCLUSION: Multiple lines and tubes in place. Mild bilateral lower lung zone atelectasis. Pollo Robbins MD on July 12, 2017 at 14:26 Board Certified Radiologist. This report was verified electronically.
[2017-07-12] MEDS: ACETAMINOPHEN 1000 MG/100 ML 100 ML IV SCH ×2 (15:12→20:29)
[2017-07-12] MEDS: LEVOFLOXACIN 500 MG PREMIX INJ 100 ML IV SCH (15:59)
[2017-07-12] MEDS: KETOROLAC TROMETHAMINE 30 MG/ML (IVP) VIAL IV PUSH PRN ×2 (16:00→22:06)
[2017-07-12] MEDS: ALBUMIN HUMAN 5% 12.5 GM/250 ML BOTTLE IV PRN (18:50)
[2017-07-12] MEDS: LACTATED RINGER'S 1000 ML INJ 500 ML IV PRN (20:00)
[2017-07-12] MEDS: ceFAZolin 2 GM PREMIX 50 ML IV SCH (20:30)
[2017-07-12] MEDS: ATORVASTATIN 80 MG TAB PO SCH (21:00)
[2017-07-12] MEDS: oxyCODONE/ACETAMINOPHEN 5 MG/325 MG TAB PO PRN (23:16)
[2017-07-12] MEDS: SODIUM CHLORIDE 0.9% FLUSH 10 ML FLUSH IV FLUSH SCH (23:17)
[2017-07-13] VITALS (12 sets, daily range): BP systolic 88–130; BP diastolic 62–80; PULSE 93–119; RESP 16–25; TEMP 98.2–98.9; O2SAT 94–96
[2017-07-13] MEDS: LACTATED RINGER'S 1000 ML INJ 500 ML IV PRN
[2017-07-13] MEDS: oxyCODONE/ACETAMINOPHEN 5 MG/325 MG TAB PO PRN ×6 (02:18→23:45)
[2017-07-13] MEDS: RESP: ALBUTEROL 2.5 MG/IPRATROPIUM 0.5 MG NEB (SCH) NEB ×3 (03:37→22:37)
[2017-07-13] MEDS: ALBUMIN HUMAN 5% 12.5 GM/250 ML BOTTLE IV PRN (03:44)
[2017-07-13] MEDS: ACETAMINOPHEN 1000 MG/100 ML 100 ML IV SCH ×2 (03:44→09:00)
[2017-07-13] MEDS: KETOROLAC TROMETHAMINE 30 MG/ML (IVP) VIAL IV PUSH PRN (04:52)
[2017-07-13] MEDS: ceFAZolin 2 GM PREMIX 50 ML IV SCH ×3 (04:52→19:54)
[2017-07-13 05:36] LABS: MEAN CELL VOLUME 95.1 FL (80.0-100.0); MEAN CORPUSCULAR HGB CONC 34.7 % (32.0-36.0); PLATELET COUNT 214 TH/MM3 (150-450); RED BLOOD COUNT 2.84 MIL/MM3 (4.00-5.30); RED CELL DISTRIBUTION WIDTH 13.1 % (11.6-17.2); REVIEW FLAG FINAL; WHITE BLOOD COUNT 11.9 TH/MM3 (4.0-11.0)
--- NOTE | 2017-07-13 05:44 | RADRPT ---
EXAM DATE/TIME: 07/13/2017 04:29 [facility] COMPARISON: CHEST SINGLE AP, July 12, 2017, 14:08. INDICATIONS : Status post CABG. MEDICAL HISTORY : Arthritis. Schizophrenia. Bipolar disorder. SURGICAL HISTORY : Tonsillectomy.Appendectomy. Cholecystectomy. section. Tubal ligation. Hysterectomy. Dilation and curettage. ENCOUNTER: Subsequent ACUITY: 4 - 6 days PAIN SCORE: Non-responsive. LOCATION: chest FINDINGS: Right central line in right atrium. Previous endotracheal tube and nasogastric tube removed. Central and left-sided chest tubes without pneumothorax. Mild airspace disease in the lungs similar to Septem colten 28. Cardiomegaly. CONCLUSION: 1. Interval extubation. Chest tubes and right central line in good position without pneumothorax. Sta ble bilateral mostly basilar airspace disease. John Jacobson MD on July 13, 2017 at 5:41 Board Certified Radiologist. This report was verified electronically.
[2017-07-13 05:56] LABS: BICARBONATE 24.5 MEQ/L (21.0-32.0); MAGNESIUM 1.9 MG/DL (1.5-2.5); POTASSIUM 3.9 MEQ/L (3.5-5.1)
[2017-07-13] MEDS: PANTOPRAZOLE SOD 40 MG DELAYED RELEASE TAB PO SCH (06:29)
[2017-07-13] MEDS ORDERED: MULTIVITAMIN INJ 10 ML, THIAMINE INJ 500 MG, FOLIC ACID INJ 1 MG in SODIUM CHLORID 0.9%... IV SCH (09:00)
[2017-07-13] MEDS ORDERED: DEXTROSE 50% IN WATER 50 ML VIAL(D50) IV PUSH PRN (09:00)
[2017-07-13] MEDS ORDERED: BISACODYL 10 MG SUPP RECTAL PRN (09:00)
[2017-07-13] MEDS ORDERED: SOD PHOSPHATE/SOD BIPHOSPHATE (ADULT) ENEMA 133ML RECTAL PRN (09:00)
[2017-07-13] MEDS ORDERED: GLUCAGON 1 MG/ML VIAL OTHER PRN (09:00)
[2017-07-13] MEDS: DOBUTamine PREMIX DRIP 250 ML IV SCH (09:44)
[2017-07-13] MEDS: INSULIN ASPART SUPPLEMENTAL SCALE SQ SCH ×4 (10:00→21:47)
[2017-07-13] MEDS: MAGNESIUM HYDROXIDE SUSP 30 ML CUP PO SCH (10:21)
[2017-07-13] MEDS: ASPIRIN 81 MG CHEW TAB PO SCH (10:22)
[2017-07-13] MEDS: CLOPIDOGREL 75 MG TAB PO SCH (10:22)
[2017-07-13] MEDS: DOCUSATE SODIUM 100 MG CAP PO SCH ×2 (10:22→19:53)
[2017-07-13] MEDS: AMIODARONE 200 MG TAB PO SCH ×2 (10:23→19:53)
[2017-07-13] MEDS: MULTIVITAMINS/MINERALS THERAPEUTIC TAB PO SCH (10:24)
[2017-07-13] MEDS: SODIUM CHLORIDE 0.9% FLUSH 10 ML FLUSH IV FLUSH SCH ×2 (12:22→21:00)
--- NOTE | 2017-07-13 13:33 | PD.CARD.PN ---
Subjective Subjective Remarks Extubated yesterday Up to the chair Appropriate chest pain Objective Medications Current Medications Medications (Trade) Dose Ordered Sig/Latisha Route Start Time Stop Time Status Last Admin (Lipitor) 80 mg HS PO 07/09/17 21:00 07/11/17 20:29 Levofloxacin/ Dextrose 100 ml @ 100 mls/hr Q24H IV 07/09/17 14:00 07/12/17 15:59 (NS Flush) 2 ml BID IV FLUSH 07/12/17 21:00 07/13/17 12:22 (NS Flush) 2 ml UNSCH PRN IV FLUSH 07/12/17 13:00 Dobutamine HCl/ Dextrose 250 ml @ 11.925 mls/ hr [id number] IV 07/12/17 12:46 Dopamine HCl/ Dextrose 500 ml @ 8.944 mls/ hr TITRATE PRN IV 07/12/17 13:00 Lactated Ringer's 500 ml @ 500 mls/hr Q1H PRN IV 07/12/17 12:46 07/13/17 00:00 (Aspirin Chew) 81 mg DAILY PO 07/13/17 09:00 07/13/17 10:22 (Plavix) 75 mg DAILY PO 07/13/17 09:00 07/13/17 10:22 (Protonix) 40 mg DAILY@06 PO 07/13/17 06:00 07/13/17 06:29 (Tylenol) 650 mg Q4H PRN PO 07/12/17 13:00 (Percocet 5-325 Mg) 1 tab Q3H PRN PO 07/12/17 13:00 07/13/17 12:26 (Toradol Inj) 15 mg Q6H PRN IV PUSH 07/12/17 13:00 07/14/17 12:59 07/13/17 04:52 (fentaNYL INJ) 25 mcg Q1H PRN IV PUSH 07/12/17 13:00 07/13/17 02:19 (Zofran Inj) 4 mg Q6H PRN IV PUSH 07/12/17 13:00 (Lopressor Inj) 2.5 mg Q1H PRN IV PUSH 07/12/17 13:00 Cefazolin Sodium/ Dextrose 50 ml @ 100 mls/hr Q8H IV 07/12/17 21:00 07/14/17 05:29 07/13/17 12:22 (Duoneb Neb) 1 ampule Q2HR NEB PRN NEB 07/12/17 13:00 (Cordarone) 400 mg Q12HR PO 07/13/17 09:00 07/13/17 10:23 (Percocet 5-325 Mg) 2 tab Q3HR PRN PO 07/13/17 09:00 (Duoneb Neb) 1 ampule Q6HR WHILE AWAKE NEB NEB 07/13/17 14:00 07/15/17 13:59 (Colace) 100 mg BID PO 07/13/17 09:00 07/13/17 10:22 (Theragran M Tab) 1 tab DAILY PO 07/13/17 10:00 07/13/17 10:24 (Milk Of Magnesia Liq) 30 ml DAILY PO 07/13/17 09:00 07/13/17 10:21 (Dulcolax Supp) 10 mg UNSCH PRN RECTAL 07/13/17 09:00 (Miralax) 17 gm DAILY PO 07/14/17 09:00 (Senokot) 8.6 mg HS PO 07/13/17 21:00 (Fleets Enema (Adult)) 133 ml UNSCH PRN RECTAL 07/13/17 09:00 (Lopressor) 12.5 mg BID PO 07/13/17 21:00 (NovoLOG SUPPLEMENTAL SCALE) 1 02,06,10,14,18,22 SQ 07/13/17 10:00 (D50w (Vial) Inj) 50 ml UNSCH PRN IV PUSH 07/13/17 09:00 (Glucagon Inj) 1 mg UNSCH PRN OTHER 07/13/17 09:00 Vital Signs / I&O Vital Signs Date Time Temp Pulse Resp B/P (MAP) Pulse Ox O2 Delivery O2 Flow Rate FiO2 07/13/17 11:00 109 07/13/17 11:00 98.3 109 16 107/71 (83) 94 07/13/17 11:00 94 Nasal Cannula 6.00 07/13/17 08:57 94 Nasal Cannula 6.00 07/13/17 08:00 93 07/13/17 08:00 98.4 93 25 97/74 (82) 94 Arterial Line 07/13/17 08:00 94 Nasal Cannula 6.00 07/13/17 05:52 20 9/29/17 04:14 22 07/13/17 03:18 20 07/13/17 03:18 20 07/13/17 03:00 98.6 98 20 103/64 (77) 96 88/74 (79) 07/13/17 03:00 98 07/13/17 03:00 96 Simple Mask 6.00 07/12/17 23:00 95 07/12/17 23:00 99.2 95 18 96/67 (77) 95 82/69 (73) 07/12/17 23:00 95 Simple Mask 7.00 07/12/17 21:25 97 Simple Mask 8.00 07/12/17 19:00 99.1 90 26 71/48 (56) 96 88/71 (77) 07/12/17 19:00 90 07/12/17 19:00 96 Simple Mask 8.00 07/12/17 15:30 97 Simple Mask 8.00 07/12/17 15:20 92 Nasal Cannula 4.00 07/12/17 15:00 96 Mechanical Ventilator 07/12/17 15:00 92 07/12/17 15:00 99.0 92 41 116/72 (87) 96 07/12/17 14:12 50 07/12/17 14:00 Mechanical Ventilator 50 07/12/17 14:00 92 07/12/17 13:35 93 50 07/12/17 13:32 99.3 80 31 86/53 (64) 100 113/54 (73) I/O 07/12/17 07/12/17 07/12/17 07/13/17 07/13/17 07/13/17 06:59 14:59 22:59 06:59 14:59 22:59 Intake Total 667 ml 3593 ml 327 ml 2146 ml 200 ml Output Total 725 ml 850 ml 710 ml Balance -58 ml 2743 ml 327 ml 1436 ml 200 ml Intake Oral 240 ml 240 ml IV Total 427 ml 343 ml 327 ml 1406 ml 200 ml Autotransfusion 250 ml Albumin 500 ml Other 3000 ml Output Urine Total 725 ml 350 ml 450 ml Chest Tube Drainage Total 260 ml Estimated Blood Loss 500 ml Physical Exam GENERAL: NAD, AAOx3 SKIN: Warm and dry. HEAD: Atraumatic. Normocephalic. EYES: Pupils equal and round. No scleral icterus. No injection or drainage. ENT: No nasal bleeding or discharge. Mucous membranes pink and moist. NECK: Trachea midline. No JVD. CARDIOVASCULAR: RRR, no murmurs noted. Sternotomy with wound vac RESPIRATORY: No accessory muscle use. Decreased breath sounds bilaterally GASTROINTESTINAL: Abdomen soft, non-tender, nondistended. Hepatic and splenic margins not palpable. MUSCULOSKELETAL: Extremities without clubbing, cyanosis, or edema. No obvious deformities. Bilateral distal pulses intact, palpable. Right femoral no hematoma NEUROLOGICAL: No focal deficits Laboratory Laboratory Tests Test 07/13/17 05:00 White Blood Count 11.9 TH/MM3 Red Blood Count 2.84 MIL/MM3 Hemoglobin 9.4 GM/DL Hematocrit 27.0 % Mean Corpuscular Volume 95.1 FL Mean Corpuscular Hemoglobin 33.0 PG Mean Corpuscular Hemoglobin Concent 34.7 % Red Cell Distribution Width 13.1 % Platelet Count 214 TH/MM3 Mean Platelet Volume 8.2 FL Blood Urea Nitrogen 12 MG/DL Creatinine 0.53 MG/DL Random Glucose 96 MG/DL Calcium Level 8.4 MG/DL Magnesium Level 1.9 MG/DL Sodium Level 138 MEQ/L Potassium Level 3.9 MEQ/L Chloride Level 105 MEQ/L Carbon Dioxide Level 24.5 MEQ/L Anion Gap 9 MEQ/L Estimat Glomerular Filtration Rate 124 ML/MIN Assessment and Plan Problem List: (1) STEMI (ST elevation myocardial infarction) ICD Codes: I21.3 - ST elevation (STEMI) myocardial infarction of unspecified site Status: Acute (2) Cardiogenic shock ICD Codes: R57.0 - Cardiogenic shock Status: Acute (3) Status post insertion of drug-eluting stent into left anterior descending ( LAD) artery ICD Codes: Z95.5 - Presence of coronary angioplasty implant and graft Status: Acute (4) Ventricular tachycardia ICD Codes: I47.2 - Ventricular tachycardia (5) Left main coronary artery disease ICD Codes: I25.10 - Atherosclerotic heart disease of [place] coronary artery without angina pectoris (6) Tobacco abuse ICD Codes: Z72.0 - Tobacco use Status: Acute (7) Respiratory failure ICD Codes: J96.90 - Respiratory failure, unspecified, unspecified whether with hypoxia or hypercapnia Status: Acute Assessment and Plan 1) STEMI/Cardiogenic shock S/p JB to LAD Con't ASA/Plavix 2) Residual left main disease s/p CABGx2 POD #1 FINNEY to LAD SVG to OM 3) Con't ASA/Plavix/Lipitor/Lopressor/Amio 4) Stable for transfer to [facility] 5) Will see on Sunday, if concerns over the weekend, please call covering physician Problem Qualifiers (1) STEMI (ST elevation myocardial infarction): Qualified Codes: I21.02 - ST elevation (STEMI) myocardial infarction involving left anterior descending coronary artery (2) Respiratory failure: Qualified Codes: J96.00 - Acute respiratory failure, unspecified whether with hypoxia or hypercapnia Gustavo Duncan DO Jul 13, 2017 13:33
--- NOTE | 2017-07-13 13:58 | PD.CAR.PN ---
CVT Progress Note Subjective/Hospital Course: 47/ yr old female brought in unresponsive by EMS, intubated in ED, pulse initially not palpable , CPR was given / ACLS/ EKG showed extensive ST elevations anterior lateral leads/ Code STEMI activated/ pt went to [facility] processing labourer, underwent emergent PCI with stent to LAD ( drug eluting) , IABP placed, one dose of Brilinta given , now on Heparin and aggrastat . We were consulted to eval for CABG x 2 / LAD/ Circ / Echo showed EF 40% PMH: arthritis, asthma, tobacco abuse, Bipolar disorder, anxiety depression, previous suicidal attempts 07/10 pt remains intubated on vent, 40% fi02 sedated with versed and fentanly, she will open eyes , follow simple commands and moves all extremities IABP 1:2 augmentation , + distal pulses unable to get PRU p2y12 ( pt on aggrastat / would need to be off x 48hrs to have accurate results per Lab plan for surgery timing per Dr Candelario 07/11 pt extubated yesterday, now on nasal cannula needs aggressive pulm toileting continue nebs/ ezpap acapella no pressors alert and oriented / will be able to sign own surgical consent scheduled for surgery in am 07/12 surgery: 1. Urgent Off-pump Coronary Artery Bypass Grafting x 2 with Left Internal Mammary Artery (FINNEY) to the Left Anterior Descending (LAD), reverse saphenous vein graft to the OM1 2. Left Leg Endoscopic Vein [place] 3. Intraoperative Vein Mapping extubated after surgery / crystalloid 3000cc, 250cc cell saver, 500cc EBL, urine 350cc 07/13 BP labile, eval to start BB when BP improves will need some diuresis when BP allows need aggressive pulm toileting OOB ambulate EF in OR 45-50% continue levaquin for now x 7 days eval to transfer pt to stepdown later today Objective: Vital Signs Date Time Temp Pulse Resp B/P (MAP) Pulse Ox O2 Delivery O2 Flow Rate FiO2 07/13/17 11:00 109 07/13/17 11:00 98.3 109 16 107/71 (83) 94 07/13/17 11:00 94 Nasal Cannula 6.00 07/13/17 08:57 94 Nasal Cannula 6.00 07/13/17 08:00 93 07/13/17 08:00 98.4 93 25 97/74 (82) 94 Arterial Line 07/13/17 08:00 94 Nasal Cannula 6.00 07/13/17 05:52 20 07/13/17 04:14 22 07/13/17 03:18 20 07/13/17 03:18 20 07/13/17 03:00 98.6 98 20 103/64 (77) 96 88/74 (79) 07/13/17 03:00 98 07/13/17 03:00 96 Simple Mask 6.00 07/12/17 23:00 95 07/12/17 23:00 99.2 95 18 96/67 (77) 95 82/69 (73) 07/12/17 23:00 95 Simple Mask 7.00 07/12/17 21:25 97 Simple Mask 8.00 07/12/17 19:00 99.1 90 26 71/48 (56) 96 88/71 (77) 07/12/17 19:00 90 07/12/17 19:00 96 Simple Mask 8.00 07/12/17 15:30 97 Simple Mask 8.00 07/12/17 15:20 92 Nasal Cannula 4.00 07/12/17 15:00 96 Mechanical Ventilator 07/12/17 15:00 92 07/12/17 15:00 99.0 92 41 116/72 (87) 96 07/12/17 14:12 50 07/12/17 14:00 Mechanical Ventilator 50 07/12/17 14:00 92 Labs: Laboratory Tests Test 07/13/17 05:00 White Blood Count 11.9 TH/MM3 (4.0-11.0) Red Blood Count 2.84 MIL/MM3 (4.00-5.30) Hemoglobin 9.4 GM/DL (11.6-15.3) Hematocrit 27.0 % (35.0-46.0) Mean Corpuscular Volume 95.1 FL (80.0-100.0) Mean Corpuscular Hemoglobin 33.0 PG (27.0-34.0) Mean Corpuscular Hemoglobin Concent 34.7 % (32.0-36.0) Red Cell Distribution Width 13.1 % (11.6-17.2) Platelet Count 214 TH/MM3 (150-450) Mean Platelet Volume 8.2 FL (7.0-11.0) Blood Urea Nitrogen 12 MG/DL (7-18) Creatinine 0.53 MG/DL (0.50-1.00) Random Glucose 96 MG/DL (74-106) Calcium Level 8.4 MG/DL (8.5-10.1) Magnesium Level 1.9 MG/DL (1.5-2.5) Sodium Level 138 MEQ/L (136-145) Potassium Level 3.9 MEQ/L (3.5-5.1) Chloride Level 105 MEQ/L (98-107) Carbon Dioxide Level 24.5 MEQ/L (21.0-32.0) Anion Gap 9 MEQ/L (5-15) Estimat Glomerular Filtration Rate 124 ML/MIN (>89) Result Diagram: 07/13/17 0500 07/13/17 0500 Telemetry: NSR-ST (1) STEMI (ST elevation myocardial infarction) (2) S/P CABG x 2 Plan: ASA, statin , BB will need diuresis when BP allows +4500/ 24 hrs OOB, ambulate pain control (3) Cardiogenic shock Plan: resolved (4) Status post insertion of drug-eluting stent into left anterior descending ( LAD) artery Plan: on plavix (5) Ventricular tachycardia Plan: resolved, remains on amiodarone (6) Left main coronary artery disease (7) Tobacco abuse Plan: smoking cessation (8) Respiratory failure Plan: resolved, continue aggressive pulm toileting Problem Qualifiers (1) STEMI (ST elevation myocardial infarction): Qualified Codes: I21.02 - ST elevation (STEMI) myocardial infarction involving left anterior descending coronary artery (2) Respiratory failure: Qualified Codes: J96.00 - Acute respiratory failure, unspecified whether with hypoxia or hypercapnia Afshan Rodríguez Jul 13, 2017 13:58
--- NOTE | 2017-07-13 14:02 | HHI.FF ---
Face to Face Verification Diagnosis: (1) STEMI (ST elevation myocardial infarction) (2) Status post insertion of drug-eluting stent into left anterior descending ( LAD) artery (3) Ventricular tachycardia (4) S/P CABG x 2 Physical Therapy Order: Evaluate and Treat Home Health Nursing Order: Signs/symptoms of disease process Medication education-adverse effect Wound care and dressing changes Instructions: PREVENA Single Use Negative Wound Therapy System Caregiver Instruction Sheet 1. A Prevena dressing system was applied to the chest incision during surgery , to promote wound healing. It works via a suction device (negative pressure wound therapy) to remove low to moderate levels of exudate (drainage) and infectious materials. We recommend that the device stay in place for up to seven days, from day of surgery. 2. Day of Surgery__07/12/17 Day of Removal ____/02/28 3. The dressing should only be removed by a health director medic[employer] sales. Please arrange removal of device to coincide with Home Health visit and or with Nursing staff at Rehab 4. If skin reddening or irritation of skin occurs, or excessive drainage, please notify the Cardiovascular Surgeons office at [phone]. 5. Light showering is permissible; however the pump should be disconnected and placed in safe location, where it will not get wet. The dressing should not be exposed to direct spray or submerged in water. No bath tub / shower only. Ensure the end of the tubing attached to the dressing is facing down so that water does not enter the top of the tube. 6. To remove Prevena dressing: press purple button to turn off device / remove the suction. Then disconnect the tubing from the pump. The fixation strips should be stretched away from the skin and the dressing lifted at one corner and peeled back until it has been fully removed. 7. After removal, it is ok to shower daily using liquid dial soap and clean wash cloth, rinse and pat dry, and leave incision open to air dry. For any concerns regarding Prevena dressing, and or wounds, please contact Negar Anderson, patient navigator at [phone] or notify the Cardiovascular Surgeons office at [phone]. Incentive spirometry Q1 hr x 10, while awake, also use acapella device hourly whole awake Sternal Breast Bone Precautions: NO pushing or pulling, ( pt must use sternal pillow to support chest with all activities and with coughing ( takes up to 3 months breast bone to heal ) All females to wear sternal bra , launder as needed Daily incision care: ok to shower daily, no tub bath. Wash all incisions with liquid dial soap, clean wash cloth to each site, rinse and pat dry. Observe for any signs of infection, such as drainage which is dark yellow, [place], green or foul smelling. Immediately report to the surgeon any drainage from the chest incision, or legs, and for any abnormal drainage from the chest tube sites. Notify surgeon if any temp >101.5 degrees F. When specialty dressing removed/ or if you do not have one, continue to shower daily as above, then rinse and pat incision dry and paint with betadine daily x 5 days. Allow steri strips to fall off if you have any. Avoid lotions, creams, salves, oils, etc. for the first month Please see attached forms for additional instructions regarding post Open Heart specialty wound vacuum dressings. ELIA or Prevena , Dressing to be removed by Nursing staff on _07/19/17 F/U appointment: as per ID instructions: PCP in 2 weeks, CV surgeon 2 weeks, Glass Technician/Installer 3-4 weeks For any questions regarding incisions/ dressing / meds / post op care or above Symptoms, Sunday 8am-5pm Heart & Vascular Surgery Office ( Dr. Candelario & Dr. Dsouza), After Hours / Nights (5pm -8am) Weekends and Holidays Please call [facility] ([facility]) Charge Nurse I have seen patient Brittni Shaffer on 07/13/17. My clinical findings support the need for the requested home health care services because: Deconditioned w/ increased weakness I certify that my clinical findings support that this patient is homebound because: Post-op weakness Hx COPD- exertion dyspnea/weakness Afshan Rodríguez Jul 13, 2017 14:02
--- NOTE | 2017-07-13 14:18 | HHI.CCPN ---
Subjective Remarks/Hospital Course 07/09: 47-year-old female with past medical history of endometriosis who presented to [facility] emergency department unresponsive. She had collapsed on the floor of the bathroom after having complained of chest pain for 2 days. She was intubated upon arrival. Pulse was not palpable and she received a few chest compressions but she was responsive. EKG showed anterior lateral STEMI with 3-6 mm of elevation in lead I, V2-V6, AVL with reciprocal depression. She was taken emergently to the medical laboratory scientist where she underwent drug-eluting stent to proximal LAD 90% occlusion. There is 60% lesion at left main for which Dr. Duncan has consulted [facility] for possible bypass. She was defibrillated 1 for V. tach in the medical laboratory scientist. IABP was placed. She is not requiring pressors/inotropes. She is following commands upon arrival to CVICU. 07/10: Remains sedated, arousable, orally intubated on mechanical ventilation. IABP just discontinued. 07/11: Extubated on 07/10 following removal of intra-aortic balloon pump. On nasal cannula overnight 5 L/m. Appears comfortable. 07/12: Resting comfortably on nasal cannula. Awaiting CABG this AM. Denies CP/ SOB. 07/13: Underwent CABG on 07/[address] Candelario, tolerated well was extubated successfully postoperatively. On nasal cannula this morning. Objective Vital Signs Date Time Temp Pulse Resp B/P (MAP) Pulse Ox O2 Delivery O2 Flow Rate FiO2 07/13/17 11:00 109 07/13/17 11:00 98.3 16 107/71 (83) 94 07/13/17 11:00 Nasal Cannula 6.00 07/12/17 14:12 50 Intake and Output 07/13/17 07/13/17 07/14/17 08:00 16:00 00:00 Intake Total 2146 ml 200 ml Output Total 710 ml Balance 1436 ml 200 ml Result Diagram: 07/13/17 0500 07/13/17 0500 Imaging Last 24 hours Impressions Chest X-Ray 07/13/17 0500 Signed Impressions: Service Date/Time: Thursday, July 13, 2017 04:29 - CONCLUSION: 1. Interval extubation. Chest tubes and right central line in good position without pneumothorax. Stable bilateral mostly basilar airspace disease. John Jacobson MD Last 48 hours Impressions Chest X-Ray 07/10/17 0000 Signed Impressions: Service Date/Time: Monday, July 10, 2017 09:13 - CONCLUSION: 1. The support equipment is in good position. 2. The lungs are clear. Enrrique Molina MD Objective Remarks GENERAL: Well-nourished, well-developed patient laying in bed in no acute distress on nasal cannula 5 L/m SKIN: Warm and dry. HEAD: Atraumatic. Normocephalic. EYES: No pallor/icterus. No injection or drainage. ENT: No nasal bleeding or discharge. Mucous membranes pink and moist. NECK: Trachea midline. No JVD. CARDIOVASCULAR: Regular rate and rhythm, sinus rhythm on the monitor. Dressing or sternotomy site in place, chest tube in place Resp: Good air entry bilaterally, no wheezing or crackles. GASTROINTESTINAL: Abdomen soft, non-tender, nondistended. Bowel sounds present. : Guerrero in place with light yellow urine output. MUSCULOSKELETAL: Extremities without clubbing, cyanosis, or edema. Palpable bilateral DP/MAILING MACHINE ASSISTANT pulses. NEUROLOGICAL: AAO x3. No apparent focal deficit A/P Problem List: (1) Anxiety ICD Code: F41.9 - Anxiety disorder, unspecified Status: Chronic (2) Leukocytosis ICD Code: D72.829 - Elevated white blood cell count, unspecified Status: Acute (3) Status post insertion of drug-eluting stent into left anterior descending ( LAD) artery ICD Code: Z95.5 - Presence of coronary angioplasty implant and graft Status: Acute (4) Left main coronary artery disease ICD Code: I25.10 - Atherosclerotic heart disease of [place] coronary artery without angina pectoris (5) GERTRUDE (acute kidney injury) ICD Code: N17.9 - Acute kidney failure, unspecified Status: Acute (6) Tobacco abuse ICD Code: Z72.0 - Tobacco use Status: Acute (7) Cardiogenic shock ICD Code: R57.0 - Cardiogenic shock Status: Acute (8) On intra-aortic balloon pump assist ICD Code: Z98.890 - Other specified postprocedural states Status: Acute (9) Hyperglycemia ICD Code: R73.9 - Hyperglycemia, unspecified Status: Acute (10) Respiratory failure ICD Code: J96.90 - Respiratory failure, unspecified, unspecified whether with hypoxia or hypercapnia Status: Acute (11) STEMI (ST elevation myocardial infarction) ICD Code: I21.3 - ST elevation (STEMI) myocardial infarction of unspecified site Status: Acute Assessment and Plan NEURO: Depression Anxiety She is alert and following commands. Hold Paxil 10 mg daily, Xanax her 0.25 mg, baclofen 10 mg for now. Unknown frequency of baclofen dosing, will need to confirm. RESP: Acute respiratory failure Tobacco abuse Intubated 07/08 in the ED. extubated following C Pap trial on 07/10, currently on nasal cannula 5 L/m. Diuresed DuoNeb every 6 hours. Albuterol every 2 hours as needed. CV: Anterolateral STEMI now status post drug-eluting stent to the LAD Multivessel coronary artery disease with 60% left main lesion. Cardiogenic shock She underwent drug-eluting stent to the LAD. (07/08, Dr. Alejandra Duncan) Has L main 60% stenosis and CVS consulted for possible bypass. IABP placed to augment coronary perfusion, discontinued 07/10. Aspirin 81 daily. Brillinta held for CABG. Off heparin/ Aggrastat. Beta jayce per cardiology Follow-up 2-D echo Cardio thoracic surgery consult-underwent CABG on 07/[address] Candelario. Started on aspirin and Plavix postoperatively. Atorvastatin 80 mg by mouth daily at bedtime. GI: Advance by mouth diet as tolerated FEN/RENAL: Strict intake output, monitor and replete elect lites, follow BUN creatinine. May need more diuresis ICU electrolyte replacement protocol. ID: Leukocytosis likely secondary to myocardial infarction. Monitor for signs and symptoms of infection. HEME: Hemoglobin normal. On heparin drip, Brillinta ENDO: Acute hyperglycemia likely secondary to stress response. We'll check hemoglobin A1c. Monitor bedside glucose before meals at bedtime and initiate low-dose insulin sliding scale as indicated. PROPH: SCDs for DVT prophylaxis. SQ lovenox post CABG when OK with CTS. Famotidine 20 mg IV every 12 for stress ulcer prophylaxis. ACCESS: Right groin intra-aortic balloon pump 07/08. discontinued 07/10.(Sheath left for A line) Further recommendations per cardiology and CT surgery. Problem Qualifiers (1) Respiratory failure: Qualified Codes: J96.00 - Acute respiratory failure, unspecified whether with hypoxia or hypercapnia (2) STEMI (ST elevation myocardial infarction): Qualified Codes: I21.02 - ST elevation (STEMI) myocardial infarction involving left anterior descending coronary artery Clinton Mata MD Jul 13, 2017 14:18
[2017-07-13] MEDS: LEVOFLOXACIN 500 MG PREMIX INJ 100 ML IV SCH (14:25)
[2017-07-13] MEDS: SENNOSIDES 8.6 MG TAB PO SCH (19:52)
[2017-07-13] MEDS: METOPROLOL TARTRATE 25 MG TAB PO SCH (19:53)
[2017-07-13] MEDS: ATORVASTATIN 80 MG TAB PO SCH (19:53)
[2017-07-13] MEDS: METOPROLOL TARTRATE 5 MG/5 ML VIAL IV PUSH PRN (23:45)
[2017-07-14] VITALS (35 sets, daily range): BP systolic 98–121; BP diastolic 56–78; PULSE 92–120; RESP 18; TEMP 98.1–98.6; O2SAT 91–96
[2017-07-14] MEDS: INSULIN ASPART SUPPLEMENTAL SCALE SQ SCH ×5 (02:00→21:00)
[2017-07-14] MEDS: oxyCODONE/ACETAMINOPHEN 5 MG/325 MG TAB PO PRN ×8 (02:32→23:41)
[2017-07-14] MEDS: PANTOPRAZOLE SOD 40 MG DELAYED RELEASE TAB PO SCH (05:01)
[2017-07-14] MEDS: ceFAZolin 2 GM PREMIX 50 ML IV SCH (05:01)
[2017-07-14] MEDS: DOBUTamine PREMIX DRIP 250 ML IV SCH (06:42)
[2017-07-14 07:53] LABS: AUTOMATED NEUTROPHIL # 9.7 TH/MM3 (1.8-7.7); BASOPHIL # 0.1 TH/MM3 (0-0.2); BASOPHIL % 0.5 % (0.0-2.0); HEMATOCRIT 29.3 % (35.0-46.0); HEMO FLAGS DIFF FINAL; LYMPH % 16.5 % (9.0-44.0); LYMPHOCYTE # 2.3 TH/MM3 (1.0-4.8); MEAN CELL VOLUME 95.8 FL (80.0-100.0); MEAN CORPUSCULAR HEMOGLOBIN 32.7 PG (27.0-34.0); MEAN CORPUSCULAR HGB CONC 34.1 % (32.0-36.0); MONO % 8.2 % (0.0-8.0); NEUT % 67.8 % (16.0-70.0); PLATELET COUNT 263 TH/MM3 (150-450); RED BLOOD COUNT 3.06 MIL/MM3 (4.00-5.30); RED CELL DISTRIBUTION WIDTH 13.4 % (11.6-17.2); WHITE BLOOD COUNT 14.3 TH/MM3 (4.0-11.0)
[2017-07-14 08:15] LABS: ALT (GPT) 44 U/L (10-53); ANION GAP 7 MEQ/L (5-15); BICARBONATE 26.7 MEQ/L (21.0-32.0); BLOOD UREA NITROGEN 12 MG/DL (7-18); CHLORIDE 104 MEQ/L (98-107); POTASSIUM 3.5 MEQ/L (3.5-5.1); SODIUM (NA) 138 MEQ/L (136-145)
[2017-07-14 08:24] LABS: ALKALINE PHOSPHATASE 128 U/L (45-117); AST (GOT) 55 U/L (15-37); FREE T4 1.74 NG/DL (0.76-1.46); GLOMERULAR FILTRATION RATE 171 ML/MIN (>89); TOTAL BILIRUBIN ADULT 1.1 MG/DL (0.2-1.0)
[2017-07-14] MEDS: MAGNESIUM HYDROXIDE SUSP 30 ML CUP PO SCH (08:28)
[2017-07-14] MEDS: POLYETHYLENE GLYCOL 17 GM PKG PO SCH (08:28)
[2017-07-14] MEDS: DOCUSATE SODIUM 100 MG CAP PO SCH ×2 (08:28→20:16)
[2017-07-14] MEDS: SODIUM CHLORIDE 0.9% FLUSH 10 ML FLUSH IV FLUSH SCH ×2 (08:29→20:16)
[2017-07-14] MEDS: MULTIVITAMINS/MINERALS THERAPEUTIC TAB PO SCH (08:29)
[2017-07-14] MEDS: CLOPIDOGREL 75 MG TAB PO SCH (08:29)
[2017-07-14] MEDS: METOPROLOL TARTRATE 25 MG TAB PO SCH ×2 (08:29→20:17)
[2017-07-14] MEDS: ASPIRIN 81 MG CHEW TAB PO SCH (08:29)
[2017-07-14] MEDS: AMIODARONE 200 MG TAB PO SCH ×2 (08:29→20:16)
[2017-07-14] MEDS: RESP: ALBUTEROL 2.5 MG/IPRATROPIUM 0.5 MG NEB (SCH) NEB (09:24)
--- NOTE | 2017-07-14 09:33 | PD.CAR.PN ---
CVT Progress Note CVT: POD #: 2 Subjective/Hospital Course: 47/ yr old female brought in unresponsive by EMS, intubated in ED, pulse initially not palpable , CPR was given / ACLS/ EKG showed extensive ST elevations anterior lateral leads/ Code STEMI activated/ pt went to radiographer cardiac catheterization, underwent emergent PCI with stent to LAD ( drug eluting) , IABP placed, one dose of Brilinta given , now on Heparin and aggrastat . We were consulted to eval for CABG x 2 / LAD/ Circ / Echo showed EF 40% PMH: arthritis, asthma, tobacco abuse, Bipolar disorder, anxiety depression, previous suicidal attempts 07/10 pt remains intubated on vent, 40% fi02 sedated with versed and fentanly, she will open eyes , follow simple commands and moves all extremities IABP 1:2 augmentation , + distal pulses unable to get PRU p2y12 ( pt on aggrastat / would need to be off x 48hrs to have accurate results per Lab plan for surgery timing per Dr Candelario 07/11 pt extubated yesterday, now on nasal cannula needs aggressive pulm toileting continue nebs/ ezpap acapella no pressors alert and oriented / will be able to sign own surgical consent scheduled for surgery in am 07/12 surgery: 1. Urgent Off-pump Coronary Artery Bypass Grafting x 2 with Left Internal Mammary Artery (FINNEY) to the Left Anterior Descending (LAD), reverse saphenous vein graft to the OM1 2. Left Leg Endoscopic Vein [place] 3. Intraoperative Vein Mapping extubated after surgery / crystalloid 3000cc, 250cc cell saver, 500cc EBL, urine 350cc 07/13 BP labile, eval to start BB when BP improves will need some diuresis when BP allows need aggressive pulm toileting OOB ambulate EF in OR 45-50% continue levaquin for now x 7 days eval to transfer pt to stepdown later today 07/14/17 progressing. no complaints Objective: Vital Signs Date Time Temp Pulse Resp B/P (MAP) Pulse Ox O2 Delivery O2 Flow Rate FiO2 07/14/17 09:27 92 Nasal Cannula 4.00 07/14/17 06:06 106 07/14/17 05:48 108 07/14/17 04:19 104 07/14/17 03:35 100 07/14/17 03:29 98.2 112 112/64 (80) 91 07/14/17 03:29 Nasal Cannula 4.00 07/14/17 02:28 107 07/14/17 01:00 110 07/14/17 00:55 98.3 120 116/71 (86) 92 07/14/17 00:55 92 Nasal Cannula 4.00 07/14/17 00:00 110 07/13/17 23:00 115 07/13/17 22:37 94 Nasal Cannula 4.00 07/13/17 22:00 106 07/13/17 21:00 100 07/13/17 20:00 Nasal Cannula 4.00 07/13/17 20:00 108 07/13/17 20:00 98.9 111 112/62 (79) 96 07/13/17 19:00 109 07/13/17 18:30 98.2 119 20 129/80 (96) 94 07/13/17 18:30 94 Nasal Cannula 4.00 07/13/17 17:40 16 07/13/17 15:00 116 07/13/17 15:00 94 Nasal Cannula 5.00 07/13/17 15:00 98.2 116 16 130/79 (96) 94 07/13/17 13:30 16 07/13/17 11:00 109 07/13/17 11:00 98.3 109 16 107/71 (83) 94 07/13/17 11:00 94 Nasal Cannula 6.00 Labs: Laboratory Tests Test 07/14/17 05:45 White Blood Count 14.3 TH/MM3 (4.0-11.0) Red Blood Count 3.06 MIL/MM3 (4.00-5.30) Hemoglobin 10.0 GM/DL (11.6-15.3) Hematocrit 29.3 % (35.0-46.0) Mean Corpuscular Volume 95.8 FL (80.0-100.0) Mean Corpuscular Hemoglobin 32.7 PG (27.0-34.0) Mean Corpuscular Hemoglobin Concent 34.1 % (32.0-36.0) Red Cell Distribution Width 13.4 % (11.6-17.2) Platelet Count 263 TH/MM3 (150-450) Mean Platelet Volume 8.1 FL (7.0-11.0) Neutrophils (%) (Auto) 67.8 % (16.0-70.0) Lymphocytes (%) (Auto) 16.5 % (9.0-44.0) Monocytes (%) (Auto) 8.2 % (0.0-8.0) Eosinophils (%) (Auto) 7.0 % (0.0-4.0) Basophils (%) (Auto) 0.5 % (0.0-2.0) Neutrophils # (Auto) 9.7 TH/MM3 (1.8-7.7) Lymphocytes # (Auto) 2.3 TH/MM3 (1.0-4.8) Monocytes # (Auto) 1.2 TH/MM3 (0-0.9) Eosinophils # (Auto) 1.0 TH/MM3 (0-0.4) Basophils # (Auto) 0.1 TH/MM3 (0-0.2) CBC Comment DIFF FINAL Differential Comment Blood Urea Nitrogen 12 MG/DL (7-18) Creatinine 0.40 MG/DL (0.50-1.00) Random Glucose 82 MG/DL (74-106) Total Protein 6.0 GM/DL (6.4-8.2) Albumin 2.6 GM/DL (3.4-5.0) Calcium Level 8.4 MG/DL (8.5-10.1) Phosphorus Level 2.9 MG/DL (2.5-4.9) Magnesium Level 2.0 MG/DL (1.5-2.5) Alkaline Phosphatase 128 U/L (45-117) Aspartate Amino Transf (AST/SGOT) 55 U/L (15-37) Alanine Aminotransferase (ALT/SGPT) 44 U/L (10-53) Total Bilirubin 1.1 MG/DL (0.2-1.0) Sodium Level 138 MEQ/L (136-145) Potassium Level 3.5 MEQ/L (3.5-5.1) Chloride Level 104 MEQ/L (98-107) Carbon Dioxide Level 26.7 MEQ/L (21.0-32.0) Anion Gap 7 MEQ/L (5-15) Estimat Glomerular Filtration Rate 171 ML/MIN (>89) Free Thyroxine 1.74 NG/DL (0.76-1.46) Thyroid Stimulating Hormone 3rd Gen 2.260 uIU/ML (0.358-3.740) Result Diagram: 07/14/17 0545 07/14/1745 Cardiovascular: RRR Telemetry: ST Pulmonary: CTA GI/: NABS, NT Incision: dry and intact CT: 30ml/12hrs Plan: Increase BB dose D/C chest tubes D/C albuterol nebs Encourage PO intake, ambulation D/C planning. (1) STEMI (ST elevation myocardial infarction) (2) S/P CABG x 2 Plan: ASA, statin , BB will need diuresis when BP allows +4500/ 24 hrs OOB, ambulate pain control (3) Cardiogenic shock Plan: resolved (4) Status post insertion of drug-eluting stent into left anterior descending ( LAD) artery Plan: on plavix (5) Ventricular tachycardia Plan: resolved, remains on amiodarone (6) Left main coronary artery disease (7) Tobacco abuse Plan: smoking cessation (8) Respiratory failure Plan: resolved, continue aggressive pulm toileting Problem Qualifiers (1) STEMI (ST elevation myocardial infarction): Qualified Codes: I21.02 - ST elevation (STEMI) myocardial infarction involving left anterior descending coronary artery (2) Respiratory failure: Qualified Codes: J96.00 - Acute respiratory failure, unspecified whether with hypoxia or hypercapnia Britney Dsouza MD Jul 14, 2017 09:33
[2017-07-14 10:48] LABS: HEMOGLOBIN A1a 0.9 %; HEMOGLOBIN A1b 1.8 %; HEMOGLOBIN Ao 85.5 %; HEMOGLOBIN LA1C 2.1 %; HEMOGLOBIN P3 5.1 %
[2017-07-14] MEDS: LEVOFLOXACIN 500 MG PREMIX INJ 100 ML IV SCH (14:22)
[2017-07-14] MEDS: METOPROLOL TARTRATE 5 MG/5 ML VIAL IV PUSH PRN (16:21)
[2017-07-14] MEDS ORDERED: ALPRAZolam 0.25 MG TAB PO PRN (19:15)
--- NOTE | 2017-07-14 19:16 | HHI.PR ---
Subjective Remarks RN reports no acute deteriorations o/n. Pt herself denies any recurrence of angina. Does admit to being a little nervous. Objective Vital Signs Date Time Temp Pulse Resp B/P (MAP) Pulse Ox O2 Delivery O2 Flow Rate FiO2 07/14/17 18:00 108 07/14/17 17:00 120 07/14/17 16:25 107/68 (81) 07/14/17 16:20 104/62 (76) 07/14/17 16:00 110 07/14/17 15:32 96 Nasal Cannula 4.00 07/14/17 15:32 98.1 113 18 111/72 (85) 96 07/14/17 15:00 118 07/14/17 14:00 108 07/14/17 13:00 107 07/14/17 12:00 104 07/14/17 11:05 98.1 115 18 121/78 (92) 94 07/14/17 11:05 94 Nasal Cannula 4.00 07/14/17 11:00 106 07/14/17 10:00 116 07/14/17 09:27 92 Nasal Cannula 4.00 07/14/17 09:00 102 07/14/17 08:00 106 07/14/17 07:45 98.6 108 18 115/72 (86) 96 07/14/17 07:45 96 Nasal Cannula 4.00 07/14/17 07:00 107 07/14/17 06:06 106 07/14/17 05:48 108 07/14/17 04:19 104 07/14/17 03:35 100 07/14/17 03:29 98.2 112 112/64 (80) 91 07/14/17 03:29 Nasal Cannula 4.00 07/14/17 02:28 107 07/14/17 01:00 110 07/14/17 00:55 98.3 120 116/71 (86) 92 07/14/17 00:55 92 Nasal Cannula 4.00 07/14/17 00:00 110 07/13/17 23:00 115 07/13/17 22:37 94 Nasal Cannula 4.00 07/13/17 22:00 106 07/13/17 21:00 100 07/13/17 20:00 Nasal Cannula 4.00 07/13/17 20:00 108 07/13/17 20:00 98.9 111 112/62 (33) 96 I/O 07/13/17 07/13/17 07/13/17 07/14/17 07/14/17 07/14/17 07:00 15:00 23:00 07:00 15:00 23:00 Intake Total 2146 ml 250 ml 900 ml 220 ml 860 ml Output Total 710 ml 490 ml 380 ml Balance 1436 ml 250 ml 410 ml -160 ml 860 ml Intake Oral 240 ml 800 ml 120 ml 860 ml IV Total 1406 ml 250 ml 100 ml 100 ml Albumin 500 ml Output Urine Total 450 ml 400 ml 350 ml Chest Tube Drainage Total 260 ml 90 ml 30 ml # Voids 4 # Bowel Movements 0 Result Diagram: 07/14/17 0545 07/14/17 0545 Imaging Last Impressions Chest X-Ray 07/13/17 0500 Signed Impressions: Service Date/Time: Thursday, July 13, 2017 04:29 - CONCLUSION: 1. Interval extubation. Chest tubes and right central line in good position without pneumothorax. Stable bilateral mostly basilar airspace disease. John Jacobson MD Lower Extremity Ultrasound 07/09/17 0000 Signed Impressions: Service Date/Time: Sunday, July 09, 2017 12:38 - CONCLUSION: 1. Vein mapping as above. Enrrique Molina MD Carotid Artery Ultrasound 07/09/17 0000 Signed Impressions: Service Date/Time: Sunday, July 09, 2017 12:18 - CONCLUSION: 1. No hemodynamically significant carotid artery stenosis identified. 2. Both vertebral arteries are patent. Enrrique Molina MD Objective Remarks sitting in bed, holding a pillow, awake Nasal cannula in place unlabored breathing, lungs clear to auscultation bilaterally Sternotomy dressing in place Heart rate regular rate and rhythm A/P Assessment and Plan Assessment and Plan Depression Anxiety baclofen Restarting paxil and xanax (dosage unclear at this time - will order as prn anxiety) RESP: Acute respiratory failure - improving DuoNeb every 6 hours. Albuterol every 2 hours as needed. Anterolateral STEMI now status post drug-eluting stent to the LAD Multivessel coronary artery disease with 60% left main lesion. s/p PCI w/ JB to LAD. (07/08, Dr. Alejandra Duncan) s/p CABG ASA, plavix, and Atorvastatin lopressor, amiodarone Leukocytosis likely secondary to myocardial infarction. PROPH: SCDs for DVT prophylaxis. SQ lovenox post CABG when OK with CTS. Famotidine 20 mg IV every 12 for stress ulcer prophylaxis. CTS following. Remberto Mclain MD Jul 14, 2017 19:16
[2017-07-14] MEDS: PARoxetine HCL 20 MG TAB PO SCH (20:15)
[2017-07-14] MEDS: ATORVASTATIN 80 MG TAB PO SCH (20:16)
[2017-07-14] MEDS: SENNOSIDES 8.6 MG TAB PO SCH (20:16)
[2017-07-15] VITALS (31 sets, daily range): BP systolic 97–114; BP diastolic 56–80; PULSE 90–120; RESP 16–20; TEMP 97.8–99.4; O2SAT 93–95
[2017-07-15] MEDS: oxyCODONE/ACETAMINOPHEN 5 MG/325 MG TAB PO PRN ×6 (02:54→21:06)
[2017-07-15] MEDS: PANTOPRAZOLE SOD 40 MG DELAYED RELEASE TAB PO SCH (05:32)
[2017-07-15] MEDS: INSULIN ASPART SUPPLEMENTAL SCALE SQ SCH ×4 (08:00→21:00)
[2017-07-15] MEDS: MULTIVITAMINS/MINERALS THERAPEUTIC TAB PO SCH (08:46)
[2017-07-15] MEDS: CLOPIDOGREL 75 MG TAB PO SCH (08:46)
[2017-07-15] MEDS: DOCUSATE SODIUM 100 MG CAP PO SCH ×2 (08:46→20:53)
[2017-07-15] MEDS: AMIODARONE 200 MG TAB PO SCH ×2 (08:46→21:05)
[2017-07-15] MEDS: ASPIRIN 81 MG CHEW TAB PO SCH (08:46)
[2017-07-15] MEDS: POLYETHYLENE GLYCOL 17 GM PKG PO SCH (08:46)
[2017-07-15] MEDS: METOPROLOL TARTRATE 25 MG TAB PO SCH ×2 (08:46→20:53)
[2017-07-15] MEDS: MAGNESIUM HYDROXIDE SUSP 30 ML CUP PO SCH (08:46)
[2017-07-15] MEDS: SODIUM CHLORIDE 0.9% FLUSH 10 ML FLUSH IV FLUSH SCH ×2 (08:47→22:56)
--- NOTE | 2017-07-15 10:49 | PD.CAR.PN ---
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 We were consulted to eval for CABG x 2 / LAD/ Circ / Echo showed EF 40% PMH: arthritis, asthma, tobacco abuse, Bipolar disorder, anxiety depression, previous suicidal attempts 07/10 pt remains intubated on vent, 40% fi02 sedated with versed and fentanly, she will open eyes , follow simple commands and moves all extremities IABP 1:2 augmentation , + distal pulses unable to get PRU p2y12 ( pt on aggrastat / would need to be off x 48hrs to have accurate results per Lab plan for surgery timing per Dr Candelario 07/11 pt extubated yesterday, now on nasal cannula needs aggressive pulm toileting continue nebs/ ezpap acapella no pressors alert and oriented / will be able to sign own surgical consent scheduled for surgery in am 07/12 surgery: 1. Urgent Off-pump Coronary Artery Bypass Grafting x 2 with Left Internal Mammary Artery (FINNEY) to the Left Anterior Descending (LAD), reverse saphenous vein graft to the OM1 2. Left Leg Endoscopic Vein [place] 3. Intraoperative Vein Mapping extubated after surgery / crystalloid 3000cc, 250cc cell saver, 500cc EBL, urine 350cc 07/13 BP labile, eval to start BB when BP improves will need some diuresis when BP allows need aggressive pulm toileting OOB ambulate EF in OR 45-50% continue levaquin for now x 7 days eval to transfer pt to stepdown later today 07/14/17 progressing. no complaints 07/15/17 Doing well. Still requiring O2. Objective: Vital Signs Date Time Temp Pulse Resp B/P (MAP) Pulse Ox O2 Delivery O2 Flow Rate FiO2 07/15/17 10:00 94 07/15/17 09:53 94 Nasal Cannula 3.00 07/15/17 09:00 91 07/15/17 08:00 96 07/15/17 07:40 98.3 98 18 107/61 (76) 94 07/15/17 07:40 94 Nasal Cannula 3.00 07/15/17 07:00 99 07/15/17 06:07 108 07/15/17 05:07 91 07/15/17 04:28 97.8 98 97/71 (80) 95 07/15/17 04:28 Nasal Cannula 3.00 07/15/17 04:00 96 07/15/17 03:00 96 07/15/17 02:00 94 07/15/17 01:00 94 07/15/17 00:00 96 07/14/17 23:24 Nasal Cannula 3.00 07/14/17 23:24 98.5 92 98/56 (70) 96 07/14/17 23:00 93 07/14/17 22:00 98 07/14/17 21:43 94 Nasal Cannula 3.00 07/14/17 21:00 104 07/14/17 20:53 100 07/14/17 19:41 98.2 104 102/71 (81) 96 07/14/17 19:41 Nasal Cannula 3.00 07/14/17 19:00 104 07/14/17 18:00 108 07/14/17 17:00 120 07/14/17 16:25 107/68 (81) 07/14/17 16:20 104/62 (76) 07/14/17 16:00 110 07/14/17 15:32 96 Nasal Cannula 4.00 07/14/17 15:32 98.1 113 18 111/72 (85) 96 07/14/17 15:00 118 07/14/17 14:00 108 07/14/17 13:00 107 07/14/17 12:00 104 07/14/17 11:05 98.1 115 18 121/78 (92) 94 07/14/17 11:05 94 Nasal Cannula 4.00 07/14/17 11:00 106 Result Diagram: 07/14/17 0545 07/14/17 0545 Imaging: Last Impressions Chest X-Ray 07/13/17 0500 Signed Impressions: Service Date/Time: Thursday, July 13, 2017 04:29 - CONCLUSION: 1. Interval extubation. Chest tubes and right central line in good position without pneumothorax. Stable bilateral mostly basilar airspace disease. John Jacobson MD Lower Extremity Ultrasound 07/09/17 0000 Signed Impressions: Service Date/Time: Sunday, July 09, 2017 12:38 - CONCLUSION: 1. Vein mapping as above. Enrrique Molina MD Carotid Artery Ultrasound 07/09/17 0000 Signed Impressions: Service Date/Time: Sunday, July 09, 2017 12:18 - CONCLUSION: 1. No hemodynamically significant carotid artery stenosis identified. 2. Both vertebral arteries are patent. Enrrique Molina MD Cardiovascular: RRR Telemetry: NSR Pulmonary: CTA GI/: NABS Incision: dry and intact Plan: Wean oxygen Encourage ambulation Anticipate d/c tomorrow or Sunday. (1) STEMI (ST elevation myocardial infarction) (2) S/P CABG x 2 Plan: ASA, statin , BB will need diuresis when BP allows +4500/ 24 hrs OOB, ambulate pain control (3) Cardiogenic shock Plan: resolved (4) Status post insertion of drug-eluting stent into left anterior descending ( LAD) artery Plan: on plavix (5) Ventricular tachycardia Plan: resolved, remains on amiodarone (6) Left main coronary artery disease (7) Tobacco abuse Plan: smoking cessation (8) Respiratory failure Plan: resolved, continue aggressive pulm toileting Problem Qualifiers (1) STEMI (ST elevation myocardial infarction): Qualified Codes: I21.02 - ST elevation (STEMI) myocardial infarction involving left anterior descending coronary artery (2) Respiratory failure: Qualified Codes: J96.00 - Acute respiratory failure, unspecified whether with hypoxia or hypercapnia Britney Dsouza MD Jul 15, 2017 10:49
--- NOTE | 2017-07-15 13:59 | HHI.PR ---
Subjective Remarks RN reports no acute deteriorations o/n. Pt herself denies any recurrence of angina. Denies being short of breath while sitting. When discussing her new found hypoxia, She does admit that she has had a lifelong history of smoking and cannot ambulate for prolonged distances due to shortness of breath. She denies ever being diagnosed with COPD or taking any COPD inhaler medications. She also clarifies that she no longer has been taking baclofen or Paxil as an outpatient prior to her hospitalization. Objective Vital Signs Date Time Temp Pulse Resp B/P (MAP) Pulse Ox O2 Delivery O2 Flow Rate FiO2 07/15/17 13:00 97 07/15/17 12:00 95 07/15/17 11:23 98.6 102 18 107/56 (73) 94 07/15/17 11:22 94 Nasal Cannula 3.00 07/15/17 11:00 101 07/15/17 10:00 94 07/15/17 09:53 94 Nasal Cannula 3.00 07/15/17 09:00 91 07/15/17 08:00 96 07/15/17 07:40 98.3 98 18 107/61 (76) 94 07/15/17 07:40 94 Nasal Cannula 3.00 07/15/17 07:00 99 07/15/17 06:07 108 07/15/17 05:07 91 07/15/17 04:28 97.8 98 97/71 (80) 95 07/15/17 04:28 Nasal Cannula 3.00 07/15/17 04:00 96 07/15/17 03:00 96 07/15/17 02:00 94 07/15/17 01:00 94 07/15/17 00:00 96 07/14/17 23:24 Nasal Cannula 3.00 07/14/17 23:24 98.5 92 98/56 (70) 96 07/14/17 23:00 93 07/14/17 22:00 98 07/14/17 21:43 94 Nasal Cannula 3.00 07/14/17 21:00 104 07/14/17 20:53 100 07/14/17 19:41 98.2 104 102/71 (81) 96 07/14/17 19:41 Nasal Cannula 3.00 07/14/17 19:00 104 07/14/17 18:00 108 07/14/17 17:00 120 07/14/17 16:25 107/68 (81) 07/14/17 16:20 104/62 (76) 07/14/17 16:00 110 07/14/17 15:32 96 Nasal Cannula 4.00 07/14/17 15:32 98.1 113 18 111/72 (85) 96 07/14/17 15:00 118 07/14/17 14:00 108 I/O 07/14/17 07/14/17 07/14/17 07/15/17 07/15/17 07/15/17 07:00 15:00 23:00 07:00 15:00 23:00 Intake Total 220 ml 860 ml 240 ml Output Total 380 ml 100 ml Balance -160 ml 860 ml 140 ml Intake Oral 120 ml 860 ml 240 ml IV Total 100 ml Output Urine Total 350 ml 100 ml Chest Tube Drainage Total 30 ml # Voids 4 2 Result Diagram: 07/14/17 0545 07/14/17 0545 Objective Remarks sitting in bed, holding a pillow, awake Nasal cannula in place unlabored breathing, lungs clear to auscultation bilaterally Sternotomy dressing in place Heart rate regular rate and rhythm A/P Assessment and Plan Assessment and Plan Anxiety xanax prn anxiety) Persistent Hypoxia/resp failure, on 2L now Likely undiagnosed COPD, will start steroids to see if this helps DuoNeb every 6 hours. Albuterol every 2 hours as needed. May need home oxygen, I independently reviewed the chest x-ray from 07/13 which does not show's impressive infiltrates suggestive of pneumonia Continue Levaquin Anterolateral STEMI now status post drug-eluting stent to the LAD Multivessel coronary artery disease with 60% left main lesion. s/p PCI w/ JB to LAD. (07/08, Dr. Alejandra Duncan) s/p CABG ASA, plavix, and Atorvastatin lopressor, amiodarone CTS following. Starting Lovenox for DVT prophylaxis Remberto Mclain MD Jul 15, 2017 13:59
[2017-07-15] MEDS ORDERED: methylPREDNISolone SOD SUCC 125 MG/2 ML VIAL IV PUSH ONE (14:00)
[2017-07-15] MEDS: LEVOFLOXACIN 500 MG PREMIX INJ 100 ML IV SCH (14:20)
[2017-07-15] MEDS: ENOXAPARIN SODIUM 30 MG/0.3 ML SYRINGE SQ SCH (14:20)
[2017-07-15] MEDS: ATORVASTATIN 80 MG TAB PO SCH (20:52)
[2017-07-15] MEDS: PARoxetine HCL 20 MG TAB PO SCH (20:53)
[2017-07-15] MEDS: SENNOSIDES 8.6 MG TAB PO SCH (20:53)
[2017-07-16] VITALS (32 sets, daily range): BP systolic 99–136; BP diastolic 66–84; PULSE 70–108; RESP 16–20; TEMP 97.7–98.7; O2SAT 93–95
[2017-07-16] MEDS: oxyCODONE/ACETAMINOPHEN 5 MG/325 MG TAB PO PRN ×5 (01:36→21:22)
[2017-07-16] MEDS: methylPREDNISolone SOD SUCC 125 MG/2 ML VIAL IV PUSH SCH ×2 (01:37→15:25)
[2017-07-16] MEDS: PANTOPRAZOLE SOD 40 MG DELAYED RELEASE TAB PO SCH (06:19)
[2017-07-16] MEDS: INSULIN ASPART SUPPLEMENTAL SCALE SQ SCH ×4 (08:00→21:15)
[2017-07-16] MEDS: POLYETHYLENE GLYCOL 17 GM PKG PO SCH (08:48)
[2017-07-16] MEDS: AMIODARONE 200 MG TAB PO SCH ×2 (08:48→20:23)
[2017-07-16] MEDS: MAGNESIUM HYDROXIDE SUSP 30 ML CUP PO SCH (08:48)
[2017-07-16] MEDS: CLOPIDOGREL 75 MG TAB PO SCH (08:49)
[2017-07-16] MEDS: MULTIVITAMINS/MINERALS THERAPEUTIC TAB PO SCH (08:49)
[2017-07-16] MEDS: ASPIRIN 81 MG CHEW TAB PO SCH (08:49)
[2017-07-16] MEDS: METOPROLOL TARTRATE 25 MG TAB PO SCH ×3 (08:49→20:24)
[2017-07-16] MEDS: DOCUSATE SODIUM 100 MG CAP PO SCH ×2 (08:49→20:22)
[2017-07-16] MEDS: SODIUM CHLORIDE 0.9% FLUSH 10 ML FLUSH IV FLUSH SCH ×2 (09:00→20:24)
--- NOTE | 2017-07-16 10:28 | PD.CARD.PN ---
Subjective Subjective Remarks Doing well Ambulated, oxygen removed Appropriate chest pain Objective Medications Current Medications Medications (Trade) Dose Ordered Sig/Latisha Route Start Time Stop Time Status Last Admin (Lipitor) 80 mg HS PO 07/09/17 21:00 07/15/17 20:52 Levofloxacin/ Dextrose 100 ml @ 100 mls/hr Q24H IV 07/09/17 14:00 07/15/17 14:20 (NS Flush) 2 ml BID IV FLUSH 07/12/17 21:00 07/15/17 22:56 (NS Flush) 2 ml UNSCH PRN IV FLUSH 07/12/17 13:00 Lactated Ringer's 500 ml @ 500 mls/hr Q1H PRN IV 07/12/17 12:46 07/13/17 00:00 (Aspirin Chew) 81 mg DAILY PO 07/13/17 09:00 07/16/17 08:49 (Plavix) 75 mg DAILY PO 07/13/17 09:00 07/16/17 08:49 (Protonix) 40 mg DAILY@06 PO 07/13/17 06:00 07/16/17 06:19 (Tylenol) 650 mg Q4H PRN PO 07/12/17 13:00 (fentaNYL INJ) 25 mcg Q1H PRN IV PUSH 07/12/17 13:00 07/13/17 02:19 (Zofran Inj) 4 mg Q6H PRN IV PUSH 07/12/17 13:00 (Lopressor Inj) 2.5 mg Q1H PRN IV PUSH 07/12/17 13:00 07/14/17 16:21 (Duoneb Neb) 1 ampule Q2HR NEB PRN NEB 07/12/17 13:00 (Cordarone) 400 mg Q12HR PO 07/13/17 09:00 07/16/17 08:48 (Colace) 100 mg BID PO 07/13/17 09:00 07/16/17 08:49 (Theragran M Tab) 1 tab DAILY PO 07/13/17 10:00 07/16/17 08:49 (Milk Of Magnesia Liq) 30 ml DAILY PO 07/13/17 09:00 07/16/17 08:48 (Dulcolax Supp) 10 mg UNSCH PRN RECTAL 07/13/17 09:00 (Miralax) 17 gm DAILY PO 07/14/17 09:00 07/16/17 08:48 (Senokot) 8.6 mg HS PO 07/13/17 21:00 07/15/17 20:53 (Fleets Enema (Adult)) 133 ml UNSCH PRN RECTAL 07/13/17 09:00 (D50w (Vial) Inj) 50 ml UNSCH PRN IV PUSH 07/13/17 09:00 (Glucagon Inj) 1 mg UNSCH PRN OTHER 07/13/17 09:00 (NovoLOG SUPPLEMENTAL SCALE) 1 ACHS SQ 07/14/17 12:00 (Lopressor) 25 mg BID PO 07/14/17 21:00 07/16/17 08:49 (Paxil) 10 mg HS PO 07/14/17 21:00 07/15/17 20:53 (Xanax) 0.25 mg DAILY PRN PO 07/14/17 19:15 07/15/17 17:54 (Lovenox Inj) 30 mg Q24H SQ 07/15/17 14:00 07/15/17 14:20 (SoluMEDROL INJ) 60 mg Q12H IV PUSH 07/16/17 02:00 07/16/17 01:37 (Percocet 5-325 Mg) 1 tab Q4H PRN PO 07/15/17 16:45 07/16/17 08:49 Vital Signs / I&O Vital Signs Date Time Temp Pulse Resp B/P (MAP) Pulse Ox O2 Delivery O2 Flow Rate FiO2 07/16/17 07:59 94 Nasal Cannula 2.00 07/16/17 07:00 98 07/16/17 06:00 100 07/16/17 05:00 96 07/16/17 04:30 92 Nasal Cannula 3.00 07/16/17 04:30 98.2 99 20 136/79 (98) 93 07/16/17 04:00 96 07/16/17 03:42 97 07/16/17 03:00 96 07/16/17 02:40 18 07/16/17 02:00 100 07/16/17 01:00 102 07/16/17 00:00 102 07/15/17 23:50 98.9 100 20 114/74 (87) 93 07/15/17 23:45 93 Nasal Cannula 3.00 07/15/17 23:22 93 07/15/17 23:00 90 07/15/17 22:00 96 07/15/17 21:00 108 07/15/17 21:00 94 Nasal Cannula 2.00 07/15/17 20:00 108 07/15/17 19:00 93 Nasal Cannula 3.00 07/15/17 19:00 108 07/15/17 19:00 99.4 108 16 113/77 (89) 93 07/15/17 18:00 120 07/15/17 17:00 110 07/15/17 16:00 107 07/15/17 15:30 94 Nasal Cannula 3.00 07/15/17 15:30 98.5 103 16 109/80 (90) 94 07/15/17 15:00 98 07/15/17 14:00 109 07/15/17 13:00 97 07/15/17 12:00 95 07/15/17 11:23 98.6 102 18 107/56 (73) 94 07/15/17 11:22 94 Nasal Cannula 3.00 07/15/17 11:00 101 I/O 07/15/17 07/15/17 07/15/17 07/16/17 07/16/17 07/16/17 07:00 15:00 23:00 07:00 15:00 23:00 Intake Total 240 ml 840 ml 240 ml Output Total 100 ml 900 ml Balance 140 ml 840 ml -660 ml Intake Oral 240 ml 840 ml 240 ml Output Urine Total 100 ml 900 ml # Voids 2 4 # Bowel Movements 0 Physical Exam GENERAL: NAD, AAOx3 SKIN: Warm and dry. HEAD: Atraumatic. Normocephalic. EYES: Pupils equal and round. No scleral icterus. No injection or drainage. ENT: No nasal bleeding or discharge. Mucous membranes pink and moist. NECK: Trachea midline. No JVD. CARDIOVASCULAR: RRR, no murmurs noted. Sternotomy with wound vac RESPIRATORY: No accessory muscle use. Decreased breath sounds bilaterally, minimal rales GASTROINTESTINAL: Abdomen soft, non-tender, nondistended. Hepatic and splenic margins not palpable. MUSCULOSKELETAL: Extremities without clubbing, cyanosis, or edema. No obvious deformities. Bilateral distal pulses intact, palpable. Right femoral no hematoma NEUROLOGICAL: No focal deficits Assessment and Plan Problem List: (1) STEMI (ST elevation myocardial infarction) ICD Codes: I21.3 - ST elevation (STEMI) myocardial infarction of unspecified site Status: Acute (2) S/P CABG x 2 ICD Codes: Z95.1 - Presence of aortocoronary bypass graft (3) Cardiogenic shock ICD Codes: R57.0 - Cardiogenic shock Status: Acute (4) Status post insertion of drug-eluting stent into left anterior descending ( LAD) artery ICD Codes: Z95.5 - Presence of coronary angioplasty implant and graft Status: Acute (5) Ventricular tachycardia ICD Codes: I47.2 - Ventricular tachycardia (6) Left main coronary artery disease ICD Codes: I25.10 - Atherosclerotic heart disease of [place] coronary artery without angina pectoris (7) Tobacco abuse ICD Codes: Z72.0 - Tobacco use Status: Acute (8) Respiratory failure ICD Codes: J96.90 - Respiratory failure, unspecified, unspecified whether with hypoxia or hypercapnia Status: Acute Assessment and Plan 1) STEMI/Cardiogenic shock S/p JB to LAD Con't ASA/Plavix 2) Residual left main disease s/p CABGx2 POD #4 FINNEY to LAD SVG to OM 3) Con't ASA/Plavix/Lipitor/Lopressor/Amio 4) Mild hypoxia Appears fluid overloaded, will plan to diurese Also explained using incentive spirometry a few times per hour Tobacco cessation Problem Qualifiers (1) STEMI (ST elevation myocardial infarction): Qualified Codes: I21.02 - ST elevation (STEMI) myocardial infarction involving left anterior descending coronary artery (2) Respiratory failure: Qualified Codes: J96.00 - Acute respiratory failure, unspecified whether with hypoxia or hypercapnia Gustavo Duncan DO Jul 16, 2017 10:28
[2017-07-16] MEDS ORDERED: FUROSEMIDE 40 MG/4 ML VIAL IV PUSH ONE (10:30)
[2017-07-16] MEDS ORDERED: LISINOPRIL 5 MG TAB PO SCH (11:30)
[2017-07-16] MEDS ORDERED: PILL SPLITTER OTHER PRN (12:00)
--- NOTE | 2017-07-16 14:19 | PD.CAR.PN ---
CVT Progress Note Subjective/Hospital Course: 47/ yr old female brought in unresponsive by EMS, intubated in ED, pulse initially not palpable , CPR was given / ACLS/ EKG showed extensive ST elevations anterior lateral leads/ Code STEMI activated/ pt went to [facility], underwent emergent PCI with stent to LAD ( drug eluting) , IABP placed, one dose of Brilinta given , now on Heparin and aggrastat . We were consulted to eval for CABG x 2 / LAD/ Circ / Echo showed EF 40% PMH: arthritis, asthma, tobacco abuse, Bipolar disorder, anxiety depression, previous suicidal attempts 07/10 pt remains intubated on vent, 40% fi02 sedated with versed and fentanly, she will open eyes , follow simple commands and moves all extremities IABP 1:2 augmentation , + distal pulses unable to get PRU p2y12 ( pt on aggrastat / would need to be off x 48hrs to have accurate results per Lab plan for surgery timing per Dr Candelario 07/11 pt extubated yesterday, now on nasal cannula needs aggressive pulm toileting continue nebs/ ezpap acapella no pressors alert and oriented / will be able to sign own surgical consent scheduled for surgery in am 07/12 surgery: 1. Urgent Off-pump Coronary Artery Bypass Grafting x 2 with Left Internal Mammary Artery (FINNEY) to the Left Anterior Descending (LAD), reverse saphenous vein graft to the OM1 2. Left Leg Endoscopic Vein [place] 3. Intraoperative Vein Mapping extubated after surgery / crystalloid 3000cc, 250cc cell saver, 500cc EBL, urine 350cc 07/13 BP labile, eval to start BB when BP improves will need some diuresis when BP allows need aggressive pulm toileting OOB ambulate EF in OR 45-50% continue levaquin for now x 7 days eval to transfer pt to stepdown later today 07/14/17 progressing. no complaints 07/15/17 Doing well. Still requiring O2. 07/16 Weaning Oxygen as tolerated Apparently started on Steroids by Hospitalist. Will wean Increase beta jayce therapy Discharge planning Objective: Vital Signs Date Time Temp Pulse Resp B/P (MAP) Pulse Ox O2 Delivery O2 Flow Rate FiO2 07/16/17 12:00 96 07/16/17 11:25 93 Room Air 07/16/17 11:25 98.5 83 18 107/66 (80) 93 07/16/17 11:00 90 07/16/17 10:00 90 07/16/17 09:00 108 07/16/17 08:05 98.7 106 18 127/84 (98) 94 07/16/17 08:00 102 07/16/17 07:59 94 Nasal Cannula 2.00 07/16/17 07:30 94 Nasal Cannula 07/16/17 07:00 98 07/16/17 06:00 100 07/16/17 05:00 96 07/16/17 04:30 92 Nasal Cannula 3.00 07/16/17 04:30 98.2 99 20 136/79 (98) 93 07/16/17 04:00 96 07/16/17 03:42 97 07/16/17 03:00 96 07/16/17 02:40 18 07/16/17 02:00 100 07/16/17 01:00 102 07/16/17 00:00 102 07/15/17 23:50 98.9 100 20 114/74 (87) 93 07/15/17 23:45 93 Nasal Cannula 3.00 07/15/17 23:22 93 07/15/17 23:00 90 07/15/17 22:00 96 07/15/17 21:00 108 07/15/17 21:00 94 Nasal Cannula 2.00 07/15/17 20:00 108 07/15/17 19:00 93 Nasal Cannula 3.00 07/15/17 19:00 108 07/15/17 19:00 99.4 108 16 113/77 (89) 93 07/15/17 18:00 120 07/15/17 17:00 110 07/15/17 16:00 107 07/15/17 15:30 94 Nasal Cannula 3.00 07/15/17 15:30 98.5 103 16 109/80 (90) 94 07/15/17 15:00 98 Result Diagram: 07/14/1745 07/14/17544 (1) STEMI (ST elevation myocardial infarction) (2) S/P CABG x 2 Plan: ASA, statin , BB will need diuresis when BP allows +4500/ 24 hrs OOB, ambulate pain control (3) Cardiogenic shock Plan: resolved (4) Status post insertion of drug-eluting stent into left anterior descending ( LAD) artery Plan: on plavix (5) Ventricular tachycardia Plan: resolved, remains on amiodarone (6) Left main coronary artery disease (7) Tobacco abuse Plan: smoking cessation (8) Respiratory failure Plan: resolved, continue aggressive pulm toileting Problem Qualifiers (1) STEMI (ST elevation myocardial infarction): Qualified Codes: I21.02 - ST elevation (STEMI) myocardial infarction involving left anterior descending coronary artery (2) Respiratory failure: Qualified Codes: J96.00 - Acute respiratory failure, unspecified whether with hypoxia or hypercapnia Deepak Candelario MD Jul 16, 2017 14:19
--- NOTE | 2017-07-16 14:50 | HHI.PR ---
Subjective Remarks RN reports no acute deteriorations o/n. Was weaned off of oxygen today. Discussed with CT surgery, would like to keep another night to monitor tachycardia, increasing beta jayce dosage. Patient herself says that her shortness of breath is improved, feels like she is getting closer to going home. Denies any dyspnea at rest, has been ambulating to the bathroom w/o difficulty. Objective Vital Signs Date Time Temp Pulse Resp B/P (MAP) Pulse Ox O2 Delivery O2 Flow Rate FiO2 07/16/17 12:00 96 07/16/17 11:25 93 Room Air 07/16/17 11:25 98.5 83 18 107/66 (80) 93 07/16/17 11:00 90 07/16/17 10:00 90 07/16/17 09:00 108 07/16/17 08:05 98.7 106 18 127/84 (98) 94 07/16/17 08:00 102 07/16/17 07:59 94 Nasal Cannula 2.00 07/16/17 07:30 94 Nasal Cannula 07/16/17 07:00 98 07/16/17 06:00 100 07/16/17 05:00 96 07/16/17 04:30 92 Nasal Cannula 3.00 07/16/17 04:30 98.2 99 20 136/79 (98) 93 07/16/17 04:00 96 07/16/17 03:42 97 07/16/17 03:00 96 07/16/17 02:40 18 07/16/17 02:00 100 07/16/17 01:00 102 07/16/17 00:00 102 07/15/17 23:50 98.9 100 20 114/74 (87) 93 07/15/17 23:45 93 Nasal Cannula 3.00 07/15/17 23:22 93 07/15/17 23:00 90 07/15/17 22:00 96 07/15/17 21:00 108 07/15/17 21:00 94 Nasal Cannula 2.00 07/15/17 20:00 108 07/15/17 19:00 93 Nasal Cannula 3.00 07/15/17 19:00 108 07/15/17 19:00 99.4 108 16 113/77 (89) 93 07/15/17 18:00 120 07/15/17 17:00 110 07/15/17 16:00 107 07/15/17 15:30 94 Nasal Cannula 3.00 07/15/17 15:30 98.5 103 16 109/80 (90) 94 07/15/17 15:00 98 I/O 07/15/17 07/15/17 07/15/17 07/16/17 07/16/17 07/16/17 07:00 15:00 23:00 07:00 15:00 23:00 Intake Total 240 ml 840 ml 240 ml Output Total 100 ml 900 ml Balance 140 ml 840 ml -660 ml Intake Oral 240 ml 840 ml 240 ml Output Urine Total 100 ml 900 ml # Voids 2 4 # Bowel Movements 0 Result Diagram: 07/14/17 0545 07/14/17 0545 Objective Remarks sitting in bed, holding a pillow, awake Clear to auscultation bilaterally, unlabored breathing Sternotomy dressing in place Heart rate regular rate and rhythm A/P Assessment and Plan Assessment and Plan Anxiety xanax prn anxiety) Persistent Hypoxia/resp failure - resolved Likely undiagnosed COPD, weaning steroids DuoNeb every 6 hours. Albuterol every 2 hours as needed. Continue Levaquin Anterolateral STEMI now status post drug-eluting stent to the LAD Multivessel coronary artery disease with 60% left main lesion. s/p PCI w/ JB to LAD. (07/08, Dr. Alejandra Duncan) s/p CABG ASA, plavix, and Atorvastatin lopressor increasing dosage, amiodarone systolic dysfunction w/ EF ~ 40%, starting lisinopril CTS following. Lovenox for DVT prophylaxis Discharge Planning dc anticipated Remberto Dunn MD Jul 16, 2017 14:50
[2017-07-16] MEDS: ENOXAPARIN SODIUM 30 MG/0.3 ML SYRINGE SQ SCH (15:27)
[2017-07-16] MEDS: LEVOFLOXACIN 500 MG PREMIX INJ 100 ML IV SCH (15:27)
[2017-07-16] MEDS: ATORVASTATIN 80 MG TAB PO SCH (20:22)
[2017-07-16] MEDS: SENNOSIDES 8.6 MG TAB PO SCH (20:22)
[2017-07-16] MEDS: PARoxetine HCL 20 MG TAB PO SCH (20:22)
[2017-07-17] VITALS (18 sets, daily range): BP systolic 104–124; BP diastolic 62–68; PULSE 78–101; RESP 18; TEMP 98.3–98.5; O2SAT 93–95
[2017-07-17] MEDS: methylPREDNISolone SOD SUCC 125 MG/2 ML VIAL IV PUSH SCH ×2 (01:38→14:00)
[2017-07-17] MEDS: oxyCODONE/ACETAMINOPHEN 5 MG/325 MG TAB PO PRN ×3 (02:51→11:56)
[2017-07-17] MEDS: PANTOPRAZOLE SOD 40 MG DELAYED RELEASE TAB PO SCH (05:42)
[2017-07-17 07:18] LABS: HEMATOCRIT 41.5 % (35.0-46.0); MEAN CELL VOLUME 96.1 FL (80.0-100.0); MEAN CORPUSCULAR HEMOGLOBIN 32.6 PG (27.0-34.0); MEAN CORPUSCULAR HGB CONC 33.9 % (32.0-36.0); PLATELET COUNT 387 TH/MM3 (150-450); RED BLOOD COUNT 4.32 MIL/MM3 (4.00-5.30); RED CELL DISTRIBUTION WIDTH 13.4 % (11.6-17.2); REVIEW FLAG FINAL; WHITE BLOOD COUNT 14.5 TH/MM3 (4.0-11.0)
[2017-07-17] MEDS: INSULIN ASPART SUPPLEMENTAL SCALE SQ SCH ×2 (07:28→10:45)
[2017-07-17] MEDS: METOPROLOL TARTRATE 25 MG TAB PO SCH (07:52)
[2017-07-17] MEDS: AMIODARONE 200 MG TAB PO SCH (07:52)
[2017-07-17] MEDS: DOCUSATE SODIUM 100 MG CAP PO SCH (07:53)
[2017-07-17] MEDS: SODIUM CHLORIDE 0.9% FLUSH 10 ML FLUSH IV FLUSH SCH (07:53)
[2017-07-17] MEDS: ASPIRIN 81 MG CHEW TAB PO SCH (07:53)
[2017-07-17] MEDS: MAGNESIUM HYDROXIDE SUSP 30 ML CUP PO SCH (07:53)
[2017-07-17] MEDS: MULTIVITAMINS/MINERALS THERAPEUTIC TAB PO SCH (07:53)
[2017-07-17] MEDS: POLYETHYLENE GLYCOL 17 GM PKG PO SCH (07:53)
[2017-07-17] MEDS: CLOPIDOGREL 75 MG TAB PO SCH (07:53)
[2017-07-17] MEDS ORDERED: PLAV75TA29 PO (13:33)
[2017-07-17] MEDS ORDERED: THERM PO (13:33)
[2017-07-17] MEDS ORDERED: DOCU1CAP39 PO (13:33)
[2017-07-17] MEDS ORDERED: SYMB160A INH (13:33)
[2017-07-17] MEDS ORDERED: OXYC1TAB63 PO (13:33)
[2017-07-17] MEDS ORDERED: AMIO200T PO (13:33)
[2017-07-17] MEDS ORDERED: VENTAER INH (13:33)
[2017-07-17] MEDS ORDERED: ATOR1TAB18 PO (13:33)
[2017-07-17] MEDS ORDERED: ASPI81CH25 PO (13:33)
[2017-07-17] MEDS ORDERED: METO25TA3 PO (13:33)
--- NOTE | 2017-07-17 13:42 | HHI.DS ---
Discharge Summary Admission Date Jul 08, 2017 at 21:17 Discharge Date: Jul 17, 2017 Admitting Diagnosis STEMI. Respiratory failure (1) STEMI (ST elevation myocardial infarction) Diagnosis: Principal ICD Codes: I21.3 - ST elevation (STEMI) myocardial infarction of unspecified site Status: Acute (2) Cardiogenic shock ICD Codes: R57.0 - Cardiogenic shock Status: Resolved (3) Tobacco abuse Diagnosis: Principal ICD Codes: Z72.0 - Tobacco use Status: Chronic (4) GERTRUDE (acute kidney injury) Diagnosis: Secondary ICD Codes: N17.9 - Acute kidney failure, unspecified Status: Resolved (5) On intra-aortic balloon pump assist Diagnosis: Secondary ICD Codes: Z98.890 - Other specified postprocedural states Status: Acute (6) Status post insertion of drug-eluting stent into left anterior descending ( LAD) artery Diagnosis: Principal ICD Codes: Z95.5 - Presence of coronary angioplasty implant and graft Status: Acute (7) Ventricular tachycardia Diagnosis: Secondary ICD Codes: I47.2 - Ventricular tachycardia Status: Acute (8) S/P CABG x 2 Diagnosis: Secondary ICD Codes: Z95.1 - Presence of aortocoronary bypass graft Procedures 07/08 Left heart catheterization, coronary angiogram, [place] drug-eluting stent (3 x 18) to the proximal LAD, IVUS left main, intraaortic balloon pump placement. Complex case. 07/12 1. Urgent Off-pump Coronary Artery Bypass Grafting x 2 with Left Internal Mammary Artery (FINNEY) to the Left Anterior Descending (LAD), reverse saphenous vein graft to the OM1 2. Left Leg Endoscopic Vein [place] 3. Intraoperative Vein Mapping Brief History 47/ yr old female brought in unresponsive by EMS, intubated in ED, pulse initially not palpable , CPR was given / ACLS/ EKG showed extensive ST elevations anterior lateral leads/ Code STEMI activated/ pt went to [facility], underwent emergent PCI with stent to LAD ( drug eluting) , IABP placed, one dose of Brilinta given , now on Heparin and aggrastat . We were consulted to eval for CABG x 2 / LAD/ Circ / Echo showed EF 40% PMH: arthritis, asthma, tobacco abuse, Bipolar disorder, anxiety depression, previous suicidal attempts 07/10 pt remains intubated on vent, 40% fi02 sedated with versed and fentanly, she will open eyes , follow simple commands and moves all extremities IABP 1:2 augmentation , + distal pulses unable to get PRU p2y12 ( pt on aggrastat / would need to be off x 48hrs to have accurate results per Lab CBC/BMP: 07/17/17 0455 07/14/17 0545 Significant Findings Laboratory Tests Test 07/17/17 04:55 White Blood Count 14.5 TH/MM3 (4.0-11.0) Imaging Last Impressions Chest X-Ray 07/13/17 0500 Signed Impressions: Service Date/Time: Thursday, July 13, 2017 04:29 - CONCLUSION: 1. Interval extubation. Chest tubes and right central line in good position without pneumothorax. Stable bilateral mostly basilar airspace disease. John Jacobson MD Lower Extremity Ultrasound 07/09/17 0000 Signed Impressions: Service Date/Time: Sunday, July 09, 2017 12:38 - CONCLUSION: 1. Vein mapping as above. Enrrique Molina MD Carotid Artery Ultrasound 07/09/17 0000 Signed Impressions: Service Date/Time: Sunday, July 09, 2017 12:18 - CONCLUSION: 1. No hemodynamically significant carotid artery stenosis identified. 2. Both vertebral arteries are patent. Enrrique Molina MD PE at Discharge GENERAL: SKIN: Warm and dry. sternal incision `intact and well approximated , Left EVH site intact healing well HEAD: Normocephalic. EYES: No scleral icterus. No injection or drainage. NECK: Supple, trachea midline. No JVD or lymphadenopathy. CARDIOVASCULAR: Regular rate and rhythm without murmurs, gallops, or rubs. RESPIRATORY: Breath sounds equal bilaterally. No accessory muscle use. diminished in bases, no wheeze GASTROINTESTINAL: Abdomen soft, non-tender, nondistended. MUSCULOSKELETAL: No cyanosis, or edema. BACK: Nontender without obvious deformity. No CVA tenderness. Hospital Course 07/10 pt remains intubated on vent, 40% fi02 sedated with versed and fentanly, she will open eyes , follow simple commands and moves all extremities IABP 1:2 augmentation , + distal pulses unable to get PRU p2y12 ( pt on aggrastat / would need to be off x 48hrs to have accurate results per Lab plan for surgery timing per Dr Candelario 07/11 pt extubated yesterday, now on nasal cannula needs aggressive pulm toileting continue nebs/ ezpap acapella no pressors alert and oriented / will be able to sign own surgical consent scheduled for surgery in am 07/12 surgery: 1. Urgent Off-pump Coronary Artery Bypass Grafting x 2 with Left Internal Mammary Artery (FINNEY) to the Left Anterior Descending (LAD), reverse saphenous vein graft to the OM1 2. Left Leg Endoscopic Vein [place] 3. Intraoperative Vein Mapping extubated after surgery / crystalloid 3000cc, 250cc cell saver, 500cc EBL, urine 350cc 07/13 BP labile, eval to start BB when BP improves will need some diuresis when BP allows need aggressive pulm toileting OOB ambulate EF in OR 45-50% continue levaquin for now x 7 days eval to transfer pt to stepdown later today 07/14/17 progressing. no complaints 07/15/17 Doing well. Still requiring O2. 07/16 Weaning Oxygen as tolerated Apparently started on Steroids by Hospitalist. Will wean Increase beta jayce therapy Discharge planning 07/17 on room air doing well, pain controlled dc IV steroids, will add symicort inhaler and prn Ventolin inhaler BB 50mg bid, taper dose amiodarone smoking cessation remove prevena ok to dc home today with C unable to start AMTI/ ARB 2/2 labile ( low) BP Pt Condition on Discharge: Good Discharge Disposition: Disch w/ Home Health Serv Discharge Instructions DIET: Follow Instructions for: Heart Healthy Diet, Low Sodium Diet Activities you can perform: Full Weight Bearing, Shower Only-No Bath Activities to avoid: Strenuous Activity, Driving Additional Activity Instructio: no lifting > 8 lbs or gallon of milk Follow up Referrals: Cardiology with Gustavo Duncan DO PCP Follow-up with German Sierra DO Surgical with Deepak Candelario MD New Medications: Albuterol 18 GM Inh (Ventolin Hfa 18 GM Inh) 90 Mcg/Act Aer 2 PUFF INH Q4-6H PRN for SHORTNESS OF BREATH, #1 INHALER 2 Refills Budesonide-Formoterol Inh (Symbicort Inh) 160-4.5 Mcg/Act Aero 2 PUFF INH Q12HR, #1 INHALER 2 Refills Amiodarone (Amiodarone) 200 Mg Tab 200 MG PO Q12HR for heart rhythm , #35 TAB 200mg bid x 7 days , then 200mg daily x 21 days , then dc Aspirin (Aspirin Low Strength) 81 Mg Chew 81 MG PO DAILY for Blood Clot Prevention, #100 EA 3 Refills Atorvastatin (Atorvastatin) 80 Mg Tab 80 MG PO HS for Cholesterol Management, #30 TAB 3 Refills Clopidogrel (Plavix) 75 Mg Tab 75 MG PO DAILY for Blood Clot Prevention, #30 TAB 3 Refills Docusate Sodium (Dok) 100 Mg Cap 100 MG PO BID for Constipation, #60 CAP 0 Refills Metoprolol Tartrate (Metoprolol Tartrate) 25 Mg Tab 50 MG PO BID for Blood Pressure Management, #60 TAB 3 Refills Multiple Vitamins W/ Minerals (Thera M Plus) 1 Tab 1 TAB PO DAILY for multi vitamin, #30 TAB 2 Refills Oxycodone-Acetaminophen (Oxycodone-Acetaminophen) 5-325 mg Tab 1 TAB PO Q6HR PRN for PAIN 1-10, #40 TAB 0 Refills Continued Medications: Alprazolam (Xanax) 0.25 Mg Tab Unknown Dose PO, TAB 0 Refills Baclofen (Baclofen) 10 Mg Tab Unknown Dose PO, TAB 0 Refills Paroxetine (Paxil) 10 Mg Tab Unknown Dose PO DAILY, #30 TAB 0 Refills Discontinued Medications: Hydrocodone-Acetaminophen (Hydrocodone-Acetaminophen) 5-300 Mg Tab Unknown Dose PO Q4H PRN for PAIN, TAB 0 Refills Afshan Rodríguez Jul 17, 2017 13:42
[2017-07-17] MEDS: ENOXAPARIN SODIUM 30 MG/0.3 ML SYRINGE SQ SCH (14:00)
[2017-07-17] MEDS: LEVOFLOXACIN 500 MG PREMIX INJ 100 ML IV SCH (14:00)
--- NOTE | 2017-07-17 14:24 | PD.CARD.PN ---
Subjective Subjective Remarks No events overnight, no chest pain/SOB Diuresed 2.7L after Lasix Objective Medications Current Medications Medications (Trade) Dose Ordered Sig/Latisha Route Start Time Stop Time Status Last Admin (Lipitor) 80 mg HS PO 07/09/17 21:00 07/16/17 20:22 Levofloxacin/ Dextrose 100 ml @ 100 mls/hr Q24H IV 07/09/17 14:00 07/16/17 15:27 (NS Flush) 2 ml BID IV FLUSH 07/12/17 21:00 07/17/17 07:53 (NS Flush) 2 ml UNSCH PRN IV FLUSH 07/12/17 13:00 Lactated Ringer's 500 ml @ 500 mls/hr Q1H PRN IV 07/12/17 12:46 07/13/17 00:00 (Aspirin Chew) 81 mg DAILY PO 07/13/17 09:00 07/17/17 07:53 (Plavix) 75 mg DAILY PO 07/13/17 09:00 07/17/17 07:53 (Protonix) 40 mg DAILY@06 PO 07/13/17 06:00 07/17/17 05:42 (Tylenol) 650 mg Q4H PRN PO 07/12/17 13:00 (fentaNYL INJ) 25 mcg Q1H PRN IV PUSH 07/12/17 13:00 07/13/17 02:19 (Zofran Inj) 4 mg Q6H PRN IV PUSH 07/12/17 13:00 (Lopressor Inj) 2.5 mg Q1H PRN IV PUSH 07/12/17 13:00 07/14/17 16:21 (Duoneb Neb) 1 ampule Q2HR NEB PRN NEB 07/12/17 13:00 (Cordarone) 400 mg Q12HR PO 07/13/17 09:00 07/17/17 07:52 (Colace) 100 mg BID PO 07/13/17 09:00 07/16/17 20:22 (Theragran M Tab) 1 tab DAILY PO 07/13/17 10:00 07/17/17 07:53 (Milk Of Magnesia Liq) 30 ml DAILY PO 07/13/17 09:00 07/16/17 08:48 (Dulcolax Supp) 10 mg UNSCH PRN RECTAL 07/13/17 09:00 (Miralax) 17 gm DAILY PO 07/14/17 09:00 07/16/17 08:48 (Senokot) 8.6 mg HS PO 07/13/17 21:00 07/16/17 20:22 (Fleets Enema (Adult)) 133 ml UNSCH PRN RECTAL 07/13/17 09:00 (D50w (Vial) Inj) 50 ml UNSCH PRN IV PUSH 07/13/17 09:00 (Glucagon Inj) 1 mg UNSCH PRN OTHER 07/13/17 09:00 (NovoLOG SUPPLEMENTAL SCALE) 1 ACHS SQ 07/14/17 12:00 07/16/17 21:15 (Paxil) 10 mg HS PO 07/14/17 21:00 07/16/17 20:22 (Xanax) 0.25 mg DAILY PRN PO 07/14/17 19:15 07/15/17 17:54 (Lovenox Inj) 30 mg Q24H SQ 07/15/17 14:00 07/16/17 15:27 (SoluMEDROL INJ) 60 mg Q12H IV PUSH 07/16/17 02:00 07/17/17 01:38 (Percocet 5-325 Mg) 1 tab Q4H PRN PO 07/15/17 16:45 07/17/17 11:56 (Pill Splitter) 1 ea UNSCH PRN OTHER 07/16/17 12:00 (Lopressor) 37.5 mg BID PO 07/16/17 14:15 07/17/17 07:52 Vital Signs / I&O Vital Signs Date Time Temp Pulse Resp B/P (MAP) Pulse Ox O2 Delivery O2 Flow Rate FiO2 07/17/17 12:00 85 07/17/17 11:38 98.4 85 18 124/62 (82) 93 07/17/17 11:38 93 Room Air 07/17/17 11:00 84 07/17/17 10:00 85 07/17/17 09:44 95 21 07/17/17 09:00 86 07/17/17 08:00 84 07/17/17 08:00 98.5 86 18 120/68 (85) 93 07/17/17 08:00 93 Room Air 07/17/17 07:00 85 07/17/17 06:14 84 07/17/17 05:44 78 07/17/17 04:02 83 07/17/17 03:54 18 07/17/17 03:13 93 Room Air 07/17/17 03:07 98.3 88 18 104/66 (79) 07/17/17 03:00 85 07/17/17 02:04 101 07/17/17 01:30 97 07/17/17 00:15 101 07/16/17 23:19 98.3 94 18 99/70 (80) 93 07/16/17 23:18 93 Room Air 07/16/17 23:00 93 07/16/17 22:09 84 07/16/17 21:20 21 07/16/17 21:08 95 07/16/17 20:00 96 07/16/17 19:41 93 Room Air 07/16/17 19:40 97.8 101 18 121/74 (90) 94 07/16/17 19:00 95 07/16/17 18:00 74 07/16/17 17:00 70 07/16/17 16:00 74 07/16/17 15:15 97.7 101 16 117/74 (88) 95 07/16/17 15:00 95 Room Air 07/16/17 15:00 94 I/O 07/16/17 07/16/17 07/16/17 07/17/17 07/17/17 07/17/17 07:00 15:00 23:00 07:00 15:00 23:00 Intake Total 240 ml 960 ml 360 ml Output Total 900 ml 2300 ml 401 ml Balance -660 ml -1340 ml -41 ml Intake Oral 240 ml 960 ml 360 ml Output Urine Total 900 ml 2300 ml 400 ml Stool Total 1 ml # Voids 3 # Bowel Movements 0 0 1 Physical Exam GENERAL: NAD, AAOx3 SKIN: Warm and dry. HEAD: Atraumatic. Normocephalic. EYES: Pupils equal and round. No scleral icterus. No injection or drainage. ENT: No nasal bleeding or discharge. Mucous membranes pink and moist. NECK: Trachea midline. No JVD. CARDIOVASCULAR: RRR, no murmurs noted. Sternotomy with wound vac RESPIRATORY: No accessory muscle use. CTA B/L GASTROINTESTINAL: Abdomen soft, non-tender, nondistended. Hepatic and splenic margins not palpable. MUSCULOSKELETAL: Extremities without clubbing, cyanosis, or edema. No obvious deformities. Bilateral distal pulses intact, palpable. Right femoral no hematoma NEUROLOGICAL: No focal deficits Laboratory Laboratory Tests Test 07/17/17 04:55 White Blood Count 14.5 TH/MM3 Red Blood Count 4.32 MIL/MM3 Hemoglobin 14.1 GM/DL Hematocrit 41.5 % Mean Corpuscular Volume 96.1 FL Mean Corpuscular Hemoglobin 32.6 PG Mean Corpuscular Hemoglobin Concent 33.9 % Red Cell Distribution Width 13.4 % Platelet Count 387 TH/MM3 Mean Platelet Volume 7.8 FL Assessment and Plan Problem List: (1) STEMI (ST elevation myocardial infarction) ICD Codes: I21.3 - ST elevation (STEMI) myocardial infarction of unspecified site Status: Acute (2) S/P CABG x 2 ICD Codes: Z95.1 - Presence of aortocoronary bypass graft (3) Cardiogenic shock ICD Codes: R57.0 - Cardiogenic shock Status: Resolved (4) Status post insertion of drug-eluting stent into left anterior descending ( LAD) artery ICD Codes: Z95.5 - Presence of coronary angioplasty implant and graft Status: Acute (5) Ventricular tachycardia ICD Codes: I47.2 - Ventricular tachycardia Status: Acute (6) Left main coronary artery disease ICD Codes: I25.10 - Atherosclerotic heart disease of [place] coronary artery without angina pectoris (7) Tobacco abuse ICD Codes: Z72.0 - Tobacco use Status: Chronic (8) Respiratory failure ICD Codes: J96.90 - Respiratory failure, unspecified, unspecified whether with hypoxia or hypercapnia Status: Acute Assessment and Plan 1) STEMI/Cardiogenic shock S/p JB to LAD Con't ASA/Plavix 2) Residual left main disease s/p CABGx2 POD #5 FINNEY to LAD SVG to OM 3) Con't ASA/Plavix/Lipitor/Lopressor/Amio 4) Mild hypoxia Resolved after Lasix 5) Cardiovascularly stable for discharge, discussed with CT surgery Problem Qualifiers (1) STEMI (ST elevation myocardial infarction): Qualified Codes: I21.02 - ST elevation (STEMI) myocardial infarction involving left anterior descending coronary artery (2) Respiratory failure: Qualified Codes: J96.00 - Acute respiratory failure, unspecified whether with hypoxia or hypercapnia Gustavo Duncan DO Jul 17, 2017 14:24
== END 2017-07-17 15:42 | disposition home health service (06) | DRG 231 ==
LOC: NEPC 21:03 → NEDA 21:17 → HCVR 23:50 → HCPC 07-09 08:41 → HCVI 07-09 08:45 → HCPC 07-13 18:25
PROVIDERS: ADMIT Thoracic Surgery (Cardiothoracic Vascular Surgery); ATTEND Thoracic Surgery (Cardiothoracic Vascular Surgery)
PROC: 027034Z Dilation of Coronary Artery, One Artery with Drug-eluting Intraluminal Device, Percutaneous Approach (ICD-10-PCS; 2017-07-08)
PROC: 5A02210 Assistance with Cardiac Output using Balloon Pump, Continuous (ICD-10-PCS; 2017-07-08)
PROC: 0BH17EZ Insertion of Endotracheal Airway into Trachea, Via Natural or Artificial Opening (ICD-10-PCS; 2017-07-08)
PROC: 5A1945Z Respiratory Ventilation, 24-96 Consecutive Hours (ICD-10-PCS; 2017-07-08)
PROC: 4A023N7 Measurement of Cardiac Sampling and Pressure, Left Heart, Percutaneous Approach (ICD-10-PCS; 2017-07-08)
PROC: B2111ZZ Fluoroscopy of Multiple Coronary Arteries using Low Osmolar Contrast (ICD-10-PCS; 2017-07-08)
PROC: B240ZZ3 Ultrasonography of Single Coronary Artery, Intravascular (ICD-10-PCS; 2017-07-08)
PROC: 5A2204Z Restoration of Cardiac Rhythm, Single (ICD-10-PCS; 2017-07-08)
PROC: 02100Z9 Bypass Coronary Artery, One Artery from Left Internal Mammary, Open Approach (ICD-10-PCS; 2017-07-12)
PROC: 06BQ4ZZ Excision of Left Saphenous Vein, Percutaneous Endoscopic Approach (ICD-10-PCS; 2017-07-12)
PROC: 3E0T3BZ Introduction of Anesthetic Agent into Peripheral Nerves and Plexi, Percutaneous Approach (ICD-10-PCS; 2017-07-12)
PROC: 021009W Bypass Coronary Artery, One Artery from Aorta with Autologous Venous Tissue, Open Approach (ICD-10-PCS; principal; 2017-07-12 08:21)
DX: I21.02 ST elevation (STEMI) myocardial infarction involving left anterior descending coronary artery (principal); J96.01 Acute respiratory failure with hypoxia; R57.0 Cardiogenic shock; I47.2 Ventricular tachycardia; N17.9 Acute kidney failure, unspecified; I25.10 Atherosclerotic heart disease of native coronary artery without angina pectoris; F17.200 Nicotine dependence, unspecified, uncomplicated; F20.9 Schizophrenia, unspecified; G47.30 Sleep apnea, unspecified; M19.90 Unspecified osteoarthritis, unspecified site; J45.909 Unspecified asthma, uncomplicated; F31.9 Bipolar disorder, unspecified; R73.9 Hyperglycemia, unspecified; F41.8 Other specified anxiety disorders; D72.829 Elevated white blood cell count, unspecified; Z82.49 Family history of ischemic heart disease and other diseases of the circulatory system; Z91.5 Personal history of self-harm
CPT/HCPCS: 31500; 33967; 36430; 36600; 71010; 76937; 80048; 80053; 80061; 80076; 81001; 82310; 82435; 82550; 82565; 82805; 82947; 82948; 83036; 83735; 83880; 84100; 84132; 84295; 84439; 84443; 84484; 84520; 85002; 85007; 85014; 85025; 85027; 85576; 85610; 85730; 86403; 86850; 86900; 86901; 86920; 87070; 87086; 87147; 87186; 87205; 87641; 92941; 92978; 93005; 93306; 93454; 93880; 93970; 93998; 94002; 94003; 94150; 94640; 94664; 94667; 94668; C1725; C1753; C1768; C1769; C1874; C1887; C1893; C9290; J0131; J0153; J0282; J0690; J1100; J1644; J1650; J1815; J1817; J1885; J1940; J1956; J2250; J2270; J2370; J2440; J2930; J3010; J3246; J3370; J3475; J3480; J7030; J7040; J7060; J7120; P9016; P9045; Q9967

== ENCOUNTER 2018-09-29 16:30 | Inpatient (IN) ==
[2018-09-29] MEDS ORDERED: MethylPREDNISolone Sod Succinate Inj 125 MG/2 ML Vial IV.PUSH ONE (16:41)
--- NOTE | 2018-09-29 16:56 | ED ---
HPI General Chief complaint: Respiratory Symptoms Stated complaint: shortness of breath complaint Time Seen by Provider: 09/29/18 16:41 Source: patient Mode of arrival: ambulatory Limitations: no limitations History of Present Illness HPI narrative: 48-year-old female patient with previous history of NH, blood clot in the leg, presents to the ER today because she states that she started having worsening shortness of breath and dyspnea on exertion, difficulty laying down over the last few days. She has had some coughing, denies any fevers, vomiting, abdominal pains, or other symptoms. She states that she smokes, and has had more problems with respiratory issues ever since she had the NH. Modifying Factors: None Associated Signs & Symptoms: Worsening dyspnea on exertion and shortness of breath Risk Factors: Smoking Related Data Home Medications Medication Instructions Recorded Confirmed alprazolam [Xanax] 0.25 mg PO BID 07/31/18 09/29/18 aspirin [Aspir-81] 81 mg PO DAILY 07/31/18 09/29/18 atorvastatin 80 mg PO DAILY 07/31/18 09/29/18 budesonide-formoterol [Symbicort] 2 puff INHALATION Q12H 07/31/18 09/29/18 clopidogrel [Plavix] 75 mg PO DAILY 07/31/18 09/29/18 docusate sodium 100 mg PO BID 07/31/18 09/29/18 metoprolol tartrate 50 mg PO BID 07/31/18 09/29/18 paroxetine HCl [Paxil] 40 mg PO DAILY 07/31/18 09/29/18 hydrocodone-acetaminophen 1 tab PO Q4-6H PRN 09/29/18 09/29/18 Previous Rx's Medication Instructions Recorded albuterol sulfate 2 inh INHALATION Q4-6H PRN #6.7 g 09/29/18 prednisone 50 mg PO DAILY 5 Days #5 tab 09/29/18 Allergies Allergy/AdvReac Type Severity Reaction Status Date / Time No Known Allergies Allergy Verified 09/29/18 16:35 Review of Systems ROS: all other systems reviewed are negative [facility] Medical History Medical History delivery delivered (Acute) DVT (deep venous thrombosis) (Acute) H/O: hysterectomy (Acute) Myocardial infarct (Acute) Surgical History Surgical History S/P CABG x 2 (Acute) S/P wrist surgery (Acute) Social History Social History Substance History: No History of Abuse Smoking Status: Current every day smoker Tobacco Type: Cigarettes How Often Do You Have a Drink Containing Alcohol: Never Recent Travel in [place] within the Last 8 Weeks: No Recent Out of Country Travel within the Last 8 Weeks: No Immunization History Tetanus Immunization: Unsure Exam Narrative Exam Narrative: GENERAL: Well-developed middle-age female patient currently and moderate respiratory distress. Awake and oriented x3. SKIN: Focused skin assessment warm/dry. HEAD: Atraumatic. Normocephalic. EYES: Pupils equal and round. No scleral icterus. No injection or drainage. ENT: No nasal bleeding or discharge. Mucous membranes pink and moist. NECK: Trachea midline. No JVD. CARDIOVASCULAR: Regular rate and rhythm. No murmur appreciated. RESPIRATORY: Mild accessory muscle use. Bilateral wheezing. Breath sounds equal bilaterally. GASTROINTESTINAL: Abdomen soft, non-tender, nondistended. Hepatic and splenic margins not palpable. MUSCULOSKELETAL: No obvious deformities. No clubbing. No cyanosis. No edema. NEUROLOGICAL: Awake and alert. No obvious cranial nerve deficits. Motor grossly within normal limits. Normal speech. PSYCHIATRIC: Appropriate mood and affect; insight and judgment normal. Course Initial Documented Vital Signs Temperature 97.2 F L 09/29/18 16:32 Pulse Rate 73 09/29/18 16:32 Respiratory Rate 24 09/29/18 16:32 Blood Pressure 141/58 H 09/29/18 16:32 Pulse Oximetry 92 L 09/29/18 16:32 Last Documented Vital Signs Temperature 97.2 F L 09/29/18 16:32 Pulse Rate 71 09/29/18 19:24 Respiratory Rate 19 09/29/18 19:24 Blood Pressure 133/70 09/29/18 19:15 Pulse Oximetry 95 09/29/18 19:24 Medical Decision Making MDM Narrative Medical decision making narrative: Chest x-ray did not show any signs of acute processes. Lab work is fairly unremarkable. BNP is within normal limits. D- dimer is negative. She was given Solu-Medrol and several doses of nebulizers in the ER. However, on reevaluation at 7 PM, she is still wheezing quite a bit and at this point I have talked to her regarding observation admission for further treatment. However, she does not want to be admitted at this point. An additional nebulizers were ordered for her. Case is signed out to Dr. Alexander awaiting reevaluation after nebulizers. The patient's case was checked out to me by , please see her complete history and physical. The patient's case was checked out to me at the conclusion of her shift. During the course of the patient's emergency department visit, the patient was placed on a alley worker with oximetry and frequent blood pressure monitoring. The patient had IV access obtained and blood work sent for analysis. The patient was initially provided Solu-Medrol 125 mg IV, DuoNeb x1 followed by 2 albuterol nebs. The patient's diagnostic evaluation is remarkable for a white count of 13.7, hemoglobin 15.1, platelets 359 with a normal differential, D-dimer is within normal limits at 0.24 decreasing the likelihood of pulmonary embolism in this patient with no other significant risk factors. Chemistry is remarkable for glucose of 107, alk phos 150, troponin I less than 0.02, BNP is 50. A chest x- ray shows no acute cardiopulmonary disease. The patient on reevaluation after 3 nebulizer treatments is continuing to be on 3 L nasal cannula O2 and saturating 92-93%. The patient's oxygen was removed and her oxygenation was reassessed along with her being reexamined. The patient continues to have expiratory wheezes. The patient on room air has an O2 saturation of 88%. I did discuss with the patient again that she will require admission for additional evaluation, steroids IV, nebulizer treatments, and supplemental oxygen. The patient is now agreeable with this plan. The patient was started on Levaquin 750 mg IV. Patient was continued back on supplemental oxygen per The patient's case including history, pertinent physical examination findings, and laboratory studies were discussed with Dr. Warren. It was agreed that the patient would be admitted to the hospitalist service. The patient's results were discussed with the patient, including the plan of care. I explained that further testing and/ or monitoring is indicated based on the patient's history, examination, and/ or laboratory findings. Therefore, I recommended admission for additional evaluation. The patient expressed understanding and was agreeable with this plan. The patient was admitted to the hospital in guarded condition and sent to a bed under the care of the [facility] service. Medical Screen Exam Complete: Yes Emergency Medical Condition: Yes Differential Diagnosis Differential Diagnosis: Bronchitis versus CHF versus pneumonia versus COPD exacerbation Lab Data Lab results reviewed: Yes I reviewed the patient's lab results. Result diagrams: 09/29/18 16:52 09/29/18 16:52 Lab Results 09/29/18 09/29/18 09/29/18 Range/Units 16:52 16:52 17:27 WBC 13.7 H (4.0-11.0) th/mm3 RBC 4.29 (4.00-5.30) mil/mm3 Hgb 15.1 (11.6-15.3) gm/dL Hct 42.2 (35.0-46.0) % MCV 98.4 (80.0-100.0) fL MCH 35.0 H (27.0-34.0) pg MCHC 35.6 (32.0-36.0) % RDW 13.4 (11.6-17.2) % Plt Count 359 (150-450) th/mm3 MPV 7.6 (7.0-11.0) fL Neut % (Auto) 65.9 (16.0-70.0) % Lymph % (Auto) 24.9 (9.0-44.0) % [place] % (Auto) 6.5 (0.0-8.0) % Eos % (Auto) 2.3 (0.0-4.0) % Baso % (Auto) 0.4 (0.0-2.0) % Neut # (Auto) 9.0 H (1.8-7.7) th/mm3 Lymph # (Auto) 3.4 (1.0-4.8) th/mm3 [place] # (Auto) 0.9 (0.0-0.9) th/mm3 Eos # (Auto) 0.3 (0.0-0.4) th/mm3 Baso # (Auto) 0.1 (0.0-0.2) th/mm3 WBC Differential . Differential Comment Auto diff final D-Dimer Quant (PE/DVT) (0.00-0.50) mg/L FEU Sodium 138 (136-145) meq/L Potassium 3.9 (3.5-5.1) meq/L Chloride 104 (98-107) meq/L Carbon Dioxide 28.4 (21.0-32.0) meq/L Anion Gap 6 (5-15) meq/L BUN 10 (7-18) mg/dL Creatinine 0.67 (0.50-1.00) mg/dL Estimated GFR Greater than 89 (>89) mL/min Random Glucose 107 H (74-106) mg/dL Calcium 9.0 (8.5-10.1) mg/dL Total Bilirubin 0.8 (0.2-1.0) mg/dL AST 22 (15-37) U/L ALT 38 (10-53) U/L Alkaline Phosphatase 150 H (45-117) U/L Troponin I Less than 0.02 L (0.02-0.05) ng/mL B-Natriuretic Peptide 50 (0-100) pg/mL Total Protein 8.0 (6.4-8.2) g/dL Albumin 3.7 (3.4-5.0) g/dL 09/29/ Range/Units 17:27 WBC (4.0-11.0) th/mm3 RBC (4.00-5.30) mil/mm3 Hgb (11.6-15.3) gm/dL Hct (35.0-46.0) % MCV (80.0-100.0) fL MCH (27.0-34.0) pg MCHC (32.0-36.0) % RDW (11.6-17.2) % Plt Count (150-450) th/mm3 MPV (7.0-11.0) fL Neut % (Auto) (16.0-70.0) % Lymph % (Auto) (9.0-44.0) % [place] % (Auto) (0.0-8.0) % Eos % (Auto) (0.0-4.0) % Baso % (Auto) (0.0-2.0) % Neut # (Auto) (1.8-7.7) th/mm3 Lymph # (Auto) (1.0-4.8) th/mm3 [place] # (Auto) (0.0-0.9) th/mm3 Eos # (Auto) (0.0-0.4) th/mm3 Baso # (Auto) (0.0-0.2) th/mm3 WBC Differential Differential Comment D-Dimer Quant (PE/DVT) 0.24 (0.00-0.50) mg/L FEU Sodium (136-145) meq/L Potassium (3.5-5.1) meq/L Chloride (98-107) meq/L Carbon Dioxide (21.0-32.0) meq/L Anion Gap (5-15) meq/L BUN (7-18) mg/dL Creatinine (0.50-1.00) mg/dL Estimated GFR (>89) mL/min Random Glucose (74-106) mg/dL Calcium (8.5-10.1) mg/dL Total Bilirubin (0.2-1.0) mg/dL AST (15-37) U/L ALT (10-53) U/L Alkaline Phosphatase (45-117) U/L Troponin I (0.02-0.05) ng/mL B-Natriuretic Peptide (0-100) pg/mL Total Protein (6.4-8.2) g/dL Albumin (3.4-5.0) g/dL Imaging Data Attestation: I personally reviewed and interpreted this imaging study as follows : Radiologist's impression: Chest X-Ray 09/29/18 16:41 CONCLUSION: No acute cardiopulmonary disease. Discharge Plan Discharge Disposition Patient Disposition: ED Admit(ED Internal Use Only) Discharge Condition Condition: Stable Discharge Details Anticipated Discharge Date: 09/29/18 Diagnosis: Bronchitis, COPD exacerbation, Hypoxemia Physicians Team ED Provider: Anuja Alexander Primary Care Provider: German Sierra Rxs /Orders / Referrals /Forms Prescriptions: New prednisone 50 mg tablet 50 mg PO DAILY 5 Days Qty: 5 RF: 0 albuterol sulfate 90 mcg/actuation HFA aerosol inhaler 2 inh INHALATION Q4-6H PRN (Reason: shortness of breath or wheezing) Qty: 6.7 RF: 0 No Action hydrocodone-acetaminophen 5-300 mg Tablet 1 tab PO Q4-6H PRN (Reason: Pain) RF: 0 atorvastatin 80 mg Tablet 80 mg PO DAILY RF: 0 clopidogrel [Plavix] 75 mg Tablet 75 mg PO DAILY RF: 0 aspirin [Aspir-81] 81 mg Tablet,Delayed Release (Dr/Ec) 81 mg PO DAILY RF: 0 alprazolam [Xanax] 0.25 mg Tablet 0.25 mg PO BID RF: 0 metoprolol tartrate 50 mg Tablet 50 mg PO BID RF: 0 docusate sodium 100 mg Capsule 100 mg PO BID RF: 0 paroxetine HCl [Paxil] 40 mg Tablet 40 mg PO DAILY RF: 0 budesonide-formoterol [Symbicort] 160-4.5 mcg/actuation Hfa Aerosol Inhaler 2 puff INHALATION Q12H RF: 0 Discharge Interventions Interventions: Vital Signs Last Done: 09/29/18 19:15 Status ED Status: With Doctor
[2018-09-29 17:00] LABS: Baso # (Auto) 0.1 th/mm3 (0.0-0.2); Baso % (Auto) 0.4 % (0.0-2.0); Eos # (Auto) 0.3 th/mm3 (0.0-0.4); Eos % (Auto) 2.3 % (0.0-4.0); Hematocrit 42.2 % (35.0-46.0); Hemoglobin 15.1 gm/dL (11.6-15.3); Lymph # (Auto) 3.4 th/mm3 (1.0-4.8); Lymph % (Auto) 24.9 % (9.0-44.0); Mean Corpuscular HGB Conc 35.6 % (32.0-36.0); Mean Corpuscular Volume 98.4 fL (80.0-100.0); Mean Platelet Volume 7.6 fL (7.0-11.0); Mono # (Auto) 0.9 th/mm3 (0.0-0.9); Mono % (Auto) 6.5 % (0.0-8.0); Neut % (Auto) 65.9 % (16.0-70.0); Platelet Count 359 th/mm3 (150-450); Red Blood Count 4.29 mil/mm3 (4.00-5.30); Red Cell Distribution Width 13.4 % (11.6-17.2); White Blood Count 13.7 th/mm3 (4.0-11.0)
[2018-09-29 17:16] LABS: Alanine Aminotransferase 38 U/L (10-53); Albumin 3.7 g/dL (3.4-5.0); Anion Gap 6 meq/L (5-15); Aspartate Aminotransferase 22 U/L (15-37); Blood Urea Nitrogen 10 mg/dL (7-18); Carbon Dioxide 28.4 meq/L (21.0-32.0); Chloride 104 meq/L (98-107); Glomerular Filtration Rate Greater Than 89 mL/min (>89); Glucose,Random 107 mg/dL (74-106); Potassium 3.9 meq/L (3.5-5.1); Sodium 138 meq/L (136-145)
--- NOTE | 2018-09-29 17:19 | XR ---
EXAM DATE: 09/29/2018 5:11 PM EST AGE/SEX: 48 years / Female INDICATIONS: Shortness of breath. CLINICAL DATA: This is the patient's initial encounter. Patient reports that signs and symptoms have been present for 1 day and indicates a pain score of 0/10. MEDICAL/SURGICAL HISTORY: . Myocardial infarction. DVT. CABG. section. Hysterectomy. W rist surgery. . COMPARISON: [facility] [place]ST 1V SINGLE AP, 07/31/2018. . FINDINGS: The lungs are clear without infiltrate, nodule, or mass. There is no appreciable pleural effusion for technique. Heart and mediastinum are unremarkable. There is evidence for prior median sternotomy. CONCLUSION: No acute cardiopulmonary disease. Electronically signed by: Viktoria Hoang MD Board Certified Radiologist 09/29/2018 5:18 PM EST
[2018-09-29 17:20] LABS: Alkaline Phosphatase 150 U/L (45-117)
[2018-09-29] MEDS ORDERED: Bisacodyl 10 MG Supp RECTAL PRN (20:43)
[2018-09-29] MEDS ORDERED: Acetaminophen 325 MG Tablet PO PRN ×2 (20:43→23:30)
--- NOTE | 2018-09-29 20:44 | P.HPIM ---
History of Present Illness Primary Care Physician: German Sierra DO History of Present Illness: This is a 48-year-old female with a PMH of CAD, DVT and Tobacco Abuse who presented to the ER w/ complaints of SOB and cough x2 days. Notes SOB worse w/ exertion, +non-productive cough, but no chest pain, fever or chills. +sick contacts. Does admit to smoking 2ppd. On arrival, BP 141/58, HR 73, O2 sat 92 % on RA, Afebrile. WBC 13.7. D-dimer negative. Chemistry unremarkable. CXR with no acute findings. +wheezing/SOB on exam, O2 sat 88% on RA w/ ambulation while in ER. - Diagnosis (1) Bronchitis (2) Hypoxia (3) H/O deep venous thrombosis (4) Tobacco abuse Review of Systems PAST FAMILY HISTORY: Reviewed. No h/o DM or CAD All other systems reviewed negative except as stated in HPI PMFSH - History History Provided By: Patient - Medical History Medical History: Medical History (Last Reviewed 09/29/18 @ 16:57 by Sean Allan MD) delivery delivered DVT (deep venous thrombosis) H/O: hysterectomy Myocardial infarct - Surgical History Surgical History: Surgical History (Last Reviewed 09/29/18 @ 16:57 by Sean Allan MD) S/P CABG x 2 S/P wrist surgery - Tobacco History Tobacco Use In Past 30 Days: Yes Smoking Status: Current every day smoker Tobacco Type: Cigarettes - Alcohol History How Often Do You Have a Drink Containing Alcohol: Never - Substance Use History Substance History: No History of Abuse - Travel History Recent Travel in the [facility] Within the Last 8 Weeks: No Recent Travel Out of the Country Within the Last 8 Weeks: No - Immunization History Tetanus Immunization: Unsure Medications and Allergies Active Medications: Active Medications Levofloxacin/Dextrose (Levaquin 750 Mg Premix Inj) 150 mls @ 100 mls/hr IV.SIG ONCE ONE Stop: 09/29/18 21:53 Allergies Allergy/AdvReac Type Severity Reaction Status Date / Time No Known Allergies Allergy Verified 09/29/18 16:35 Home Medications Medication Instructions Recorded Confirmed Type alprazolam [Xanax] 0.25 mg PO BID 07/31/18 09/29/18 History aspirin [Aspir-81] 81 mg PO DAILY 07/31/18 09/29/18 History atorvastatin 80 mg PO DAILY 07/31/18 09/29/18 History budesonide-formoterol [Symbicort] 2 puff INHALATION Q12H 07/31/18 09/29/18 History clopidogrel [Plavix] 75 mg PO DAILY 07/31/18 09/29/18 History docusate sodium 100 mg PO BID 07/31/18 09/29/18 History metoprolol tartrate 50 mg PO BID 07/31/18 09/29/18 History paroxetine HCl [Paxil] 40 mg PO DAILY 07/31/18 09/29/18 History hydrocodone-acetaminophen 1 tab PO Q4-6H PRN 09/29/18 09/29/18 History Exam Vital signs: Vital Signs 09/29/18 16:32 09/29/18 16:48 09/29/18 17:14 Temperature 97.2 F L Pulse Rate 73 80 77 Respiratory Rate 24 24 Blood Pressure 141/58 H Pulse Oximetry 92 L 90 L 09/29/18 17:47 09/29/18 19:15 09/29/18 19:24 Temperature Pulse Rate 70 72 71 Respiratory Rate 22 20 19 Blood Pressure 133/70 Pulse Oximetry 92 L 95 Intake & Output 09/29/18 09/29/18 09/30/18 06:59 18:59 06:59 Weight 98.883 kg Narrative: PE: GENERAL: Middle-aged white female in no acute distress, sitting up in bed eating /drinking, annoyed about having to stay in hospital. Daughter at bedside. SKIN: Focused skin assessment warm and dry. HEENT: PERRLA, EOMI. No scleral icterus or conjunctival pallor. No lid lag or facial droop. CARDIOVASCULAR: Regular rate and rhythm. No obvious murmurs to auscultation. No chest tenderness to palpation. RESPIRATORY: No obvious rhonchi. +occasional wheezing. Clear to auscultation. Breath sounds equal bilaterally. GASTROINTESTINAL: Abdomen soft, non-tender, nondistended. BS normal. MUSCULOSKELETAL: Extremities without clubbing, cyanosis, or edema. No obvious deformities. NEUROLOGICAL: Awake, alert and oriented x4. No focal neurologic deficits. Moving both upper and lower extremities spontaneously. PSYCHIATRIC: Appropriate mood and affect. Insight and judgment normal. Results - Labs CBC & Chem 7: 09/29/18 16:52 09/29/18 16:52 Labs: Short CBC 09/29/18 Range/Units 16:52 WBC 13.7 H (4.0-11.0) th/mm3 Hgb 15.1 (11.6-15.3) gm/dL Hct 42.2 (35.0-46.0) % Plt Count 359 (150-450) th/mm3 BMP 09/29/18 16:52 Sodium 138 Potassium 3.9 Chloride 104 Carbon Dioxide 28.4 BUN 10 Creatinine 0.67 Calcium 9.0 Cardiac Enzymes 09/29/18 Range/Units 16:52 Troponin I Less than 0.02 L (0.02-0.05) ng/mL Liver Function 09/29/18 Range/Units 16:52 Total Bilirubin 0.8 (0.2-1.0) mg/dL AST 22 (15-37) U/L ALT 38 (10-53) U/L Alkaline Phosphatase 150 H (45-117) U/L Albumin 3.7 (3.4-5.0) g/dL - Imaging Impressions Chest X-Ray 09/29/18 16:41 CONCLUSION: No acute cardiopulmonary disease. Caprini VTE Risk Assessment Caprini VTE Risk Assessment: No/Low Risk (score <= 1) Caprini Risk Assessment Model: Point Value = 1 Point Value = 2 Point Value = 3 Point Value = 5 Age 41-60 Minor surgery BMI > 25 kg/m2 Swollen legs Varicose veins or History of unexplained or recurrent spontaneous Oral contraceptives or hormone replacement Sepsis (< 1 month) Serious lung disease, including pneumonia (< 1 month) Abnormal pulmonary function Acute myocardial infarction Congestive heart failure (< 1 month) History of inflammatory bowel disease Medical patient at bed rest Age 61-74 Arthroscopic surgery Major open surgery (> 45 min) Laparoscopic surgery (> 45 min) Malignancy Confined to bed (> 72 hours) Immobilizing plaster cast Central venous access Age >= 75 History of VTE Family history of VTE Factor V Leiden Prothrombin [id number] Lupus anticoagulant Anticardiolipin antibodies Elevated serum homocysteine Heparin-induced thrombocytopenia Other congenital or acquired thrombophilia Stroke (< 1 month) Elective arthroplasty Hip, pelvis, or leg fracture Acute spinal cord injury (< 1 month) Prophylaxis Regimen: Total Risk Factor Score Risk Level Prophylaxis Regimen 0-1 Low Early ambulation 2 Moderate Order ONE of the following: *Sequential Compression Device (SCD) *Heparin 5000 units SQ BID 3-4 Higher Order ONE of the following medications: *Heparin 5000 units SQ TID *Enoxaparin/Lovenox 40 mg SQ daily (WT < 150 kg, CrCl > 30 mL/min) *Enoxaparin/Lovenox 30 mg SQ daily (WT < 150 kg, CrCl > 10-29 mL/min) *Enoxaparin/Lovenox 30 mg SQ BID (WT < 150 kg, CrCl > 30 mL/min) AND/OR *Sequential Compression Device (SCD) 5 or more Highest Order ONE of the following medications: *Heparin 5000 units SQ TID (Preferred with Epidurals) *Enoxaparin/Lovenox 40 mg SQ daily (WT < 150 kg, CrCl > 30 mL/min) *Enoxaparin/Lovenox 30 mg SQ daily (WT < 150 kg, CrCl > 10-29 mL/min) *Enoxaparin/Lovenox 30 mg SQ BID (WT < 150 kg, CrCl > 30 mL/min) AND *Sequential Compression Device (SCD) Assessment and Plan - Assessment (1) Bronchitis Code(s): J40 - Bronchitis, not specified as acute or chronic Status: Acute (2) Hypoxia Code(s): R09.02 - Hypoxemia Status: Acute (3) H/O deep venous thrombosis Code(s): Z86.718 - Personal history of other venous thrombosis and embolism Status: Acute (4) Tobacco abuse Code(s): Z72.0 - Tobacco use Status: Acute - Plan A/P: 1. Bronchitis: likely underlying COPD in light of extensive tobacco abuse, + wheezing/SOB w/ wet, non-productive cough, +sick contacts. Continue Solu- Medrol q6h, DuoNeb, Symbicort, Mucinex, continue Levaquin for empiric treatment of underlying PNA. CXR w/ no acute findings. 2. Hypoxia: O2 sat 88% on RA w/ ambulation, will re-check ambulating O2 prior to d/c to eval for Home O2 needs. 3. H/o DVT: several years ago without recurrence, on ASA/Plavix, d-dimer negative, will resume home ASA/Plavix. 4. Tobacco Abuse: Heavy. Pt counselled. Requesting NicoDerm 5. DVT Prophylaxis: Lovenox 6. Social work for d/c planning as needed. 7. Case discussed w/ ER physician at length, labs/records/imaging reviewed by me.
[2018-09-29] MEDS ORDERED: Senna/Docusate Sodium 8.6/50 MG Tablet PO SCH (21:00)
[2018-09-29] MEDS ORDERED: Budesonide-Formoterol 160/4.5 MCG 6 GM Inhaler INH SCH (21:00)
[2018-09-29] MEDS ORDERED: guaiFENesin 600 MG ER Tablet PO SCH (21:00)
[2018-09-29] MEDS ORDERED: ALPRAZolam 0.25 MG Tablet PO SCH (21:00)
[2018-09-29] MEDS ORDERED: Metoprolol Tartrate 50 MG Tablet PO SCH (21:00)
[2018-09-29] MEDS: MethylPREDNISolone Sod Succinate Inj 40 MG/ML Vial IV.PUSH SCH (23:46)
[2018-09-30] MEDS: MethylPREDNISolone Sod Succinate Inj 40 MG/ML Vial IV.PUSH SCH (05:13)
[2018-09-30] MEDS ORDERED: Enoxaparin Inj 40 MG/0.4 ML Syringe SQ SCH (09:00)
--- NOTE | 2018-10-01 17:01 | ECG ---
Date Performed: 09/29/2018 Time Performed: 16:59:47 PTAGE: 48 years EKG: Sinus rhythm LOW QRS VOLTAGE IN PRECORDIAL LEADS NONSPECIFIC T-WAVE ABNORMALITY ABNORMAL ECG PREVIOUS TRACING : 07/31/2018 18.51 Since the previous tracing, no significant change noted DOCTOR: Yonny Gibson Interpretating Date/Time 10/01/2018 16:58:41
== END 2018-09-30 07:06 | disposition left against medical advice (07) ==
LOC: NEPE 16:30 → NEDA 20:46 → NEPHCDU 22:35
PROVIDERS: ADMIT Internal Medicine; ATTEND Internal Medicine

== ENCOUNTER 2018-10-07 14:48 | Inpatient (IN) ==
--- NOTE | 2018-10-07 15:31 | ED ---
HPI General Chief Complaint: Respiratory Symptoms Stated Complaint: Respitory Complaint Time Seen by Provider: 10/07/18 14:53 Source: patient and family Mode of arrival: ambulatory Limitations: other History of Present Illness The patient is a 48-year-old female who presents to the emergency department via private vehicle with her daughter for shortness of breath. The patient states she developed shortness of breath 2 weeks ago, was admitted to the hospital but left AGAINST MEDICAL ADVICE. The patient states that her shortness of breath has been progressing, she now has difficulty with exertion and occasionally with talking. The patient does have a history of tobacco use, last cigarette was a "few days ago ". The patient denies any known history of pulmonary embolism, but states she was diagnosed with a DVT in the right femoral vein in July. However, the patient left AGAINST MEDICAL ADVICE at that time and has not been anticoagulated except for her aspirin and Plavix. The patient does note a cough that is mostly nonproductive. She denies any chest pain, nausea, vomiting, or abdominal pain. She denies any significant edema to lower extremities. Symptoms are severe and progressive. The patient' s primary physician is Dr. Demetrio Sierra. Complaint: Reports shortness of breath Onset (ago): week(s) Context: Reports recent illness Severity: severe Consistency/Duration: progressively worsening Relieving factors: nothing Exacerbating factors: exertion, coughing and talking Known history of: Reports COPD and asthma Associated symptoms: Reports cough Treatment prior to arrival: Reports bronchodilator Related Data Home oxygen amount: none Home Medications Medication Instructions Recorded Confirmed alprazolam [Xanax] 0.25 mg PO BID 07/31/18 10/07/18 aspirin [Aspir-81] 81 mg PO DAILY 07/31/18 10/07/18 atorvastatin 80 mg PO DAILY 07/31/18 10/07/18 budesonide-formoterol [Symbicort] 2 puff INHALATION Q12H 07/31/18 10/07/18 clopidogrel [Plavix] 75 mg PO DAILY 07/31/18 10/07/18 docusate sodium 100 mg PO BID 07/31/18 10/07/18 metoprolol tartrate 50 mg PO BID 07/31/18 10/07/18 paroxetine HCl [Paxil] 40 mg PO DAILY 07/31/18 10/07/18 hydrocodone-acetaminophen 1 tab PO Q4-6H PRN 12/16/18 12/24/18 Previous Rx's Medication Instructions Recorded albuterol sulfate 2 inh INHALATION Q4-6H PRN #6.7 g 09/29/18 Allergies Allergy/AdvReac Type Severity Reaction Status Date / Time No Known Allergies Allergy Verified 10/07/18 14:57 Review of Systems ROS: all other systems reviewed are negative [facility] Social History Social History Substance History: No History of Abuse Smoking Status: Current every day smoker Tobacco Type: Cigarettes How Often Do You Have a Drink Containing Alcohol: Never [facility] within the Last 8 Weeks: No Recent Out of Country Travel within the Last 8 Weeks: No Immunization History Tetanus Immunization: Unsure Exam Narrative Exam Narrative: GENERAL: Awake, alert, 48-year-old female appears her stated age and appears in moderate to severe respiratory distress. Only able to speak in 2-3 word sentences. SKIN: Focused skin assessment warm/dry. HEAD: Atraumatic. Normocephalic. EYES: Pupils equal and round. No scleral icterus. No injection or drainage. ENT: No nasal bleeding or discharge. Mucous membranes pink and moist. NECK: Trachea midline. No JVD. CARDIOVASCULAR: Regular, tachycardic with a heart rate in the 140s. RESPIRATORY: Tachypnea with a respiratory rate of 32. A few scattered wheezes. GASTROINTESTINAL: Abdomen soft, non-tender, nondistended. MUSCULOSKELETAL: No obvious deformities. No clubbing. No cyanosis. No edema. NEUROLOGICAL: Awake and alert. No obvious cranial nerve deficits. Motor grossly within normal limits. Normal speech. PSYCHIATRIC: Appears anxious. Course Initial Documented Vital Signs Pulse Rate 135 H 10/07/18 14:52 Respiratory Rate 30 H 10/07/18 14:52 Blood Pressure 110/64 10/07/18 14:52 Pulse Oximetry 90 L 10/07/18 14:52 Last Documented Vital Signs Pulse Rate 138 H 10/07/18 16:28 Respiratory Rate 28 H 10/07/18 16:28 Blood Pressure 135/85 10/07/18 16:02 Pulse Oximetry 99 10/07/18 16:02 Critical Care Time Critical Care Time: Yes Total Critical Care Time: 45 Attestation: Aggregate critical care time was 45 minutes. Time to perform other separately billable procedures was not included in the critical care time. My time did not include minutes spent treating any other patients simultaneously or on activities that did not directly contribute to the patient's treatment. The services I provided to this patient were to treat and/or prevent clinically significant deterioration that could result in: Anoxia, hypoxia, arrhythmia, septic shock, . I provided critical care services requiring my management, as noted below: Chart data review, documentation time, medication orders and management, vital sign assessments/reviewing monitor data, ordering and reviewing lab tests, ordering and interpreting/reviewing x-rays and diagnostic studies, care of the patient and discussion of the patient with the admitting physicians. Medical Decision Making MDM Narrative Medical decision making narrative: IV was established, labs are drawn and sent, and the patient was placed on cardiac telemetry monitoring and continuous pulse oximetry monitoring. EKG was ordered and interpreted. I reviewed the EMR immediately, the patient had a positive ultrasound performed in July revealing a right femoral vein thrombosis. The patient was admitted earlier this month for shortness of breath but left AGAINST MEDICAL ADVICE. The patient was tachycardic and hypoxic with an O2 saturation on room air of 79%, therefore, stat CT pulmonary angiogram was ordered to evaluate for possible saddle emboli. CT pulmonary angiogram reveals lower lobe pulmonary emboli, pneumonia, and possibly underlying pulmonary disease such as sarcoidosis. Patient's white count is elevated at 20, patient meets sepsis criteria. The patient will be going to the intensive care unit, therefore, was administered cefepime and Zithromax with 1 L of IV fluids. The patient was immediately placed on a heparin drip protocol for pulmonary embolism. I discussed the patient with the on-call petroleum sampler, Dr. Cadet, who agrees with admission to the intensive medical care unit. I also relayed the findings to the patient and her daughter at bedside. Medical Screen Exam Complete: Yes Emergency Medical Condition: Yes Differential Diagnosis Differential Diagnosis: Differential diagnosis includes pulmonary embolism, ARDS , flash pulmonary edema, pneumonia, bronchitis, hypoxia, sepsis. Lab Data Result diagrams: 10/07/18 15:18 10/07/18 16:21 Lab Results 10/07/18 10/07/18 10/07/18 Range/Units 15:18 15:18 15:18 WBC 20.0 H (4.0-11.0) th/mm3 RBC 4.26 (4.00-5.30) mil/mm3 Hgb 14.0 (11.6-15.3) gm/dL Hct 41.4 (35.0-46.0) % MCV 97.2 (80.0-100.0) fL MCH 32.9 (27.0-34.0) pg MCHC 33.8 (32.0-36.0) % RDW 13.4 (11.6-17.2) % Plt Count 534 H D (150-450) th/mm3 MPV 7.8 (7.0-11.0) fL Neut % (Auto) 77.4 H (16.0-70.0) % Lymph % (Auto) 14.2 (9.0-44.0) % Dixie % (Auto) 7.8 (0.0-8.0) % Eos % (Auto) 0.3 (0.0-4.0) % Baso % (Auto) 0.3 (0.0-2.0) % Neut # (Auto) 15.5 H (1.8-7.7) th/mm3 Lymph # (Auto) 2.8 (1.0-4.8) th/mm3 Dixie # (Auto) 1.6 H (0.0-0.9) th/mm3 Eos # (Auto) 0.1 (0.0-0.4) th/mm3 Baso # (Auto) 0.1 (0.0-0.2) th/mm3 WBC Differential . Differential Comment Auto diff final PT 10.2 (9.8-11.6) sec INR 1.0 Ratio APTT 30.3 (23.4-31.7) sec Puncture Site Patient Temperature O2 Saturation (90-100) % ABG pH (7.380-7.420) ABG pCO2 (38-42) mmHg ABG pO2 (61-120) mmHg ABG HCO3 (22-26) mmol/L ABG O2 Content (12.0-20.0) Vol % ABG Base Excess (-2-2) mmol/L ABG Methemoglobin (0-2) % Fred Test Hemoglobin (12.0-16.0) G/DL Carboxyhemoglobin (0-4) % O2 Delivery Device Liter Flow L/M Critical Value Sodium (136-145) meq/L Potassium (3.5-5.1) meq/L Chloride (98-107) meq/L Carbon Dioxide (21.0-32.0) meq/L Anion Gap (5-15) meq/L BUN (7-18) mg/dL Creatinine (0.50-1.00) mg/dL Estimated GFR (>89) mL/min Random Glucose (74-106) mg/dL Calcium (8.5-10.1) mg/dL Magnesium (1.5-2.5) mg/dL Total Bilirubin (0.2-1.0) mg/dL AST (15-37) U/L ALT (10-53) U/L Alkaline Phosphatase (45-117) U/L Total Creatine Kinase (26-192) U/L Troponin I (0.02-0.05) ng/mL B-Natriuretic Peptide 35 (0-100) pg/mL Total Protein (6.4-8.2) g/dL Albumin (3.4-5.0) g/dL 10/07/18 10/07/18 Range/Units 15:29 16:21 WBC (4.0-11.0) th/mm3 RBC (4.00-5.30) mil/mm3 Hgb (11.6-15.3) gm/dL Hct (35.0-46.0) % MCV (80.0-100.0) fL MCH (27.0-34.0) pg MCHC (32.0-36.0) % RDW (11.6-17.2) % Plt Count (150-450) th/mm3 MPV (7.0-11.0) fL Neut % (Auto) (16.0-70.0) % Lymph % (Auto) (9.0-44.0) % Dixie % (Auto) (0.0-8.0) % Eos % (Auto) (0.0-4.0) % Baso % (Auto) (0.0-2.0) % Neut # (Auto) (1.8-7.7) th/mm3 Lymph # (Auto) (1.0-4.8) th/mm3 Dixie # (Auto) (0.0-0.9) th/mm3 Eos # (Auto) (0.0-0.4) th/mm3 Baso # (Auto) (0.0-0.2) th/mm3 WBC Differential Differential Comment PT (9.8-11.6) sec INR Ratio APTT (23.4-31.7) sec Puncture Site Right radial Patient Temperature 98.6 O2 Saturation 89 L* (90-100) % ABG pH 7.47 H (7.380-7.420) ABG pCO2 34 L (38-42) mmHg ABG pO2 62 (61-120) mmHg ABG HCO3 25 (22-26) mmol/L ABG O2 Content 16.2 (12.0-20.0) Vol % ABG Base Excess 1.2 (-2-2) mmol/L ABG Methemoglobin 0.7 (0-2) % Fred Test Present Hemoglobin 12.9 (12.0-16.0) G/DL Carboxyhemoglobin 2.0 (0-4) % O2 Delivery Device Nasal cannula Liter Flow 6.00 L/M Critical Value Yes Sodium 135 L (136-145) meq/L Potassium 3.3 L (3.5-5.1) meq/L Chloride 99 (98-107) meq/L Carbon Dioxide 25.4 (21.0-32.0) meq/L Anion Gap 11 (5-15) meq/L BUN 11 (7-18) mg/dL Creatinine 0.66 (0.50-1.00) mg/dL Estimated GFR Greater than 89 (>89) mL/min Random Glucose 117 H (74-106) mg/dL Calcium 9.2 (8.5-10.1) mg/dL Magnesium 2.0 (1.5-2.5) mg/dL Total Bilirubin 1.7 H (0.2-1.0) mg/dL AST 36 (15-37) U/L ALT 44 (10-53) U/L Alkaline Phosphatase 219 H (45-117) U/L Total Creatine Kinase 282 H (26-192) U/L Troponin I Less than 0.02 L (0.02-0.05) ng/mL B-Natriuretic Peptide (0-100) pg/mL Total Protein 8.1 (6.4-8.2) g/dL Albumin 3.0 L (3.4-5.0) g/dL Imaging Data Radiologist's impression: Chest X-Ray 10/07/18 14:54 CONCLUSION: Developing reticulonodular parenchymal infiltrate, most confluent in the right lung base Chest CTA 10/07/18 14:55 CONCLUSION: 1. Small lower lobe pulmonary emboli are noted bilaterally. 2. Bilateral hilar lymphadenopathy is noted. Pretracheal mediastinal lymphadenopathy is also noted. Diffuse increased interstitial markings are noted bilaterally. The combination of diffuse interstitial disease as well as the hilar and mediastinal lymphadenopathy raising possibility of sarcoidosis. Clinical correlation is recommended. Post reactive and neoplastic lymphadenopathy are also in the differential. 3. Scattered noncalcified nodules within the upper lung wiley bilaterally with the largest 2 on the left measuring 8 and 6 mm and the largest on the right measuring 5 mm. These are nonspecific. Follow-up CT of the chest in 6 months would be helpful to confirm stability of the nodules. 4. Degenerative changes and scoliosis of the thoracic spine are noted. 5. Minimal focal alveolar consolidation is noted within the right middle lobe and within the lingula of the left upper lobe consistent with probable atelectasis and/or mild pneumonia. 6. Enlarged fatty liver. ECG Data EKG Prior to Arrival: No Attestation: I personally reviewed and interpreted this ECG as follows: Interpretation: EKG reveals sinus tachycardia with a heart rate of 135. Nonspecific T wave changes. Discharge Plan Discharge Disposition Patient Disposition: ED Admit(ED Internal Use Only) Discharge Condition Condition: Serious Discharge Order Discharge Orders: ED Use Only Admit Order (Routine); Ordered 10/07/18 Ordered By: Benja Klein Discharge Details Diagnosis: Pulmonary embolism, Hypoxia, Pneumonia, Sepsis Physicians Team ED Provider: Benja Klein Primary Care Provider: German Sierra Attending Provider: Dalia Cadet Status ED Status: Admitted Patient
[2018-10-07 15:39] LABS: ABG Base Excess 1.2 mmol/L (-2-2); ABG PCO2 34 mmHg (38-42); ABG PO2 62 mmHg (61-120)
--- NOTE | 2018-10-07 15:49 | CT ---
EXAM DATE: 10/07/2018 3:37 PM EST AGE/SEX: 48 years / Female INDICATIONS: Low saturation Tachycardia CLINICAL DATA: This is the patient's initial encounter. Patient reports that signs and symptoms have been present for 1 day and indicates a pain score of 4/10. MEDICAL/SURGICAL HISTORY: Deep venous thrombosis. Cardiovascular disease. Hysterectomy. CABG. RADIATION DOSE: 22.12 CTDI (mGy) COMPARISON: No prior exams available for comparison. TECHNIQUE: Volumetric scanning was performed using a multi-row detector CT scanner during bolus infu sandeep of 95 ml Omnipaque 350 (iohexol) nonionic water-soluble contrast as a single exam dose. The jose a was post processed with a variety of visualization algorithms including full volume maximum intensi ty projection and sliding thin slab reformation. Using automated exposure control and adjustment of t he mA and/or kV according to patient size, radiation dose was kept as low as reasonably achievable to obtain optimal diagnostic quality images. DICOM format image data is available electronically for r eview and comparison. FINDINGS: Small lower lobe pulmonary emboli are noted bilaterally. Bilateral hilar lymphadenopathy is noted. Pr etracheal mediastinal lymphadenopathy is also noted. Diffuse increased interstitial markings are note d bilaterally. The combination of diffuse interstitial disease as well as the hilar and mediastinal l ymphadenopathy raising possibility of sarcoidosis. Clinical correlation is recommended. Post reactive and neoplastic lymphadenopathy are also in the differential. There are scattered noncalcified nodule s within the upper lung wiley bilaterally with the largest 2 on the left measuring 8 and 6 mm and th e largest on the right measuring 5 mm. These are nonspecific. Follow-up CT of the chest in 6 months w ould be helpful to confirm stability of the nodules. Degenerative changes and scoliosis of the thorac ic spine are noted. Minimal focal alveolar consolidation is noted within the right middle lobe and wi thin the lingula of the left upper lobe consistent with probable atelectasis and/or mild pneumonia. E nlarged fatty liver is noted. CONCLUSION: 1. Small lower lobe pulmonary emboli are noted bilaterally. 2. Bilateral hilar lymphadenopathy is noted. Pretracheal mediastinal lymphadenopathy is also noted. Diffuse increased interstitial markings are noted bilaterally. The combination of diffuse interstitia l disease as well as the hilar and mediastinal lymphadenopathy raising possibility of sarcoidosis. Cl inical correlation is recommended. Post reactive and neoplastic lymphadenopathy are also in the diffe rential. 3. Scattered noncalcified nodules within the upper lung wiley bilaterally with the largest 2 on the left measuring 8 and 6 mm and the largest on the right measuring 5 mm. These are nonspecific. Follow -up CT of the chest in 6 months would be helpful to confirm stability of the nodules. 4. Degenerative changes and scoliosis of the thoracic spine are noted. 5. Minimal focal alveolar consolidation is noted within the right middle lobe and within the lingula of the left upper lobe consistent with probable atelectasis and/or mild pneumonia. 6. Enlarged fatty liver. Electronically signed by: Colin Goodrich MD Board Certified Radiologist 10/07/2018 3:48 PM EST
--- NOTE | 2018-10-07 15:50 | XR ---
EXAM DATE: 10/07/2018 3:45 PM EST AGE/SEX: 48 years / Female INDICATIONS: Short of breath. CLINICAL DATA: This is the patient's initial encounter. Patient reports that signs and symptoms have been present for 3 days and indicates a pain score of 0/10. MEDICAL/SURGICAL HISTORY: Cardiovascular disease. Heart attack. CABG. [place] [facility] [place]. . FINDINGS: There is slight diffuse nodular interstitial prominence which may be developing infiltrate or edema. This is most focally prominent in the right lung base. No definite effusion. Cardiac contours are sta ble and satisfactory. CONCLUSION: Developing reticulonodular parenchymal infiltrate, most confluent in the right lung base Electronically signed by: Kye Saha MD Board Certified Radiologist 10/07/2018 3:48 PM EST
[2018-10-07] MEDS ORDERED: Heparin 10,000 UNITS/10 ML Vial (for IV use) IV.PUSH STA (16:06)
[2018-10-07] MEDS ORDERED: Azithromycin Inj 500 MG in Sodium Chlor 0.9% Inj 250 ML IV.SIG ONE (16:06)
[2018-10-07] MEDS ORDERED: MethylPREDNISolone Sod Succinate Inj 125 MG/2 ML Vial IV.PUSH ONE (16:06)
[2018-10-07 16:12] LABS: Activated Partial Thrombo Time 30.3 sec (23.4-31.7); Prothrombin Time 10.2 sec (9.8-11.6)
[2018-10-07 16:23] LABS: Baso # (Auto) 0.1 th/mm3 (0.0-0.2); Baso % (Auto) 0.3 % (0.0-2.0); Eos # (Auto) 0.1 th/mm3 (0.0-0.4); Eos % (Auto) 0.3 % (0.0-4.0); Hematocrit 41.4 % (35.0-46.0); Lymph # (Auto) 2.8 th/mm3 (1.0-4.8); Lymph % (Auto) 14.2 % (9.0-44.0); Mean Corpuscular HGB Conc 33.8 % (32.0-36.0); Mean Corpuscular Hemoglobin 32.9 pg (27.0-34.0); Mean Corpuscular Volume 97.2 fL (80.0-100.0); Mean Platelet Volume 7.8 fL (7.0-11.0); Mono # (Auto) 1.6 th/mm3 (0.0-0.9); Mono % (Auto) 7.8 % (0.0-8.0); Neut # (Auto) 15.5 th/mm3 (1.8-7.7); Neut % (Auto) 77.4 % (16.0-70.0); Platelet Count 534 th/mm3 (150-450); Red Blood Count 4.26 mil/mm3 (4.00-5.30); Red Cell Distribution Width 13.4 % (11.6-17.2)
[2018-10-07] MEDS ORDERED: Bisacodyl 10 MG Supp RECTAL PRN (16:42)
[2018-10-07] MEDS ORDERED: Acetaminophen 325 MG Tablet PO PRN (16:42)
[2018-10-07] MEDS ORDERED: Sod Chloride 0.9% Inj 1,000 ML IV.SIG SCH (16:45)
[2018-10-07] MEDS ORDERED: Dextrose 50% in Water 50 ML Vial IV.PUSH PRN (16:58)
[2018-10-07 16:59] LABS: Anion Gap 11 meq/L (5-15); Aspartate Aminotransferase 36 U/L (15-37); Blood Urea Nitrogen 11 mg/dL (7-18); Calcium 9.2 mg/dL (8.5-10.1); Carbon Dioxide 25.4 meq/L (21.0-32.0); Chloride 99 meq/L (98-107); Glomerular Filtration Rate Greater Than 89 mL/min (>89); Glucose,Random 117 mg/dL (74-106); Potassium 3.3 meq/L (3.5-5.1); Sodium 135 meq/L (136-145)
[2018-10-07 17:01] LABS: Alanine Aminotransferase 44 U/L (10-53)
[2018-10-07 17:04] LABS: Alkaline Phosphatase 219 U/L (45-117); Creatine Kinase 282 U/L (26-192); Total Protein 8.1 g/dL (6.4-8.2)
[2018-10-07 17:16] LABS: CKMB Percent 0.6 % (0.0-4.0); Creatine Kinase MB 1.7 ng/mL (0.5-3.6)
[2018-10-07] MEDS: Heparin Drip 25,000 UNIT/250 ML BAG IV.CONT PRN (17:20)
--- NOTE | 2018-10-07 17:34 | ECHRPT ---
Indication: Shortness of Breath CONCLUSIONS Normal left ventricular size. Mild concentric left ventricular hypertrophy. The left ventricular systolic function is moderately reduced with an estimated ejection fraction in the range of 40-45%. Trace mitral valve regurgitation. There is trace tricuspid valve regurgitation. The estimated pulmonary arterial pressure is 26 mmHg. BP: / HR: Rhythm: MEASUREMENTS (Male / Female) Normal Values Technical Quality:Technically difficult study 2D ECHO LV Diastolic Diameter PLAX 4.2 cm 4.2 - 5.9 / 3.9 - 5.3 cm LV Systolic Diameter PLAX 3.3 cm IVS Diastolic Thickness 1.1 cm 0.6 - 1.0 / 0.6 - 0.9 cm LVPW Diastolic Thickness 1.0 cm 0.6 - 1.0 / 0.6 - 0.9 cm LV Relative Wall Thickness 0.5 RV Internal Dim ED PLAX 3.5 cm LVOT Diameter 2.1 cm Aortic Root Diameter 3.0 cm LA Systolic Diameter LX 3.8 cm 3.0 - 4.0 / 2.7 - 3.8 cm DOPPLER AV Peak Velocity 134.0 cm/s AV Peak Gradient 7.2 mmHg LVOT Peak Velocity 103.0 cm/s LVOT Peak Gradient 4.2 mmHg AV Area Cont Eq pk 2.7 cm Mitral E Point Velocity 94.8 cm/s Mitral A Point Velocity 78.5 cm/s Mitral E to A Ratio 1.2 LV E' Lateral Velocity 5.3 cm/s Mitral E to LV E' Lateral Ratio 18.0 LV E' Septal Velocity 7.4 cm/s Mitral E to LV E' Septal Ratio 12.8 TR Peak Velocity 198.0 cm/s TR Peak Gradient 15.7 mmHg Right Atrial Pressure 10.0 mmHg Pulmonary Artery Systolic Pressu 25.7 mmHg Right Ventricular Systolic Press 25.7 mmHg PV Peak Velocity 107.0 cm/s PV Peak Gradient 4.6 mmHg FINDINGS LEFT VENTRICLE Normal left ventricular size. Mild concentric left ventricular hypertrophy. The left ventricular systolic function is moderately reduced with an estimated ejection fraction in the range of 40-45%. RIGHT VENTRICLE Normal right ventricular size and systolic function. LEFT ATRIUM The left atrial size is normal. RIGHT ATRIUM The right atrial size is normal. ATRIAL SEPTUM Normal atrial septal thickness without atrial level shunting by limited color doppler interrogation. AORTA The aortic root and proximal ascending aorta are normal in size on limited imaging. MITRAL VALVE Trace mitral valve regurgitation. AORTIC VALVE Trileaflet aortic valve. No aortic valve stenosis or regurgitation. TRICUSPID VALVE There is trace tricuspid valve regurgitation. The estimated pulmonary arterial pressure is 26 mmHg. PULMONARY VALVE No pulmonary valve regurgitation or stenosis. VESSELS The inferior vena cava is normal in size. PERICARDIUM No pericardial effusion. Yonny Gibson MD, FACC, [facility] [place] (Electronically Signed) Final Date:07 October 2018 17:32
[2018-10-07] MEDS ORDERED: Potassium Phosphate 500 MG Soluble Tablet PO PRN ×2 (18:22)
[2018-10-07] MEDS ORDERED: Magnesium Oxide 400 MG Tablet PO PRN (18:22)
[2018-10-07] MEDS ORDERED: Potassium Phosphate Inj 30 MMOL in Sodium Chlor 0.9% Inj 250 ML IV.SIG PRN (18:22)
[2018-10-07] MEDS ORDERED: Potassium Chlor 20 mEq Premix 20 MEQ/100 ML PIGGYBACK IV.SIG PRN (18:22)
[2018-10-07] MEDS ORDERED: Sodium Phosphate Inj 30 MMOL in Sodium Chlor 0.9% Inj 250 ML IV.SIG PRN (18:22)
[2018-10-07] MEDS ORDERED: Magnesium Sulfate Inj 4 GM in Sodium Chlor 0.9% Inj 92 ML IV.SIG PRN (18:22)
[2018-10-07] MEDS ORDERED: Potassium Chloride 25 MEQ Effervescent Tablet PO PRN (18:22)
[2018-10-07] MEDS ORDERED: Potassium Chlor 40 mEq Premix 40 MEQ/100 ML PIGGYBACK IV.SIG PRN ×2 (18:22)
[2018-10-07] MEDS ORDERED: Magnesium Sulfate Inj 2 GM in Sodium Chlor 0.9% Inj 96 ML IV.SIG PRN (18:22)
[2018-10-07] MEDS: Sod Chloride 0.9% Inj 1,000 ML IV.CONT SCH (19:00)
--- NOTE | 2018-10-07 19:06 | P.HPCC ---
History of Present Illness Service: Critical care medicine Primary Care Physician: German Sierra DO Chief Complaint: Shortness of breath History of Present Illness: 48-year-old female with past medical history of coronary artery disease status post CABG (06/2017), hyperlipidemia, hypertension, COPD, tobacco abuse who presents to [facility] emergency department with 2-week history of shortness of breath. She states she has also had a cough productive of green sputum. She has pleuritic pain in her right lower anterior and posterior thorax. No fever. She was recently admitted 09/29/18 after she presented with exertional shortness of breath and wheezing. She was treated with nebs and steroids but left AGAINST MEDICAL ADVICE within 24 hours. On that occasion her d-dimer was negative. Today her ED workup included CT pulmonary angiogram which demonstrated small bilateral lower lobe pulmonary emboli. She has bilateral hilar and pretracheal lymphadenopathy. There is alveolar consolidation in the right middle lobe and lingula which is consistent with atelectasis versus pneumonia. Sarcoidosis is also a consideration, as well as reactive/neoplastic lymphadenopathy. S In the ED she was started on heparin drip, given saline 1 L bolus, Solu-Medrol 125 mg IV, cefepime 2 g IV, azithromycin 500 mg IV, albuterol x2. Denies leg pain or swelling currently. She states she was diagnosed with a RLE DVT on outpatient ultrasound the end of 2016 which was provoked by her CABG. She was on DAPT but not on anticoagulation following the diagnosis. She had a right femoral DVT 07/31/18 which was diagnosed in the ED. She left AMA on that occasion as well. She was not on anticoagulation. She has recently taken multiple long car rides to [place], etc over the course of the summer. - Diagnosis (1) Pulmonary embolism (2) COPD exacerbation (3) Tobacco abuse (4) H/O deep venous thrombosis (5) Hypoxia (6) Pneumonia (7) Obesity (8) Anxiety (9) Hypokalemia (10) Pulmonary nodules (11) Lymphadenopathy, hilar (12) CAD (coronary artery disease) (13) Hx of CABG (14) HLD (hyperlipidemia) (15) HTN (hypertension) Inpatient Certification: I certify that the inpatient services were ordered in accordance with Medicare regulations governing the order. This includes certification that hospital inpatient services are reasonable and necessary and in the case of services not specified as inpatient-only under 42 CFR 419.22(n), that they are appropriately provided as inpatient services in accordance to with the 2-midnight benchmark under 43 CFR 412.3(e) Estimated Total Length of Stay (Days): 5 Plans for Post Hospital Care: Not yet determined Review of Systems All other systems reviewed negative except as stated in HPI PMFSH - History History Provided By: Patient - Medical History Medical History: Medical History (Last Updated 10/07/18 @ 19:17 by Sheela Hagen MD) Anxiety CAD (coronary artery disease) Depression Ectopic HLD (hyperlipidemia) History of forearm fracture delivery delivered DVT (deep venous thrombosis) Myocardial infarct - Surgical History Surgical History: Surgical History (Last Updated 10/07/18 @ 19:15 by Sheela Hagen MD) H/O dilation and curettage History of partial hysterectomy Hx of appendectomy Hx of cholecystectomy S/P CABG x 2 - Family History Family History: Family History (Last Updated 10/07/18 @ 19:16 by Sheela Hagen MD) Mother Diabetes CAD (coronary artery disease) Father Unknown family medical history - Tobacco History Second Hand Smoke Exposure: Yes Tobacco Use In Past 30 Days: Yes Smoking Status: Current every day smoker Tobacco Type: Cigarettes Packs Per Day: 2 Years Smoked: 40 - Alcohol History How Often Do You Have a Drink Containing Alcohol: Never - Substance Use History Substance History: No History of Abuse - Travel History Recent Travel in the [place] Within the Last 8 Weeks: No Recent Travel Out of the Country Within the Last 8 Weeks: No - Immunization History Tetanus Immunization: Unsure Hx Influenza Vaccine This Season: No Medications and Allergies Active Medications: Active Medications Acetaminophen (Tylenol) 650 mg PO Q6H PRN PRN Reason: PAIN 1-10 AND/OR FEVER >101F Al Hydroxide/Mg Hydroxide (Milk Of Magnesia Liq) 30 ml PO Q12H PRN PRN Reason: Mild Constipation Albuterol (Duoneb Neb (Latisha)) 1 ampul NEB Q4HR NEB LATISHA Bisacodyl (Dulcolax Supp) 10 mg RECTAL DAILY PRN PRN Reason: SEVERE CONSITIPATION Chlorhexidine Gluconate (Chlorhexidine 2% Cloth) 3 pack TOPICAL DAILY@0400 LATISHA Stop: 10/13/18 03:59 Chlorhexidine Gluconate (Chlorhexidine 2% Cloth) 3 pack TOPICAL DAILY@0400 PRN PRN Reason: Extra cloth needed Stop: 10/13/18 03:59 Dextrose (D50w Vial) 50 ml IV.PUSH UNSCH PRN PRN Reason: PER HYPOGLYCEMIA PROTOCOL Famotidine (Pepcid Pf Inj) 20 mg IV.PUSH Q12HR LATISHA Glucagon (Glucagon Inj) 1 mg OTHER PRN PRN PRN Reason: for Hypoglycemia Protocol Heparin Sodium (Porcine) (Heparin Inj) 2,500 units IV.PUSH UNSCH PRN PRN Reason: aPTT 25-39 Sodium Chloride (Ns Inj) 1,000 mls @ 84 mls/hr IV.CONT .[id number] LATISHA Heparin Sodium/Dextrose (Heparin/D5w 25,000 U/250 Ml) 25,000 unit in 250 mls @ 0 mls/hr IV.CONT TITRATE PRN; Protocol PRN Reason: Per Protocol Last Admin: 10/07/18 17:20 Dose: 1,700 units/hr, 17 mls/hr Magnesium Sulfate 4 gm/ Sodium (Chloride) 100 mls @ 50 mls/hr IV.SIG UNSCH PRN PRN Reason: For Magnesium 0.9 - 1.1 mg/dL Potassium Chloride (Kcl 40 Meq Premix Inj) 40 meq in 100 mls @ 25 mls/hr IV.SIG Q2H PRN PRN Reason: For Potassium 2.8 - 3.2 mEq/L Potassium Chloride (Kcl 20 Meq Premix Inj) 20 meq in 100 mls @ 50 mls/hr IV.SIG Q2H PRN PRN Reason: For Potassium 3.3 - 3.5 mEq/L Potassium Chloride (Kcl 40 Meq Premix Inj) 40 meq in 100 mls @ 25 mls/hr IV.SIG UNSCH PRN PRN Reason: For Potassium 3.3 - 3.5 mEq/L Potassium Chloride (Kcl 20 Meq Premix Inj) 20 meq in 100 mls @ 50 mls/hr IV.SIG Q2H PRN PRN Reason: For Potassium 2.8 - 3.2 mEq/L Potassium Phosphate 30 mmol/ (Sodium Chloride) 260 mls @ 42 mls/hr IV.SIG UNSCH PRN PRN Reason: SEE LABEL COMMENTS Magnesium Sulfate 2 gm/ Sodium (Chloride) 100 mls @ 50 mls/hr IV.SIG UNSCH PRN PRN Reason: For Magnesium 1.2 - 1.6 mg/dL Sodium Phosphate 30 mmol/ (Sodium Chloride) 260 mls @ 42 mls/hr IV.SIG UNSCH PRN PRN Reason: For Phosphorus < 2.5 mg/dL Insulin Aspart (Novolog Insulin Correctional Sugar Inj) 0 unit SQ Q6HR LATISHA; Protocol Lactulose (Lactulose Liq) 30 ml PO DAILY PRN PRN Reason: SEVERE CONSITIPATION Magnesium Oxide (Mag-Ox) 800 mg PO UNSCH PRN PRN Reason: For Magnesium 1.2 - 1.6 mg/dL Ondansetron HCl (Zofran Inj) 4 mg IV.PUSH Q6H PRN PRN Reason: NAUSEA OR VOMITING Potassium Bicarb/Potassium Chloride (K-Lyte Cl Eff) 50 meq PO UNSCH PRN PRN Reason: For Potassium 3.3 - 3.5 mEq/L Potassium Phosphate (K-Phos Original) 2,000 mg PO Q4H PRN PRN Reason: Phosphorus Less Than 2.5 mg/dL Potassium Phosphate (K-Phos Original) 2,000 mg PO UNSCH PRN PRN Reason: SEE LABEL COMMENTS Senna/Docusate Sodium (Jennifer-Colace) 1 tab PO BID LATISHA Sennosides (Senokot) 17.2 mg PO Q12H PRN PRN Reason: Moderate Constipation Sodium Chloride (Ns Flush) 2 ml IV.FLUSH BID LATISHA Sodium Chloride (Ns Flush) 2 ml IV.FLUSH PRN PRN PRN Reason: FLUSH AFTER USING IV ACCESS Allergies Allergy/AdvReac Type Severity Reaction Status Date / Time No Known Allergies Allergy Verified 10/07/18 14:57 Home Medications Medication Instructions Recorded Confirmed Type alprazolam [Xanax] 0.25 mg PO BID 07/31/18 10/07/18 History aspirin [Aspir-81] 81 mg PO DAILY 07/31/18 10/07/18 History atorvastatin 80 mg PO DAILY 07/31/18 10/07/18 History budesonide-formoterol [Symbicort] 2 puff INHALATION Q12H 07/31/18 10/07/18 History clopidogrel [Plavix] 75 mg PO DAILY 07/31/18 10/07/18 History docusate sodium 100 mg PO BID 07/31/18 10/07/18 History metoprolol tartrate 50 mg PO BID 07/31/18 10/07/18 History paroxetine HCl [Paxil] 40 mg PO DAILY 07/31/18 10/07/18 History hydrocodone-acetaminophen 1 tab PO Q4-6H PRN 09/29/18 10/07/18 History Results - Labs CBC & Chem 7: 10/07/18 15:18 10/07/18 16:21 Labs: Short CBC 10/07/18 Range/Units 15:18 WBC 20.0 H (4.0-11.0) th/mm3 Hgb 14.0 (11.6-15.3) gm/dL Hct 41.4 (35.0-46.0) % Plt Count 534 H D (150-450) th/mm3 BMP 10/07/18 16:21 Sodium 135 L Potassium 3.3 L Chloride 99 Carbon Dioxide 25.4 BUN 11 Creatinine 0.66 Calcium 9.2 Cardiac Enzymes 10/07/18 Range/Units 16:21 Total Creatine Kinase 282 H (26-192) U/L CK-MB (CK-2) 1.7 (0.5-3.6) ng/mL Troponin I Less than 0.02 L (0.02-0.05) ng/mL Liver Function 10/07/18 Range/Units 16:21 Total Bilirubin 1.7 H (0.2-1.0) mg/dL AST 36 (15-37) U/L ALT 44 (10-53) U/L Alkaline Phosphatase 219 H (45-117) U/L Albumin 3.0 L (3.4-5.0) g/dL - Imaging Impressions Chest X-Ray 10/07/18 14:54 CONCLUSION: Developing reticulonodular parenchymal infiltrate, most confluent in the right lung base Chest CTA 10/07/18 14:55 CONCLUSION: 1. Small lower lobe pulmonary emboli are noted bilaterally. 2. Bilateral hilar lymphadenopathy is noted. Pretracheal mediastinal lymphadenopathy is also noted. Diffuse increased interstitial markings are noted bilaterally. The combination of diffuse interstitial disease as well as the hilar and mediastinal lymphadenopathy raising possibility of sarcoidosis. Clinical correlation is recommended. Post reactive and neoplastic lymphadenopathy are also in the differential. 3. Scattered noncalcified nodules within the upper lung wiley bilaterally with the largest 2 on the left measuring 8 and 6 mm and the largest on the right measuring 5 mm. These are nonspecific. Follow-up CT of the chest in 6 months would be helpful to confirm stability of the nodules. 4. Degenerative changes and scoliosis of the thoracic spine are noted. 5. Minimal focal alveolar consolidation is noted within the right middle lobe and within the lingula of the left upper lobe consistent with probable atelectasis and/or mild pneumonia. 6. Enlarged fatty liver. Exam Vital signs: Vital Signs 10/07/18 14:52 10/07/18 14:56 10/07/18 15:01 Pulse Rate 135 H 129 H 136 H Respiratory Rate 30 H 30 H Blood Pressure 110/64 124/67 Pulse Oximetry 90 L 93 L 93 L 10/07/18 16:02 10/07/18 16:28 10/07/18 17:00 Pulse Rate 126 H 138 H 138 H Respiratory Rate 30 H 28 H 33 H Blood Pressure 135/85 129/62 Pulse Oximetry 99 97 10/07/18 18:00 10/07/18 18:02 Pulse Rate 127 H Respiratory Rate Blood Pressure Pulse Oximetry 95 Intake & Output 10/07/18 10/07/18 10/08/18 06:59 18:59 06:59 Intake Total 100 / 100 Balance 100 / 100 Weight 97.976 kg Intake: IV 100 / 100 Maxipime Inj 2,000 MG In NS Inj 100 / 100 100 ML @ 200 mls/hr IV.SIG ONCE ONE Rx#:[id number] Other: Weight On Admission 97.976 kg Narrative: GENERAL: Well-nourished and well-developed patient who is sitting up in [facility] bed on partial nonrebreather, tachypneic. SKIN: Warm and dry. HEAD: Atraumatic. Normocephalic. EYES: Pupils equal and round. No scleral icterus. No injection or drainage. ENT: No nasal bleeding or discharge. Mucous membranes pink and moist. NECK: Trachea midline. Unable to appreciate JVD. CARDIOVASCULAR: Tachycardic, regular, sinus tach on the monitor with rate in the 120s.. No murmurs rubs or gallops. RESPIRATORY: No accessory muscle use. Clear to auscultation. Breath sounds equal bilaterally. GASTROINTESTINAL: Abdomen soft, nondistended. She is tender to palpation in the right upper quadrant. MUSCULOSKELETAL: Extremities without clubbing, cyanosis, or edema. No obvious deformities. NEUROLOGICAL: Awake and alert. No obvious cranial nerve deficits. Motor grossly within normal limits. Strength is 5 out of 5 in all extremities. Sensation is intact. Caprini VTE Risk Assessment Caprini VTE Risk Assessment: Moderate/High Risk (score >= 2) Caprini Risk Assessment Model: Point Value = 1 Point Value = 2 Point Value = 3 Point Value = 5 Age 41-60 Minor surgery BMI > 25 kg/m2 Swollen legs Varicose veins or History of unexplained or recurrent spontaneous Oral contraceptives or hormone replacement Sepsis (< 1 month) Serious lung disease, including pneumonia (< 1 month) Abnormal pulmonary function Acute myocardial infarction Congestive heart failure (< 1 month) History of inflammatory bowel disease Medical patient at bed rest Age 61-74 Arthroscopic surgery Major open surgery (> 45 min) Laparoscopic surgery (> 45 min) Malignancy Confined to bed (> 72 hours) Immobilizing plaster cast Central venous access Age >= 75 History of VTE Family history of VTE Factor V Leiden Prothrombin [id number] Lupus anticoagulant Anticardiolipin antibodies Elevated serum homocysteine Heparin-induced thrombocytopenia Other congenital or acquired thrombophilia Stroke (< 1 month) Elective arthroplasty Hip, pelvis, or leg fracture Acute spinal cord injury (< 1 month) Prophylaxis Regimen: Total Risk Factor Score Risk Level Prophylaxis Regimen 0-1 Low Early ambulation 2 Moderate Order ONE of the following: *Sequential Compression Device (SCD) *Heparin 5000 units SQ BID 3-4 Higher Order ONE of the following medications: *Heparin 5000 units SQ TID *Enoxaparin/Lovenox 40 mg SQ daily (WT < 150 kg, CrCl > 30 mL/min) *Enoxaparin/Lovenox 30 mg SQ daily (WT < 150 kg, CrCl > 10-29 mL/min) *Enoxaparin/Lovenox 30 mg SQ BID (WT < 150 kg, CrCl > 30 mL/min) AND/OR *Sequential Compression Device (SCD) 5 or more Highest Order ONE of the following medications: *Heparin 5000 units SQ TID (Preferred with Epidurals) *Enoxaparin/Lovenox 40 mg SQ daily (WT < 150 kg, CrCl > 30 mL/min) *Enoxaparin/Lovenox 30 mg SQ daily (WT < 150 kg, CrCl > 10-29 mL/min) *Enoxaparin/Lovenox 30 mg SQ BID (WT < 150 kg, CrCl > 30 mL/min) AND *Sequential Compression Device (SCD) Assessment and Plan - Problem List (1) Pulmonary embolism Code(s): I26.99 - Other pulmonary embolism without acute cor pulmonale Status : Acute (2) COPD exacerbation Code(s): J44.1 - Chronic obstructive pulmonary disease with (acute) exacerbation Status: Acute (3) Tobacco abuse Code(s): Z72.0 - Tobacco use Status: Chronic (4) H/O deep venous thrombosis Code(s): Z86.718 - Personal history of other venous thrombosis and embolism Status: Chronic (5) Hypoxia Code(s): R09.02 - Hypoxemia Status: Acute (6) Pneumonia Code(s): J18.9 - Pneumonia, unspecified organism Status: Acute (7) Obesity Code(s): E66.9 - Obesity, unspecified Status: Chronic (8) Anxiety Code(s): F41.9 - Anxiety disorder, unspecified Status: Chronic (9) Hypokalemia Code(s): E87.6 - Hypokalemia Status: Acute (10) Pulmonary nodules Code(s): R91.8 - Other nonspecific abnormal finding of lung field Status: Acute (11) Lymphadenopathy, hilar Code(s): R59.0 - Localized enlarged lymph nodes Status: Acute (12) CAD (coronary artery disease) Code(s): I25.10 - Atherosclerotic heart disease of [place] coronary artery without angina pectoris Status: Chronic (13) Hx of CABG Code(s): Z95.1 - Presence of aortocoronary bypass graft Status: Chronic (14) HLD (hyperlipidemia) Code(s): E78.5 - Hyperlipidemia, unspecified Status: Chronic (15) HTN (hypertension) Code(s): I10 - Essential (primary) hypertension Status: Chronic - Assessment and Plan Plan: NEURO: Depression Anxiety Pleuritic pain secondary to pulmonary embolism Lortab as needed for pain. Morphine as needed for breakthrough pain. Continue Xanax 0.25 mill grams p.o. twice daily Continue Paxil 40 mg p.o. daily RESP: Bilateral pulmonary embolism Hypoxia -on partial nonrebreather COPD with acute exacerbation Tobacco abuse Pulmonary noduleswill require follow-up CT in 6 months. Bilateral hilar and pretracheal mediastinal lymphadenopathy and interstitial disease. Sarcoidosis is a consideration. Pulmonary consultation has been placed. Anticoagulation for pulmonary embolism as per below. Does not meet criteria for TPA Tobacco cessation counseling discussed Solu-Medrol 125 mg IV in the emergency department Continue Symbicort 160/4.52 puffs inhaled every 12 hours DuoNeb every 6 hours. Albuterol every 2 hours as needed. Abx as per below CV: Coronary artery disease Status post CABG July 2017 Hyperlipidemia -continue Lipitor 80 mg p.o. daily Hypertension Continue metoprolol 50 mg p.o. twice daily Troponin is negative. 2D echo 10/07/18mild concentric LVH. LVEF 40-45%. Pulmonary artery pressure 26 mmHg. Normal RV size and systolic function. Continue Plavix 5 mg p.o. daily. Will hold aspirin. GI: Obesity Cardiac diet FEN/RENAL: Hypokalemia Replace electrolytes as indicated per ICU electrolyte replacement protocol. Magnesium is normal. Renal function is normal. Voiding ID: Received Cefepime 2 gram IV and Azithromycin 500 mg IV in the emergency department. She does have a productive cough and CT findings of alveolar consolidation in the right middle lobe and lingula. While these consolidations appear mild she does have lymphadenopathy which may also be reactive and therefore will provide a treatment course with antibiotics to determine if there is any resolution. Will continue Rocephin/azithromycin Follow-up blood culture sent 10/07. Check urine Legionella and pneumococcal antigens and influenza. She is concerned she may have a UTI based on flank pain. We will follow-up UA and culture. HEME: Bilateral pulmonary embolism History of DVT On heparin drip for acute management of pulmonary embolism. She is self-pay. Will need to be transitioned to oral anticoagulant. She states that she does not have any insurance and therefore warfarin remains more affordable (even with consideration of cost of labs). Will initiate warfarin now and discontinue heparin when INR therapeutic at 2-3. Daily INR ENDO: Glucose is at target. PROPH: On heparin drip for VTE treatment/prophylaxis. Famotidine for stress ulcer prophylaxis. Will change to p.o. ACCESS: Peripheral IV Full code Level 3 H&P H&P: Quality - VTE Deep Vein Thrombosis/Pulmonary Embolism Present on Admission: Yes (1) Pulmonary embolism Qualifiers: Pulmonary embolism type: other Chronicity: acute Acute cor pulmonale presence: without acute cor pulmonale Qualified Code(s): I26.99 - Other pulmonary embolism without acute cor pulmonale (6) Pneumonia Qualifiers: Pneumonia type: due to unspecified organism Laterality: bilateral Lung location: unspecified part of lung Qualified Code(s): J18.9 - Pneumonia, unspecified organism (7) Obesity Qualifiers: Body mass index: BMI 34.0-34.9
[2018-10-07] MEDS: ALPRAZolam 0.25 MG Tablet PO SCH (20:22)
[2018-10-07] MEDS: Famotidine 20 MG Tablet PO SCH (20:22)
[2018-10-07] MEDS: Metoprolol Tartrate 50 MG Tablet PO SCH (20:22)
[2018-10-07] MEDS: Potassium Chlor 20 mEq Premix 20 MEQ/100 ML PIGGYBACK IV.SIG PRN ×2 (20:23→23:32)
[2018-10-07] MEDS: Morphine Sulfate Inj 2 MG/ML Vial IV.PUSH PRN (20:23)
[2018-10-07] MEDS ORDERED: Famotidine PF Inj 20 MG/2 ML Vial IV.PUSH SCH (21:00)
[2018-10-07] MEDS: Senna/Docusate Sodium 8.6/50 MG Tablet PO SCH (21:01)
[2018-10-07] MEDS ORDERED: Heparin 10,000 UNITS/10 ML Vial (for IV use) IV.PUSH PRN (22:07)
[2018-10-08] MEDS: Budesonide-Formoterol 160/4.5 MCG 6 GM Inhaler INH SCH ×3 (00:17→22:47)
[2018-10-08] MEDS: Insulin NovoLOG Aspart Correctional Sugar Inj SQ SCH ×4 (00:18→18:18)
[2018-10-08] MEDS: Morphine Sulfate Inj 2 MG/ML Vial IV.PUSH PRN (02:24)
[2018-10-08] MEDS ORDERED: MethylPREDNISolone Sod Succinate Inj 125 MG/2 ML Vial IV.PUSH ONE (02:32)
[2018-10-08] MEDS ORDERED: Chlorhexidine Gluconate 2% 1 Pack (2 Cloths) TOPICAL PRN (04:00)
[2018-10-08] MEDS: Chlorhexidine Gluconate 2% 1 Pack (2 Cloths) TOPICAL SCH (05:38)
[2018-10-08] MEDS: Sod Chloride 0.9% Inj 1,000 ML IV.CONT SCH (05:38)
[2018-10-08 07:14] LABS: Baso % (Auto) 0.1 % (0.0-2.0); Hematocrit 33.2 % (35.0-46.0); Hemoglobin 11.8 gm/dL (11.6-15.3); Lymph # (Auto) 1.6 th/mm3 (1.0-4.8); Lymph % (Auto) 10.2 % (9.0-44.0); Mean Corpuscular HGB Conc 35.5 % (32.0-36.0); Mean Corpuscular Hemoglobin 35.2 pg (27.0-34.0); Mean Platelet Volume 7.6 fL (7.0-11.0); Mono # (Auto) 0.5 th/mm3 (0.0-0.9); Mono % (Auto) 3.2 % (0.0-8.0); Neut # (Auto) 13.9 th/mm3 (1.8-7.7); Neut % (Auto) 86.5 % (16.0-70.0); Platelet Count 437 th/mm3 (150-450); Red Blood Count 3.36 mil/mm3 (4.00-5.30); Red Cell Distribution Width 13.5 % (11.6-17.2)
[2018-10-08 07:16] LABS: Activated Partial Thrombo Time 83.9 sec (23.4-31.7); INR 1.1 Ratio; Prothrombin Time 11.2 sec (9.8-11.6)
[2018-10-08 07:31] LABS: Alanine Aminotransferase 47 U/L (10-53); Albumin 2.6 g/dL (3.4-5.0); Anion Gap 10 meq/L (5-15); Aspartate Aminotransferase 35 U/L (15-37); Blood Urea Nitrogen 13 mg/dL (7-18); Calcium 8.9 mg/dL (8.5-10.1); Carbon Dioxide 23.8 meq/L (21.0-32.0); Chloride 105 meq/L (98-107); Glomerular Filtration Rate Greater Than 89 mL/min (>89); Glucose,Random 142 mg/dL (74-106); Magnesium 2.1 mg/dL (1.5-2.5); Phosphorus 3.2 mg/dL (2.5-4.9); Potassium 4.1 meq/L (3.5-5.1); Sodium 139 meq/L (136-145)
[2018-10-08 07:34] LABS: Alkaline Phosphatase 198 U/L (45-117); Total Protein 7.7 g/dL (6.4-8.2)
[2018-10-08] MEDS: ALPRAZolam 0.25 MG Tablet PO SCH ×2 (09:01→22:47)
[2018-10-08] MEDS: Famotidine 20 MG Tablet PO SCH ×2 (09:01→22:47)
[2018-10-08] MEDS: Metoprolol Tartrate 50 MG Tablet PO SCH ×2 (09:01→22:46)
[2018-10-08] MEDS: Senna/Docusate Sodium 8.6/50 MG Tablet PO SCH ×2 (09:02→22:47)
[2018-10-08] MEDS: MethylPREDNISolone Sod Succinate Inj 125 MG/2 ML Vial IV.PUSH SCH ×2 (11:13→18:30)
[2018-10-08] MEDS: Heparin Drip 25,000 UNIT/250 ML BAG IV.CONT PRN (11:15)
--- NOTE | 2018-10-08 11:46 | MB ---
cc: Neetu Roldan MD DATE: 10/08/2018 HISTORY OF PRESENT ILLNESS: The patient is a 48-year-old female with a past medical history of hypertension, hyperlipidemia, coronary artery disease with a previous CABG in June 2017, COPD and a history of DVT. She presented to [facility] ED with a 2- to 3-week history of progressive worsening shortness of breath associated with a productive cough with green phlegm and chills. Also, she reports wheezing. The patient denies any constitutional symptoms or chest pain. She has mild intermittent edema of her lower extremities. She is an active smoker where she smokes 2 packs per day for many years. She denies any use of oxygen at home; however, she uses Symbicort and nebulizers. She was initially placed on 6 liters nasal cannula. An ABG performed which showed a pH of 7.47, CO2 34, PaO2 62, bicarbonate 25, and saturation of 89%. A chest x-ray in the ER showed developing reticular nodular parenchymal infiltrate in the right lung bases. Subsequently, she underwent a CTA of the chest which showed small bilateral pulmonary emboli and bilateral hilar lymphadenopathy pretracheal mediastinal adenopathy, diffuse interstitial markings and scattered noncalcified pulmonary nodules in the upper lung wiley. She was started on a heparin drip. Echocardiogram was performed which showed mild to moderate reduced LV dysfunction with EF of 40% to 45%. The patient denies any weight loss; however, actually, she gained approximately 40-50 pounds in the last 1 year. She reports feeling tired and fatigued all the time and also reports blurry vision at times. She is currently on high-flow oxygen at 20 liters with 60% FiO2. Pulmonary medicine was consulted regarding abnormal CT findings. PAST MEDICAL HISTORY: Significant for coronary artery disease, depression, hyperlipidemia, history of DVT, COPD. PAST SURGICAL HISTORY: Previous CABG x2, previous cholecystectomy and appendectomy, previous partial hysterectomy. ALLERGIES: NO KNOWN DRUG ALLERGIES. FAMILY HISTORY: Coronary artery disease runs in the family. SOCIAL HISTORY: Active smoker, nondrinker. REVIEW OF SYSTEMS: As per HPI. The rest of review of systems unremarkable. ACTIVE MEDICATIONS: Include DuoNeb, Lipitor, azithromycin, Symbicort, ceftriaxone, Pepcid, heparin drip, Lopressor. PHYSICAL EXAMINATION: GENERAL: A 48-year-old female lying in bed in mild respiratory distress on high flow oxygen. VITAL SIGNS: Temperature 97.8, pulse of 87, respiratory rate of 30s, blood pressure 112/66, saturation 92%. HEENT: Atraumatic, normocephalic. Pupils equal, round, reactive to light and accommodation. Extraocular muscles intact. Conjunctivae pink. Anicteric sclerae. Oral mucosa within normal. NECK: Supple. No JVD, adenopathy, or thyromegaly. Trachea in the midline. CARDIOVASCULAR: Regular rate and rhythm. Normal S1, S2. No murmurs, rubs, or gallops noted. PULMONARY: Bilateral equal air entry with a few coarse breath sounds, scattered wheezing. ABDOMEN: Soft, obese, nontender. No distention. Positive bowel sounds. EXTREMITIES: No cyanosis or clubbing. Trace edema. NEUROLOGIC: No focal sensory deficit. LABORATORY DATA: WBC 16, hemoglobin 11, hematocrit 33, platelet count of 437. Sodium 139, potassium 4.1, chloride 105, CO2 of 23, BUN 13, creatinine 0.62, glucose of 142, albumin 2.6. RADIOGRAPHIC STUDIES: CTA of the chest showed small bilateral pulmonary emboli noncalcified pulmonary nodules. Bilateral hilar lymphadenopathy and pretracheal mediastinal adenopathy. IMPRESSION: 1. Acute hypoxemic respiratory insufficiency. 2. Small bilateral pulmonary emboli. 3. History of deep venous thrombosis, right lower extremity. 4. Bilateral hilar lymphadenopathy and pretracheal mediastinal adenopathy, rule out sarcoidosis versus postreactive adenopathy or a neoplastic process, doubt. 5. Bilateral upper lobe noncalcified pulmonary nodules. 6. Leukocytosis, trending down. 7. Chronic obstructive pulmonary disease. 8. Hypertension. 9. History of coronary artery disease and coronary artery bypass graft. 10. Hyperlipidemia. RECOMMENDATIONS: 1. Wean down oxygen as tolerated and maintain sats above 92%. 2. Continue bronchodilators in the form of DuoNeb q. 4 plus q. 2 p.r.n. for shortness of breath. 3. We will add Solu-Medrol 60 mg IV q. 8. 4. BiPAP p.r.n. for respiratory distress. If there is any worsening in respiratory status or clinical condition, will need intubation and mechanical ventilation. 5. Continue with heparin drip and monitor PTT per protocol. 6. Check Doppler ultrasound bilateral lower extremities to rule out DVT. 7. Echocardiogram showed EF of 40% to 45%. We will discontinue IV fluids and diurese with Lasix 40 mg IV x1. 8. CTA of the chest reviewed. In addition to small bilateral pulmonary emboli, it showed bilateral hilar adenopathy along with pretracheal mediastinal adenopathy and noncalcified pulmonary nodule. Once her respiratory status improves, the patient will need a lung biopsy, possible EBUS for a pathology diagnosis. 9. Will check MATI level. 10. Will need a pulmonary function test to assess her severity of obstructive and rule out restrictive, lung disease. 12. Sleep study as outpatient to rule out sleep apnea. 12. Further recommendations will be based on hospital course. Thank you for this consultation and allowing us to participate in this patient's care. MD BOUBACAR Zepeda/trevor , 11:01 AM , 11:15 AM
--- NOTE | 2018-10-08 13:11 | P.PNCC ---
Subjective Subjective Remarks/Hospital Course: Hospital Course: 48-year-old female with past medical history of coronary artery disease status post CABG (06/2017), hyperlipidemia, hypertension, COPD, tobacco abuse who presents to [facility] emergency department with 2-week history of shortness of breath. She states she has also had a cough productive of green sputum. She has pleuritic pain in her right lower anterior and posterior thorax. No fever. She was recently admitted 09/29/18 after she presented with exertional shortness of breath and wheezing. She was treated with nebs and steroids but left AGAINST MEDICAL ADVICE within 24 hours. On that occasion her d-dimer was negative. Today her ED workup included CT pulmonary angiogram which demonstrated small bilateral lower lobe pulmonary emboli. She has bilateral hilar and pretracheal lymphadenopathy. There is alveolar consolidation in the right middle lobe and lingula which is consistent with atelectasis versus pneumonia. Sarcoidosis is also a consideration, as well as reactive/neoplastic lymphadenopathy. S In the ED she was started on heparin drip, given saline 1 L bolus, Solu-Medrol 125 mg IV, cefepime 2 g IV, azithromycin 500 mg IV, albuterol x2. Denies leg pain or swelling currently. She states she was diagnosed with a RLE DVT on outpatient ultrasound the end of 2016 which was provoked by her CABG. She was on DAPT but not on anticoagulation following the diagnosis. She had a right femoral DVT 07/31/18 which was diagnosed in the ED. She left AMA on that occasion as well. She was not on anticoagulation. She has recently taken multiple long car rides to [place], etc over the course of the summer. Subjective: 10/08: remains on HFNC. still complaints of dyspnea. on heparin infusion. mivf discontinued. blood pressure and HR stable. denies other complaints. ROS negative except for cough and dyspnea. Objective Vital Signs / I&O: Vital Signs 10/07/18 14:52 10/07/18 14:56 10/07/18 15:01 Temperature Pulse Rate 135 H 129 H 136 H Respiratory Rate 30 H 30 H Blood Pressure 110/64 124/67 Pulse Oximetry 90 L 93 L 93 L 10/07/18 16:02 10/07/18 16:28 10/07/18 17:00 Temperature Pulse Rate 126 H 138 H 138 H Respiratory Rate 30 H 28 H 33 H Blood Pressure 135/85 129/62 Pulse Oximetry 99 97 10/07/18 18:00 10/07/18 18:02 10/07/18 19:54 Temperature Pulse Rate 127 H 114 H Respiratory Rate 24 Blood Pressure Pulse Oximetry 95 97 10/07/18 20:00 10/07/18 20:06 10/07/18 20:25 Temperature 37.1 C Pulse Rate 120 H Respiratory Rate 36 H 28 H Blood Pressure 104/66 Pulse Oximetry 93 L 92 L 10/07/18 20:39 10/07/18 21:18 10/07/18 22:00 Temperature Pulse Rate 91 H Respiratory Rate Blood Pressure Pulse Oximetry 94 L 97 92 L 10/07/18 22:25 10/07/18 23:00 10/08/18 00:00 Temperature 36.9 C Pulse Rate 78 79 85 Respiratory Rate 20 21 22 Blood Pressure 110/83 106/65 Pulse Oximetry 94 L 92 L 95 10/08/18 01:00 10/08/18 01:01 10/08/18 01:33 Temperature Pulse Rate 76 79 Respiratory Rate 25 H 24 24 Blood Pressure 107/71 Pulse Oximetry 94 L 92 L 10/08/18 02:00 10/08/18 02:37 10/08/18 03:00 Temperature 37.0 C Pulse Rate 86 98 H 109 H Respiratory Rate 23 26 H 29 H Blood Pressure 108/65 107/62 Pulse Oximetry 96 90 L 10/08/18 03:45 10/08/18 04:00 10/08/18 06:00 Temperature Pulse Rate 83 82 Respiratory Rate 36 H 23 Blood Pressure 109/57 L Pulse Oximetry 93 L 10/08/18 07:00 10/08/18 08:00 10/08/18 09:00 Temperature 36.6 C Pulse Rate 83 85 87 Respiratory Rate 18 20 30 H Blood Pressure 107/64 121/68 137/66 Pulse Oximetry 93 L 93 L 92 L 10/08/18 10:00 10/08/18 11:00 10/08/18 11:14 Temperature Pulse Rate 87 75 Respiratory Rate 38 H 34 H 25 H Blood Pressure 112/66 112/66 Pulse Oximetry 81 L 95 10/08/18 12:00 10/08/18 12:19 Temperature 36.7 C Pulse Rate 81 95 H Respiratory Rate 24 45 H Blood Pressure 139/64 Pulse Oximetry 92 L 94 L Intake & Output 10/07/18 10/08/18 10/08/18 18:59 06:59 18:59 Intake Total 100 / 100 3050 / 3050 250 / 250 Output Total 250 / 250 Balance 100 / 100 2800 / 2800 250 / 250 Weight 97.976 kg 93.1 kg Intake: IV 100 / 100 2450 / 2450 250 / 250 Heparin/D5W 25,000 U/250 mL 25, 250 / 250 000 unit In 250 ml @ Per Protocol IV.CONT TITRATE PRN Rx #:[id number] NS Inj 1,000 ML @ 84 mls/hr IV. 1000 / 1000 CONT .[id number] ANAT Rx#:[id number] Azithromycin Inj 500 MG In NS 250 / 250 Inj 250 ML @ 250 mls/hr IV.SIG ONCE ONE Rx#:[id number] Maxipime Inj 2,000 MG In NS Inj 100 / 100 100 ML @ 200 mls/hr IV.SIG ONCE ONE Rx#:[id number] KCl 20 mEq Premix Inj 20 meq In 100 / 100 100 ml @ 50 mls/hr IV.SIG Q2H PRN Rx#:[id number] NS Inj 1,000 ML @ 1000 mls/hr 1000 / 1000 IV.SIG BOLUS ANAT Rx#:[id number] Rocephin Inj 1,000 MG In NS Inj 100 / 100 100 ML @ 200 mls/hr IV.SIG Q12H ANAT Rx#:[id number] Oral 600 / 600 Output: Urine 250 / 250 Other: # Voids 1 Date of Last Bowel Movement 10/07/18 10/07/18 10/07/18 Weight On Admission 97.976 kg Result Diagrams: 10/08/18 06:49 10/08/18 06:49 Objective Remarks: GENERAL: Middle-aged female who appears slightly older than stated age, lying in bed, high flow nasal cannula, in slight distress due to dyspnea HEENT: Normocephalic. Atraumatic. Pupils equal, round, reactive, conjugate. Mucous membranes are moist NECK: Trachea is midline. There is no JVD. CHEST: Equal chest rise. High flow nasal cannula, FiO2 65%, 30 L/min. Slightly tachypneic. Using slight accessory muscles. Able to talk in short sentences. CARDIOVASCULAR: Normal rate in the 90s, regular rhythm. Sinus. ABDOMEN: Soft, nontender, nondistended. No guarding. MUSCULOSKELETAL: Pulses 2+. No peripheral edema. NEUROLOGICAL: RASS 0. CAM -. Follows commands. Moves all extremities. No focal deficits. Assessment and Plan - Problem List (1) Pulmonary embolism Code(s): I26.99 - Other pulmonary embolism without acute cor pulmonale Status : Acute (2) COPD exacerbation Code(s): J44.1 - Chronic obstructive pulmonary disease with (acute) exacerbation Status: Acute (3) Tobacco abuse Code(s): Z72.0 - Tobacco use Status: Chronic (4) H/O deep venous thrombosis Code(s): Z86.718 - Personal history of other venous thrombosis and embolism Status: Chronic (5) Hypoxia Code(s): R09.02 - Hypoxemia Status: Acute (6) Pneumonia Code(s): J18.9 - Pneumonia, unspecified organism Status: Acute (7) Obesity Code(s): E66.9 - Obesity, unspecified Status: Chronic (8) Anxiety Code(s): F41.9 - Anxiety disorder, unspecified Status: Chronic (9) Hypokalemia Code(s): E87.6 - Hypokalemia Status: Acute (10) Pulmonary nodules Code(s): R91.8 - Other nonspecific abnormal finding of lung field Status: Acute (11) Lymphadenopathy, hilar Code(s): R59.0 - Localized enlarged lymph nodes Status: Acute (12) CAD (coronary artery disease) Code(s): I25.10 - Atherosclerotic heart disease of [place] coronary artery without angina pectoris Status: Chronic (13) Hx of CABG Code(s): Z95.1 - Presence of aortocoronary bypass graft Status: Chronic (14) HLD (hyperlipidemia) Code(s): E78.5 - Hyperlipidemia, unspecified Status: Chronic (15) HTN (hypertension) Code(s): I10 - Essential (primary) hypertension Status: Chronic - Assessment and Plan Plan: NEURO: Depression Anxiety Pleuritic pain secondary to pulmonary embolism Lortab as needed for pain. Morphine as needed for breakthrough pain. Continue Xanax 0.25 mill grams p.o. twice daily Continue Paxil 40 mg p.o. daily RESP: Bilateral pulmonary embolism Hypoxia -on high flow nasal cannula COPD with acute exacerbation Tobacco abuse Pulmonary noduleswill require follow-up CT in 6 months. Bilateral hilar and pretracheal mediastinal lymphadenopathy and interstitial disease. Sarcoidosis is a consideration. Pulmonary consultation has been placed. Anticoagulation for pulmonary embolism as per below. Does not meet criteria for TPA Tobacco cessation counseling discussed Solu-Medrol 125 mg IV in the emergency department Continue Symbicort 160/4.52 puffs inhaled every 12 hours DuoNeb every 6 hours. Albuterol every 2 hours as needed. Abx as per below CV: Coronary artery disease Status post CABG July 2017 Hyperlipidemia -continue Lipitor 80 mg p.o. daily Hypertension Continue metoprolol 50 mg p.o. twice daily Troponin is negative. 2D echo 10/07/18mild concentric LVH. LVEF 40-45%. Pulmonary artery pressure 26 mmHg. Normal RV size and systolic function. Continue Plavix 5 mg p.o. daily. Will hold aspirin. GI: Obesity Cardiac diet FEN/RENAL: Hypokalemia Replace electrolytes as indicated per ICU electrolyte replacement protocol. Magnesium is normal. Renal function is normal. Voiding ID: Received Cefepime 2 gram IV and Azithromycin 500 mg IV in the emergency department. She does have a productive cough and CT findings of alveolar consolidation in the right middle lobe and lingula. While these consolidations appear mild she does have lymphadenopathy which may also be reactive and therefore will provide a treatment course with antibiotics to determine if there is any resolution. Will continue Rocephin/azithromycin Follow-up blood culture sent 10/07. Check urine Legionella and pneumococcal antigens and influenza. She is concerned she may have a UTI based on flank pain. We will follow-up UA and culture. HEME: Bilateral pulmonary embolism History of DVT On heparin drip for acute management of pulmonary embolism. She is self-pay. Will need to be transitioned to oral anticoagulant. She states that she does not have any insurance and therefore warfarin remains more affordable (even with consideration of cost of labs). Will initiate warfarin now and discontinue heparin when INR therapeutic at 2-3. Daily INR ENDO: Glucose is at target. PROPH: On heparin drip for VTE treatment/prophylaxis. Famotidine for stress ulcer prophylaxis. Will change to p.o. ACCESS: Peripheral IV Full code Level 3 H&P (1) Pulmonary embolism Qualifiers: Pulmonary embolism type: other Chronicity: acute Acute cor pulmonale presence: without acute cor pulmonale Qualified Code(s): I26.99 - Other pulmonary embolism without acute cor pulmonale (6) Pneumonia Qualifiers: Pneumonia type: due to unspecified organism Laterality: bilateral Lung location: unspecified part of lung Qualified Code(s): J18.9 - Pneumonia, unspecified organism (7) Obesity Qualifiers: Body mass index: BMI 34.0-34.9
[2018-10-08 13:27] LABS: Bilirubin,Urine Negative (Negative); Clarity,Urine Clear (Clear); Color,Urine Yellow (Yellw/Straw); Glucose,Urine (UA) Negative (Negative); Leukocyte Esterase,Urine Negative (Negative); Mucus,Urine Few /lpf (Occasional); Nitrite,Urine Negative (Negative); Specific Gravity,Urine 1.028 (1.002-1.035); Squamous Epithelial Cell,Urine 1 /hpf (0-5)
--- NOTE | 2018-10-08 14:13 | ECG ---
Date Performed: 10/07/2018 Time Performed: 14:55:28 PTAGE: 48 years EKG: SINUS TACHYCARDIA NONSPECIFIC T-WAVE ABNORMALITY ABNORMAL RHYTHM ECG Compared to PREVIOUS TRACING , sinus rate is faster. PREVIOUS TRACING 10/02/2018 16.59.47 DOCTOR: Aiden Garcia Interpretating Date/Time 10/08/2018 14:11:47
[2018-10-08] MEDS: Azithromycin Inj 250 MG in Sodium Chlor 0.9% Inj 250 ML IV.SIG SCH (15:02)
--- NOTE | 2018-10-08 15:36 | US ---
EXAM DATE: 10/08/2018 3:33 PM EST AGE/SEX: 48 years / Female INDICATIONS: Bilateral leg pain. CLINICAL DATA: This is the patient's initial encounter. Patient reports that signs and symptoms have been present for 1 day and indicates a pain score of 4/10. MEDICAL/SURGICAL HISTORY: Deep venous thrombosis. Anxiety. CAD. Depression. Hyperlipidemia. Davi cardial infarct. Ectopic . CABG. Cholecystectomy. Appendectomy. History of dilation and curettage. Partial hysterectomy. COMPARISON: [facility] [place], [place] VENOUS DOPPLER LEG RIGHT, 07/31/2018. . TECHNIQUE: Venous ultrasound of both lower extremities was performed from the inguinal ligament to t he proximal calf. Real-time, color Doppler and spectral tracing, compression and augmentation techni ques were used. FINDINGS: Right Leg: Normal compression of the deep venous system from the inguinal region to the proximal lesli f. No echogenic clot is seen. Normal response of the venous system to augmentation and respiration. Left Leg: Normal compression of the deep venous system from the inguinal region to the proximal calf . No echogenic clot is seen. Normal response of the venous system to augmentation and respiration. Other: None. CONCLUSION: 1. The study is negative for bilateral lower extremity deep venous thrombosis. Electronically signed by: Colin Goodrich MD Board Certified Radiologist 10/08/2018 3:35 PM EST
[2018-10-09] MEDS: Insulin NovoLOG Aspart Correctional Sugar Inj SQ SCH ×4 (01:52→18:35)
[2018-10-09] MEDS: MethylPREDNISolone Sod Succinate Inj 125 MG/2 ML Vial IV.PUSH SCH ×3 (03:58→18:00)
[2018-10-09] MEDS: Chlorhexidine Gluconate 2% 1 Pack (2 Cloths) TOPICAL SCH (03:59)
--- NOTE | 2018-10-09 05:05 | XR ---
EXAM DATE: 10/09/2018 4:34 AM EST AGE/SEX: 48 years / Female INDICATIONS: Respiratory failure. CLINICAL DATA: This is the patient's subsequent encounter. Patient reports that signs and symptoms h ave been present for 1 week and indicates a pain score of Nonresponsive. MEDICAL/SURGICAL HISTORY: Chronic obstructive pulmonary disease. Myocardial infarction. Hyper tension. Pulmonary embolism. Smoker. Deep vein thrombosis. Hypoxia. Pneumonia. Obesity. Anxiety. Hyp okalemia. Pulmonary nodules. Coronary artery disease. Lymphadenopathy, hilar. Hyperlipidemia. Depress ion. CABG. COMPARISON: C, CHEST 1V SINGLE AP, 10/07/2018. . FINDINGS: Stable diffuse interstitial prominence with improved aeration in the lower lung zones. Cardiomediasti nal contours are within normal limits. Remainder of exam is unchanged. CONCLUSION: 1. Persistent interstitial edema with improving aeration in the lower lung zones. Electronically signed by: Josue Holcomb MD Board Certified Radiologist 10/09/2018 5:04 AM AMPARO Barrientos
[2018-10-09 06:04] LABS: Hemoglobin 11.5 gm/dL (11.6-15.3); Mean Corpuscular HGB Conc 33.8 % (32.0-36.0); Mean Corpuscular Hemoglobin 34.3 pg (27.0-34.0); Mean Corpuscular Volume 101.5 fL (80.0-100.0); Mean Platelet Volume 7.8 fL (7.0-11.0); Platelet Count 588 th/mm3 (150-450); Red Blood Count 3.35 mil/mm3 (4.00-5.30); Red Cell Distribution Width 13.4 % (11.6-17.2); White Blood Count 23.7 th/mm3 (4.0-11.0)
[2018-10-09 06:11] LABS: INR 1.5 Ratio; Prothrombin Time 14.7 sec (9.8-11.6)
[2018-10-09 06:26] LABS: Anion Gap 7 meq/L (5-15); Blood Urea Nitrogen 17 mg/dL (7-18); Calcium 8.9 mg/dL (8.5-10.1); Carbon Dioxide 27.9 meq/L (21.0-32.0); Chloride 102 meq/L (98-107); Glomerular Filtration Rate Greater Than 89 mL/min (>89); Glucose,Random 143 mg/dL (74-106); Magnesium 2.1 mg/dL (1.5-2.5); Sodium 137 meq/L (136-145)
[2018-10-09] MEDS: Heparin Drip 25,000 UNIT/250 ML BAG IV.CONT PRN (07:14)
[2018-10-09] MEDS: Metoprolol Tartrate 50 MG Tablet PO SCH ×2 (09:46→20:10)
[2018-10-09] MEDS: Famotidine 20 MG Tablet PO SCH ×2 (09:46→20:09)
[2018-10-09] MEDS: Senna/Docusate Sodium 8.6/50 MG Tablet PO SCH ×2 (09:48→20:10)
[2018-10-09] MEDS: ALPRAZolam 0.25 MG Tablet PO SCH ×2 (09:49→20:10)
[2018-10-09] MEDS: Budesonide-Formoterol 160/4.5 MCG 6 GM Inhaler INH SCH ×2 (09:49→20:09)
--- NOTE | 2018-10-09 09:56 | P.PNPL ---
Subjective Interval history: Patient is on high flow oxygen 25L 55% FIO2. Afebrile. Physical Exam Vital signs: Vital Signs 10/08/18 10:00 10/08/18 11:00 10/08/18 11:14 Temperature Pulse Rate 87 75 Respiratory Rate 38 H 34 H 25 H Blood Pressure 112/66 112/66 Pulse Oximetry 81 L 95 10/08/18 12:00 10/08/18 12:19 10/08/18 13:00 Temperature 98.0 F Pulse Rate 81 95 H 91 H Respiratory Rate 24 45 H 23 Blood Pressure 139/64 Pulse Oximetry 92 L 94 L 91 L 10/08/18 13:01 10/08/18 14:00 10/08/18 15:00 Temperature Pulse Rate 92 H 83 99 H Respiratory Rate 29 H 23 40 H Blood Pressure 131/78 114/83 134/69 Pulse Oximetry 91 L 91 L 94 L 10/08/18 16:00 10/08/18 16:01 10/08/18 17:00 Temperature 98.7 F Pulse Rate 89 90 73 Respiratory Rate 19 19 20 Blood Pressure 95/71 L Pulse Oximetry 95 94 L 93 L 10/08/18 17:01 10/08/18 18:00 10/08/18 19:00 Temperature Pulse Rate 72 82 83 Respiratory Rate 21 22 25 H Blood Pressure 111/68 118/73 118/71 Pulse Oximetry 93 L 95 89 L 10/08/18 19:53 10/08/18 20:00 10/08/18 21:00 Temperature 98.3 F Pulse Rate 103 H 86 114 H Respiratory Rate 21 44 H 46 H Blood Pressure 121/58 L Pulse Oximetry 95 92 L 91 L 10/08/18 21:01 10/08/18 22:00 10/08/18 22:53 Temperature Pulse Rate 107 H 95 H Respiratory Rate 34 H 20 18 Blood Pressure 129/70 117/70 Pulse Oximetry 88 L 91 L 10/08/18 23:00 10/08/18 23:01 10/09/18 00:00 Temperature Pulse Rate 81 86 72 Respiratory Rate 17 18 16 Blood Pressure 124/69 121/71 Pulse Oximetry 94 L 95 94 L 10/09/18 01:00 10/09/18 02:00 10/09/18 02:01 Temperature Pulse Rate 78 82 81 Respiratory Rate 23 22 23 Blood Pressure 112/61 132/83 Pulse Oximetry 93 L 90 L 90 L 10/09/18 03:00 10/09/18 04:00 10/09/18 04:01 Temperature 98.1 F Pulse Rate 72 79 85 Respiratory Rate 14 20 25 H Blood Pressure 135/72 130/64 Pulse Oximetry 88 L 94 L 94 L 10/09/18 05:00 10/09/18 06:00 10/09/18 06:01 Temperature Pulse Rate 73 69 70 Respiratory Rate 20 33 H 32 H Blood Pressure 135/75 136/70 Pulse Oximetry 91 L 92 L 95 10/09/18 07:31 Temperature Pulse Rate 61 Respiratory Rate 15 Blood Pressure Pulse Oximetry 95 Intake & Output 10/08/18 10/09/18 10/09/18 18:59 06:59 18:59 Intake Total 1600 / 1600 100 / 100 250 / 250 Output Total 1400 / 1400 500 / 500 Balance 200 / 200 -400 / -400 250 / 250 Weight 95.1 kg Intake: IV 700 / 700 100 / 100 250 / 250 Heparin/D5W 25,000 U/250 mL 25, 250 / 250 250 / 250 000 unit In 250 ml @ Per Protocol IV.CONT TITRATE PRN Rx #:[id number] Azithromycin Inj 250 MG In NS 250 / 250 Inj 250 ML @ 250 mls/hr IV.SIG Q24H ANAT Rx#:[id number] KCl 20 mEq Premix Inj 20 meq In 100 / 100 100 ml @ 50 mls/hr IV.SIG Q2H PRN Rx#:[id number] Rocephin Inj 1,000 MG In NS Inj 100 / 100 100 / 100 100 ML @ 200 mls/hr IV.SIG Q12H ANAT Rx#:[id number] Oral 900 / 900 Output: Urine 1400 / 1400 500 / 500 Other: Date of Last Bowel Movement 10/07/18 10/07/18 - Constitutional mild distress, obese - Routine HEENT Exam Head: Present: normocephalic, atraumatic Eye: Present: EOMI, PERRL, normal accommodation, conjunctivae pink ENT: Present: mucous membranes moist - Routine Neck Exam Present: supple, full ROM, trachea midline - Routine Respiratory Exam Present: CTA bilaterally - Routine Cardiovascular Exam Present: RRR, S1, S2 - Routine Abdominal Exam Present: soft, normoactive bowel sounds - Routine Extremities Exam Present: full ROM, pulses intact - Routine Skin Exam Present: intact - Routine Neurological Exam Present: alert, oriented X3, CN II-XII intact Assessment and Plan - Assessment (1) Pulmonary embolism Code(s): I26.99 - Other pulmonary embolism without acute cor pulmonale Status : Acute Qualifiers: Pulmonary embolism type: other Chronicity: acute Acute cor pulmonale presence: without acute cor pulmonale Qualified Code(s): I26.99 - Other pulmonary embolism without acute cor pulmonale (2) COPD exacerbation Code(s): J44.1 - Chronic obstructive pulmonary disease with (acute) exacerbation Status: Acute (3) Tobacco abuse Code(s): Z72.0 - Tobacco use Status: Chronic (4) H/O deep venous thrombosis Code(s): Z86.718 - Personal history of other venous thrombosis and embolism Status: Chronic (5) Hypoxia Code(s): R09.02 - Hypoxemia Status: Acute (6) Pneumonia Code(s): J18.9 - Pneumonia, unspecified organism Status: Acute Qualifiers: Pneumonia type: due to unspecified organism Laterality: bilateral Lung location: unspecified part of lung Qualified Code(s): J18.9 - Pneumonia, unspecified organism (7) Obesity Code(s): E66.9 - Obesity, unspecified Status: Chronic Qualifiers: Body mass index: BMI 34.0-34.9 (8) Anxiety Code(s): F41.9 - Anxiety disorder, unspecified Status: Chronic (9) Hypokalemia Code(s): E87.6 - Hypokalemia Status: Acute (10) Pulmonary nodules Code(s): R91.8 - Other nonspecific abnormal finding of lung field Status: Acute (11) Lymphadenopathy, hilar Code(s): R59.0 - Localized enlarged lymph nodes Status: Acute (12) CAD (coronary artery disease) Code(s): I25.10 - Atherosclerotic heart disease of [place] coronary artery without angina pectoris Status: Chronic (13) Hx of CABG Code(s): Z95.1 - Presence of aortocoronary bypass graft Status: Chronic (14) HLD (hyperlipidemia) Code(s): E78.5 - Hyperlipidemia, unspecified Status: Chronic (15) HTN (hypertension) Code(s): I10 - Essential (primary) hypertension Status: Chronic - Plan 1. Acute hypoxemic respiratory insufficiency. 2. Small bilateral pulmonary emboli. 3. Bilateral hilar lymphadenopathy and pretracheal mediastinal adenopathy, ddx: sarcoidosis, postreactive adenopathy or a neoplastic process, doubt. 4. Bilateral upper lobe noncalcified pulmonary nodules. 5. Leukocytosis, 6. COPD 7. Hypertension. 8. CAD/CABG 9. Hyperlipidemia. RECOMMENDATIONS: Continue to wean down oxygen as tolerated and maintain sats >92%. Bronchodilators ( DuoNeb, Symbicort) Solu-Medrol 60 mg IV q. 8. BiPAP p.r.n. for respiratory distress. Continue abx ( Rocephin, Zithromax). 10/08 Strep pneumonia, legionella urinary Ag, and influenza screening all negative. 10/07 Sputum cx: Normal resp hawa Continue with heparin drip and monitor PTT per protocol. Doppler US LE negative for DVT Echocardiogram showed EF of 40% to 45%. Diurese with Lasix 40mg x1 Once her respiratory status improves, the patient will need a lung biopsy, possible EBUS for a pathology diagnosis. Check MATI level, KAREN. PFT when more stable Sleep study as outpatient to rule out sleep apnea. Continue treatment plan
--- NOTE | 2018-10-09 14:03 | P.PNCC ---
Subjective Subjective Remarks/Hospital Course: Hospital Course: 48-year-old female with past medical history of coronary artery disease status post CABG (06/2017), hyperlipidemia, hypertension, COPD, tobacco abuse who presents to [facility] emergency department with 2-week history of shortness of breath. She states she has also had a cough productive of green sputum. She has pleuritic pain in her right lower anterior and posterior thorax. No fever. She was recently admitted 09/29/18 after she presented with exertional shortness of breath and wheezing. She was treated with nebs and steroids but left AGAINST MEDICAL ADVICE within 24 hours. On that occasion her d-dimer was negative. Today her ED workup included CT pulmonary angiogram which demonstrated small bilateral lower lobe pulmonary emboli. She has bilateral hilar and pretracheal lymphadenopathy. There is alveolar consolidation in the right middle lobe and lingula which is consistent with atelectasis versus pneumonia. Sarcoidosis is also a consideration, as well as reactive/neoplastic lymphadenopathy. S In the ED she was started on heparin drip, given saline 1 L bolus, Solu-Medrol 125 mg IV, cefepime 2 g IV, azithromycin 500 mg IV, albuterol x2. Denies leg pain or swelling currently. She states she was diagnosed with a RLE DVT on outpatient ultrasound the end of 2016 which was provoked by her CABG. She was on DAPT but not on anticoagulation following the diagnosis. She had a right femoral DVT 07/31/18 which was diagnosed in the ED. She left AMA on that occasion as well. She was not on anticoagulation. She has recently taken multiple long car rides to [place], etc over the course of the summer. Subjective: 10/08: remains on HFNC. still complaints of dyspnea. on heparin infusion. mivf discontinued. blood pressure and HR stable. denies other complaints. ROS negative except for cough and dyspnea. 10/09: Continues on high flow nasal cannula at 55% currently being weaned down to 50% with O2 saturation of 95% peer patient is tolerating diet and scheduled nebs continue the patient continues to complain of shortness of breath. WBC count elevated possibly secondary to leukemoid reaction, as steroids dosage were increased. Objective Vital Signs / I&O: Vital Signs 10/08/18 14:00 10/08/18 15:00 10/08/18 16:00 Temperature Pulse Rate 83 99 H 89 Respiratory Rate 23 40 H 19 Blood Pressure 114/83 134/69 Pulse Oximetry 91 L 94 L 95 10/08/18 16:01 10/08/18 17:00 10/08/18 17:01 Temperature 98.7 F Pulse Rate 90 73 72 Respiratory Rate 19 20 21 Blood Pressure 95/71 L 111/68 Pulse Oximetry 94 L 93 L 93 L 10/08/18 18:00 10/08/18 19:00 10/08/18 19:53 Temperature Pulse Rate 82 83 103 H Respiratory Rate 22 25 H 21 Blood Pressure 118/73 118/71 Pulse Oximetry 95 89 L 95 10/08/18 20:00 10/08/18 21:00 10/08/18 21:01 Temperature 98.3 F Pulse Rate 86 114 H 107 H Respiratory Rate 44 H 46 H 34 H Blood Pressure 121/58 L 129/70 Pulse Oximetry 92 L 91 L 88 L 10/08/18 22:00 10/08/18 22:53 10/08/18 23:00 Temperature Pulse Rate 95 H 81 Respiratory Rate 20 18 17 Blood Pressure 117/70 Pulse Oximetry 91 L 94 L 10/08/18 23:01 10/09/18 00:00 10/09/18 01:00 Temperature Pulse Rate 86 72 78 Respiratory Rate 18 16 23 Blood Pressure 124/69 121/71 112/61 Pulse Oximetry 95 94 L 93 L 10/09/18 02:00 10/09/18 02:01 10/09/18 03:00 Temperature Pulse Rate 82 81 72 Respiratory Rate 22 23 14 Blood Pressure 132/83 135/72 Pulse Oximetry 90 L 90 L 88 L 10/09/18 04:00 10/09/18 04:01 10/09/18 05:00 Temperature 98.1 F Pulse Rate 79 85 73 Respiratory Rate 20 25 H 20 Blood Pressure 130/64 135/75 Pulse Oximetry 94 L 94 L 91 L 10/09/18 06:00 10/09/18 06:01 10/09/18 07:00 Temperature Pulse Rate 69 70 66 Respiratory Rate 33 H 32 H 17 Blood Pressure 136/70 Pulse Oximetry 92 L 95 95 10/09/18 07:01 10/09/18 07:31 10/09/18 08:00 Temperature 98.0 F Pulse Rate 66 61 66 Respiratory Rate 19 15 18 Blood Pressure 139/71 134/74 Pulse Oximetry 95 95 95 10/09/18 09:00 10/09/18 09:01 10/09/18 10:00 Temperature Pulse Rate 68 70 103 H Respiratory Rate 17 19 18 Blood Pressure 129/71 Pulse Oximetry 95 94 L 88 L 10/09/18 10:10 10/09/18 11:00 10/09/18 11:01 Temperature Pulse Rate 107 H 68 69 Respiratory Rate 38 H 22 23 Blood Pressure 145/80 H 119/67 Pulse Oximetry 83 L 90 L 81 L 10/09/18 12:00 Temperature Pulse Rate 63 Respiratory Rate 15 Blood Pressure 129/70 Pulse Oximetry 99 Intake & Output 10/08/18 10/09/18 10/09/18 18:59 06:59 18:59 Intake Total 1600 / 1600 100 / 100 250 / 250 Output Total 1400 / 1400 500 / 500 Balance 200 / 200 -400 / -400 250 / 250 Weight 95.1 kg Intake: IV 700 / 700 100 / 100 250 / 250 Heparin/D5W 25,000 U/250 mL 25, 250 / 250 250 / 250 000 unit In 250 ml @ Per Protocol IV.CONT TITRATE PRN Rx #:[id number] Azithromycin Inj 250 MG In NS 250 / 250 Inj 250 ML @ 250 mls/hr IV.SIG Q24H ANAT Rx#:[id number] KCl 20 mEq Premix Inj 20 meq In 100 / 100 100 ml @ 50 mls/hr IV.SIG Q2H PRN Rx#:[id number] Rocephin Inj 1,000 MG In NS Inj 100 / 100 100 / 100 100 ML @ 200 mls/hr IV.SIG Q12H ANAT Rx#:[id number] Oral 900 / 900 Output: Urine 1400 / 1400 500 / 500 Other: Date of Last Bowel Movement 10/07/18 10/07/18 10/07/18 Result Diagrams: 10/09/18 05:33 10/09/18 05:33 Objective Remarks: GENERAL: Middle-aged female who appears slightly older than stated age, lying in bed, high flow nasal cannula, in no acute HEENT: Normocephalic. Atraumatic. Pupils equal, round, reactive, conjugate. Mucous membranes are moist NECK: Trachea is midline. There is no JVD. CHEST: Equal chest rise. High flow nasal cannula, FiO2 50%, 30 L/min. Slightly tachypneic. Using slight accessory muscles. Able to talk in short sentences. CARDIOVASCULAR: Normal rate, regular rhythm. Sinus. ABDOMEN: Soft, nontender, nondistended. No guarding. MUSCULOSKELETAL: Pulses 2+. No peripheral edema. NEUROLOGICAL: RASS 0. GCS 15. Follows commands. Moves all extremities. No focal deficits. Assessment and Plan - Problem List (1) Pulmonary embolism Code(s): I26.99 - Other pulmonary embolism without acute cor pulmonale Status : Acute (2) COPD exacerbation Code(s): J44.1 - Chronic obstructive pulmonary disease with (acute) exacerbation Status: Acute (3) Tobacco abuse Code(s): Z72.0 - Tobacco use Status: Chronic (4) H/O deep venous thrombosis Code(s): Z86.718 - Personal history of other venous thrombosis and embolism Status: Chronic (5) Hypoxia Code(s): R09.02 - Hypoxemia Status: Acute (6) Pneumonia Code(s): J18.9 - Pneumonia, unspecified organism Status: Acute (7) Obesity Code(s): E66.9 - Obesity, unspecified Status: Chronic (8) Anxiety Code(s): F41.9 - Anxiety disorder, unspecified Status: Chronic (9) Hypokalemia Code(s): E87.6 - Hypokalemia Status: Acute (10) Pulmonary nodules Code(s): R91.8 - Other nonspecific abnormal finding of lung field Status: Acute (11) Lymphadenopathy, hilar Code(s): R59.0 - Localized enlarged lymph nodes Status: Acute (12) CAD (coronary artery disease) Code(s): I25.10 - Atherosclerotic heart disease of [place] coronary artery without angina pectoris Status: Chronic (13) Hx of CABG Code(s): Z95.1 - Presence of aortocoronary bypass graft Status: Chronic (14) HLD (hyperlipidemia) Code(s): E78.5 - Hyperlipidemia, unspecified Status: Chronic (15) HTN (hypertension) Code(s): I10 - Essential (primary) hypertension Status: Chronic - Assessment and Plan Plan: NEURO: Depression Anxiety Pleuritic pain secondary to pulmonary embolism Lortab as needed for pain. Morphine as needed for breakthrough pain. Continue Xanax 0.25 mill grams p.o. twice daily Continue Paxil 40 mg p.o. daily RESP: Bilateral pulmonary embolism Hypoxia -on high flow nasal cannula COPD with acute exacerbation Tobacco abuse Pulmonary noduleswill require follow-up CT in 6 months. Bilateral hilar and pretracheal mediastinal lymphadenopathy and interstitial disease. Sarcoidosis is a consideration. Pulmonary consultation has been placed. Anticoagulation for pulmonary embolism as per below. Does not meet criteria for TPA Tobacco cessation counseling discussed Solu-Medrol 125 mg IV in the emergency department Continue Symbicort 160/4.52 puffs inhaled every 12 hours DuoNeb every 6 hours. Albuterol every 2 hours as needed. Abx as per below CV: Coronary artery disease Status post CABG July 2017 Hyperlipidemia -continue Lipitor 80 mg p.o. daily Hypertension Continue metoprolol 50 mg p.o. twice daily Troponin is negative. 2D echo 10/07/18mild concentric LVH. LVEF 40-45%. Pulmonary artery pressure 26 mmHg. Normal RV size and systolic function. Continue Plavix 5 mg p.o. daily. Will hold aspirin. GI: Obesity Cardiac diet FEN/RENAL: Hypokalemia Replace electrolytes as indicated per ICU electrolyte replacement protocol. Magnesium is normal. Renal function is normal. Voiding-no Guerrero indicated at this time ID: Received Cefepime 2 gram IV and Azithromycin 500 mg IV in the emergency department. She does have a productive cough and CT findings of alveolar consolidation in the right middle lobe and lingula. While these consolidations appear mild she does have lymphadenopathy which may also be reactive and therefore will provide a treatment course with antibiotics to determine if there is any resolution. Will continue Rocephin/azithromycin Follow-up blood culture sent 10/07. Check urine Legionella and pneumococcal antigens and influenza. She is concerned she may have a UTI based on flank pain. We will follow-up UA and culture. HEME: Bilateral pulmonary embolism History of DVT On heparin drip for acute management of pulmonary embolism. She is self-pay. Will need to be transitioned to oral anticoagulant. She states that she does not have any insurance and therefore warfarin remains more affordable (even with consideration of cost of labs). Will initiate warfarin now and discontinue heparin when INR therapeutic at 2-3. Daily INR ENDO: Glucose is at target. PROPH: On heparin drip for VTE treatment/prophylaxis. Famotidine for stress ulcer prophylaxis. ACCESS: Peripheral IV Full code Level 3 follow-up Discussed Condition With: Patient and NONPROFIT DIRECTOR at bedside (1) Pulmonary embolism Qualifiers: Pulmonary embolism type: other Chronicity: acute Acute cor pulmonale presence: without acute cor pulmonale Qualified Code(s): I26.99 - Other pulmonary embolism without acute cor pulmonale (6) Pneumonia Qualifiers: Pneumonia type: due to unspecified organism Laterality: bilateral Lung location: unspecified part of lung Qualified Code(s): J18.9 - Pneumonia, unspecified organism (7) Obesity Qualifiers: Body mass index: BMI 34.0-34.9
[2018-10-09] MEDS: Benzonatate 100 MG Capsule PO PRN ×2 (14:40→22:33)
[2018-10-09] MEDS: Azithromycin Inj 250 MG in Sodium Chlor 0.9% Inj 250 ML IV.SIG SCH (18:00)
[2018-10-10] MEDS: Insulin NovoLOG Aspart Correctional Sugar Inj SQ SCH ×5 (00:19→17:40)
[2018-10-10] MEDS: MethylPREDNISolone Sod Succinate Inj 125 MG/2 ML Vial IV.PUSH SCH ×3 (02:27→18:08)
[2018-10-10] MEDS: Chlorhexidine Gluconate 2% 1 Pack (2 Cloths) TOPICAL SCH (03:56)
[2018-10-10] MEDS: Heparin Drip 25,000 UNIT/250 ML BAG IV.CONT PRN (04:31)
[2018-10-10 06:22] LABS: Baso % (Auto) 0.1 % (0.0-2.0); Hematocrit 33.3 % (35.0-46.0); Hemoglobin 11.7 gm/dL (11.6-15.3); Lymph # (Auto) 1.9 th/mm3 (1.0-4.8); Lymph % (Auto) 9.8 % (9.0-44.0); Mean Corpuscular HGB Conc 35.1 % (32.0-36.0); Mean Corpuscular Hemoglobin 33.9 pg (27.0-34.0); Mean Corpuscular Volume 96.4 fL (80.0-100.0); Mean Platelet Volume 7.8 fL (7.0-11.0); Mono # (Auto) 1.1 th/mm3 (0.0-0.9); Mono % (Auto) 5.9 % (0.0-8.0); Neut # (Auto) 16.5 th/mm3 (1.8-7.7); Neut % (Auto) 84.2 % (16.0-70.0); Platelet Count 428 th/mm3 (150-450); Red Blood Count 3.45 mil/mm3 (4.00-5.30); Red Cell Distribution Width 13.3 % (11.6-17.2); White Blood Count 19.6 th/mm3 (4.0-11.0)
[2018-10-10 06:25] LABS: Activated Partial Thrombo Time 67.4 sec (23.4-31.7); INR 2.3 Ratio; Prothrombin Time 23.7 sec (9.8-11.6)
[2018-10-10 06:38] LABS: Anion Gap 8 meq/L (5-15); Blood Urea Nitrogen 17 mg/dL (7-18); Calcium 9.4 mg/dL (8.5-10.1); Carbon Dioxide 30.1 meq/L (21.0-32.0); Chloride 98 meq/L (98-107); Glomerular Filtration Rate Greater Than 89 mL/min (>89); Glucose,Random 139 mg/dL (74-106); Potassium 3.9 meq/L (3.5-5.1); Sodium 136 meq/L (136-145)
[2018-10-10 08:02] LABS: Lymphocytes 12 % (9-44); Monocytes 3 % (0-8); Myelocytes 2 % (0-0); Plasma Cells 1 % (0-0); Platelet Morphology Normal (Normal); Promyelocyte 1 % (0-0); Toxic Granulation 1+
[2018-10-10] MEDS: ALPRAZolam 0.25 MG Tablet PO SCH ×2 (08:20→21:02)
[2018-10-10] MEDS: Famotidine 20 MG Tablet PO SCH ×2 (08:20→20:46)
[2018-10-10] MEDS: Senna/Docusate Sodium 8.6/50 MG Tablet PO SCH ×2 (08:20→20:44)
[2018-10-10] MEDS: Metoprolol Tartrate 50 MG Tablet PO SCH ×2 (08:22→20:45)
[2018-10-10] MEDS: Budesonide-Formoterol 160/4.5 MCG 6 GM Inhaler INH SCH ×2 (08:22→20:43)
[2018-10-10] MEDS: Benzonatate 100 MG Capsule PO PRN ×2 (08:27→16:40)
[2018-10-10] MEDS ORDERED: Warfarin Consult Pharmacy OTHER PRN (08:57)
--- NOTE | 2018-10-10 09:22 | P.PNCC ---
Subjective Subjective Remarks/Hospital Course: Hospital Course: 48-year-old female with past medical history of coronary artery disease status post CABG (06/2017), hyperlipidemia, hypertension, COPD, tobacco abuse who presents to [facility] emergency department with 2-week history of shortness of breath. She states she has also had a cough productive of green sputum. She has pleuritic pain in her right lower anterior and posterior thorax. No fever. She was recently admitted 09/29/18 after she presented with exertional shortness of breath and wheezing. She was treated with nebs and steroids but left AGAINST MEDICAL ADVICE within 24 hours. On that occasion her d-dimer was negative. Today her ED workup included CT pulmonary angiogram which demonstrated small bilateral lower lobe pulmonary emboli. She has bilateral hilar and pretracheal lymphadenopathy. There is alveolar consolidation in the right middle lobe and lingula which is consistent with atelectasis versus pneumonia. Sarcoidosis is also a consideration, as well as reactive/neoplastic lymphadenopathy. S In the ED she was started on heparin drip, given saline 1 L bolus, Solu-Medrol 125 mg IV, cefepime 2 g IV, azithromycin 500 mg IV, albuterol x2. Denies leg pain or swelling currently. She states she was diagnosed with a RLE DVT on outpatient ultrasound the end of 2016 which was provoked by her CABG. She was on DAPT but not on anticoagulation following the diagnosis. She had a right femoral DVT 07/31/18 which was diagnosed in the ED. She left AMA on that occasion as well. She was not on anticoagulation. She has recently taken multiple long car rides to [place], etc over the course of the summer. Subjective: 10/08: remains on HFNC. still complaints of dyspnea. on heparin infusion. mivf discontinued. blood pressure and HR stable. denies other complaints. ROS negative except for cough and dyspnea. 10/09: Continues on high flow nasal cannula at 55% currently being weaned down to 50% with O2 saturation of 95% peer patient is tolerating diet and scheduled nebs continue the patient continues to complain of shortness of breath. WBC count elevated possibly secondary to leukemoid reaction, as steroids dosage were increased. 10/10: The patient was noted to desaturate early this a.m. to O2 sat at 89% on 6 L per the patient now remains on high flow at 50% at 30 L. Patient encouraged to utilize incentive spirometry every hour while awake. Patient tolerating diet. INR therapeutic at 2.3 the patient has already been transition to Coumadin, Heparin infusion now discontinued. Leukocytosis resolving. Objective Vital Signs / I&O: Vital Signs 10/09/18 10:00 10/09/18 10:10 10/09/18 11:00 Temperature Pulse Rate 103 H 107 H 68 Respiratory Rate 18 38 H 22 Blood Pressure 145/80 H Pulse Oximetry 88 L 83 L 90 L 10/09/18 11:01 10/09/18 12:00 10/09/18 13:00 Temperature Pulse Rate 69 63 78 Respiratory Rate 23 15 29 H Blood Pressure 119/67 129/70 136/58 L Pulse Oximetry 81 L 99 87 L 10/09/18 14:00 10/09/18 14:01 10/09/18 15:00 Temperature Pulse Rate 74 64 72 Respiratory Rate 35 H 25 H 39 H Blood Pressure 115/63 118/65 Pulse Oximetry 91 L 90 L 90 L 10/09/18 15:11 10/09/18 16:00 10/09/18 17:00 Temperature 98.1 F Pulse Rate 77 75 Respiratory Rate 21 22 Blood Pressure 115/55 L 124/67 Pulse Oximetry 93 L 93 L 90 L 10/09/18 18:00 10/09/18 18:01 10/09/18 19:00 Temperature Pulse Rate 67 82 71 Respiratory Rate 20 21 23 Blood Pressure 118/68 115/65 Pulse Oximetry 90 L 90 L 91 L 10/09/18 19:28 10/09/18 20:00 10/09/18 21:00 Temperature 97.9 F Pulse Rate 73 82 68 Respiratory Rate 18 23 21 Blood Pressure 120/71 Pulse Oximetry 92 L 88 L 91 L 10/09/18 21:01 10/09/18 22:00 10/09/18 22:01 Temperature Pulse Rate 68 93 H 78 Respiratory Rate 22 26 H 25 H Blood Pressure 138/65 121/64 Pulse Oximetry 91 L 93 L 89 L 10/09/18 23:00 10/10/18 00:00 10/10/18 00:34 Temperature 97.9 F Pulse Rate 62 63 65 Respiratory Rate 26 H 23 20 Blood Pressure 117/67 124/72 Pulse Oximetry 93 L 94 L 10/10/18 01:00 10/10/18 02:00 10/10/18 03:00 Temperature Pulse Rate 62 74 63 Respiratory Rate 21 26 H 23 Blood Pressure 140/75 143/83 H Pulse Oximetry 93 L 92 L 90 L 10/10/18 03:01 10/10/18 04:00 10/10/18 04:27 Temperature 98.1 F Pulse Rate 64 89 62 Respiratory Rate 22 25 H 22 Blood Pressure 125/64 135/79 Pulse Oximetry 91 L 91 L 10/10/18 06:00 10/10/18 07:56 10/10/18 08:35 Temperature Pulse Rate 65 75 Respiratory Rate 27 H Blood Pressure Pulse Oximetry 93 L Intake & Output 10/09/18 10/10/18 10/10/18 18:59 06:59 18:59 Intake Total 1550 / 1550 1000 / 1000 Output Total 1999 1650 / 1650 Balance -450 / -450 -650 / -650 Weight 92.5 kg Intake: IV 350 / 350 600 / 600 Heparin/D5W 25,000 U/250 mL 25, 250 / 250 250 / 250 000 unit In 250 ml @ Per Protocol IV.CONT TITRATE PRN Rx #:[id number] Azithromycin Inj 250 MG In NS 250 / 250 Inj 250 ML @ 250 mls/hr IV.SIG Q24H ANAT Rx#:[id number] Rocephin Inj 1,000 MG In NS Inj 100 / 100 100 / 100 100 ML @ 200 mls/hr IV.SIG Q12H ANAT Rx#:[id number] Oral 1200 / 1200 400 / 400 Output: Urine 1999 1650 / 1650 Other: # Voids 3 Date of Last Bowel Movement 10/07/18 10/07/18 Result Diagrams: 10/10/18 05:36 10/10/18 05:36 Other Results: Laboratory Results WBC 19.6 th/mm3 (4.0-11.0) H 10/10/18 05:36 RBC 3.45 mil/mm3 (4.00-5.30) L 10/10/18 05:36 Hgb 11.7 gm/dL (11.6-15.3) 10/10/18 05:36 Hct 33.3 % (35.0-46.0) L 10/10/18 05:36 MCV 96.4 fL (80.0-100.0) D 10/10/18 05:36 MCH 33.9 pg (27.0-34.0) 10/10/18 05:36 MCHC 35.1 % (32.0-36.0) 10/10/18 05:36 RDW 13.3 % (11.6-17.2) 10/10/18 05:36 Plt Count 428 th/mm3 (150-450) 10/10/18 05:36 MPV 7.8 fL (7.0-11.0) 10/10/18 05:36 Prelim Diff (Auto) Slide review pending 10/10/18 05:36 Neut % (Auto) 84.2 % (16.0-70.0) H 10/10/18 05:36 Lymph % (Auto) 9.8 % (9.0-44.0) 10/10/18 05:36 [place] % (Auto) 5.9 % (0.0-8.0) 10/10/18 05:36 Eos % (Auto) 0.0 % (0.0-4.0) 10/10/18 05:36 Baso % (Auto) 0.1 % (0.0-2.0) 10/10/18 05:36 Neut # (Auto) 16.5 th/mm3 (1.8-7.7) H 10/10/18 05:36 Lymph # (Auto) 1.9 th/mm3 (1.0-4.8) 10/10/18 05:36 [place] # (Auto) 1.1 th/mm3 (0.0-0.9) H 10/10/18 05:36 Eos # (Auto) 0.0 th/mm3 (0.0-0.4) 10/10/18 05:36 Baso # (Auto) 0.0 th/mm3 (0.0-0.2) 10/10/18 05:36 WBC Differential Manual diff final 10/10/18 05:36 Seg Neuts % (Manual) 81 % (16-70) H 10/10/18 05:36 Lymphocytes % (Manual) 12 % (9-44) 10/10/18 05:36 Monocytes % (Manual) 3 % (0-8) 10/10/18 05:36 Myelocytes % (Man) 2 % (0-0) H 10/10/18 05:36 Promyelocytes % (Man) 1 % (0-0) H 10/10/18 05:36 Plasma Cell % (Manual) 1 % (0-0) H 10/10/18 05:36 Abs Neuts (Manual) 16.5 th/mm3 (1.8-7.7) H 10/10/18 05:36 Differential Comment . 10/10/18 05:36 Toxic Granulation 1+ (None) H 10/10/18 05:36 Platelet Estimate High (Normal) H 10/10/18 05:36 Platelet Morphology Normal (Normal) 10/10/18 05:36 Basophilic Stippling Faint (None) H 10/10/18 05:36 PT 23.7 sec (9.8-11.6) H 10/10/18 05:36 INR 2.3 Ratio 10/10/18 05:36 APTT 67.4 sec (23.4-31.7) H 10/10/18 05:36 Puncture Site Right radial 10/07/18 15:29 Patient Temperature 98.6 10/07/18 15:29 O2 Saturation 89 % (90-100) L* 10/07/18 15:29 ABG pH 7.47 (7.380-7.420) H 10/07/18 15:29 ABG pCO2 34 mmHg (38-42) L 10/07/18 15:29 ABG pO2 62 mmHg (61-120) 10/07/18 15:29 ABG HCO3 25 mmol/L (22-26) 10/07/18 15:29 ABG O2 Content 16.2 Vol % (12.0-20.0) 10/07/18 15:29 ABG Base Excess 1.2 mmol/L (-2-2) 10/07/18 15:29 ABG Methemoglobin 0.7 % (0-2) 10/07/18 15:29 Fred Test Present 10/07/18 15:29 Hemoglobin 12.9 G/DL (12.0-16.0) 10/07/18 15:29 Carboxyhemoglobin 2.0 % (0-4) 10/07/18 15:29 O2 Delivery Device Nasal cannula 10/07/18 15:29 Liter Flow 6.00 L/M 10/07/18 15:29 Critical Value Yes 10/07/18 15:29 Sodium 136 meq/L (136-145) 10/10/18 05:36 Potassium 3.9 meq/L (3.5-5.1) 10/10/18 05:36 Chloride 98 meq/L (98-107) 10/10/18 05:36 Carbon Dioxide 30.1 meq/L (21.0-32.0) 10/10/18 05:36 Anion Gap 8 meq/L (5-15) 10/10/18 05:36 BUN 17 mg/dL (7-18) 10/10/18 05:36 Creatinine 0.56 mg/dL (0.50-1.00) 10/10/18 05:36 Estimated GFR Greater than 89 mL/min (>89) 10/10/18 05:36 POC Glucose 130 mg/dl (68-110) H 10/10/18 00:00 Random Glucose 139 mg/dL (74-106) H 10/10/18 05:36 Lactic Acid 2.1 mmol/L (0.4-2.0) H 10/08/18 06:49 Calcium 9.4 mg/dL (8.5-10.1) 10/10/18 05:36 Phosphorus 3.0 mg/dL (2.5-4.9) 10/09/18 05:33 Magnesium 2.1 mg/dL (1.5-2.5) 10/09/18 05:33 Total Bilirubin 1.0 mg/dL (0.2-1.0) 10/08/18 06:49 AST 35 U/L (15-37) 10/08/18 06:49 ALT 47 U/L (10-53) 10/08/18 06:49 Alkaline Phosphatase 198 U/L (45-117) H 10/08/18 06:49 Total Creatine Kinase 282 U/L (26-192) H 10/07/18 16:21 CK-MB (CK-2) 1.7 ng/mL (0.5-3.6) 10/07/18 16:21 CK-MB (CK-2) % 0.6 % (0.0-4.0) 10/07/18 16:21 Troponin I Less than 0.02 ng/mL (0.02-0.05) L 10/07/18 16:21 B-Natriuretic Peptide 35 pg/mL (0-100) 10/07/18 15:18 Total Protein 7.7 g/dL (6.4-8.2) 10/08/18 06:49 Albumin 2.6 g/dL (3.4-5.0) L 10/08/18 06:49 Beta HCG, Quant 1 mIU/mL (0-5) 10/07/18 16:21 Urine Color Yellow (Yellw/Straw) 10/08/18 12:20 Urine Clarity Clear (Clear) 10/08/18 12:20 Urine pH 6.0 (5.0-8.5) 10/08/18 12:20 Ur Specific [place] 1.028 (1.002-1.035) 10/08/18 12:20 Urine Protein 30 mg/dL (Neg-Trace) H 10/08/18 12:20 Urine Glucose (UA) Negative mg/dL (Negative) 10/08/18 12:20 Urine Ketones Negative mg/dL (Negative) 10/08/18 12:20 Urine Occult Blood Negative (Negative) 10/08/18 12:20 Urine Nitrate Negative (Negative) 10/08/18 12:20 Urine Bilirubin Negative (Negative) 10/08/18 12:20 Urine Urobilinogen Less than 2 mg/dL (Less than 2) 10/08/18 12:20 Ur Leukocyte Esterase Negative (Negative) 10/08/18 12:20 Urine WBC 1 /hpf (0-5) 10/08/18 12:20 Ur Squamous Epith Cells 1 /hpf (0-5) 10/08/18 12:20 Urine Mucus Few /lpf (Occasional) H 10/08/18 12:20 Micro UA Comment Culture not ind 10/08/18 12:20 Ur Microscopic Review Not Reportable 10/08/18 12:20 Urine Culture Comments Culture not ind 10/08/18 12:20 Nasal Screen MRSA (PCR) Not detected (Negative) 10/07/18 18:00 KAREN Screen Neg (Neg) 10/08/18 15:42 Impressions Chest CTA 10/07/18 14:55 CONCLUSION: 1. Small lower lobe pulmonary emboli are noted bilaterally. 2. Bilateral hilar lymphadenopathy is noted. Pretracheal mediastinal lymphadenopathy is also noted. Diffuse increased interstitial markings are noted bilaterally. The combination of diffuse interstitial disease as well as the hilar and mediastinal lymphadenopathy raising possibility of sarcoidosis. Clinical correlation is recommended. Post reactive and neoplastic lymphadenopathy are also in the differential. 3. Scattered noncalcified nodules within the upper lung wiley bilaterally with the largest 2 on the left measuring 8 and 6 mm and the largest on the right measuring 5 mm. These are nonspecific. Follow-up CT of the chest in 6 months would be helpful to confirm stability of the nodules. 4. Degenerative changes and scoliosis of the thoracic spine are noted. 5. Minimal focal alveolar consolidation is noted within the right middle lobe and within the lingula of the left upper lobe consistent with probable atelectasis and/or mild pneumonia. 6. Enlarged fatty liver. Venous Doppler Study 10/08/18 00:00 CONCLUSION: 1. The study is negative for bilateral lower extremity deep venous thrombosis. Chest X-Ray 10/09/18 04:00 CONCLUSION: 1. Persistent interstitial edema with improving aeration in the lower lung zones. Objective Remarks: GENERAL: Middle-aged female who appears slightly older than stated age, lying in bed, high flow nasal cannula, in no acute HEENT: Normocephalic. Atraumatic. Pupils equal, round, reactive, conjugate. Mucous membranes are moist NECK: Trachea is midline. There is no JVD. CHEST: Equal chest rise. High flow nasal cannula, FiO2 50%, 30 L/min. Slightly tachypneic. Using slight accessory muscles. Able to talk in short sentences. CARDIOVASCULAR: Normal rate, regular rhythm. Sinus. ABDOMEN: Soft, nontender, nondistended. No guarding. MUSCULOSKELETAL: Pulses 2+. No peripheral edema. NEUROLOGICAL: RASS 0. GCS 15. Follows commands. Moves all extremities. No focal deficits. Assessment and Plan - Problem List (1) Pulmonary embolism Code(s): I26.99 - Other pulmonary embolism without acute cor pulmonale Status : Acute (2) COPD exacerbation Code(s): J44.1 - Chronic obstructive pulmonary disease with (acute) exacerbation Status: Acute (3) Tobacco abuse Code(s): Z72.0 - Tobacco use Status: Chronic (4) H/O deep venous thrombosis Code(s): Z86.718 - Personal history of other venous thrombosis and embolism Status: Chronic (5) Hypoxia Code(s): R09.02 - Hypoxemia Status: Acute (6) Pneumonia Code(s): J18.9 - Pneumonia, unspecified organism Status: Acute (7) Obesity Code(s): E66.9 - Obesity, unspecified Status: Chronic (8) Anxiety Code(s): F41.9 - Anxiety disorder, unspecified Status: Chronic (9) Hypokalemia Code(s): E87.6 - Hypokalemia Status: Acute (10) Pulmonary nodules Code(s): R91.8 - Other nonspecific abnormal finding of lung field Status: Acute (11) Lymphadenopathy, hilar Code(s): R59.0 - Localized enlarged lymph nodes Status: Acute (12) CAD (coronary artery disease) Code(s): I25.10 - Atherosclerotic heart disease of [place] coronary artery without angina pectoris Status: Chronic (13) Hx of CABG Code(s): Z95.1 - Presence of aortocoronary bypass graft Status: Chronic (14) HLD (hyperlipidemia) Code(s): E78.5 - Hyperlipidemia, unspecified Status: Chronic (15) HTN (hypertension) Code(s): I10 - Essential (primary) hypertension Status: Chronic - Assessment and Plan Plan: NEURO: Depression Anxiety Pleuritic pain secondary to pulmonary embolism Lortab as needed for pain. Morphine as needed for breakthrough pain. Continue Xanax 0.25 mill grams p.o. twice daily Continue Paxil 40 mg p.o. daily RESP: Bilateral pulmonary embolism Hypoxia -on high flow nasal cannula COPD with acute exacerbation Tobacco use disorder Pulmonary noduleswill require follow-up CT in 6 months. Bilateral hilar and pretracheal mediastinal lymphadenopathy and interstitial disease. Sarcoidosis is a consideration. Pulmonary consultation has been placed. Anticoagulation for pulmonary embolism as per below. Does not meet criteria for TPA Tobacco cessation counseling discussed Solu-Medrol 125 mg IV in the emergency department Continue Symbicort 160/4.52 puffs inhaled every 12 hours DuoNeb every 6 hours. Albuterol every 2 hours as needed. Abx as per below CV: Coronary artery disease Status post CABG July 2017 Hyperlipidemia -continue Lipitor 80 mg p.o. daily Hypertension Continue metoprolol 50 mg p.o. twice daily Troponin is negative. 2D echo 10/07/18mild concentric LVH. LVEF 40-45%. Pulmonary artery pressure 26 mmHg. Normal RV size and systolic function. Continue Plavix 5 mg p.o. daily. Will hold aspirin. GI: Obesity Cardiac diet FEN/RENAL: Hypokalemia Replace electrolytes as indicated per ICU electrolyte replacement protocol. Magnesium is normal. Renal function is normal. Voiding-no Guerrero indicated at this time ID: Leukocytosis Received Cefepime 2 gram IV and Azithromycin 500 mg IV in the emergency department. She does have a productive cough and CT findings of alveolar consolidation in the right middle lobe and lingula. While these consolidations appear mild she does have lymphadenopathy which may also be reactive and therefore will provide a treatment course with antibiotics to determine if there is any resolution. Rocephin/azithromycin (day 3) blood culture sent 10/07 NGTD Urine Legionella and pneumococcal antigens and influenza-NGTD She is concerned she may have a UTI based on flank pain. UA pending HEME: Bilateral pulmonary embolism History of DVT On heparin drip for acute management of pulmonary embolism. She is self-pay. Will need to be transitioned to oral anticoagulant. She states that she does not have any insurance and therefore warfarin remains more affordable (even with consideration of cost of labs). Will initiate warfarin now and discontinue heparin when INR therapeutic at 2-3. 10/10 Transition Coumadin, Pharmacy consult, INR 2.3 Daily INR ENDO: Close monitoring per ICU protocol SSI PROPH: On heparin drip for VTE treatment/prophylaxis. Transition to Coumadin today Famotidine for stress ulcer prophylaxis. ACCESS: Peripheral IV providing adequate access at this time Full code Level 3 follow-up Code Status: Full Discussed Condition With: Patient and [employer]ABLE [employer] TE[employer] at bedside (1) Pulmonary embolism Qualifiers: Pulmonary embolism type: other Chronicity: acute Acute cor pulmonale presence: without acute cor pulmonale Qualified Code(s): I26.99 - Other pulmonary embolism without acute cor pulmonale (6) Pneumonia Qualifiers: Pneumonia type: due to unspecified organism Laterality: bilateral Lung location: unspecified part of lung Qualified Code(s): J18.9 - Pneumonia, unspecified organism (7) Obesity Qualifiers: Body mass index: BMI 34.0-34.9
--- NOTE | 2018-10-10 10:55 | P.PNPL ---
Subjective Interval history: Patient is awake and alert. Remains on high flow oxygen with 55% FIO2. Afebrile. Physical Exam Vital signs: Vital Signs 10/09/18 11:00 10/09/18 11:01 10/09/18 12:00 Temperature Pulse Rate 68 69 63 Respiratory Rate 22 23 15 Blood Pressure 119/67 129/70 Pulse Oximetry 90 L 81 L 99 10/09/18 13:00 10/09/18 14:00 10/09/18 14:01 Temperature Pulse Rate 78 74 64 Respiratory Rate 29 H 35 H 25 H Blood Pressure 136/58 L 115/63 Pulse Oximetry 87 L 91 L 90 L 10/09/18 15:00 10/09/18 15:11 10/09/18 16:00 Temperature 98.1 F Pulse Rate 72 77 Respiratory Rate 39 H 21 Blood Pressure 118/65 115/55 L Pulse Oximetry 90 L 93 L 93 L 10/09/18 17:00 10/09/18 18:00 10/09/18 18:01 Temperature Pulse Rate 75 67 82 Respiratory Rate 22 20 21 Blood Pressure 124/67 118/68 Pulse Oximetry 90 L 90 L 90 L 10/09/18 19:00 10/09/18 19:28 10/09/18 20:00 Temperature 97.9 F Pulse Rate 71 73 82 Respiratory Rate 23 18 23 Blood Pressure 115/65 120/71 Pulse Oximetry 91 L 92 L 88 L 10/09/18 21:00 10/09/18 21:01 10/09/18 22:00 Temperature Pulse Rate 68 68 93 H Respiratory Rate 21 22 26 H Blood Pressure 138/65 Pulse Oximetry 91 L 91 L 93 L 10/09/18 22:01 10/09/18 23:00 10/10/18 00:00 Temperature 97.9 F Pulse Rate 78 62 63 Respiratory Rate 25 H 26 H 23 Blood Pressure 121/64 117/67 124/72 Pulse Oximetry 89 L 93 L 94 L 10/10/18 00:34 10/10/18 01:00 10/10/18 02:00 Temperature Pulse Rate 65 62 74 Respiratory Rate 20 21 26 H Blood Pressure 140/75 143/83 H Pulse Oximetry 93 L 92 L 10/10/18 03:00 10/10/18 03:01 10/10/18 04:00 Temperature 98.1 F Pulse Rate 63 64 89 Respiratory Rate 23 22 25 H Blood Pressure 125/64 135/79 Pulse Oximetry 90 L 91 L 91 L 10/10/18 04:27 10/10/18 06:00 10/10/18 07:56 Temperature Pulse Rate 62 65 75 Respiratory Rate 22 27 H Blood Pressure Pulse Oximetry 10/10/18 08:00 10/10/18 08:22 10/10/18 08:35 Temperature 97.4 F L Pulse Rate 91 H 74 Respiratory Rate 24 32 H Blood Pressure 129/79 130/66 Pulse Oximetry 94 L 89 L 93 L 10/10/18 09:00 10/10/18 10:00 Temperature Pulse Rate 62 57 L Respiratory Rate 23 Blood Pressure 131/72 Pulse Oximetry 94 L Intake & Output 10/09/18 10/10/18 10/10/18 18:59 06:59 18:59 Intake Total 1550 / 1550 1000 / 1000 Output Total 1999 1650 / 1650 Balance -450 / -450 -650 / -650 Weight 92.5 kg Intake: IV 350 / 350 600 / 600 Heparin/D5W 25,000 U/250 mL 25, 250 / 250 250 / 250 000 unit In 250 ml @ Per Protocol IV.CONT TITRATE PRN Rx #:[id number] Azithromycin Inj 250 MG In NS 250 / 250 Inj 250 ML @ 250 mls/hr IV.SIG Q24H ANAT Rx#:[id number] Rocephin Inj 1,000 MG In NS Inj 100 / 100 100 / 100 100 ML @ 200 mls/hr IV.SIG Q12H ANAT Rx#:[id number] Oral 1200 / 1200 400 / 400 Output: Urine 1999 1650 / 1650 Other: # Voids 3 Date of Last Bowel Movement 10/07/18 10/07/18 10/07/18 - Constitutional no acute distress, obese - Routine HEENT Exam Head: Present: normocephalic, atraumatic Eye: Present: EOMI, PERRL, normal accommodation, conjunctivae pink ENT: Present: mucous membranes moist - Routine Neck Exam Present: supple, full ROM, trachea midline - Routine Respiratory Exam Present: CTA bilaterally - Routine Cardiovascular Exam Present: RRR, S1, S2 - Routine Abdominal Exam Present: soft, normoactive bowel sounds - Routine Skin Exam Present: intact, dry - Routine Neurological Exam Present: alert, oriented X3, CN II-XII intact Assessment and Plan - Assessment (1) Pulmonary embolism Code(s): I26.99 - Other pulmonary embolism without acute cor pulmonale Status : Acute Qualifiers: Pulmonary embolism type: other Chronicity: acute Acute cor pulmonale presence: without acute cor pulmonale Qualified Code(s): I26.99 - Other pulmonary embolism without acute cor pulmonale (2) COPD exacerbation Code(s): J44.1 - Chronic obstructive pulmonary disease with (acute) exacerbation Status: Acute (3) Tobacco abuse Code(s): Z72.0 - Tobacco use Status: Chronic (4) H/O deep venous thrombosis Code(s): Z86.718 - Personal history of other venous thrombosis and embolism Status: Chronic (5) Hypoxia Code(s): R09.02 - Hypoxemia Status: Acute (6) Pneumonia Code(s): J18.9 - Pneumonia, unspecified organism Status: Acute Qualifiers: Pneumonia type: due to unspecified organism Laterality: bilateral Lung location: unspecified part of lung Qualified Code(s): J18.9 - Pneumonia, unspecified organism (7) Obesity Code(s): E66.9 - Obesity, unspecified Status: Chronic Qualifiers: Body mass index: BMI 34.0-34.9 (8) Anxiety Code(s): F41.9 - Anxiety disorder, unspecified Status: Chronic (9) Hypokalemia Code(s): E87.6 - Hypokalemia Status: Acute (10) Pulmonary nodules Code(s): R91.8 - Other nonspecific abnormal finding of lung field Status: Acute (11) Lymphadenopathy, hilar Code(s): R59.0 - Localized enlarged lymph nodes Status: Acute (12) CAD (coronary artery disease) Code(s): I25.10 - Atherosclerotic heart disease of [place] coronary artery without angina pectoris Status: Chronic (13) Hx of CABG Code(s): Z95.1 - Presence of aortocoronary bypass graft Status: Chronic (14) HLD (hyperlipidemia) Code(s): E78.5 - Hyperlipidemia, unspecified Status: Chronic (15) HTN (hypertension) Code(s): I10 - Essential (primary) hypertension Status: Chronic - Plan 1. Acute hypoxemic respiratory insufficiency. 2. Small bilateral pulmonary emboli. 3. Bilateral hilar lymphadenopathy and pretracheal mediastinal adenopathy, ddx: sarcoidosis, postreactive adenopathy or a neoplastic process, doubt. 4. Bilateral upper lobe noncalcified pulmonary nodules. 5. Leukocytosis, 6. COPD 7. Hypertension. 8. CAD/CABG 9. Hyperlipidemia. RECOMMENDATIONS: Wean down oxygen as tolerated and maintain sats >92%. Bronchodilators ( DuoNeb, Symbicort) Solu-Medrol 60 mg IV q. 8. BiPAP p.r.n. for respiratory distress. 10/09 CXR: interstitial edema with improving aeration in the lower lung zones. s/p Lasix 40mg IV x1 yesterday Continue abx ( Rocephin, Zithromax). WBC is trending down 10/08 Strep pneumonia, legionella urinary Ag, and influenza screening all negative. 10/07 Sputum cx: Normal resp hawa Continue with heparin drip and monitor PTT per protocol. Doppler US LE negative for DVT Echocardiogram showed EF of 40% to 45%. Once her respiratory status improves, the patient will need a lung biopsy, possible EBUS for a pathology diagnosis. Check MATI level, KAREN negative. PFT when more stable Sleep study as outpatient to rule out sleep apnea. Continue treatment plan
[2018-10-10] MEDS: Azithromycin Inj 250 MG in Sodium Chlor 0.9% Inj 250 ML IV.SIG SCH (15:50)
[2018-10-11] MEDS: Insulin NovoLOG Aspart Correctional Sugar Inj SQ SCH ×5 (00:32→23:37)
[2018-10-11] MEDS: Benzonatate 100 MG Capsule PO PRN ×2 (01:09→09:41)
--- NOTE | 2018-10-11 03:53 | XR ---
EXAM DATE: 10/11/2018 3:44 AM EST AGE/SEX: 48 years / Female INDICATIONS: Respiratory failure. CLINICAL DATA: This is the patient's subsequent encounter. Patient reports that signs and symptoms h ave been present for 4 - 6 days and indicates a pain score of Nonresponsive. MEDICAL/SURGICAL HISTORY: . Pulmonary embolism. COPD. Smoker. Deep vein thrombosis. Hypoxia. Pn [place]. Obesity. Anxiety. Hypokalemia. Pulmonary nodules. Lymphadenopathy, hilar. CAD. HTN. Hyperlip idemia. Depression. CABG. COMPARISON: [facility] [place], CHEST 1V SINGLE AP, 10/09/2018. . FINDINGS: A well-defined mild infiltrate seen in the left lung, most conspicuous in the left upper lobe. No lar ge effusion seen. No pneumothorax. Heart size stable, upper limits of normal. Median sternotomy changes are again noted. CONCLUSION: Modest worsening left upper lobe infiltrate. Electronically signed by: Kye Jules MD Board Certified Radiologist 10/11/2018 3:52 AM EST
[2018-10-11] MEDS: Chlorhexidine Gluconate 2% 1 Pack (2 Cloths) TOPICAL SCH (04:12)
[2018-10-11] MEDS: MethylPREDNISolone Sod Succinate Inj 125 MG/2 ML Vial IV.PUSH SCH ×3 (04:12→18:00)
[2018-10-11 05:12] LABS: Baso % (Auto) 0.1 % (0.0-2.0); Hematocrit 36.1 % (35.0-46.0); Hemoglobin 12.1 gm/dL (11.6-15.3); INR 1.7 Ratio; Lymph # (Auto) 2.9 th/mm3 (1.0-4.8); Lymph % (Auto) 14.3 % (9.0-44.0); Mean Corpuscular HGB Conc 33.6 % (32.0-36.0); Mean Corpuscular Hemoglobin 32.9 pg (27.0-34.0); Mean Corpuscular Volume 97.9 fL (80.0-100.0); Mean Platelet Volume 7.4 fL (7.0-11.0); Mono # (Auto) 1.5 th/mm3 (0.0-0.9); Mono % (Auto) 7.5 % (0.0-8.0); Neut % (Auto) 78.1 % (16.0-70.0); Platelet Count 420 th/mm3 (150-450); Prothrombin Time 17.2 sec (9.8-11.6); Red Blood Count 3.69 mil/mm3 (4.00-5.30); Red Cell Distribution Width 13.4 % (11.6-17.2); White Blood Count 20.5 th/mm3 (4.0-11.0)
[2018-10-11 05:30] LABS: Anion Gap 8 meq/L (5-15); Blood Urea Nitrogen 16 mg/dL (7-18); Calcium 9.2 mg/dL (8.5-10.1); Carbon Dioxide 30.8 meq/L (21.0-32.0); Chloride 100 meq/L (98-107); Glomerular Filtration Rate Greater Than 89 mL/min (>89); Glucose,Random 115 mg/dL (74-106); Magnesium 2.3 mg/dL (1.5-2.5); Phosphorus 3.5 mg/dL (2.5-4.9); Sodium 139 meq/L (136-145)
--- NOTE | 2018-10-11 06:59 | P.PNCC ---
Subjective Subjective Remarks/Hospital Course: Hospital Course: 48-year-old female with past medical history of coronary artery disease status post CABG (06/2017), hyperlipidemia, hypertension, COPD, tobacco abuse who presents to [facility] emergency department with 2-week history of shortness of breath. She states she has also had a cough productive of green sputum. She has pleuritic pain in her right lower anterior and posterior thorax. No fever. She was recently admitted 09/29/18 after she presented with exertional shortness of breath and wheezing. She was treated with nebs and steroids but left AGAINST MEDICAL ADVICE within 24 hours. On that occasion her d-dimer was negative. Today her ED workup included CT pulmonary angiogram which demonstrated small bilateral lower lobe pulmonary emboli. She has bilateral hilar and pretracheal lymphadenopathy. There is alveolar consolidation in the right middle lobe and lingula which is consistent with atelectasis versus pneumonia. Sarcoidosis is also a consideration, as well as reactive/neoplastic lymphadenopathy. S In the ED she was started on heparin drip, given saline 1 L bolus, Solu-Medrol 125 mg IV, cefepime 2 g IV, azithromycin 500 mg IV, albuterol x2. Denies leg pain or swelling currently. She states she was diagnosed with a RLE DVT on outpatient ultrasound the end of 2016 which was provoked by her CABG. She was on DAPT but not on anticoagulation following the diagnosis. She had a right femoral DVT 07/31/18 which was diagnosed in the ED. She left AMA on that occasion as well. She was not on anticoagulation. She has recently taken multiple long car rides to [place], etc over the course of the summer. Subjective: 10/08: remains on HFNC. still complaints of dyspnea. on heparin infusion. mivf discontinued. blood pressure and HR stable. denies other complaints. ROS negative except for cough and dyspnea. 10/09: Continues on high flow nasal cannula at 55% currently being weaned down to 50% with O2 saturation of 95% peer patient is tolerating diet and scheduled nebs continue the patient continues to complain of shortness of breath. WBC count elevated possibly secondary to leukemoid reaction, as steroids dosage were increased. 10/10: The patient was noted to desaturate early this a.m. to O2 sat at 89% on 6 L per the patient now remains on high flow at 50% at 30 L. Patient encouraged to utilize incentive spirometry every hour while awake. Patient tolerating diet. INR therapeutic at 2.3 the patient has already been transition to Coumadin, Heparin infusion now discontinued. Leukocytosis resolving. Subjective: 10/11 INR 1.7. Resuming heparin drip. Creatinine normal. Remains on HFNC 30 L/ min and FIO2 55%. No BM charted since admission. Afebrile. Diuresee. Objective Vital Signs / I&O: Vital Signs 10/10/18 07:56 10/10/18 08:00 10/10/18 08:22 Temperature 97.4 F L Pulse Rate 75 91 H 74 Respiratory Rate 27 H 24 32 H Blood Pressure 129/79 130/66 Pulse Oximetry 94 L 89 L 10/10/18 08:35 10/10/18 09:00 10/10/18 10:00 Temperature Pulse Rate 62 57 L Respiratory Rate 23 Blood Pressure 131/72 Pulse Oximetry 93 L 94 L 10/10/18 11:47 10/10/18 12:00 10/10/18 14:00 Temperature 97.8 F Pulse Rate 59 L 76 64 Respiratory Rate 16 29 H Blood Pressure 148/67 H Pulse Oximetry 10/10/18 15:59 10/10/18 16:00 10/10/18 17:00 Temperature 98.4 F Pulse Rate 73 80 70 Respiratory Rate 18 25 H 23 Blood Pressure 106/60 112/65 Pulse Oximetry 92 L 85 L 10/10/18 18:00 10/10/18 18:01 10/10/18 19:00 Temperature Pulse Rate 73 96 H 63 Respiratory Rate 29 H 22 18 Blood Pressure 130/62 132/79 Pulse Oximetry 91 L 90 L 92 L 10/10/18 20:00 10/10/18 20:13 10/10/18 20:14 Temperature Pulse Rate 78 70 Respiratory Rate 21 18 Blood Pressure 139/88 Pulse Oximetry 87 L 91 L 10/10/18 21:00 10/10/18 22:00 10/10/18 22:01 Temperature Pulse Rate 76 58 L 59 L Respiratory Rate 21 20 23 Blood Pressure 126/67 153/76 H Pulse Oximetry 87 L 93 L 89 L 10/10/18 23:00 10/10/18 23:01 10/11/18 00:00 Temperature Pulse Rate 57 L 59 L 59 L Respiratory Rate 18 17 16 Blood Pressure 135/79 150/77 H Pulse Oximetry 87 L 90 L 92 L 10/11/18 00:15 10/11/18 01:00 10/11/18 01:01 Temperature Pulse Rate 68 65 68 Respiratory Rate 16 19 18 Blood Pressure 161/88 H Pulse Oximetry 92 L 92 L 10/11/18 01:59 10/11/18 02:00 10/11/18 02:01 Temperature Pulse Rate 59 L 58 L Respiratory Rate 18 16 16 Blood Pressure 148/77 H Pulse Oximetry 93 L 93 L 10/11/18 03:00 10/11/18 03:01 10/11/18 04:00 Temperature Pulse Rate 55 L 58 L 62 Respiratory Rate 17 16 17 Blood Pressure 157/79 H Pulse Oximetry 81 L 10/11/18 04:01 10/11/18 04:04 Temperature Pulse Rate 63 69 Respiratory Rate 18 20 Blood Pressure 166/88 H Pulse Oximetry 78 L Intake & Output 10/10/18 10/10/18 10/11/18 06:59 18:59 06:59 Intake Total 1000 / 1000 650 / 650 100 / 100 Output Total 1650 / 1650 1300 / 1300 Balance -650 / -650 -650 / -650 100 / 100 Weight 92.5 kg Intake: IV 600 / 600 350 / 350 100 / 100 Heparin/D5W 25,000 U/250 mL 25, 250 / 250 000 unit In 250 ml @ Per Protocol IV.CONT TITRATE PRN Rx #:[id number] Azithromycin Inj 250 MG In NS 250 / 250 250 / 250 Inj 250 ML @ 250 mls/hr IV.SIG Q24H ANAT Rx#:[id number] Rocephin Inj 1,000 MG In NS Inj 100 / 100 100 / 100 100 / 100 100 ML @ 200 mls/hr IV.SIG Q12H ANAT Rx#:[id number] Oral 400 / 400 300 / 300 Output: Urine 1650 / 1650 1300 / 1300 Stool 0 / 0 Other: # Voids 3 2 Date of Last Bowel Movement 10/07/18 10/07/18 10/07/18 Result Diagrams: 10/11/18 04:35 10/11/18 04:35 Objective Remarks: GENERAL: Middle-aged female sitting up in bed, high flow nasal cannula. HEENT: Normocephalic. Atraumatic. Pupils equal, round, reactive, conjugate. Mucous membranes are moist NECK: Trachea is midline. There is no JVD. CHEST: Tachypneic. High flow nasal cannula, FiO2 55%, 30 L/min. Slightly tachypneic. Able to speak in short sentences. Coughing. CARDIOVASCULAR: Normal rate, regular rhythm. Sinus on monitor. ABDOMEN: Soft, nontender, nondistended. No guarding. MUSCULOSKELETAL: Pulses 2+. No peripheral edema. NEUROLOGICAL: Alert and oriented, moves all extremities spontaneously without apparent focal deficit. Assessment and Plan - Problem List (1) Pulmonary embolism Code(s): I26.99 - Other pulmonary embolism without acute cor pulmonale Status : Acute (2) COPD exacerbation Code(s): J44.1 - Chronic obstructive pulmonary disease with (acute) exacerbation Status: Acute (3) Tobacco abuse Code(s): Z72.0 - Tobacco use Status: Chronic (4) H/O deep venous thrombosis Code(s): Z86.718 - Personal history of other venous thrombosis and embolism Status: Chronic (5) Hypoxia Code(s): R09.02 - Hypoxemia Status: Acute (6) Pneumonia Code(s): J18.9 - Pneumonia, unspecified organism Status: Acute (7) Obesity Code(s): E66.9 - Obesity, unspecified Status: Chronic (8) Anxiety Code(s): F41.9 - Anxiety disorder, unspecified Status: Chronic (9) Hypokalemia Code(s): E87.6 - Hypokalemia Status: Acute (10) Pulmonary nodules Code(s): R91.8 - Other nonspecific abnormal finding of lung field Status: Acute (11) Lymphadenopathy, hilar Code(s): R59.0 - Localized enlarged lymph nodes Status: Acute (12) CAD (coronary artery disease) Code(s): I25.10 - Atherosclerotic heart disease of [place] coronary artery without angina pectoris Status: Chronic (13) Hx of CABG Code(s): Z95.1 - Presence of aortocoronary bypass graft Status: Chronic (14) HLD (hyperlipidemia) Code(s): E78.5 - Hyperlipidemia, unspecified Status: Chronic (15) HTN (hypertension) Code(s): I10 - Essential (primary) hypertension Status: Chronic - Assessment and Plan Plan: NEURO: Depression Anxiety Pleuritic pain secondary to pulmonary embolism Lortab as needed for pain. Morphine as needed for breakthrough pain. Continue Xanax 0.25 mill grams p.o. twice daily Continue Paxil 40 mg p.o. daily PT/OOB RESP: Bilateral pulmonary embolism Hypoxia -on high flow nasal cannula COPD with acute exacerbation Tobacco use disorder Pulmonary noduleswill require follow-up CT in 6 months. Bilateral hilar and pretracheal mediastinal lymphadenopathy and interstitial disease. Sarcoidosis is a consideration. Per pulmonology, f/u for outpatient EBUS bx. Dr. Roldan following for pulmonology. Anticoagulation for pulmonary embolism as per below. Does not meet criteria for TPA Tobacco cessation counseling discussed Solu-Medrol 125 mg IV in the emergency department Continue Symbicort 160/4.52 puffs inhaled every 12 hours DuoNeb every 6 hours. Albuterol every 2 hours as needed. Abx as per below CV: Coronary artery disease Status post CABG July 2017 Hyperlipidemia -continue Lipitor 80 mg p.o. daily Hypertension Continue metoprolol 50 mg p.o. twice daily Troponin is negative. 2D echo 10/07/18mild concentric LVH. LVEF 40-45%. Pulmonary artery pressure 26 mmHg. Normal RV size and systolic function. Continue Plavix 75 mg p.o. daily. Will hold aspirin. Lasix 40 mg IV bid. KCL 20 meq po bid x2. GI: Obesity Cardiac diet FEN/RENAL: Hypokalemia Replace electrolytes as indicated per ICU electrolyte replacement protocol. Magnesium is normal. Renal function is normal. Voiding-no Guerrero indicated at this time ID: Leukocytosis Received Cefepime 2 gram IV and Azithromycin 500 mg IV in the emergency department. She does have a productive cough and CT findings of alveolar consolidation in the right middle lobe and lingula. While these consolidations appear mild she does have lymphadenopathy which may also be reactive and therefore will provide a treatment course with antibiotics to determine if there is any resolution. Rocephin/azithromycin 10/07, day #4. blood culture sent 10/07 NGTD Urine Legionella and pneumococcal antigens and influenza-NGTD She is concerned she may have a UTI based on flank pain. UA was negative. HEME: Bilateral pulmonary embolism History of DVT On heparin drip for acute management of pulmonary embolism. She is self-pay. Will need to be transitioned to oral anticoagulant. She states that she does not have any insurance and therefore warfarin remains more affordable (even with consideration of cost of labs). On warfarin initiated 10/07. INR 1.7 today, resuming heparin until INR therapeutic x48 hours. 10/08 BLE u/s negative for DVT. ENDO: Close monitoring per ICU protocol SSI PROPH: On heparin drip and coumadin for VTE treatment/prophylaxis. Famotidine for stress ulcer prophylaxis. ACCESS: Peripheral IV providing adequate access at this time Full code Level 2 follow-up (1) Pulmonary embolism Qualifiers: Pulmonary embolism type: other Chronicity: acute Acute cor pulmonale presence: without acute cor pulmonale Qualified Code(s): I26.99 - Other pulmonary embolism without acute cor pulmonale (6) Pneumonia Qualifiers: Pneumonia type: due to unspecified organism Laterality: bilateral Lung location: unspecified part of lung Qualified Code(s): J18.9 - Pneumonia, unspecified organism (7) Obesity Qualifiers: Body mass index: BMI 34.0-34.9
[2018-10-11 07:24] LABS: Lymphocytes 17 % (9-44); Metamyelocytes 1 % (0-1); Monocytes 3 % (0-8); Myelocytes 1 % (0-0); RBC Morphology Normal (Normal)
[2018-10-11 07:25] LABS: Platelet Estimate Normal (Normal); Platelet Morphology Normal (Normal); Toxic Granulation 1+
[2018-10-11] MEDS: Senna/Docusate Sodium 8.6/50 MG Tablet PO SCH ×2 (08:36→21:23)
[2018-10-11] MEDS: Metoprolol Tartrate 50 MG Tablet PO SCH ×2 (08:36→20:17)
[2018-10-11] MEDS: ALPRAZolam 0.25 MG Tablet PO SCH ×2 (08:36→21:21)
[2018-10-11] MEDS: Famotidine 20 MG Tablet PO SCH ×2 (08:37→20:17)
[2018-10-11] MEDS: Budesonide-Formoterol 160/4.5 MCG 6 GM Inhaler INH SCH ×2 (08:37→21:21)
--- NOTE | 2018-10-11 10:32 | P.PNPL ---
Subjective Interval history: Patient remains on high flow oxygen with 30L 55% FIO2. Afebrile. Physical Exam Vital signs: Vital Signs 10/10/18 11:47 10/10/18 12:00 10/10/18 14:00 Temperature 97.8 F Pulse Rate 59 L 76 64 Respiratory Rate 16 29 H Blood Pressure 148/67 H Pulse Oximetry 10/10/18 15:59 10/10/18 16:00 10/10/18 17:00 Temperature 98.4 F Pulse Rate 73 80 70 Respiratory Rate 18 25 H 23 Blood Pressure 106/60 112/65 Pulse Oximetry 92 L 85 L 10/10/18 18:00 10/10/18 18:01 10/10/18 19:00 Temperature Pulse Rate 73 96 H 63 Respiratory Rate 29 H 22 18 Blood Pressure 130/62 132/79 Pulse Oximetry 91 L 90 L 92 L 10/10/18 20:00 10/10/18 20:13 10/10/18 20:14 Temperature Pulse Rate 78 70 Respiratory Rate 21 18 Blood Pressure 139/88 Pulse Oximetry 87 L 91 L 10/10/18 21:00 10/10/18 22:00 10/10/18 22:01 Temperature Pulse Rate 76 58 L 59 L Respiratory Rate 21 20 23 Blood Pressure 126/67 153/76 H Pulse Oximetry 87 L 93 L 89 L 10/10/18 23:00 10/10/18 23:01 10/11/18 00:00 Temperature Pulse Rate 57 L 59 L 59 L Respiratory Rate 18 17 16 Blood Pressure 135/79 150/77 H Pulse Oximetry 87 L 90 L 92 L 10/11/18 00:15 10/11/18 01:00 10/11/18 01:01 Temperature Pulse Rate 68 65 68 Respiratory Rate 16 19 18 Blood Pressure 161/88 H Pulse Oximetry 92 L 92 L 10/11/18 01:59 10/11/18 02:00 10/11/18 02:01 Temperature Pulse Rate 59 L 58 L Respiratory Rate 18 16 16 Blood Pressure 148/77 H Pulse Oximetry 93 L 93 L 10/11/18 03:00 10/11/18 03:01 10/11/18 04:00 Temperature Pulse Rate 55 L 58 L 62 Respiratory Rate 17 16 17 Blood Pressure 157/79 H Pulse Oximetry 81 L 10/11/18 04:01 10/11/18 04:04 10/11/18 05:00 Temperature Pulse Rate 63 69 59 L Respiratory Rate 18 20 17 Blood Pressure 166/88 H Pulse Oximetry 78 L 88 L 10/11/18 05:01 10/11/18 06:00 10/11/18 06:01 Temperature Pulse Rate 60 78 75 Respiratory Rate 17 22 18 Blood Pressure 160/82 H 146/85 H Pulse Oximetry 88 L 89 L 87 L 10/11/18 07:00 Temperature Pulse Rate 82 Respiratory Rate 20 Blood Pressure 169/83 H Pulse Oximetry 93 L Intake & Output 10/10/18 10/11/18 10/11/18 18:59 06:59 18:59 Intake Total 650 / 650 600 / 600 Output Total 1300 / 1300 1600 / 1600 Balance -650 / -650 -1000 / -1000 Weight 95.4 kg Intake: IV 350 / 350 100 / 100 Azithromycin Inj 250 MG In NS 250 / 250 Inj 250 ML @ 250 mls/hr IV.SIG Q24H ANAT Rx#:[id number] Rocephin Inj 1,000 MG In NS Inj 100 / 100 100 / 100 100 ML @ 200 mls/hr IV.SIG Q12H ANAT Rx#:[id number] Oral 300 / 300 500 / 500 Output: Urine 1300 / 1300 1600 / 1600 Stool 0 / 0 Other: # Voids 2 Date of Last Bowel Movement 10/07/18 10/07/18 - Constitutional mild distress - Routine HEENT Exam Head: Present: normocephalic, atraumatic Eye: Present: EOMI, PERRL, normal accommodation, conjunctivae pink ENT: Present: mucous membranes moist - Routine Neck Exam Present: supple, full ROM, trachea midline - Routine Respiratory Exam Present: decreased breath sounds, rales, respiratory distress - Routine Cardiovascular Exam Present: RRR, S1, S2 - Routine Abdominal Exam Present: soft, normoactive bowel sounds - Routine Extremities Exam Present: full ROM, pulses intact - Routine Skin Exam Present: intact, dry - Routine Neurological Exam Present: alert, oriented X3, CN II-XII intact Assessment and Plan - Assessment (1) Pulmonary embolism Code(s): I26.99 - Other pulmonary embolism without acute cor pulmonale Status : Acute Qualifiers: Pulmonary embolism type: other Chronicity: acute Acute cor pulmonale presence: without acute cor pulmonale Qualified Code(s): I26.99 - Other pulmonary embolism without acute cor pulmonale (2) COPD exacerbation Code(s): J44.1 - Chronic obstructive pulmonary disease with (acute) exacerbation Status: Acute (3) Tobacco abuse Code(s): Z72.0 - Tobacco use Status: Chronic (4) H/O deep venous thrombosis Code(s): Z86.718 - Personal history of other venous thrombosis and embolism Status: Chronic (5) Hypoxia Code(s): R09.02 - Hypoxemia Status: Acute (6) Pneumonia Code(s): J18.9 - Pneumonia, unspecified organism Status: Acute Qualifiers: Pneumonia type: due to unspecified organism Laterality: bilateral Lung location: unspecified part of lung Qualified Code(s): J18.9 - Pneumonia, unspecified organism (7) Obesity Code(s): E66.9 - Obesity, unspecified Status: Chronic Qualifiers: Body mass index: BMI 34.0-34.9 (8) Anxiety Code(s): F41.9 - Anxiety disorder, unspecified Status: Chronic (9) Hypokalemia Code(s): E87.6 - Hypokalemia Status: Acute (10) Pulmonary nodules Code(s): R91.8 - Other nonspecific abnormal finding of lung field Status: Acute (11) Lymphadenopathy, hilar Code(s): R59.0 - Localized enlarged lymph nodes Status: Acute (12) CAD (coronary artery disease) Code(s): I25.10 - Atherosclerotic heart disease of [place] coronary artery without angina pectoris Status: Chronic (13) Hx of CABG Code(s): Z95.1 - Presence of aortocoronary bypass graft Status: Chronic (14) HLD (hyperlipidemia) Code(s): E78.5 - Hyperlipidemia, unspecified Status: Chronic (15) HTN (hypertension) Code(s): I10 - Essential (primary) hypertension Status: Chronic - Plan 1. Acute hypoxemic respiratory insufficiency. 2. Small bilateral pulmonary emboli. 3. Bilateral hilar lymphadenopathy and pretracheal mediastinal adenopathy, ddx: sarcoidosis, postreactive adenopathy or a neoplastic process, doubt. 4. Bilateral upper lobe noncalcified pulmonary nodules. 5. Leukocytosis, 6. COPD 7. Hypertension. 8. CAD/CABG 9. Hyperlipidemia. RECOMMENDATIONS: Wean down oxygen as tolerated and maintain sats >92%. Bronchodilators ( DuoNeb, Symbicort) Solu-Medrol 60 mg IV q. 8. BiPAP p.r.n. for respiratory distress. 10/09 CXR: interstitial edema with improving aeration in the lower lung zones. s/p Lasix 40mg IV x1 yesterday Continue abx ( Rocephin, Zithromax). WBC is trending down 10/08 Strep pneumonia, legionella urinary Ag, and influenza screening all negative. 10/07 Sputum cx: Normal resp hawa Continue with heparin drip and monitor PTT per protocol. Doppler US LE negative for DVT Echocardiogram showed EF of 40% to 45%. Once her respiratory status improves, the patient will need a lung biopsy, possible EBUS for a pathology diagnosis. Check MATI level, KAREN negative. PFT when more stable Sleep study as outpatient to rule out sleep apnea. Continue treatment plan
[2018-10-11] MEDS: Heparin Drip 25,000 UNIT/250 ML BAG IV.CONT PRN (11:59)
[2018-10-11] MEDS: Azithromycin Inj 250 MG in Sodium Chlor 0.9% Inj 250 ML IV.SIG SCH (17:48)
[2018-10-12] MEDS: Heparin Drip 25,000 UNIT/250 ML BAG IV.CONT PRN ×2 (02:14→21:24)
[2018-10-12] MEDS: MethylPREDNISolone Sod Succinate Inj 125 MG/2 ML Vial IV.PUSH SCH ×3 (02:19→18:22)
[2018-10-12] MEDS: Benzonatate 100 MG Capsule PO PRN ×2 (05:29→15:23)
[2018-10-12] MEDS: Insulin NovoLOG Aspart Correctional Sugar Inj SQ SCH ×3 (05:46→18:26)
[2018-10-12] MEDS: Chlorhexidine Gluconate 2% 1 Pack (2 Cloths) TOPICAL SCH (05:46)
[2018-10-12 06:07] LABS: Hematocrit 38.5 % (35.0-46.0); Hemoglobin 13.5 gm/dL (11.6-15.3); Mean Corpuscular Hemoglobin 33.6 pg (27.0-34.0); Mean Platelet Volume 7.7 fL (7.0-11.0); Platelet Count 477 th/mm3 (150-450); Red Blood Count 4.01 mil/mm3 (4.00-5.30); Red Cell Distribution Width 13.6 % (11.6-17.2); White Blood Count 24.7 th/mm3 (4.0-11.0)
[2018-10-12 06:17] LABS: Prothrombin Time 20.1 sec (9.8-11.6)
[2018-10-12 06:31] LABS: Anion Gap 10 meq/L (5-15); Blood Urea Nitrogen 23 mg/dL (7-18); Calcium 9.1 mg/dL (8.5-10.1); Carbon Dioxide 31.3 meq/L (21.0-32.0); Chloride 96 meq/L (98-107); Glomerular Filtration Rate Greater Than 89 mL/min (>89); Glucose,Random 131 mg/dL (74-106); Potassium 3.5 meq/L (3.5-5.1); Sodium 137 meq/L (136-145)
[2018-10-12] MEDS: Budesonide-Formoterol 160/4.5 MCG 6 GM Inhaler INH SCH ×2 (08:39→21:08)
[2018-10-12] MEDS: Famotidine 20 MG Tablet PO SCH ×2 (08:41→21:10)
[2018-10-12] MEDS: Senna/Docusate Sodium 8.6/50 MG Tablet PO SCH ×2 (08:41→21:11)
[2018-10-12] MEDS: Metoprolol Tartrate 50 MG Tablet PO SCH ×2 (08:41→21:09)
[2018-10-12] MEDS: ALPRAZolam 0.25 MG Tablet PO SCH ×2 (08:42→21:11)
--- NOTE | 2018-10-12 13:06 | P.PNCC ---
Subjective Subjective Remarks/Hospital Course: Hospital Course: 48-year-old female with past medical history of coronary artery disease status post CABG (06/2017), hyperlipidemia, hypertension, COPD, tobacco abuse who presents to [facility] emergency department with 2-week history of shortness of breath. She states she has also had a cough productive of green sputum. She has pleuritic pain in her right lower anterior and posterior thorax. No fever. She was recently admitted 09/29/18 after she presented with exertional shortness of breath and wheezing. She was treated with nebs and steroids but left AGAINST MEDICAL ADVICE within 24 hours. On that occasion her d-dimer was negative. Today her ED workup included CT pulmonary angiogram which demonstrated small bilateral lower lobe pulmonary emboli. She has bilateral hilar and pretracheal lymphadenopathy. There is alveolar consolidation in the right middle lobe and lingula which is consistent with atelectasis versus pneumonia. Sarcoidosis is also a consideration, as well as reactive/neoplastic lymphadenopathy. S In the ED she was started on heparin drip, given saline 1 L bolus, Solu-Medrol 125 mg IV, cefepime 2 g IV, azithromycin 500 mg IV, albuterol x2. Denies leg pain or swelling currently. She states she was diagnosed with a RLE DVT on outpatient ultrasound the end of 2016 which was provoked by her CABG. She was on DAPT but not on anticoagulation following the diagnosis. She had a right femoral DVT 07/31/18 which was diagnosed in the ED. She left AMA on that occasion as well. She was not on anticoagulation. She has recently taken multiple long car rides to [place], etc over the course of the summer. Subjective: 10/08: remains on HFNC. still complaints of dyspnea. on heparin infusion. mivf discontinued. blood pressure and HR stable. denies other complaints. ROS negative except for cough and dyspnea. 10/09: Continues on high flow nasal cannula at 55% currently being weaned down to 50% with O2 saturation of 95% peer patient is tolerating diet and scheduled nebs continue the patient continues to complain of shortness of breath. WBC count elevated possibly secondary to leukemoid reaction, as steroids dosage were increased. 10/10: The patient was noted to desaturate early this a.m. to O2 sat at 89% on 6 L per the patient now remains on high flow at 50% at 30 L. Patient encouraged to utilize incentive spirometry every hour while awake. Patient tolerating diet. INR therapeutic at 2.3 the patient has already been transition to Coumadin, Heparin infusion now discontinued. Leukocytosis resolving. 10/11 INR 1.7. Resuming heparin drip. Creatinine normal. Remains on HFNC 30 L/ min and FIO2 55%. No BM charted since admission. Afebrile. Diurese. Subjective: 10/12 INR 2.0 today. Continue heparin until therapeutic 48 hours. WBC 24 but no fever, suspect due to steroids. Has now had a BM. HFNC 30L/min and FIO2 50%. Objective Vital Signs / I&O: Vital Signs 10/11/18 13:16 10/11/18 14:00 10/11/18 15:00 Temperature Pulse Rate 70 68 63 Respiratory Rate 21 19 21 Blood Pressure 128/59 L 132/73 119/66 Pulse Oximetry 96 96 10/11/18 16:00 10/11/18 16:01 10/11/18 17:00 Temperature 97.8 F Pulse Rate 62 63 66 Respiratory Rate 21 20 9 L Blood Pressure 133/94 H 133/94 H 142/81 H Pulse Oximetry 96 10/11/18 18:00 10/11/18 18:01 10/11/18 19:00 Temperature Pulse Rate 69 70 86 Respiratory Rate 24 30 H 24 Blood Pressure 137/81 Pulse Oximetry 80 L 78 L 10/11/18 19:01 10/11/18 20:00 10/11/18 20:13 Temperature 98.0 F Pulse Rate 84 70 67 Respiratory Rate 20 20 20 Blood Pressure 131/77 125/76 119/75 Pulse Oximetry 94 L 90 L 94 L 10/11/18 20:41 10/11/18 21:00 10/11/18 21:21 Temperature Pulse Rate 73 65 Respiratory Rate 16 19 16 Blood Pressure 126/78 Pulse Oximetry 94 L 95 10/11/18 22:00 10/11/18 23:00 10/11/18 23:01 Temperature Pulse Rate 66 67 74 Respiratory Rate 17 19 20 Blood Pressure 133/77 94/59 L Pulse Oximetry 98 94 L 94 L 10/12/18 00:00 10/12/18 00:01 10/12/18 00:06 Temperature 98.2 F Pulse Rate 65 66 74 Respiratory Rate 17 17 16 Blood Pressure 129/66 Pulse Oximetry 96 96 10/12/18 01:00 10/12/18 02:00 10/12/18 02:23 Temperature Pulse Rate 69 65 Respiratory Rate 18 17 15 Blood Pressure 117/75 128/81 Pulse Oximetry 96 10/12/18 03:00 10/12/18 04:00 10/12/18 04:40 Temperature 98.0 F Pulse Rate 73 71 77 Respiratory Rate 20 20 18 Blood Pressure 136/68 137/82 Pulse Oximetry 93 L 81 L 94 L 10/12/18 05:00 10/12/18 05:01 10/12/18 06:00 Temperature Pulse Rate 72 80 59 L Respiratory Rate 40 H 26 H 16 Blood Pressure 148/72 H 118/67 Pulse Oximetry 93 L 96 10/12/18 07:00 10/12/18 07:01 10/12/18 08:00 Temperature 98.3 F Pulse Rate 68 69 61 Respiratory Rate 24 30 H 18 Blood Pressure 141/73 H 131/78 Pulse Oximetry 92 L 92 L 92 L 10/12/18 09:00 10/12/18 09:26 10/12/18 09:44 Temperature Pulse Rate 79 70 Respiratory Rate 29 H 23 Blood Pressure 130/75 117/56 L Pulse Oximetry 82 L 90 L 100 10/12/18 10:00 Temperature Pulse Rate 66 Respiratory Rate Blood Pressure Pulse Oximetry Intake & Output 10/11/18 10/12/18 10/12/18 18:59 06:59 18:59 Intake Total 950 / 950 960 / 960 Output Total 1949 / 1949 950 / 950 Balance -1000 / -1000 10 / 10 Weight 93.5 kg Intake: IV 100 / 100 600 / 600 Heparin/D5W 25,000 U/250 mL 25, 250 / 250 000 unit In 250 ml @ Per Protocol IV.CONT TITRATE PRN Rx #:[id number] Azithromycin Inj 250 MG In NS 250 / 250 Inj 250 ML @ 250 mls/hr IV.SIG Q24H ANAT Rx#:[id number] Rocephin Inj 1,000 MG In NS Inj 100 / 100 100 / 100 100 ML @ 200 mls/hr IV.SIG Q12H ANAT Rx#:[id number] Oral 850 / 850 360 / 360 Output: Urine 1949 1950 950 / 950 Stool 0 / 0 Other: Date of Last Bowel Movement 10/07/18 10/07/18 10/12/18 # Bowel Movements 0 Result Diagrams: 10/12/18 05:10 10/12/18 05:10 Objective Remarks: GENERAL: Middle-aged female sleeping but arouses to voice and is conversant, high flow nasal cannula. HEENT: Normocephalic. Atraumatic. Pupils equal, round, reactive, conjugate. Mucous membranes are moist NECK: Trachea is midline. There is no JVD. CHEST: Slightly tachypneic but less respiratory effort compared with yesterday. High flow nasal cannula, FiO2 50%, 30 L/min. Coughing. CARDIOVASCULAR: Normal rate, regular rhythm. Sinus on monitor. ABDOMEN: Soft, nontender, nondistended. No guarding. MUSCULOSKELETAL: Pulses 2+. No peripheral edema. NEUROLOGICAL: Alert and oriented, moves all extremities spontaneously without apparent focal deficit. Assessment and Plan - Problem List (1) Pulmonary embolism Code(s): I26.99 - Other pulmonary embolism without acute cor pulmonale Status : Acute (2) COPD exacerbation Code(s): J44.1 - Chronic obstructive pulmonary disease with (acute) exacerbation Status: Acute (3) Tobacco abuse Code(s): Z72.0 - Tobacco use Status: Chronic (4) H/O deep venous thrombosis Code(s): Z86.718 - Personal history of other venous thrombosis and embolism Status: Chronic (5) Hypoxia Code(s): R09.02 - Hypoxemia Status: Acute (6) Pneumonia Code(s): J18.9 - Pneumonia, unspecified organism Status: Acute (7) Obesity Code(s): E66.9 - Obesity, unspecified Status: Chronic (8) Anxiety Code(s): F41.9 - Anxiety disorder, unspecified Status: Chronic (9) Hypokalemia Code(s): E87.6 - Hypokalemia Status: Acute (10) Pulmonary nodules Code(s): R91.8 - Other nonspecific abnormal finding of lung field Status: Acute (11) Lymphadenopathy, hilar Code(s): R59.0 - Localized enlarged lymph nodes Status: Acute (12) CAD (coronary artery disease) Code(s): I25.10 - Atherosclerotic heart disease of [place] coronary artery without angina pectoris Status: Chronic (13) Hx of CABG Code(s): Z95.1 - Presence of aortocoronary bypass graft Status: Chronic (14) HLD (hyperlipidemia) Code(s): E78.5 - Hyperlipidemia, unspecified Status: Chronic (15) HTN (hypertension) Code(s): I10 - Essential (primary) hypertension Status: Chronic - Assessment and Plan Plan: NEURO: Depression Anxiety Pleuritic pain secondary to pulmonary embolism Lortab as needed for pain. Morphine as needed for breakthrough pain. Continue Xanax 0.25 mill grams p.o. twice daily Continue Paxil 40 mg p.o. daily PT/OOB RESP: Bilateral pulmonary embolism Hypoxia -on high flow nasal cannula COPD with acute exacerbation Tobacco use disorder Pulmonary noduleswill require follow-up CT in 6 months. Bilateral hilar and pretracheal mediastinal lymphadenopathy and interstitial disease. Sarcoidosis is a consideration. Per pulmonology, f/u for outpatient EBUS bx. Dr. Jamar tinajero for pulmonology. Anticoagulation for pulmonary embolism as per below. Does not meet criteria for TPA Tobacco cessation counseling discussed Solu-Medrol 125 mg IV in the emergency department Continue Symbicort 160/4.52 puffs inhaled every 12 hours DuoNeb every 6 hours with EZPAP. Albuterol every 2 hours as needed. Abx as per below CV: Coronary artery disease Status post CABG July 2017 Hyperlipidemia -continue Lipitor 80 mg p.o. daily Hypertension Continue metoprolol 50 mg p.o. twice daily Troponin is negative. 2D echo 10/07/18mild concentric LVH. LVEF 40-45%. Pulmonary artery pressure 26 mmHg. Normal RV size and systolic function. Continue Plavix 75 mg p.o. daily. Lasix 40 mg IV bid. KCL 20 meq po bid x 4doses. GI: Obesity Cardiac diet Had a BM 10/12. . Colace/senna for bowel regimen. FEN/RENAL: Hypokalemia Replace electrolytes as indicated per ICU electrolyte replacement protocol. Magnesium is normal. Scheduled KCL replacement with Lasix as per above. Renal function is normal. Voiding-no Guerrero indicated at this time ID: Leukocytosis Received Cefepime 2 gram IV and Azithromycin 500 mg IV in the emergency department. She does have a productive cough and CT findings of alveolar consolidation in the right middle lobe and lingula. While these consolidations appear mild she does have lymphadenopathy which may also be reactive and therefore will provide a treatment course with antibiotics to determine if there is any resolution. Rocephin/azithromycin 10/07, day #6. d/c azthromycin. blood culture sent 10/07 NGTD Urine Legionella and pneumococcal antigens and influenza-NGTD She is concerned she may have a UTI based on flank pain. UA was negative. HEME: Bilateral pulmonary embolism History of DVT On heparin drip for acute management of pulmonary embolism. She is self-pay. Will need to be transitioned to oral anticoagulant. She states that she does not have any insurance and therefore warfarin remains more affordable (even with consideration of cost of labs). On warfarin initiated 10/07. INR 2.0today, resuming heparin until INR therapeutic x48 hours. 10/08 BLE u/s negative for DVT. ENDO: Close monitoring per ICU protocol SSI PROPH: On heparin drip and coumadin for VTE treatment/prophylaxis. Famotidine for stress ulcer prophylaxis. ACCESS: Peripheral IV providing adequate access at this time Full code Level 2 follow-up (1) Pulmonary embolism Qualifiers: Pulmonary embolism type: other Chronicity: acute Acute cor pulmonale presence: without acute cor pulmonale Qualified Code(s): I26.99 - Other pulmonary embolism without acute cor pulmonale (6) Pneumonia Qualifiers: Pneumonia type: due to unspecified organism Laterality: bilateral Lung location: unspecified part of lung Qualified Code(s): J18.9 - Pneumonia, unspecified organism (7) Obesity Qualifiers: Body mass index: BMI 34.0-34.9
[2018-10-12] MEDS ORDERED: Azithromycin Inj 250 MG in Sodium Chlor 0.9% Inj 250 ML IV.SIG SCH (16:00)
[2018-10-13] MEDS: Insulin NovoLOG Aspart Correctional Sugar Inj SQ SCH ×5 (02:39→23:37)
[2018-10-13] MEDS: MethylPREDNISolone Sod Succinate Inj 125 MG/2 ML Vial IV.PUSH SCH ×4 (02:40→23:36)
[2018-10-13 06:04] LABS: Hematocrit 40.1 % (35.0-46.0); Hemoglobin 13.9 gm/dL (11.6-15.3); Mean Corpuscular HGB Conc 34.7 % (32.0-36.0); Mean Corpuscular Hemoglobin 33.3 pg (27.0-34.0); Mean Platelet Volume 7.7 fL (7.0-11.0); Platelet Count 461 th/mm3 (150-450); Red Blood Count 4.17 mil/mm3 (4.00-5.30); Red Cell Distribution Width 13.6 % (11.6-17.2); White Blood Count 23.5 th/mm3 (4.0-11.0)
[2018-10-13 06:09] LABS: Prothrombin Time 59.6 sec (9.8-11.6)
--- NOTE | 2018-10-13 07:34 | P.PNCC ---
Subjective Subjective Remarks/Hospital Course: Hospital Course: 48-year-old female with past medical history of coronary artery disease status post CABG (06/2017), hyperlipidemia, hypertension, COPD, tobacco abuse who presents to [facility] emergency department with 2-week history of shortness of breath. She states she has also had a cough productive of green sputum. She has pleuritic pain in her right lower anterior and posterior thorax. No fever. She was recently admitted 09/29/18 after she presented with exertional shortness of breath and wheezing. She was treated with nebs and steroids but left AGAINST MEDICAL ADVICE within 24 hours. On that occasion her d-dimer was negative. Today her ED workup included CT pulmonary angiogram which demonstrated small bilateral lower lobe pulmonary emboli. She has bilateral hilar and pretracheal lymphadenopathy. There is alveolar consolidation in the right middle lobe and lingula which is consistent with atelectasis versus pneumonia. Sarcoidosis is also a consideration, as well as reactive/neoplastic lymphadenopathy. S In the ED she was started on heparin drip, given saline 1 L bolus, Solu-Medrol 125 mg IV, cefepime 2 g IV, azithromycin 500 mg IV, albuterol x2. Denies leg pain or swelling currently. She states she was diagnosed with a RLE DVT on outpatient ultrasound the end of 2016 which was provoked by her CABG. She was on DAPT but not on anticoagulation following the diagnosis. She had a right femoral DVT 07/31/18 which was diagnosed in the ED. She left AMA on that occasion as well. She was not on anticoagulation. She has recently taken multiple long car rides to [place], etc over the course of the summer. Subjective: 10/08: remains on HFNC. still complaints of dyspnea. on heparin infusion. mivf discontinued. blood pressure and HR stable. denies other complaints. ROS negative except for cough and dyspnea. 10/09: Continues on high flow nasal cannula at 55% currently being weaned down to 50% with O2 saturation of 95% peer patient is tolerating diet and scheduled nebs continue the patient continues to complain of shortness of breath. WBC count elevated possibly secondary to leukemoid reaction, as steroids dosage were increased. 10/10: The patient was noted to desaturate early this a.m. to O2 sat at 89% on 6 L per the patient now remains on high flow at 50% at 30 L. Patient encouraged to utilize incentive spirometry every hour while awake. Patient tolerating diet. INR therapeutic at 2.3 the patient has already been transition to Coumadin, Heparin infusion now discontinued. Leukocytosis resolving. 10/11 INR 1.7. Resuming heparin drip. Creatinine normal. Remains on HFNC 30 L/ min and FIO2 55%. No BM charted since admission. Afebrile. Diurese. 10/12 INR 2.0 today. Continue heparin until therapeutic 48 hours. WBC 24 but no fever, suspect due to steroids. Has now had a BM. HFNC 30L/min and FIO2 50%. Subjective: 10/13 INR 6. Heparin and warfarin held. No evidence of bleeding. Slowly weaning FIO2. Diuresing. Creatinine stable. Objective Vital Signs / I&O: Vital Signs 10/12/18 08:00 10/12/18 09:00 10/12/18 09:26 Temperature 98.3 F Pulse Rate 61 79 Respiratory Rate 18 29 H Blood Pressure 131/78 130/75 Pulse Oximetry 92 L 82 L 90 L 10/12/18 09:44 10/12/18 10:00 10/12/18 10:15 Temperature Pulse Rate 70 66 67 Respiratory Rate 23 27 H 18 Blood Pressure 117/56 L 121/70 133/70 Pulse Oximetry 100 100 100 10/12/18 10:30 10/12/18 10:45 10/12/18 11:00 Temperature Pulse Rate 62 58 L 67 Respiratory Rate 17 18 18 Blood Pressure 123/70 127/70 Pulse Oximetry 100 100 100 10/12/18 11:01 10/12/18 11:15 10/12/18 11:30 Temperature Pulse Rate 62 57 L 55 L Respiratory Rate 19 16 16 Blood Pressure 127/79 125/84 130/86 Pulse Oximetry 100 95 85 L 10/12/18 11:45 10/12/18 12:00 10/12/18 12:15 Temperature 96.5 F L Pulse Rate 60 57 L 56 L Respiratory Rate 16 16 17 Blood Pressure 125/68 129/77 129/81 Pulse Oximetry 97 96 83 L 10/12/18 12:30 10/12/18 12:45 10/12/18 13:00 Temperature Pulse Rate 57 L 56 L 56 L Respiratory Rate 16 18 16 Blood Pressure 135/65 126/61 121/66 Pulse Oximetry 97 97 97 10/12/18 13:15 10/12/18 13:44 10/12/18 14:00 Temperature Pulse Rate 60 72 93 H Respiratory Rate 24 40 H 37 H Blood Pressure 127/61 114/55 L Pulse Oximetry 10/12/18 14:07 10/12/18 14:15 10/12/18 14:30 Temperature Pulse Rate 60 58 L 62 Respiratory Rate 31 H 21 25 H Blood Pressure 104/64 107/63 114/60 Pulse Oximetry 94 L 96 95 10/12/18 14:45 10/12/18 15:00 10/12/18 15:01 Temperature Pulse Rate 60 80 124 H Respiratory Rate 25 H 27 H 29 H Blood Pressure 114/59 L 130/79 Pulse Oximetry 93 L 94 L 94 L 10/12/18 15:15 10/12/18 15:30 10/12/18 15:50 Temperature Pulse Rate 63 126 H 76 Respiratory Rate 18 16 28 H Blood Pressure 115/67 107/67 Pulse Oximetry 94 L 93 L 10/12/18 16:00 10/12/18 16:01 10/12/18 16:15 Temperature 97.5 F L Pulse Rate 68 113 H 63 Respiratory Rate 24 31 H 21 Blood Pressure 104/59 L 104/59 L 115/66 Pulse Oximetry 94 L 93 L 94 L 10/12/18 16:30 10/12/18 16:45 10/12/18 17:00 Temperature Pulse Rate 198 H 59 L 59 L Respiratory Rate 24 17 15 Blood Pressure 116/54 L 112/58 L 118/57 L Pulse Oximetry 93 L 96 95 10/12/18 17:16 10/12/18 17:30 10/12/18 17:35 Temperature Pulse Rate 60 61 Respiratory Rate 14 17 Blood Pressure 119/59 L 109/55 L Pulse Oximetry 96 95 99 10/12/18 17:46 10/12/18 18:00 10/12/18 18:15 Temperature Pulse Rate 61 59 L 58 L Respiratory Rate 18 16 17 Blood Pressure 121/73 114/58 L 123/67 Pulse Oximetry 95 96 95 10/12/18 18:30 10/12/18 18:45 10/12/18 19:00 Temperature Pulse Rate 58 L 58 L 67 Respiratory Rate 15 16 15 Blood Pressure 124/71 136/80 128/63 Pulse Oximetry 95 95 95 10/12/18 19:16 10/12/18 19:30 10/12/18 19:45 Temperature Pulse Rate 93 H 62 131 H Respiratory Rate 32 H 17 31 H Blood Pressure 135/69 120/58 L 119/75 Pulse Oximetry 91 L 91 L 94 L 10/12/18 20:00 10/12/18 20:15 10/12/18 20:30 Temperature 98.1 F Pulse Rate 73 66 65 Respiratory Rate 25 H 16 17 Blood Pressure 118/83 127/62 115/55 L Pulse Oximetry 92 L 94 L 93 L 10/12/18 20:44 10/12/18 20:45 10/12/18 21:00 Temperature Pulse Rate 66 66 63 Respiratory Rate 18 20 16 Blood Pressure 113/56 L 134/65 Pulse Oximetry 96 97 96 10/12/18 21:07 10/12/18 21:16 10/12/18 21:30 Temperature Pulse Rate 69 65 Respiratory Rate 18 18 18 Blood Pressure 117/55 L 129/58 L Pulse Oximetry 95 93 L 10/12/18 21:50 10/12/18 22:00 10/12/18 22:15 Temperature Pulse Rate 69 75 63 Respiratory Rate 16 15 17 Blood Pressure 115/63 116/68 112/69 Pulse Oximetry 95 95 94 L 10/12/18 22:36 10/12/18 23:00 10/13/18 00:00 Temperature 98.2 F Pulse Rate 79 77 78 Respiratory Rate 23 25 H 16 Blood Pressure 124/59 L Pulse Oximetry 93 L 94 L 97 10/13/18 01:00 10/13/18 02:00 10/13/18 03:00 Temperature Pulse Rate 56 L 60 71 Respiratory Rate 15 16 47 H Blood Pressure Pulse Oximetry 96 96 97 10/13/18 03:59 10/13/18 04:00 10/13/18 05:00 Temperature 97.6 F Pulse Rate 61 59 L 63 Respiratory Rate 20 38 H 17 Blood Pressure Pulse Oximetry 95 94 L 10/13/18 05:16 Temperature Pulse Rate 85 Respiratory Rate 23 Blood Pressure 112/56 L Pulse Oximetry 94 L Intake & Output 10/12/18 10/13/18 10/13/18 18:59 06:59 18:59 Intake Total 1050 / 1050 650 / 650 Output Total 800 / 800 Balance 250 / 250 650 / 650 Weight 93.8 kg Intake: IV 100 / 100 350 / 350 Heparin/D5W 25,000 U/250 mL 25, 250 / 250 000 unit In 250 ml @ Per Protocol IV.CONT TITRATE PRN Rx #:[id number] Rocephin Inj 1,000 MG In NS Inj 100 / 100 100 / 100 100 ML @ 200 mls/hr IV.SIG Q12H ANAT Rx#:[id number] Oral 950 / 950 300 / 300 Output: Urine 800 / 800 Other: # Voids 2 1 Date of Last Bowel Movement 10/12/18 10/12/18 # Bowel Movements 2 1 Result Diagrams: 10/13/18 05:38 10/13/18 07:05 Objective Remarks: GENERAL: Middle-aged female sleeping but arouses to voice and is conversant, high flow nasal cannula. HEENT: Normocephalic. Atraumatic. Pupils equal, round, reactive, conjugate. Mucous membranes are moist NECK: Trachea is midline. There is no JVD. CHEST: Tachypneic but breathing appears pretty comfortable today. High flow nasal cannula, FiO2 45%, 30 L/min. CARDIOVASCULAR: Normal rate, regular rhythm. Sinus on monitor. ABDOMEN: Soft, nontender, nondistended. No guarding. MUSCULOSKELETAL: Pulses 2+. No peripheral edema. NEUROLOGICAL: Alert and oriented, moves all extremities spontaneously without apparent focal deficit. Assessment and Plan - Problem List (1) Pulmonary embolism Code(s): I26.99 - Other pulmonary embolism without acute cor pulmonale Status : Acute (2) COPD exacerbation Code(s): J44.1 - Chronic obstructive pulmonary disease with (acute) exacerbation Status: Acute (3) Tobacco abuse Code(s): Z72.0 - Tobacco use Status: Chronic (4) H/O deep venous thrombosis Code(s): Z86.718 - Personal history of other venous thrombosis and embolism Status: Chronic (5) Hypoxia Code(s): R09.02 - Hypoxemia Status: Acute (6) Pneumonia Code(s): J18.9 - Pneumonia, unspecified organism Status: Acute (7) Obesity Code(s): E66.9 - Obesity, unspecified Status: Chronic (8) Anxiety Code(s): F41.9 - Anxiety disorder, unspecified Status: Chronic (9) Hypokalemia Code(s): E87.6 - Hypokalemia Status: Acute (10) Pulmonary nodules Code(s): R91.8 - Other nonspecific abnormal finding of lung field Status: Acute (11) Lymphadenopathy, hilar Code(s): R59.0 - Localized enlarged lymph nodes Status: Acute (12) CAD (coronary artery disease) Code(s): I25.10 - Atherosclerotic heart disease of [place] coronary artery without angina pectoris Status: Chronic (13) Hx of CABG Code(s): Z95.1 - Presence of aortocoronary bypass graft Status: Chronic (14) HLD (hyperlipidemia) Code(s): E78.5 - Hyperlipidemia, unspecified Status: Chronic (15) HTN (hypertension) Code(s): I10 - Essential (primary) hypertension Status: Chronic - Assessment and Plan Plan: NEURO: Depression Anxiety Pleuritic pain secondary to pulmonary embolism Lortab as needed for pain. Morphine as needed for breakthrough pain. Continue Xanax 0.25 mill grams p.o. twice daily Continue Paxil 40 mg p.o. daily PT/OOB RESP: Bilateral pulmonary embolism Hypoxia -on high flow nasal cannula COPD with acute exacerbation Tobacco use disorder Pulmonary noduleswill require follow-up CT in 6 months. Bilateral hilar and pretracheal mediastinal lymphadenopathy and interstitial disease. Sarcoidosis is a consideration. Per pulmonology, f/u for outpatient EBUS bx. Dr. Jamar tinajero for pulmonology. Anticoagulation for pulmonary embolism as per below. Does not meet criteria for TPA Tobacco cessation counseling discussed Solu-Medrol 125 mg IV in the emergency department. Solumedrol 40 mg IV q8 per pulmonology. Continue Symbicort 160/4.52 puffs inhaled every 12 hours DuoNeb every 6 hours with EZPAP. Albuterol every 2 hours as needed. Abx as per below CV: Coronary artery disease Status post CABG July 2017 Hyperlipidemia -continue Lipitor 80 mg p.o. daily Hypertension Continue metoprolol 50 mg p.o. twice daily Troponin is negative. 2D echo 10/07/18mild concentric LVH. LVEF 40-45%. Pulmonary artery pressure 26 mmHg. Normal RV size and systolic function. Continue Plavix 75 mg p.o. daily. Lasix 40 mg IV bid. KCL 20 meq po bid x 4doses. GI: Obesity Cardiac diet Had a BM 12/29. . Colace/senna for bowel regimen. FEN/RENAL: Hypokalemia Replace electrolytes as indicated per ICU electrolyte replacement protocol. Magnesium is normal. Scheduled KCL replacement with Lasix as per above. Renal function is normal. Voiding-no Guerrero indicated at this time ID: Leukocytosis Received Cefepime 2 gram IV and Azithromycin 500 mg IV in the emergency department. She does have a productive cough and CT findings of alveolar consolidation in the right middle lobe and lingula. While these consolidations appear mild she does have lymphadenopathy which may also be reactive and therefore will provide a treatment course with antibiotics to determine if there is any resolution. Rocephin/azithromycin 10/07, day #7. Azithromycin has been discontinued. D/c rocephin today following completion of 7 day course, could contribute to INR elevation despite stable warfarin dose. blood culture sent 10/07 NGTD Urine Legionella and pneumococcal antigens and influenza-NGTD She is concerned she may have a UTI based on flank pain. UA was negative. HEME: Bilateral pulmonary embolism History of DVT She is self-pay. She states that she does not have any insurance and therefore warfarin remains more affordable (even with consideration of cost of labs). On warfarin initiated 10/07. 5 mg daily. Now INR 6. Holding warfarin/heparin. 10/08 BLE u/s negative for DVT. ENDO: Close monitoring per ICU protocol SSI PROPH: On anticoagulant VTE treatment/prophylaxis. Famotidine for stress ulcer prophylaxis. ACCESS: Peripheral IV providing adequate access at this time Full code Level 2 follow-up (1) Pulmonary embolism Qualifiers: Pulmonary embolism type: other Chronicity: acute Acute cor pulmonale presence: without acute cor pulmonale Qualified Code(s): I26.99 - Other pulmonary embolism without acute cor pulmonale (6) Pneumonia Qualifiers: Pneumonia type: due to unspecified organism Laterality: bilateral Lung location: unspecified part of lung Qualified Code(s): J18.9 - Pneumonia, unspecified organism (7) Obesity Qualifiers: Body mass index: BMI 34.0-34.9
[2018-10-13 07:38] LABS: Anion Gap 8 meq/L (5-15); Calcium 8.7 mg/dL (8.5-10.1); Carbon Dioxide 30.3 meq/L (21.0-32.0); Chloride 96 meq/L (98-107); Glomerular Filtration Rate Greater Than 89 mL/min (>89); Glucose,Random 140 mg/dL (74-106); Potassium 4.2 meq/L (3.5-5.1); Sodium 134 meq/L (136-145)
[2018-10-13 07:40] LABS: Blood Urea Nitrogen 23 mg/dL (7-18)
[2018-10-13] MEDS: Budesonide-Formoterol 160/4.5 MCG 6 GM Inhaler INH SCH ×2 (08:54→20:44)
[2018-10-13] MEDS: ALPRAZolam 0.25 MG Tablet PO SCH ×2 (09:01→20:45)
[2018-10-13] MEDS: Metoprolol Tartrate 50 MG Tablet PO SCH ×2 (09:02→20:45)
[2018-10-13] MEDS: Famotidine 20 MG Tablet PO SCH ×2 (09:02→20:45)
[2018-10-13] MEDS: Senna/Docusate Sodium 8.6/50 MG Tablet PO SCH ×2 (09:03→20:47)
--- NOTE | 2018-10-13 15:19 | P.PN ---
Subjective Interval history: Seems better today and on High flow at 45 %. No chest pains. Good output with lasix . Physical Exam Vital signs: Vital Signs 10/12/18 15:30 10/12/18 15:50 10/12/18 16:00 Temperature 97.5 F L Pulse Rate 126 H 76 68 Respiratory Rate 16 28 H 24 Blood Pressure 107/67 104/59 L Pulse Oximetry 93 L 94 L 10/12/18 16:01 10/12/18 16:15 10/12/18 16:30 Temperature Pulse Rate 113 H 63 198 H Respiratory Rate 31 H 21 24 Blood Pressure 104/59 L 115/66 116/54 L Pulse Oximetry 93 L 94 L 93 L 10/12/18 16:45 10/12/18 17:00 10/12/18 17:16 Temperature Pulse Rate 59 L 59 L 60 Respiratory Rate 17 15 14 Blood Pressure 112/58 L 118/57 L 119/59 L Pulse Oximetry 96 95 96 10/12/18 17:30 10/12/18 17:35 10/12/18 17:46 Temperature Pulse Rate 61 61 Respiratory Rate 17 18 Blood Pressure 109/55 L 121/73 Pulse Oximetry 95 99 95 10/12/18 18:00 10/12/18 18:15 10/12/18 18:30 Temperature Pulse Rate 59 L 58 L 58 L Respiratory Rate 16 17 15 Blood Pressure 114/58 L 123/67 124/71 Pulse Oximetry 96 95 95 10/12/18 18:45 10/12/18 19:00 10/12/18 19:16 Temperature Pulse Rate 58 L 67 93 H Respiratory Rate 16 15 32 H Blood Pressure 136/80 128/63 135/69 Pulse Oximetry 95 95 91 L 10/12/18 19:30 10/12/18 19:45 10/12/18 20:00 Temperature 98.1 F Pulse Rate 62 131 H 73 Respiratory Rate 17 31 H 25 H Blood Pressure 120/58 L 119/75 118/83 Pulse Oximetry 91 L 94 L 92 L 10/12/18 20:15 10/12/18 20:30 10/12/18 20:44 Temperature Pulse Rate 66 65 66 Respiratory Rate 16 17 18 Blood Pressure 127/62 115/55 L Pulse Oximetry 94 L 93 L 96 10/12/18 20:45 10/12/18 21:00 10/12/18 21:07 Temperature Pulse Rate 66 63 Respiratory Rate 20 16 18 Blood Pressure 113/56 L 134/65 Pulse Oximetry 97 96 10/12/18 21:16 10/12/18 21:30 10/12/18 21:50 Temperature Pulse Rate 69 65 69 Respiratory Rate 18 18 16 Blood Pressure 117/55 L 129/58 L 115/63 Pulse Oximetry 95 93 L 95 10/12/18 22:00 10/12/18 22:15 10/12/18 22:36 Temperature Pulse Rate 75 63 79 Respiratory Rate 15 17 23 Blood Pressure 116/68 112/69 124/59 L Pulse Oximetry 95 94 L 93 L 10/12/18 23:00 10/13/18 00:00 10/13/18 01:00 Temperature 98.2 F Pulse Rate 77 78 56 L Respiratory Rate 25 H 16 15 Blood Pressure Pulse Oximetry 94 L 97 96 10/13/18 02:00 10/13/18 03:00 10/13/18 03:59 Temperature Pulse Rate 60 71 61 Respiratory Rate 16 47 H 20 Blood Pressure Pulse Oximetry 96 97 10/13/18 04:00 10/13/18 05:00 10/13/18 05:16 Temperature 97.6 F Pulse Rate 59 L 63 85 Respiratory Rate 38 H 17 23 Blood Pressure 112/56 L Pulse Oximetry 95 94 L 94 L 10/13/18 06:00 10/13/18 07:00 10/13/18 07:31 Temperature Pulse Rate 61 73 66 Respiratory Rate 15 45 H 25 H Blood Pressure 108/59 L Pulse Oximetry 95 94 L 96 10/13/18 08:00 10/13/18 08:23 10/13/18 09:00 Temperature 98.2 F Pulse Rate 60 63 61 Respiratory Rate 13 19 15 Blood Pressure 109/58 L 121/65 Pulse Oximetry 94 L 95 94 L 10/13/18 10:00 10/13/18 11:00 10/13/18 12:00 Temperature Pulse Rate 68 69 69 Respiratory Rate 15 17 15 Blood Pressure 120/76 126/62 122/61 Pulse Oximetry 94 L 92 L 95 10/13/18 12:08 10/13/18 14:00 Temperature Pulse Rate 71 73 Respiratory Rate 17 Blood Pressure 122/61 Pulse Oximetry 88 L Intake & Output 12/29/18 12/30/18 12/30/18 18:59 06:59 18:59 Intake Total 1050 / 1050 650 / 650 Output Total 800 / 800 Balance 250 / 250 650 / 650 Weight 93.8 kg Intake: IV 100 / 100 350 / 350 Heparin/D5W 25,000 U/250 mL 25, 250 / 250 000 unit In 250 ml @ Per Protocol IV.CONT TITRATE PRN Rx #:[id number] Rocephin Inj 1,000 MG In NS Inj 100 / 100 100 / 100 100 ML @ 200 mls/hr IV.SIG Q12H ANAT Rx#:[id number] Oral 950 / 950 300 / 300 Output: Urine 800 / 800 Other: # Voids 2 1 Date of Last Bowel Movement 10/12/18 10/12/18 10/12/18 # Bowel Movements 2 1 Narrative: GENERAL: Well-nourished and well-developed patient who is sitting up.On High Flow O2 SKIN: Warm and dry. HEAD: Atraumatic. Normocephalic. EYES: Pupils equal and round. No scleral icterus. No injection or drainage. ENT: No nasal bleeding or discharge. Mucous membranes pink and moist. NECK: Trachea midline. Unable to appreciate JVD. CARDIOVASCULAR: Tachycardic, regular, sinus tach on the monitor with rate in the 120s.. No murmurs rubs or gallops. RESPIRATORY: No accessory muscle use. Wheeze upper chest and Breath sounds equal bilaterally. GASTROINTESTINAL: Abdomen soft, nondistended. She is tender to palpation in the right upper quadrant. MUSCULOSKELETAL: Extremities without clubbing, cyanosis, or edema. No obvious deformities. NEUROLOGICAL: Awake and alert. No obvious cranial nerve deficits. Motor grossly within normal limits. Sensation is intact. Results - Labs CBC & Chem 7: 10/13/18 05:38 10/13/18 07:05 Laboratory Results - last 24 hr 10/12/18 10/12/18 10/13/18 15:27 18:12 02:39 WBC RBC Hgb Hct MCV MCH MCHC RDW Plt Count MPV PT INR APTT 57.2 H D Sodium Potassium Chloride Carbon Dioxide Anion Gap BUN Creatinine Estimated GFR POC Glucose 164 H 140 H Random Glucose Calcium 10/13/18 10/13/18 10/13/18 05:13 05:38 05:38 WBC 23.5 H RBC 4.17 Hgb 13.9 Hct 40.1 MCV 96.0 MCH 33.3 MCHC 34.7 RDW 13.6 Plt Count 461 H MPV 7.7 PT 59.6 H D INR 6.0 H* APTT Sodium Potassium Chloride Carbon Dioxide Anion Gap BUN Creatinine Estimated GFR POC Glucose 136 H Random Glucose Calcium 18 10/13/18 07:05 11:44 WBC RBC Hgb Hct MCV MCH MCHC RDW Plt Count MPV PT INR APTT Sodium 134 L Potassium 4.2 Chloride 96 L Carbon Dioxide 30.3 Anion Gap 8 BUN 23 H Creatinine 0.63 Estimated GFR Greater than 89 POC Glucose 144 H Random Glucose 140 H Calcium 8.7 Microbiology 10/07/18 17:54 Blood - Peripheral Aerobic Blood Culture - Final No growth in 5 days 10/07/18 17:54 Blood - Peripheral Anaerobic Blood Culture - Final No growth in 5 days 10/07/18 17:50 Blood - Peripheral Aerobic Blood Culture - Final No growth in 5 days 10/07/18 17:50 Blood - Peripheral Anaerobic Blood Culture - Final No growth in 5 days Assessment and Plan - Assessment (1) Pulmonary edema Code(s): J81.1 - Chronic pulmonary edema Status: Acute (2) H/O: hysterectomy Code(s): Z90.710 - Acquired absence of both cervix and uterus Status: Acute (3) S/P wrist surgery Code(s): Z98.890 - Other specified postprocedural states Status: Acute (4) Bronchitis Code(s): J40 - Bronchitis, not specified as acute or chronic Status: Acute (5) COPD exacerbation Code(s): J44.1 - Chronic obstructive pulmonary disease with (acute) exacerbation Status: Acute (6) Hypoxemia Code(s): R09.02 - Hypoxemia Status: Acute (7) Tobacco abuse Code(s): Z72.0 - Tobacco use Status: Chronic (8) Hypoxia Code(s): R09.02 - Hypoxemia Status: Acute (9) H/O deep venous thrombosis Code(s): Z86.718 - Personal history of other venous thrombosis and embolism Status: Chronic - Plan 1. Continue weaning FIO2 to 40 %. 2. Continue lasix 40 mg BID 3. Duoneb Nebs qid. 4. Solumedrol 40 Mg Q8H 5.D/C antibiotics 6. CBC,BMP ,CXR in am
[2018-10-13] MEDS: Benzonatate 100 MG Capsule PO PRN (20:50)
--- NOTE | 2018-10-14 05:57 | XR ---
EXAM DATE: 10/14/2018 5:54 AM EST AGE/SEX: 48 years / Female INDICATIONS: Shortness of breath. CLINICAL DATA: This is the patient's subsequent encounter. Patient reports that signs and symptoms h ave been present for 1 week and indicates a pain score of 0/10. MEDICAL/SURGICAL HISTORY: . Pulmonary embolism. COPD. Smoker. Deep vein thrombosis. Hypoxia. Pn eumonia. Obesity. Anxiety. Hypokalemia. Pulmonary nodules. Lymphadenopathy, hilar. CAD. HTN. Hyperlip idemia. Depression. CABG. [place] [facility] [place]. . FINDINGS: The heart size is borderline enlarged. The patient is status post sternotomy. The lungs are clear. CONCLUSION: Borderline cardiomegaly. Electronically signed by: Kye Wilson MD Board Certified Radiologist 10/14/2018 5:56 AM EST
[2018-10-14] MEDS: Insulin NovoLOG Aspart Correctional Sugar Inj SQ SCH ×3 (06:16→17:44)
[2018-10-14 07:14] LABS: Hematocrit 42.8 % (35.0-46.0); Hemoglobin 14.4 gm/dL (11.6-15.3); Mean Corpuscular HGB Conc 33.6 % (32.0-36.0); Mean Corpuscular Hemoglobin 32.9 pg (27.0-34.0); Mean Corpuscular Volume 97.7 fL (80.0-100.0); Mean Platelet Volume 7.9 fL (7.0-11.0); Platelet Count 455 th/mm3 (150-450); Red Blood Count 4.38 mil/mm3 (4.00-5.30); White Blood Count 22.6 th/mm3 (4.0-11.0)
[2018-10-14 07:34] LABS: INR 4.5 Ratio
[2018-10-14 07:36] LABS: Anion Gap 8 meq/L (5-15); Blood Urea Nitrogen 29 mg/dL (7-18); Calcium 8.8 mg/dL (8.5-10.1); Carbon Dioxide 30.7 meq/L (21.0-32.0); Chloride 97 meq/L (98-107); Glomerular Filtration Rate Greater Than 89 mL/min (>89); Glucose,Random 131 mg/dL (74-106); Potassium 3.8 meq/L (3.5-5.1); Sodium 136 meq/L (136-145)
[2018-10-14] MEDS: MethylPREDNISolone Sod Succinate Inj 125 MG/2 ML Vial IV.PUSH SCH ×2 (08:16→15:41)
[2018-10-14] MEDS: Budesonide-Formoterol 160/4.5 MCG 6 GM Inhaler INH SCH ×2 (08:16→21:23)
[2018-10-14] MEDS: Famotidine 20 MG Tablet PO SCH ×2 (08:17→21:24)
[2018-10-14] MEDS: Metoprolol Tartrate 50 MG Tablet PO SCH ×2 (08:17→21:24)
[2018-10-14] MEDS: ALPRAZolam 0.25 MG Tablet PO SCH ×2 (08:18→21:24)
[2018-10-14] MEDS: Senna/Docusate Sodium 8.6/50 MG Tablet PO SCH ×2 (08:18→21:24)
--- NOTE | 2018-10-14 08:47 | P.PNPL ---
Subjective Interval history: Patient states her breathing is better on high flow with 30L FIO2 55%, CXR this morning improved. Afebrile. Physical Exam Vital signs: Vital Signs 10/13/18 09:00 10/13/18 10:00 10/13/18 11:00 Temperature 98.2 F Pulse Rate 61 68 69 Respiratory Rate 15 15 17 Blood Pressure 121/65 120/76 126/62 Pulse Oximetry 94 L 94 L 92 L 10/13/18 12:00 10/13/18 12:08 10/13/18 13:00 Temperature Pulse Rate 69 71 71 Respiratory Rate 15 17 20 Blood Pressure 122/61 122/61 131/72 Pulse Oximetry 95 88 L 92 L 10/13/18 14:00 10/13/18 14:09 10/13/18 15:00 Temperature Pulse Rate 73 72 98 H Respiratory Rate 20 20 32 H Blood Pressure 131/64 130/97 H Pulse Oximetry 94 L 93 L 87 L 10/13/18 16:00 10/13/18 16:51 10/13/18 17:00 Temperature 97.6 F Pulse Rate 80 74 79 Respiratory Rate 34 H 16 27 H Blood Pressure 131/73 Pulse Oximetry 93 L 90 L 10/13/18 17:01 10/13/18 18:00 10/13/18 19:00 Temperature Pulse Rate 85 76 80 Respiratory Rate 30 H 17 16 Blood Pressure 133/65 146/68 H 129/83 Pulse Oximetry 92 L 93 L 95 10/13/18 20:00 10/13/18 20:58 10/13/18 21:00 Temperature 98.2 F Pulse Rate 80 79 Respiratory Rate 15 17 Blood Pressure 126/84 134/72 Pulse Oximetry 95 92 L 94 L 10/13/18 21:01 10/13/18 22:00 10/13/18 23:00 Temperature Pulse Rate 79 82 73 Respiratory Rate 19 19 18 Blood Pressure 124/83 132/92 H Pulse Oximetry 95 95 10/13/18 23:36 10/14/18 00:00 10/14/18 01:00 Temperature 98.1 F Pulse Rate 62 72 Respiratory Rate 17 15 22 Blood Pressure 133/69 129/65 Pulse Oximetry 96 93 L 10/14/18 02:00 10/14/18 03:00 10/14/18 04:00 Temperature 98.2 F Pulse Rate 61 65 72 Respiratory Rate 14 17 17 Blood Pressure 128/72 132/78 129/70 Pulse Oximetry 96 96 100 10/14/18 04:42 10/14/18 05:00 10/14/18 06:00 Temperature Pulse Rate 72 76 72 Respiratory Rate 18 16 18 Blood Pressure 123/82 128/76 Pulse Oximetry 93 L 92 L 98 10/14/18 07:00 10/14/18 07:36 Temperature Pulse Rate 72 Respiratory Rate 18 17 Blood Pressure 129/77 Pulse Oximetry 94 L Intake & Output 10/13/18 10/14/18 10/14/18 18:59 06:59 18:59 Intake Total 1300 / 1300 240 / 240 100 / 100 Output Total 1500 / 1500 Balance -200 / -200 240 / 240 100 / 100 Weight 93.5 kg Intake: IV 100 / 100 100 / 100 Rocephin Inj 1,000 MG In NS Inj 100 / 100 100 / 100 100 ML @ 200 mls/hr IV.SIG Q12H ANAT Rx#:[id number] Oral 1200 / 1200 240 / 240 Output: Urine 1500 / 1500 Other: # Voids 1 Date of Last Bowel Movement 10/13/18 10/13/18 # Bowel Movements 1 1 - Constitutional no acute distress, obese - Routine HEENT Exam Head: Present: normocephalic, atraumatic Eye: Present: EOMI, PERRL, normal accommodation, conjunctivae pink ENT: Present: mucous membranes moist - Routine Neck Exam Present: supple, full ROM, trachea midline - Routine Respiratory Exam Present: CTA bilaterally - Routine Cardiovascular Exam Present: RRR, S1, S2 - Routine Abdominal Exam Present: soft, normoactive bowel sounds - Routine Extremities Exam Present: full ROM, pulses intact, normal capillary refill - Routine Skin Exam Present: intact, dry - Routine Neurological Exam Present: alert, oriented X3, CN II-XII intact Assessment and Plan - Assessment (1) Pulmonary embolism Code(s): I26.99 - Other pulmonary embolism without acute cor pulmonale Status : Acute Qualifiers: Pulmonary embolism type: other Chronicity: acute Acute cor pulmonale presence: without acute cor pulmonale Qualified Code(s): I26.99 - Other pulmonary embolism without acute cor pulmonale (2) COPD exacerbation Code(s): J44.1 - Chronic obstructive pulmonary disease with (acute) exacerbation Status: Acute (3) Tobacco abuse Code(s): Z72.0 - Tobacco use Status: Chronic (4) H/O deep venous thrombosis Code(s): Z86.718 - Personal history of other venous thrombosis and embolism Status: Chronic (5) Hypoxia Code(s): R09.02 - Hypoxemia Status: Acute (6) Pneumonia Code(s): J18.9 - Pneumonia, unspecified organism Status: Acute Qualifiers: Pneumonia type: due to unspecified organism Laterality: bilateral Lung location: unspecified part of lung Qualified Code(s): J18.9 - Pneumonia, unspecified organism (7) Obesity Code(s): E66.9 - Obesity, unspecified Status: Chronic Qualifiers: Body mass index: BMI 34.0-34.9 (8) Anxiety Code(s): F41.9 - Anxiety disorder, unspecified Status: Chronic (9) Hypokalemia Code(s): E87.6 - Hypokalemia Status: Acute (10) Pulmonary nodules Code(s): R91.8 - Other nonspecific abnormal finding of lung field Status: Acute (11) Lymphadenopathy, hilar Code(s): R59.0 - Localized enlarged lymph nodes Status: Acute (12) CAD (coronary artery disease) Code(s): I25.10 - Atherosclerotic heart disease of [place] coronary artery without angina pectoris Status: Chronic (13) Hx of CABG Code(s): Z95.1 - Presence of aortocoronary bypass graft Status: Chronic (14) HLD (hyperlipidemia) Code(s): E78.5 - Hyperlipidemia, unspecified Status: Chronic (15) HTN (hypertension) Code(s): I10 - Essential (primary) hypertension Status: Chronic - Plan 1. Acute hypoxemic respiratory insufficiency. 2. Small bilateral pulmonary emboli. 3. Bilateral hilar lymphadenopathy and pretracheal mediastinal adenopathy, ddx: sarcoidosis, postreactive adenopathy or a neoplastic process, doubt. 4. Bilateral upper lobe noncalcified pulmonary nodules. 5. Leukocytosis, 6. COPD 7. Hypertension. 8. CAD/CABG 9. Hyperlipidemia. RECOMMENDATIONS: Continue to wean down oxygen as tolerated and maintain sats >92%. Bronchodilators ( DuoNeb, Symbicort) Solu-Medrol 40 mg IV q. 8. BiPAP p.r.n. for respiratory distress. CXR today no obvious infiltrates or effusions Off abx monitor for signs of infections (fever, WBC) 10/08 Strep pneumonia, legionella urinary Ag, and influenza screening all negative. 10/07 Sputum cx: Normal resp hawa Continue Lasix 40mg BID On Coumadin monitor INR/PT. INR 4.5 today from 6 yesterday Doppler US LE negative for DVT Echocardiogram showed EF of 40% to 45%. Once her respiratory status improves, the patient will need a lung biopsy, possible EBUS for a pathology diagnosis. MATI level pending, KAREN negative. PFT when more stable Sleep study as outpatient to rule out sleep apnea. Continue treatment plan
--- NOTE | 2018-10-14 08:51 | P.PNCC ---
Subjective Subjective Remarks/Hospital Course: Hospital Course: 48-year-old female with past medical history of coronary artery disease status post CABG (06/2017), hyperlipidemia, hypertension, COPD, tobacco abuse who presents to [facility] emergency department with 2-week history of shortness of breath. She states she has also had a cough productive of green sputum. She has pleuritic pain in her right lower anterior and posterior thorax. No fever. She was recently admitted 09/29/18 after she presented with exertional shortness of breath and wheezing. She was treated with nebs and steroids but left AGAINST MEDICAL ADVICE within 24 hours. On that occasion her d-dimer was negative. Today her ED workup included CT pulmonary angiogram which demonstrated small bilateral lower lobe pulmonary emboli. She has bilateral hilar and pretracheal lymphadenopathy. There is alveolar consolidation in the right middle lobe and lingula which is consistent with atelectasis versus pneumonia. Sarcoidosis is also a consideration, as well as reactive/neoplastic lymphadenopathy. S In the ED she was started on heparin drip, given saline 1 L bolus, Solu-Medrol 125 mg IV, cefepime 2 g IV, azithromycin 500 mg IV, albuterol x2. Denies leg pain or swelling currently. She states she was diagnosed with a RLE DVT on outpatient ultrasound the end of 2016 which was provoked by her CABG. She was on DAPT but not on anticoagulation following the diagnosis. She had a right femoral DVT 07/31/18 which was diagnosed in the ED. She left AMA on that occasion as well. She was not on anticoagulation. She has recently taken multiple long car rides to [place], etc over the course of the summer. Subjective: 10/08: remains on HFNC. still complaints of dyspnea. on heparin infusion. mivf discontinued. blood pressure and HR stable. denies other complaints. ROS negative except for cough and dyspnea. 10/09: Continues on high flow nasal cannula at 55% currently being weaned down to 50% with O2 saturation of 95% peer patient is tolerating diet and scheduled nebs continue the patient continues to complain of shortness of breath. WBC count elevated possibly secondary to leukemoid reaction, as steroids dosage were increased. 10/10: The patient was noted to desaturate early this a.m. to O2 sat at 89% on 6 L per the patient now remains on high flow at 50% at 30 L. Patient encouraged to utilize incentive spirometry every hour while awake. Patient tolerating diet. INR therapeutic at 2.3 the patient has already been transition to Coumadin, Heparin infusion now discontinued. Leukocytosis resolving. 10/11 INR 1.7. Resuming heparin drip. Creatinine normal. Remains on HFNC 30 L/ min and FIO2 55%. No BM charted since admission. Afebrile. Diurese. 10/12 INR 2.0 today. Continue heparin until therapeutic 48 hours. WBC 24 but no fever, suspect due to steroids. Has now had a BM. HFNC 30L/min and FIO2 50%. Subjective: 10/13 INR 6. Heparin and warfarin held. No evidence of bleeding. Slowly weaning FIO2. Diuresing. Creatinine stable. 10/14: Still requiring high flow oxygen at 30 L/min. Maintaining oxygen saturation comfortable breathing pattern. INR is 4.5 heparin and Coumadin on hold. Objective Vital Signs / I&O: Vital Signs 10/13/18 09:00 10/13/18 10:00 10/13/18 11:00 Temperature 98.2 F Pulse Rate 61 68 69 Respiratory Rate 15 15 17 Blood Pressure 121/65 120/76 126/62 Pulse Oximetry 94 L 94 L 92 L 10/13/18 12:00 10/13/18 12:08 10/13/18 13:00 Temperature Pulse Rate 69 71 71 Respiratory Rate 15 17 20 Blood Pressure 122/61 122/61 131/72 Pulse Oximetry 95 88 L 92 L 10/13/18 14:00 10/13/18 14:09 10/13/18 15:00 Temperature Pulse Rate 73 72 98 H Respiratory Rate 20 20 32 H Blood Pressure 131/64 130/97 H Pulse Oximetry 94 L 93 L 87 L 10/13/18 16:00 10/13/18 16:51 10/13/18 17:00 Temperature 97.6 F Pulse Rate 80 74 79 Respiratory Rate 34 H 16 27 H Blood Pressure 131/73 Pulse Oximetry 93 L 90 L 10/13/18 17:01 10/13/18 18:00 10/13/18 19:00 Temperature Pulse Rate 85 76 80 Respiratory Rate 30 H 17 16 Blood Pressure 133/65 146/68 H 129/83 Pulse Oximetry 92 L 93 L 95 10/13/18 20:00 10/13/18 20:58 10/13/18 21:00 Temperature 98.2 F Pulse Rate 80 79 Respiratory Rate 15 17 Blood Pressure 126/84 134/72 Pulse Oximetry 95 92 L 94 L 10/13/18 21:01 10/13/18 22:00 10/13/18 23:00 Temperature Pulse Rate 79 82 73 Respiratory Rate 19 19 18 Blood Pressure 124/83 132/92 H Pulse Oximetry 95 95 10/13/18 23:36 10/14/18 00:00 10/14/18 01:00 Temperature 98.1 F Pulse Rate 62 72 Respiratory Rate 17 15 22 Blood Pressure 133/69 129/65 Pulse Oximetry 96 93 L 10/14/18 02:00 10/14/18 03:00 10/14/18 04:00 Temperature 98.2 F Pulse Rate 61 65 72 Respiratory Rate 14 17 17 Blood Pressure 128/72 132/78 129/70 Pulse Oximetry 96 96 100 10/14/18 04:42 10/14/18 05:00 10/14/18 06:00 Temperature Pulse Rate 72 76 72 Respiratory Rate 18 16 18 Blood Pressure 123/82 128/76 Pulse Oximetry 93 L 92 L 98 10/14/18 07:00 10/14/18 07:36 Temperature Pulse Rate 72 Respiratory Rate 18 17 Blood Pressure 129/77 Pulse Oximetry 94 L Intake & Output 10/13/18 10/14/18 10/14/18 18:59 06:59 18:59 Intake Total 1300 / 1300 240 / 240 100 / 100 Output Total 1500 / 1500 Balance -200 / -200 240 / 240 100 / 100 Weight 93.5 kg Intake: IV 100 / 100 100 / 100 Rocephin Inj 1,000 MG In NS Inj 100 / 100 100 / 100 100 ML @ 200 mls/hr IV.SIG Q12H ANAT Rx#:[id number] Oral 1200 / 1200 240 / 240 Output: Urine 1500 / 1500 Other: # Voids 1 Date of Last Bowel Movement 10/13/18 10/13/18 # Bowel Movements 1 1 Result Diagrams: 10/14/18 05:58 10/14/18 05:58 Objective Remarks: GENERAL: Middle-aged female on high flow nasal cannula. HEENT: Normocephalic. Atraumatic. Pupils equal, round, reactive, conjugate. Mucous membranes are moist NECK: Trachea is midline. There is no JVD. CHEST: Slightly tachypneic but breathing appears comfortable. High flow nasal cannula, FiO2 55%, 30 L/min. CARDIOVASCULAR: Normal rate, regular rhythm. Sinus on monitor. ABDOMEN: Soft, nontender, nondistended. No guarding. MUSCULOSKELETAL: Pulses 2+. No peripheral edema. NEUROLOGICAL: Alert and oriented, moves all extremities spontaneously without apparent focal deficit. Assessment and Plan - Problem List (1) Pulmonary embolism Code(s): I26.99 - Other pulmonary embolism without acute cor pulmonale Status : Acute (2) COPD exacerbation Code(s): J44.1 - Chronic obstructive pulmonary disease with (acute) exacerbation Status: Acute (3) Tobacco abuse Code(s): Z72.0 - Tobacco use Status: Chronic (4) H/O deep venous thrombosis Code(s): Z86.718 - Personal history of other venous thrombosis and embolism Status: Chronic (5) Hypoxia Code(s): R09.02 - Hypoxemia Status: Acute (6) Pneumonia Code(s): J18.9 - Pneumonia, unspecified organism Status: Acute (7) Obesity Code(s): E66.9 - Obesity, unspecified Status: Chronic (8) Anxiety Code(s): F41.9 - Anxiety disorder, unspecified Status: Chronic (9) Hypokalemia Code(s): E87.6 - Hypokalemia Status: Acute (10) Pulmonary nodules Code(s): R91.8 - Other nonspecific abnormal finding of lung field Status: Acute (11) Lymphadenopathy, hilar Code(s): R59.0 - Localized enlarged lymph nodes Status: Acute (12) CAD (coronary artery disease) Code(s): I25.10 - Atherosclerotic heart disease of [place] coronary artery without angina pectoris Status: Chronic (13) Hx of CABG Code(s): Z95.1 - Presence of aortocoronary bypass graft Status: Chronic (14) HLD (hyperlipidemia) Code(s): E78.5 - Hyperlipidemia, unspecified Status: Chronic (15) HTN (hypertension) Code(s): I10 - Essential (primary) hypertension Status: Chronic - Assessment and Plan Plan: NEURO: Depression Anxiety Pleuritic pain secondary to pulmonary embolism Lortab as needed for pain. Morphine as needed for breakthrough pain. Continue Xanax 0.25 mill grams p.o. twice daily Continue Paxil 40 mg p.o. daily PT/OOB RESP: Bilateral pulmonary embolism Hypoxia -on high flow nasal cannula COPD with acute exacerbation Tobacco use disorder Pulmonary noduleswill require follow-up CT in 6 months. Bilateral hilar and pretracheal mediastinal lymphadenopathy and interstitial disease. Sarcoidosis is a consideration. Per pulmonology, f/u for outpatient EBUS bx. Dr. Roldan following for pulmonology. Anticoagulation for pulmonary embolism as per below. Does not meet criteria for TPA Tobacco cessation counseling discussed Solu-Medrol 125 mg IV in the emergency department. Solumedrol 40 mg IV q8 per pulmonology. Continue Symbicort 160/4.52 puffs inhaled every 12 hours DuoNeb every 6 hours with EZPAP. Albuterol every 2 hours as needed. Abx as per below CV: Coronary artery disease Status post CABG July 2017 Hyperlipidemia -continue Lipitor 80 mg p.o. daily Hypertension Continue metoprolol 50 mg p.o. twice daily Troponin is negative. 2D echo 10/07/18mild concentric LVH. LVEF 40-45%. Pulmonary artery pressure 26 mmHg. Normal RV size and systolic function. Continue Plavix 75 mg p.o. daily. Lasix 40 mg IV bid. KCL 20 meq po bid x 4doses. GI: Obesity Cardiac diet Had a BM 10/12. . Colace/senna for bowel regimen. FEN/RENAL: Hypokalemia Replace electrolytes as indicated per ICU electrolyte replacement protocol. Magnesium is normal. Scheduled KCL replacement with Lasix as per above. Renal function is normal. Voiding-no Guerrero indicated at this time ID: Leukocytosis Received Cefepime 2 gram IV and Azithromycin 500 mg IV in the emergency department. She does have a productive cough and CT findings of alveolar consolidation in the right middle lobe and lingula. While these consolidations appear mild she does have lymphadenopathy which may also be reactive and therefore will provide a treatment course with antibiotics to determine if there is any resolution. Rocephin/azithromycin 10/07. Azithromycin has been discontinued. D/c rocephin following completion of 7 day course, could contribute to INR elevation despite stable warfarin dose. blood culture sent 10/07 NGTD Urine Legionella and pneumococcal antigens and influenza-NGTD She is concerned she may have a UTI based on flank pain. UA was negative. HEME: Bilateral pulmonary embolism History of DVT She is self-pay. She states that she does not have any insurance and therefore warfarin remains more affordable (even with consideration of cost of labs). On warfarin initiated 10/07. 5 mg daily. Now INR 4.5. Holding warfarin/heparin. Pharmacy to dose Coumadin 10/08 BLE u/s negative for DVT. ENDO: Close monitoring per ICU protocol SSI PROPH: On anticoagulant VTE treatment/prophylaxis. Famotidine for stress ulcer prophylaxis. ACCESS: Peripheral IV providing adequate access at this time Full code Level 2 follow-up [facility] to assume care 10/15/18 (1) Pulmonary embolism Qualifiers: Pulmonary embolism type: other Chronicity: acute Acute cor pulmonale presence: without acute cor pulmonale Qualified Code(s): I26.99 - Other pulmonary embolism without acute cor pulmonale (6) Pneumonia Qualifiers: Pneumonia type: due to unspecified organism Laterality: bilateral Lung location: unspecified part of lung Qualified Code(s): J18.9 - Pneumonia, unspecified organism (7) Obesity Qualifiers: Body mass index: BMI 34.0-34.9
[2018-10-15] MEDS: MethylPREDNISolone Sod Succinate Inj 125 MG/2 ML Vial IV.PUSH SCH ×4 (00:41→23:57)
[2018-10-15] MEDS: Insulin NovoLOG Aspart Correctional Sugar Inj SQ SCH ×5 (01:36→23:58)
[2018-10-15 07:32] LABS: INR 3.2 Ratio; Prothrombin Time 32.4 sec (9.8-11.6)
[2018-10-15] MEDS: Budesonide-Formoterol 160/4.5 MCG 6 GM Inhaler INH SCH ×2 (08:56→21:15)
[2018-10-15] MEDS: Metoprolol Tartrate 50 MG Tablet PO SCH ×2 (08:57→21:15)
[2018-10-15] MEDS: ALPRAZolam 0.25 MG Tablet PO SCH ×2 (08:57→21:15)
[2018-10-15] MEDS: Senna/Docusate Sodium 8.6/50 MG Tablet PO SCH ×2 (08:59→21:15)
[2018-10-15] MEDS: Famotidine 20 MG Tablet PO SCH ×2 (08:59→21:15)
--- NOTE | 2018-10-15 09:24 | P.PNPL ---
Subjective Interval history: Patient is feeling better. Remains on high flow oxygen 30L with 55%FIO2. Afebrile. Physical Exam Vital signs: Vital Signs 10/14/18 10:00 10/14/18 10:01 10/14/18 11:00 Temperature Pulse Rate 66 66 58 L Respiratory Rate 14 15 17 Blood Pressure 158/93 H Pulse Oximetry 95 96 95 10/14/18 11:01 10/14/18 12:00 10/14/18 12:01 Temperature 97.7 F Pulse Rate 58 L 59 L 59 L Respiratory Rate 17 15 15 Blood Pressure 141/92 H 171/95 H Pulse Oximetry 95 94 L 94 L 10/14/18 13:00 10/14/18 13:01 10/14/18 14:00 Temperature Pulse Rate 68 68 62 Respiratory Rate 15 13 17 Blood Pressure 152/89 H Pulse Oximetry 94 L 96 95 10/14/18 14:01 10/14/18 15:00 10/14/18 15:01 Temperature Pulse Rate 59 L 63 62 Respiratory Rate 14 15 14 Blood Pressure 150/89 H 132/74 Pulse Oximetry 94 L 95 94 L 10/14/18 16:00 10/14/18 17:00 10/14/18 18:00 Temperature 97.8 F Pulse Rate 69 65 76 Respiratory Rate 17 16 22 Blood Pressure 123/77 120/72 134/79 Pulse Oximetry 97 96 93 L 10/14/18 19:00 10/14/18 20:00 10/14/18 21:00 Temperature 98.6 F Pulse Rate 74 71 95 H Respiratory Rate 15 22 16 Blood Pressure Pulse Oximetry 92 L 92 L 95 10/14/18 21:24 10/14/18 22:00 10/14/18 23:00 Temperature Pulse Rate 71 88 81 Respiratory Rate 18 25 H 15 Blood Pressure 116/65 Pulse Oximetry 90 L 89 L 95 10/14/18 23:14 10/15/18 00:00 10/15/18 01:00 Temperature 98.8 F Pulse Rate 73 86 65 Respiratory Rate 20 29 H 17 Blood Pressure Pulse Oximetry 92 L 88 L 98 10/15/18 01:54 10/15/18 02:00 10/15/18 03:00 Temperature Pulse Rate 73 70 62 Respiratory Rate 17 16 16 Blood Pressure 119/68 Pulse Oximetry 94 L 93 L 82 L 10/15/18 03:54 10/15/18 04:00 10/15/18 05:00 Temperature 97.6 F Pulse Rate 60 63 61 Respiratory Rate 18 24 17 Blood Pressure Pulse Oximetry 94 L 95 10/15/18 06:00 10/15/18 07:00 10/15/18 07:02 Temperature Pulse Rate 80 67 66 Respiratory Rate 24 20 16 Blood Pressure 137/70 Pulse Oximetry 97 94 L 94 L Intake & Output 10/14/18 10/15/18 10/15/18 18:59 06:59 18:59 Intake Total 800 / 800 390 / 390 Balance 800 / 800 390 / 390 Weight 9.7 kg Intake: IV 100 / 100 Rocephin Inj 1,000 MG In NS Inj 100 / 100 100 ML @ 200 mls/hr IV.SIG Q12H ANAT Rx#:[id number] Oral 700 / 700 390 / 390 Other: # Voids 4 1 Date of Last Bowel Movement 10/14/18 10/14/18 # Bowel Movements 1 # Incontinent Bowel Movements 2 - Constitutional no acute distress, obese - Routine HEENT Exam Head: Present: normocephalic, atraumatic Eye: Present: EOMI, PERRL, normal accommodation, conjunctivae pink - Routine Neck Exam Present: supple, full ROM, trachea midline - Routine Respiratory Exam Present: CTA bilaterally - Routine Cardiovascular Exam Present: RRR, S1, S2 - Routine Abdominal Exam Present: soft, normoactive bowel sounds - Routine Skin Exam Present: intact, dry - Routine Neurological Exam Present: alert, oriented X3, CN II-XII intact - Routine Psychiatric Exam Present: normal affect Assessment and Plan - Assessment (1) Pulmonary embolism Code(s): I26.99 - Other pulmonary embolism without acute cor pulmonale Status : Acute Qualifiers: Pulmonary embolism type: other Chronicity: acute Acute cor pulmonale presence: without acute cor pulmonale Qualified Code(s): I26.99 - Other pulmonary embolism without acute cor pulmonale (2) COPD exacerbation Code(s): J44.1 - Chronic obstructive pulmonary disease with (acute) exacerbation Status: Acute (3) Tobacco abuse Code(s): Z72.0 - Tobacco use Status: Chronic (4) H/O deep venous thrombosis Code(s): Z86.718 - Personal history of other venous thrombosis and embolism Status: Chronic (5) Hypoxia Code(s): R09.02 - Hypoxemia Status: Acute (6) Pneumonia Code(s): J18.9 - Pneumonia, unspecified organism Status: Acute Qualifiers: Pneumonia type: due to unspecified organism Laterality: bilateral Lung location: unspecified part of lung Qualified Code(s): J18.9 - Pneumonia, unspecified organism (7) Obesity Code(s): E66.9 - Obesity, unspecified Status: Chronic Qualifiers: Body mass index: BMI 34.0-34.9 (8) Anxiety Code(s): F41.9 - Anxiety disorder, unspecified Status: Chronic (9) Hypokalemia Code(s): E87.6 - Hypokalemia Status: Acute (10) Pulmonary nodules Code(s): R91.8 - Other nonspecific abnormal finding of lung field Status: Acute (11) Lymphadenopathy, hilar Code(s): R59.0 - Localized enlarged lymph nodes Status: Acute (12) CAD (coronary artery disease) Code(s): I25.10 - Atherosclerotic heart disease of [place] coronary artery without angina pectoris Status: Chronic (13) Hx of CABG Code(s): Z95.1 - Presence of aortocoronary bypass graft Status: Chronic (14) HLD (hyperlipidemia) Code(s): E78.5 - Hyperlipidemia, unspecified Status: Chronic (15) HTN (hypertension) Code(s): I10 - Essential (primary) hypertension Status: Chronic - Plan 1. Acute hypoxemic respiratory insufficiency. 2. Small bilateral pulmonary emboli. 3. Bilateral hilar lymphadenopathy and pretracheal mediastinal adenopathy, ddx: sarcoidosis, postreactive adenopathy or a neoplastic process, doubt. 4. Bilateral upper lobe noncalcified pulmonary nodules. 5. Leukocytosis, 6. COPD 7. Hypertension. 8. CAD/CABG 9. Hyperlipidemia. RECOMMENDATIONS: Wean down oxygen as tolerated and maintain sats >92%. Bronchodilators ( DuoNeb, Symbicort) Solu-Medrol 40 mg IV q. 8. BiPAP p.r.n. for respiratory distress. CXR 10/14 no obvious infiltrates or effusions Off abx monitor for signs of infections (fever, WBC) 10/08 Strep pneumonia, legionella urinary Ag, and influenza screening all negative. 10/07 Sputum cx: Normal resp hawa Continue Lasix 40mg BID On Coumadin monitor INR/PT. INR 3.2 today Doppler US LE negative for DVT Echocardiogram showed EF of 40% to 45%. Once her respiratory status improves, the patient will need a lung biopsy, possible EBUS for a pathology diagnosis. MATI level pending, KAREN negative. PFT when more stable Sleep study as outpatient to rule out sleep apnea. Continue treatment plan
--- NOTE | 2018-10-15 12:35 | P.PNIM ---
Subjective Interval history: Reports no active shortness of breath. Still with chest pain when she takes a deep breath. Reports that she did not use oxygen when she was home. Reports that she is seen Dr. Sierra as a primary care physician and had pay [id number] for lab work in the past. Physical Exam Vital signs: Last Vital Signs Temp 97.6 F 10/15/18 04:00 Pulse 62 10/15/18 09:55 Resp 16 10/15/18 09:55 BP 137/70 10/15/18 07:02 Pulse Ox 95 10/15/18 09:55 Intake & Output 10/13/18 10/14/18 10/15/18 10/16/18 06:59 06:59 06:59 06:59 Intake Total 1700 / 1700 1540 / 1540 1190 / 1190 Output Total 800 / 800 1500 / 1500 Balance 900 / 900 40 / 40 1190 / 1190 Weight 93.8 kg 93.5 kg 9.7 kg Narrative: Well-nourished well-developed pleasant female in no acute story distress with nasal cannula Cardiovascular regular rate and rhythm Lungs slightly diminished but overall clear bilaterally Abdomen soft nontender nondistended, positive bowel sounds Extremities no cyanosis clubbing or edema Alert and oriented x3 Results Labs CBC & Chem 7: 10/14/18 05:58 10/14/18 05:58 Assessment and Plan (1) Pulmonary embolism: Code(s): I26.99 - Other pulmonary embolism without acute cor pulmonale Status: Acute (2) COPD exacerbation: Code(s): J44.1 - Chronic obstructive pulmonary disease with (acute) exacerbation Status: Acute (3) Tobacco abuse: Code(s): Z72.0 - Tobacco use Status: Chronic (4) H/O deep venous thrombosis: Code(s): Z86.718 - Personal history of other venous thrombosis and embolism Status: Chronic (5) Hypoxia: Code(s): R09.02 - Hypoxemia Status: Acute (6) Pneumonia: Code(s): J18.9 - Pneumonia, unspecified organism Status: Resolved (7) Obesity: Code(s): E66.9 - Obesity, unspecified Status: Chronic (8) Anxiety: Code(s): F41.9 - Anxiety disorder, unspecified Status: Chronic (9) Hypokalemia: Code(s): E87.6 - Hypokalemia Status: Acute (10) Pulmonary nodules: Code(s): R91.8 - Other nonspecific abnormal finding of lung field Status: Acute (11) Lymphadenopathy, hilar: Code(s): R59.0 - Localized enlarged lymph nodes Status: Acute (12) CAD (coronary artery disease): Code(s): I25.10 - Atherosclerotic heart disease of [place] coronary artery without angina pectoris Status: Chronic (13) Hx of CABG: Code(s): Z95.1 - Presence of aortocoronary bypass graft Status: Chronic (14) HLD (hyperlipidemia): Code(s): E78.5 - Hyperlipidemia, unspecified Status: Chronic (15) HTN (hypertension): Code(s): I10 - Essential (primary) hypertension Status: Chronic Plan 48-year-old white female with a past medical history of coronary artery disease status post CABG in June 2017, hyperlipidemia, hypertension, tobacco use presented with 2-week history of shortness of breath was found to have pulmonary embolism bilateral lower lobe along with bilateral hilar and paratracheal lymphadenopathy initially admitted to intensive care unit under structural layout worker service and transferred now to the hospitalist service Acute respiratory failure with hypoxemia still on high flow oxygen via nasal cannula Bilateral pulmonary embolism, history of DVT COPD with acute exacerbation Continue oxygen support and wean as tolerated Patient's INR currently elevated at 3.2, hold Coumadin, due to patient self pay status and not having any insurance and therefore warfarin remains more affordable patient has been paying out of pocket for outpatient lab work and being followed by Dr. Sierra, primary care physician. Continue Solu-Medrol 40 mg IV every 8 Continue Symbicort inhaler every 12 hours DuoNeb every 6 hours as easy Pap Bilateral hilar and paratracheal mediastinal lymphadenopathy and interstitial diseasesarcoidosis is a consideration and differential Pulmonary Dr. Jenkins is following. Will need likely a EBUS biopsy when respiratory status improves. KAREN negative. Recommend PFT when more stable. Angiotensin-converting enzyme parenting Leukocytosis completed a course of IV ceftriaxone and azithromycin, WBC remains elevated may be due to steroids. Will monitor. Coronary artery disease status post CABG in 2016 Hypertension, hyperlipidemia Continue beta-jayce, Plavix, statin Currently on Lasix 40 mg IV twice daily with potassium supplement 2D echo on 09/2418 showed mild concentric left ventricular hypertrophy with ejection fraction 40-45% normal RV size and systolic function Obesityweight loss counseling. History of depression anxietycontinue with Paxil and Xanax DVT prophylaxisCoumadin on hold due to elevated INR. Progress Note: Quality VTE Deep Vein Thrombosis/Pulmonary Embolism Present on Admission: Yes _ (1) Pulmonary embolism Qualifiers: Acute cor pulmonale presence: without acute cor pulmonale Chronicity: acute Pulmonary embolism type: other Qualified Code(s): I26.99 - Other pulmonary embolism without acute cor pulmonale (2) Pneumonia Qualifiers: Aspiration pneumonia type: Laterality: bilateral Lung location: unspecified part of lung Pneumonia type: due to unspecified organism Qualified Code(s): J18.9 - Pneumonia, unspecified organism (3) Obesity Qualifiers: Obesity type: Obesity classification: Serious obesity comorbidity presence : Body mass index: BMI 34.0-34.9 (4) CAD (coronary artery disease) Qualifiers: Coronary Disease-Associated Artery/Lesion type: [place] vs. transplanted heart: Associated angina: (5) HLD (hyperlipidemia) Qualifiers: Hyperlipidemia type: (6) HTN (hypertension) Qualifiers: Hypertension type:
[2018-10-16] MEDS: Insulin NovoLOG Aspart Correctional Sugar Inj SQ SCH ×2 (06:30→12:40)
[2018-10-16 07:49] LABS: INR 2.2 Ratio; Prothrombin Time 22.5 sec (9.8-11.6)
[2018-10-16] MEDS: ALPRAZolam 0.25 MG Tablet PO SCH ×2 (09:07→21:18)
[2018-10-16] MEDS: Famotidine 20 MG Tablet PO SCH ×2 (09:07→21:18)
[2018-10-16] MEDS: Budesonide-Formoterol 160/4.5 MCG 6 GM Inhaler INH SCH ×2 (09:08→22:18)
[2018-10-16] MEDS: MethylPREDNISolone Sod Succinate Inj 125 MG/2 ML Vial IV.PUSH SCH (09:08)
[2018-10-16] MEDS: Metoprolol Tartrate 50 MG Tablet PO SCH ×2 (09:08→21:18)
[2018-10-16] MEDS: Senna/Docusate Sodium 8.6/50 MG Tablet PO SCH ×2 (09:09→21:18)
--- NOTE | 2018-10-16 09:58 | P.PNPL ---
Subjective Interval history: Patient is feeling better down to 4L oxygen. Afebrile. Physical Exam Vital signs: Vital Signs 10/15/18 10:00 10/15/18 11:00 10/15/18 12:00 Temperature 98.1 F Pulse Rate 63 63 61 Respiratory Rate 17 18 17 Blood Pressure 130/89 141/85 H 136/86 Pulse Oximetry 95 97 97 10/15/18 13:00 10/15/18 13:01 10/15/18 14:00 Temperature Pulse Rate 62 65 68 Respiratory Rate 16 16 16 Blood Pressure 132/74 123/76 Pulse Oximetry 96 96 95 10/15/18 15:00 10/15/18 16:00 10/15/18 16:14 Temperature 97.9 F Pulse Rate 76 94 H 80 Respiratory Rate 18 25 H 15 Blood Pressure 115/78 91/60 L Pulse Oximetry 95 93 L 10/15/18 18:00 10/15/18 20:00 10/15/18 21:18 Temperature 98.7 F Pulse Rate 90 87 Respiratory Rate 20 Blood Pressure 136/85 Pulse Oximetry 97 96 10/15/18 21:38 10/15/18 22:00 10/16/18 00:00 Temperature 98.5 F Pulse Rate 85 88 71 Respiratory Rate 18 18 Blood Pressure 124/78 Pulse Oximetry 98 10/16/18 02:00 10/16/18 03:33 10/16/18 04:00 Temperature 98.6 F Pulse Rate 64 76 85 Respiratory Rate 18 18 Blood Pressure 139/90 Pulse Oximetry 90 L 10/16/18 04:10 10/16/18 06:00 10/16/18 08:00 Temperature 97.7 F Pulse Rate 72 68 Respiratory Rate 16 Blood Pressure 130/61 Pulse Oximetry 92 L 93 L 10/16/18 08:42 10/16/18 08:44 Temperature Pulse Rate 69 Respiratory Rate 15 Blood Pressure Pulse Oximetry 95 Intake & Output 10/15/18 10/16/18 10/16/18 18:59 06:59 18:59 Intake Total 1100 / 1100 650 / 650 Output Total 2200 / 2200 Balance -1100 / -1100 650 / 650 Weight 91.4 kg Intake: IV 250 / 250 Oral 1100 / 1100 400 / 400 Output: Urine 2200 / 2200 Other: # Voids 4 Date of Last Bowel Movement 10/14/18 10/16/18 10/16/18 # Bowel Movements 0 2 - Constitutional no acute distress, obese - Routine HEENT Exam Head: Present: normocephalic, atraumatic Eye: Present: EOMI, PERRL, normal accommodation, conjunctivae pink ENT: Present: mucous membranes moist - Routine Neck Exam Present: supple, full ROM, trachea midline - Routine Respiratory Exam Present: CTA bilaterally - Routine Cardiovascular Exam Present: RRR, S1, S2 - Routine Abdominal Exam Present: soft, normoactive bowel sounds - Routine Extremities Exam Present: full ROM, pulses intact - Routine Skin Exam Present: intact, dry - Routine Neurological Exam Present: alert, oriented X3, CN II-XII intact Assessment and Plan - Assessment (1) Pulmonary embolism Code(s): I26.99 - Other pulmonary embolism without acute cor pulmonale Status : Acute Qualifiers: Pulmonary embolism type: other Chronicity: acute Acute cor pulmonale presence: without acute cor pulmonale Qualified Code(s): I26.99 - Other pulmonary embolism without acute cor pulmonale (2) COPD exacerbation Code(s): J44.1 - Chronic obstructive pulmonary disease with (acute) exacerbation Status: Acute (3) Tobacco abuse Code(s): Z72.0 - Tobacco use Status: Chronic (4) H/O deep venous thrombosis Code(s): Z86.718 - Personal history of other venous thrombosis and embolism Status: Chronic (5) Hypoxia Code(s): R09.02 - Hypoxemia Status: Acute (6) Pneumonia Code(s): J18.9 - Pneumonia, unspecified organism Status: Resolved Qualifiers: Pneumonia type: due to unspecified organism Laterality: bilateral Lung location: unspecified part of lung Qualified Code(s): J18.9 - Pneumonia, unspecified organism (7) Obesity Code(s): E66.9 - Obesity, unspecified Status: Chronic Qualifiers: Body mass index: BMI 34.0-34.9 (8) Anxiety Code(s): F41.9 - Anxiety disorder, unspecified Status: Chronic (9) Hypokalemia Code(s): E87.6 - Hypokalemia Status: Acute (10) Pulmonary nodules Code(s): R91.8 - Other nonspecific abnormal finding of lung field Status: Acute (11) Lymphadenopathy, hilar Code(s): R59.0 - Localized enlarged lymph nodes Status: Acute (12) CAD (coronary artery disease) Code(s): I25.10 - Atherosclerotic heart disease of [place] coronary artery without angina pectoris Status: Chronic (13) Hx of CABG Code(s): Z95.1 - Presence of aortocoronary bypass graft Status: Chronic (14) HLD (hyperlipidemia) Code(s): E78.5 - Hyperlipidemia, unspecified Status: Chronic (15) HTN (hypertension) Code(s): I10 - Essential (primary) hypertension Status: Chronic - Plan 1. Acute hypoxemic respiratory insufficiency. 2. Small bilateral pulmonary emboli. 3. Bilateral hilar lymphadenopathy and pretracheal mediastinal adenopathy, ddx: sarcoidosis, postreactive adenopathy or a neoplastic process, doubt. 4. Bilateral upper lobe noncalcified pulmonary nodules. 5. Leukocytosis, 6. COPD 7. Hypertension. 8. CAD/CABG 9. Hyperlipidemia. RECOMMENDATIONS: Wean down oxygen as tolerated and maintain sats >92%. Bronchodilators (DuoNeb, Symbicort) Decrease Solu-Medrol 40 mg IV q. 12. BiPAP p.r.n. for respiratory distress. CXR 10/14 no obvious infiltrates or effusions Off abx monitor for signs of infections (fever, WBC) 10/08 Strep pneumonia, legionella urinary Ag, and influenza screening all negative. 10/07 Sputum cx: Normal resp hawa Continue Lasix 40mg BID On Coumadin monitor INR/PT. INR 2.2 today Doppler US LE negative for DVT Echocardiogram showed EF of 40% to 45%. Once her respiratory status improves, the patient will need a lung biopsy, possible EBUS for a pathology diagnosis. MATI level pending, KAREN negative. PFT when more stable Sleep study as outpatient to rule out sleep apnea. Continue treatment plan
--- NOTE | 2018-10-16 12:58 | P.PNIM ---
Subjective Interval history: Patient reports her breathing is better. Less short of breath. Pain controlled. Physical Exam Vital signs: Last Vital Signs Temp 97.7 F 10/16/18 08:00 Pulse 69 10/16/18 08:42 Resp 15 10/16/18 08:42 BP 130/61 10/16/18 08:00 Pulse Ox 95 10/16/18 08:44 Intake & Output 10/14/18 10/15/18 10/16/18 10/17/18 06:59 06:59 06:59 06:59 Intake Total 1540 / 1540 1190 / 1190 1750 / 1750 Output Total 1500 / 1500 2200 / 2200 Balance 40 / 40 1190 / 1190 -450 / -450 Weight 93.5 kg 9.7 kg 91.4 kg Narrative: Well-nourished well-developed pleasant female in no acute story distress with nasal cannula Cardiovascular regular rate and rhythm Lungs slightly diminished but overall clear bilaterally Abdomen soft nontender nondistended, positive bowel sounds Extremities no cyanosis clubbing or edema Alert and oriented x3 Results Labs CBC & Chem 7: 10/14/18 05:58 10/14/18 05:58 Assessment and Plan (1) Pulmonary embolism: Code(s): I26.99 - Other pulmonary embolism without acute cor pulmonale Status: Acute (2) COPD exacerbation: Code(s): J44.1 - Chronic obstructive pulmonary disease with (acute) exacerbation Status: Acute (3) Tobacco abuse: Code(s): Z72.0 - Tobacco use Status: Chronic (4) H/O deep venous thrombosis: Code(s): Z86.718 - Personal history of other venous thrombosis and embolism Status: Chronic (5) Hypoxia: Code(s): R09.02 - Hypoxemia Status: Acute (6) Pneumonia: Code(s): J18.9 - Pneumonia, unspecified organism Status: Resolved (7) Obesity: Code(s): E66.9 - Obesity, unspecified Status: Chronic (8) Anxiety: Code(s): F41.9 - Anxiety disorder, unspecified Status: Chronic (9) Hypokalemia: Code(s): E87.6 - Hypokalemia Status: Acute (10) Pulmonary nodules: Code(s): R91.8 - Other nonspecific abnormal finding of lung field Status: Acute (11) Lymphadenopathy, hilar: Code(s): R59.0 - Localized enlarged lymph nodes Status: Acute (12) CAD (coronary artery disease): Code(s): I25.10 - Atherosclerotic heart disease of [place] coronary artery without angina pectoris Status: Chronic (13) Hx of CABG: Code(s): Z95.1 - Presence of aortocoronary bypass graft Status: Chronic (14) HLD (hyperlipidemia): Code(s): E78.5 - Hyperlipidemia, unspecified Status: Chronic (15) HTN (hypertension): Code(s): I10 - Essential (primary) hypertension Status: Chronic Plan 48-year-old white female with a past medical history of coronary artery disease status post CABG in June 2017, hyperlipidemia, hypertension, tobacco use presented with 2-week history of shortness of breath was found to have pulmonary embolism bilateral lower lobe along with bilateral hilar and paratracheal lymphadenopathy initially admitted to intensive care unit under railroad passenger agent service and transferred now to the hospitalist service Acute respiratory failure with hypoxemia now weaned to 4 L via nasal cannula today Bilateral pulmonary embolism, history of DVT COPD with acute exacerbation Continue oxygen support and wean as tolerated Patient's INR 2.2,, due to patient self pay status and not having any insurance and therefore warfarin remains more affordable patient has been paying out of pocket for outpatient lab work and being followed by Dr. Sierra, primary care physician. Warfarin was on hold yesterday secondary to elevated INR, based on if patient will need EBUS biopsy; may continue to hold warfarin for pending procedure based on pulmonary's recommendation. Continue Solu-Medrol 40 mg IV every 12 Continue Symbicort inhaler every 12 hours DuoNeb every 6 hours as easy Pap Bilateral hilar and paratracheal mediastinal lymphadenopathy and interstitial diseasesarcoidosis is a consideration and differential Pulmonary Dr. Jenkins is following. Will need likely a EBUS biopsy when respiratory status improves. KAREN negative. Recommend PFT when more stable. Angiotensin-converting enzyme parenting Leukocytosis completed a course of IV ceftriaxone and azithromycin, WBC remains elevated may be due to steroids. Will monitor. Coronary artery disease status post CABG in 2016 Hypertension, hyperlipidemia Continue beta-jayce, Plavix, statin Currently on Lasix 40 mg IV twice daily with potassium supplement 2D echo on 09/2418 showed mild concentric left ventricular hypertrophy with ejection fraction 40-45% normal RV size and systolic function Obesityweight loss counseling. History of depression anxietycontinue with Paxil and Xanax DVT prophylaxisCoumadin on hold due to elevated INR. Transfer out of intensive care unit Progress Note: Quality VTE Deep Vein Thrombosis/Pulmonary Embolism Present on Admission: Yes _ (1) Pulmonary embolism Qualifiers: Acute cor pulmonale presence: without acute cor pulmonale Chronicity: acute Pulmonary embolism type: other Qualified Code(s): I26.99 - Other pulmonary embolism without acute cor pulmonale (2) Pneumonia Qualifiers: Aspiration pneumonia type: Laterality: bilateral Lung location: unspecified part of lung Pneumonia type: due to unspecified organism Qualified Code(s): J18.9 - Pneumonia, unspecified organism (3) Obesity Qualifiers: Obesity type: Obesity classification: Serious obesity comorbidity presence : Body mass index: BMI 34.0-34.9 (4) CAD (coronary artery disease) Qualifiers: Coronary Disease-Associated Artery/Lesion type: [place] vs. transplanted heart: Associated angina: (5) HLD (hyperlipidemia) Qualifiers: Hyperlipidemia type: (6) HTN (hypertension) Qualifiers: Hypertension type:
[2018-10-16] MEDS: MethylPREDNISolone Sod Succinate Inj 40 MG/ML Vial IV.PUSH SCH (21:19)
[2018-10-17] MEDS ORDERED: Heparin Drip 25,000 UNIT/250 ML BAG IV.CONT PRN (06:00)
[2018-10-17 06:07] LABS: INR 1.5 Ratio; Prothrombin Time 14.7 sec (9.8-11.6)
[2018-10-17] MEDS: Budesonide-Formoterol 160/4.5 MCG 6 GM Inhaler INH SCH ×2 (08:24→20:28)
[2018-10-17] MEDS: MethylPREDNISolone Sod Succinate Inj 40 MG/ML Vial IV.PUSH SCH ×2 (08:25→20:34)
[2018-10-17] MEDS: Metoprolol Tartrate 50 MG Tablet PO SCH ×2 (08:26→20:29)
[2018-10-17] MEDS: Senna/Docusate Sodium 8.6/50 MG Tablet PO SCH ×2 (08:27→20:29)
[2018-10-17] MEDS: Famotidine 20 MG Tablet PO SCH ×2 (08:27→20:30)
[2018-10-17] MEDS: ALPRAZolam 0.25 MG Tablet PO SCH ×2 (08:27→20:29)
--- NOTE | 2018-10-17 10:28 | P.PNPL ---
Subjective Interval history: Patient is on 4L oxygen. Afebrile. Physical Exam Vital signs: Vital Signs 10/16/18 11:00 10/16/18 11:10 10/16/18 12:00 Temperature 97 F L Pulse Rate 80 79 84 Respiratory Rate 16 19 17 Blood Pressure 120/71 133/84 Pulse Oximetry 93 L 95 94 L 10/16/18 12:18 10/16/18 13:00 10/16/18 14:00 Temperature Pulse Rate 87 86 81 Respiratory Rate 20 27 H 24 Blood Pressure 133/84 Pulse Oximetry 94 L 91 L 87 L 10/16/18 15:00 10/16/18 16:00 10/16/18 17:00 Temperature 97 F L 98.2 F Pulse Rate 82 82 81 Respiratory Rate 20 16 18 Blood Pressure 113/74 114/71 Pulse Oximetry 92 L 91 L 94 L 10/16/18 19:12 10/16/18 20:00 10/17/18 00:00 Temperature 97.7 F 97.2 F L Pulse Rate 86 80 Respiratory Rate 18 20 Blood Pressure 114/70 145/79 H Pulse Oximetry 97 93 L 97 10/17/18 04:00 10/17/18 07:00 10/17/18 08:00 Temperature 97.8 F 97.5 F L Pulse Rate 81 76 Respiratory Rate 18 20 Blood Pressure 101/75 126/60 Pulse Oximetry 94 L 97 95 Intake & Output 10/16/18 10/17/18 10/17/18 18:59 06:59 18:59 Intake Total 830 / 830 Balance 830 / 830 Weight 82.4 kg Intake: Oral 830 / 830 Other: # Voids 1 Date of Last Bowel Movement 10/16/18 10/16/18 # Bowel Movements 0 - Constitutional no acute distress, obese - Routine HEENT Exam Head: Present: normocephalic, atraumatic Eye: Present: EOMI, PERRL, normal accommodation, conjunctivae pink ENT: Present: mucous membranes moist - Routine Neck Exam Present: supple, full ROM, trachea midline - Routine Respiratory Exam Present: CTA bilaterally - Routine Cardiovascular Exam Present: RRR, S1, S2 - Routine Abdominal Exam Present: soft, normoactive bowel sounds - Routine Extremities Exam Present: full ROM, pulses intact - Routine Skin Exam Present: intact, dry - Routine Neurological Exam Present: alert, oriented X3, CN II-XII intact Assessment and Plan - Assessment (1) Pulmonary embolism Code(s): I26.99 - Other pulmonary embolism without acute cor pulmonale Status : Acute Qualifiers: Pulmonary embolism type: other Chronicity: acute Acute cor pulmonale presence: without acute cor pulmonale Qualified Code(s): I26.99 - Other pulmonary embolism without acute cor pulmonale (2) COPD exacerbation Code(s): J44.1 - Chronic obstructive pulmonary disease with (acute) exacerbation Status: Acute (3) Tobacco abuse Code(s): Z72.0 - Tobacco use Status: Chronic (4) H/O deep venous thrombosis Code(s): Z86.718 - Personal history of other venous thrombosis and embolism Status: Chronic (5) Hypoxia Code(s): R09.02 - Hypoxemia Status: Acute (6) Pneumonia Code(s): J18.9 - Pneumonia, unspecified organism Status: Resolved Qualifiers: Pneumonia type: due to unspecified organism Laterality: bilateral Lung location: unspecified part of lung Qualified Code(s): J18.9 - Pneumonia, unspecified organism (7) Obesity Code(s): E66.9 - Obesity, unspecified Status: Chronic Qualifiers: Body mass index: BMI 34.0-34.9 (8) Anxiety Code(s): F41.9 - Anxiety disorder, unspecified Status: Chronic (9) Hypokalemia Code(s): E87.6 - Hypokalemia Status: Acute (10) Pulmonary nodules Code(s): R91.8 - Other nonspecific abnormal finding of lung field Status: Acute (11) Lymphadenopathy, hilar Code(s): R59.0 - Localized enlarged lymph nodes Status: Acute (12) CAD (coronary artery disease) Code(s): I25.10 - Atherosclerotic heart disease of [place] coronary artery without angina pectoris Status: Chronic (13) Hx of CABG Code(s): Z95.1 - Presence of aortocoronary bypass graft Status: Chronic (14) HLD (hyperlipidemia) Code(s): E78.5 - Hyperlipidemia, unspecified Status: Chronic (15) HTN (hypertension) Code(s): I10 - Essential (primary) hypertension Status: Chronic - Plan 1. Acute hypoxemic respiratory insufficiency. 2. Small bilateral pulmonary emboli. 3. Bilateral hilar lymphadenopathy and pretracheal mediastinal adenopathy, ddx: sarcoidosis, postreactive adenopathy or a neoplastic process, doubt. 4. Bilateral upper lobe noncalcified pulmonary nodules. 5. Leukocytosis, 6. COPD 7. Hypertension. 8. CAD/CABG 9. Hyperlipidemia. RECOMMENDATIONS: Wean down oxygen as tolerated and maintain sats >92%. Bronchodilators (DuoNeb, Symbicort) Continue Solu-Medrol 40 mg IV q. 12. BiPAP p.r.n. for respiratory distress. CXR 10/14 no obvious infiltrates or effusions Off abx monitor for signs of infections (fever, WBC) 10/08 Strep pneumonia, legionella urinary Ag, and influenza screening all negative. 10/07 Sputum cx: Normal resp hawa Continue Lasix 40mg BID On Coumadin monitor INR/PT. INR 1.5 today Doppler US LE negative for DVT Echocardiogram showed EF of 40% to 45%. Once her respiratory status improves, the patient will need a lung biopsy, possible EBUS for a pathology diagnosis which can be arranged as outpatient. Will discuss with Dr. Yost. MATI level pending, KAREN negative. PFT when more stable Continue treatment plan
--- NOTE | 2018-10-17 17:46 | P.PNIM ---
Subjective Interval history: Patient sitting upright in bed. She says she is starting to feel somewhat better. No other complaints with the patient. Physical Exam Vital signs: Vital Signs 10/16/18 19:12 10/16/18 20:00 10/17/18 00:00 Temperature 97.7 F 97.2 F L Pulse Rate 86 80 Respiratory Rate 18 20 Blood Pressure 114/70 145/79 H Pulse Oximetry 97 93 L 97 10/17/18 04:00 10/17/18 07:00 10/17/18 08:00 Temperature 97.8 F 97.5 F L Pulse Rate 81 76 Respiratory Rate 18 20 Blood Pressure 101/75 126/60 Pulse Oximetry 94 L 97 95 10/17/18 10:59 10/17/18 12:00 10/17/18 15:14 Temperature 97.4 F L Pulse Rate 68 73 76 Respiratory Rate 16 20 16 Blood Pressure 114/72 Pulse Oximetry 97 Intake & Output 10/16/18 10/17/18 10/17/18 18:59 06:59 18:59 Intake Total 830 / 830 Balance 830 / 830 Weight 82.4 kg Intake: Oral 830 / 830 Other: # Voids 1 Date of Last Bowel Movement 10/16/18 10/16/18 # Bowel Movements 0 Narrative: General patient complains of some shortness of breath when she begins to ambulate. HEENT extraocular movements are intact, clear oropharyngeal mucosa, no JVD Cardiovascular S1-S2 audible Respiratory mild rhonchi bilaterally Abdomen soft, nontender, nondistended, normal bowel sounds Extremities no edema 2+ distal pulses in bilateral upper and lower extremities Neuro no focal neurological deficits. Results - Labs CBC & Chem 7: 10/14/18 05:58 10/14/18 05:58 Laboratory Results - last 24 hr 10/17/18 04:11 PT 14.7 H INR 1.5 Assessment and Plan - Assessment (1) Pulmonary embolism Code(s): I26.99 - Other pulmonary embolism without acute cor pulmonale Status : Acute (2) COPD exacerbation Code(s): J44.1 - Chronic obstructive pulmonary disease with (acute) exacerbation Status: Acute (3) Tobacco abuse Code(s): Z72.0 - Tobacco use Status: Chronic (4) H/O deep venous thrombosis Code(s): Z86.718 - Personal history of other venous thrombosis and embolism Status: Chronic (5) Hypoxia Code(s): R09.02 - Hypoxemia Status: Acute (6) Pneumonia Code(s): J18.9 - Pneumonia, unspecified organism Status: Resolved (7) Obesity Code(s): E66.9 - Obesity, unspecified Status: Chronic (8) Anxiety Code(s): F41.9 - Anxiety disorder, unspecified Status: Chronic (9) Hypokalemia Code(s): E87.6 - Hypokalemia Status: Acute (10) Pulmonary nodules Code(s): R91.8 - Other nonspecific abnormal finding of lung field Status: Acute (11) Lymphadenopathy, hilar Code(s): R59.0 - Localized enlarged lymph nodes Status: Acute (12) CAD (coronary artery disease) Code(s): I25.10 - Atherosclerotic heart disease of [place] coronary artery without angina pectoris Status: Chronic (13) Hx of CABG Code(s): Z95.1 - Presence of aortocoronary bypass graft Status: Chronic (14) HLD (hyperlipidemia) Code(s): E78.5 - Hyperlipidemia, unspecified Status: Chronic (15) HTN (hypertension) Code(s): I10 - Essential (primary) hypertension Status: Chronic - Plan 48-year-old white female with a past medical history of coronary artery disease status post CABG in June 2017, hyperlipidemia, hypertension, tobacco use presented with 2-week history of shortness of breath was found to have pulmonary embolism bilateral lower lobe along with bilateral hilar and paratracheal lymphadenopathy initially admitted to intensive care unit under pharmacy clinical coordinator service and now transferred under the hospitalist service. 1. Acute hypoxic respiratory failure secondary to bilateral pulmonary embolism 2. History of DVT 3. COPD with acute exacerbation Patient still requiring 4 L of supplemental oxygen. Continue IV steroids, breathing treatments. Patient is currently on Coumadin which will be continued. Plan discussed with pharmacy as the patient will likely get a BUS biopsy done as an outpatient as per pulmonary note. Follow-up a.m. INR Patient's O2 saturation is currently around 95%, continue to wean the patient off supplemental oxygen, keep O2 sat above 92%. Plan discussed the patient's nurse was at bedside. Patient has been on iv lasix 40 bid for nearly 1 week according to the chart. Will switch to po lasix. Follow up am labs. 4. Bilateral hilar and paratracheal mediastinal lymphadenopathy and interstitial disease Patient will need EGBUS biopsy when her respiratory status improves. This will likely be done as an outpatient. Pulmonary following. 5. Coronary artery disease status post CABG in 2017/hypertension/dyslipidemia Continue beta-jayce, Plavix, statin. 2D echo from 09/2018 shows LVH with ejection fraction around 45%. Switched iv lasix to po. 6. Depression/anxiety Continue Paxil, continue Xanax. DVT Proflex, patient is currently on Coumadin. (1) Pulmonary embolism Qualifiers: Pulmonary embolism type: other Chronicity: acute Acute cor pulmonale presence: without acute cor pulmonale Qualified Code(s): I26.99 - Other pulmonary embolism without acute cor pulmonale (6) Pneumonia Qualifiers: Pneumonia type: due to unspecified organism Laterality: bilateral Lung location: unspecified part of lung Qualified Code(s): J18.9 - Pneumonia, unspecified organism (7) Obesity Qualifiers: Body mass index: BMI 34.0-34.9
[2018-10-18 07:13] LABS: Baso % (Auto) 0.1 % (0.0-2.0); Hematocrit 38.4 % (35.0-46.0); Hemoglobin 13.5 gm/dL (11.6-15.3); Lymph # (Auto) 2.1 th/mm3 (1.0-4.8); Lymph % (Auto) 14.4 % (9.0-44.0); Mean Corpuscular HGB Conc 35.1 % (32.0-36.0); Mean Corpuscular Hemoglobin 33.6 pg (27.0-34.0); Mean Corpuscular Volume 95.7 fL (80.0-100.0); Mean Platelet Volume 7.5 fL (7.0-11.0); Mono # (Auto) 1.5 th/mm3 (0.0-0.9); Neut # (Auto) 11.2 th/mm3 (1.8-7.7); Neut % (Auto) 75.5 % (16.0-70.0); Platelet Count 371 th/mm3 (150-450); Red Blood Count 4.02 mil/mm3 (4.00-5.30); Red Cell Distribution Width 13.8 % (11.6-17.2); White Blood Count 14.8 th/mm3 (4.0-11.0)
[2018-10-18 07:20] LABS: INR 1.4 Ratio; Prothrombin Time 14.2 sec (9.8-11.6)
[2018-10-18 07:39] LABS: Anion Gap 10 meq/L (5-15); Blood Urea Nitrogen 29 mg/dL (7-18); Calcium 8.4 mg/dL (8.5-10.1); Carbon Dioxide 29.4 meq/L (21.0-32.0); Chloride 95 meq/L (98-107); Glomerular Filtration Rate Greater Than 89 mL/min (>89); Glucose,Random 163 mg/dL (74-106); Magnesium 2.3 mg/dL (1.5-2.5); Potassium 3.4 meq/L (3.5-5.1); Sodium 134 meq/L (136-145)
[2018-10-18] MEDS: Budesonide-Formoterol 160/4.5 MCG 6 GM Inhaler INH SCH ×2 (08:29→21:28)
[2018-10-18] MEDS: Furosemide 20 MG Tablet PO SCH (08:31)
[2018-10-18] MEDS: Metoprolol Tartrate 50 MG Tablet PO SCH ×2 (08:31→21:28)
[2018-10-18] MEDS: Senna/Docusate Sodium 8.6/50 MG Tablet PO SCH ×2 (08:32→21:28)
[2018-10-18] MEDS: Famotidine 20 MG Tablet PO SCH ×2 (08:32→21:28)
[2018-10-18] MEDS: ALPRAZolam 0.25 MG Tablet PO SCH ×2 (08:32→21:28)
[2018-10-18] MEDS: MethylPREDNISolone Sod Succinate Inj 40 MG/ML Vial IV.PUSH SCH (08:33)
--- NOTE | 2018-10-18 10:07 | P.PNPL ---
Subjective Interval history: Patient is on 3L oxygen, breathing better. Afebrile. Physical Exam Vital signs: Vital Signs 10/17/18 10:59 10/17/18 12:00 10/17/18 15:14 Temperature 97.4 F L Pulse Rate 68 73 76 Respiratory Rate 16 20 16 Blood Pressure 114/72 Pulse Oximetry 97 10/17/18 16:00 10/17/18 20:00 10/17/18 21:24 Temperature 97.5 F L 98.7 F Pulse Rate 77 95 H 75 Respiratory Rate 20 18 17 Blood Pressure 119/75 124/64 Pulse Oximetry 97 98 10/17/18 21:25 10/18/18 00:00 10/18/18 03:34 Temperature 97.6 F Pulse Rate 68 67 Respiratory Rate 20 17 Blood Pressure 110/84 Pulse Oximetry 98 98 97 10/18/18 04:00 10/18/18 07:00 10/18/18 07:21 Temperature 97.3 F L Pulse Rate 68 72 Respiratory Rate 20 14 Blood Pressure 116/55 L Pulse Oximetry 97 98 10/18/18 08:00 Temperature 97.4 F L Pulse Rate 75 Respiratory Rate 20 Blood Pressure 117/80 Pulse Oximetry 97 Intake & Output 10/17/18 10/18/18 10/18/18 18:59 06:59 18:59 Intake Total 720 / 720 720 / 720 Balance 720 / 720 720 / 720 Weight 83.7 kg Intake: Oral 720 / 720 720 / 720 Other: # Voids 2 2 Date of Last Bowel Movement 10/16/18 # Bowel Movements 0 0 - Constitutional no acute distress, obese - Routine HEENT Exam Head: Present: normocephalic, atraumatic Eye: Present: EOMI, PERRL, normal accommodation, conjunctivae pink ENT: Present: mucous membranes moist - Routine Neck Exam Present: supple, full ROM, trachea midline - Routine Respiratory Exam Present: CTA bilaterally - Routine Cardiovascular Exam Present: RRR, S1, S2 - Routine Abdominal Exam Present: soft, normoactive bowel sounds - Routine Extremities Exam Present: full ROM, pulses intact - Routine Skin Exam Present: intact, dry - Routine Neurological Exam Present: alert, oriented X3, CN II-XII intact Assessment and Plan - Assessment (1) Pulmonary embolism Code(s): I26.99 - Other pulmonary embolism without acute cor pulmonale Status : Acute Qualifiers: Pulmonary embolism type: other Chronicity: acute Acute cor pulmonale presence: without acute cor pulmonale Qualified Code(s): I26.99 - Other pulmonary embolism without acute cor pulmonale (2) COPD exacerbation Code(s): J44.1 - Chronic obstructive pulmonary disease with (acute) exacerbation Status: Acute (3) Tobacco abuse Code(s): Z72.0 - Tobacco use Status: Chronic (4) H/O deep venous thrombosis Code(s): Z86.718 - Personal history of other venous thrombosis and embolism Status: Chronic (5) Hypoxia Code(s): R09.02 - Hypoxemia Status: Acute (6) Pneumonia Code(s): J18.9 - Pneumonia, unspecified organism Status: Resolved Qualifiers: Pneumonia type: due to unspecified organism Laterality: bilateral Lung location: unspecified part of lung Qualified Code(s): J18.9 - Pneumonia, unspecified organism (7) Obesity Code(s): E66.9 - Obesity, unspecified Status: Chronic Qualifiers: Body mass index: BMI 34.0-34.9 (8) Anxiety Code(s): F41.9 - Anxiety disorder, unspecified Status: Chronic (9) Hypokalemia Code(s): E87.6 - Hypokalemia Status: Acute (10) Pulmonary nodules Code(s): R91.8 - Other nonspecific abnormal finding of lung field Status: Acute (11) Lymphadenopathy, hilar Code(s): R59.0 - Localized enlarged lymph nodes Status: Acute (12) CAD (coronary artery disease) Code(s): I25.10 - Atherosclerotic heart disease of [place] coronary artery without angina pectoris Status: Chronic (13) Hx of CABG Code(s): Z95.1 - Presence of aortocoronary bypass graft Status: Chronic (14) HLD (hyperlipidemia) Code(s): E78.5 - Hyperlipidemia, unspecified Status: Chronic (15) HTN (hypertension) Code(s): I10 - Essential (primary) hypertension Status: Chronic - Plan 1. Respiratory insufficiency..improving 2. Small bilateral pulmonary emboli. 3. Bilateral hilar lymphadenopathy and pretracheal mediastinal adenopathy, ddx: sarcoidosis, postreactive adenopathy or a neoplastic process, doubt. 4. Bilateral upper lobe noncalcified pulmonary nodules. 5. Leukocytosis, 6. COPD 7. Hypertension. 8. CAD/CABG 9. Hyperlipidemia. RECOMMENDATIONS: Continue with oxygen and maintain sats >92%. Bronchodilators (DuoNeb, Symbicort) Decrease Solu-Medrol 40 mg IV q. daily BiPAP p.r.n. for respiratory distress. CXR 10/14 no obvious infiltrates or effusions Check CXR in am Off abx monitor for signs of infections (fever, WBC) 10/08 Strep pneumonia, legionella urinary Ag, and influenza screening all negative. 10/07 Sputum cx: Normal resp hawa Consult CTS eval for mediastinoscopy ( Re;Bilateral hilar lymphadenopathy, Pretracheal mediastinal lymphadenopathy )on CT chest Continue Lasix 20mg daily On Coumadin monitor INR/PT. INR 1.4 today Doppler US LE negative for DVT Echocardiogram showed EF of 40% to 45%. MATI level normal (22), KAREN negative. Check PFT Continue treatment plan
--- NOTE | 2018-10-18 14:36 | P.PNIM ---
Subjective Interval history: Evaluated this morning at bedside. Patient reports that she is still currently a smoker smoking as much as 2 packs/day and has been smoking since age of 10 and is currently 48 years old. Encouraged patient that smoking is dangerous for her health as well as the health of the young children that are around her. Patient verbalized understanding and says that she would like to quit and that she has spoken to her primary doctor about this in the past and would like to continue these discussions once she is stabilized and discharged. Discussed with patient that her INR currently is 1.4 and at this time is not at a therapeutic level for treatment of her pulmonary embolism. Explained to her that the goal is 2-3 INR. Patient reports that she is able to get up and go to the shower and that she does not feel shortness of breath like she did at her original presentation. Patient reports that she does have chest pain but that has been present since she had her bypass 1 year ago. No new or worsening symptoms of chest pain or palpitations or dizziness. Patient reports that her cough has improved and that she is not bringing up as much sputum as before. Patient does not notice any wheezing at this time but says that it comes and goes. Physical Exam Vital signs: Last Vital Signs Temp 97.4 F L 10/18/18 08:00 Pulse 75 10/18/18 08:00 Resp 20 10/18/18 08:00 BP 117/80 10/18/18 08:00 Pulse Ox 97 10/18/18 08:00 Intake & Output 10/16/18 10/17/18 10/18/18 10/19/18 06:59 06:59 06:59 06:59 Intake Total 1750 / 1750 830 / 830 1440 / 1440 Output Total 2200 / 2200 Balance -450 / -450 830 / 830 1440 / 1440 Weight 91.4 kg 82.4 kg 83.7 kg General: No acute distress, conversational HEENT: EOMI Cardiovascular: S1/S2. No murmurs rubs or gallops appreciated Respiratory: Appears to have barrel chest, no respiratory muscle use, very very faint wheezing noticed on expiration at the base of the lung. Gastroneurology: Soft, nontender, nondistended, no guarding or rebound appreciated Extremity: 2+ bilateral dorsalis pedis pulse, no lower extremity pitting edema. Patient is currently on 2 L supplemental oxygen which has been down titrated this morning from 3 L as per patient. Narrative: . Results Labs CBC & Chem 7: 10/18/18 06:41 10/18/18 06:41 Assessment and Plan (1) Pulmonary embolism: Code(s): I26.99 - Other pulmonary embolism without acute cor pulmonale Status: Acute (2) COPD exacerbation: Code(s): J44.1 - Chronic obstructive pulmonary disease with (acute) exacerbation Status: Acute (3) Tobacco abuse: Code(s): Z72.0 - Tobacco use Status: Chronic (4) H/O deep venous thrombosis: Code(s): Z86.718 - Personal history of other venous thrombosis and embolism Status: Chronic (5) Hypoxia: Code(s): R09.02 - Hypoxemia Status: Acute (6) Pneumonia: Code(s): J18.9 - Pneumonia, unspecified organism Status: Resolved (7) Obesity: Code(s): E66.9 - Obesity, unspecified Status: Chronic (8) Anxiety: Code(s): F41.9 - Anxiety disorder, unspecified Status: Chronic (9) Hypokalemia: Code(s): E87.6 - Hypokalemia Status: Acute (10) Pulmonary nodules: Code(s): R91.8 - Other nonspecific abnormal finding of lung field Status: Acute (11) Lymphadenopathy, hilar: Code(s): R59.0 - Localized enlarged lymph nodes Status: Acute (12) CAD (coronary artery disease): Code(s): I25.10 - Atherosclerotic heart disease of [place] coronary artery without angina pectoris Status: Chronic (13) Hx of CABG: Code(s): Z95.1 - Presence of aortocoronary bypass graft Status: Chronic (14) HLD (hyperlipidemia): Code(s): E78.5 - Hyperlipidemia, unspecified Status: Chronic (15) HTN (hypertension): Code(s): I10 - Essential (primary) hypertension Status: Chronic Plan Psychiatry: Depression anxietyPatient is a very pleasant 48-year-old female with multiple medical problems including COPD, coronary artery disease status post CABG, hypertension who presents with shortness of breath also found to have new pulmonary embolism and suspected exacerbation of her underlying COPD. Pulmonary: COPD, pulmonary embolism, hilar and paratracheal mediastinal lymphadenopathy Continue on Solu-Medrol 40 mg IV daily and plan to transition to prednisone likely 40 mg daily from that point starting tomorrow if wheezing is gone Continue PPI Therapy while on steroidsDuoNeb therapy 1 neb every 6 hours and 1 neb every 2 hour as needed, Symbicort Urine antigen for Legionella and pneumonia are negative Pulmonary consulted recommendations appreciated via EMR Chest x-ray for the morning Pulmonary function testing to be done shortly (staff at bedside now to perform testing) Continue Lasix 20 mg daily Cardiothoracic surgery evaluation for mediastinal finding of hilar lymphadenopathy on CT chest. Continue dosing Coumadin for goal INR 2-3. Patient currently receiving 5 mg p.o. daily Supplemental oxygen to maintain saturation around 90-92%. Cardiology: Coronary artery disease status post CABG (2016), hypertension, hyperlipidemia Continue beta-jayce, Plavix 75 mg daily, and statin therapy Psychiatry: Depression/anxiety Continue current regimen CODE STATUS: Full code DVT prophylaxis: Coumadin/ambulation Disposition: Medical surgery unit. Cardiothoracic consultation to be appreciated. Continue down titration of oxygen. Pulmonary function test pending. Will need to be transitioned to oral regimen of steroid therapy based on evaluation on 10/19 Progress Note: Quality VTE Deep Vein Thrombosis/Pulmonary Embolism Present on Admission: Yes _ (1) Pulmonary embolism Qualifiers: Acute cor pulmonale presence: without acute cor pulmonale Chronicity: acute Pulmonary embolism type: other Qualified Code(s): I26.99 - Other pulmonary embolism without acute cor pulmonale (2) Pneumonia Qualifiers: Aspiration pneumonia type: Laterality: bilateral Lung location: unspecified part of lung Pneumonia type: due to unspecified organism Qualified Code(s): J18.9 - Pneumonia, unspecified organism (3) Obesity Qualifiers: Obesity type: Obesity classification: Serious obesity comorbidity presence : Body mass index: BMI 34.0-34.9 (4) CAD (coronary artery disease) Qualifiers: Coronary Disease-Associated Artery/Lesion type: [place] vs. transplanted heart: Associated angina: (5) HLD (hyperlipidemia) Qualifiers: Hyperlipidemia type: (6) HTN (hypertension) Qualifiers: Hypertension type:
--- NOTE | 2018-10-19 06:20 | XR ---
EXAM DATE: 10/19/2018 5:37 AM EST AGE/SEX: 48 years / Female INDICATIONS: COPD. CLINICAL DATA: This is the patient's subsequent encounter. Patient reports that signs and symptoms h ave been present for 3 weeks and indicates a pain score of 0/10. MEDICAL/SURGICAL HISTORY: . Cardiovascular disease. Myocardial infarction. CABG. [place] [facility] [place]. . FINDINGS: A single AP view of the chest demonstrates the lungs to be symmetrically aerated without evidence of mass, infiltrate or effusion. The cardiomediastinal contours are unremarkable. Osseous structures a re intact. The patient is status post median sternotomy. CONCLUSION: Stable appearance with no acute cardiopulmonary disease. Electronically signed by: Himanshu Tamez MD Board Certified Radiologist 10/19/2018 6:18 AM EST
[2018-10-19 08:21] LABS: INR 2.1 Ratio; Prothrombin Time 21.4 sec (9.8-11.6)
[2018-10-19] MEDS ORDERED: MethylPREDNISolone Sod Succinate Inj 40 MG/ML Vial IV.PUSH SCH (09:00)
[2018-10-19] MEDS: Budesonide-Formoterol 160/4.5 MCG 6 GM Inhaler INH SCH ×2 (09:54→21:13)
[2018-10-19] MEDS: Senna/Docusate Sodium 8.6/50 MG Tablet PO SCH ×2 (09:54→21:12)
[2018-10-19] MEDS: Metoprolol Tartrate 50 MG Tablet PO SCH ×2 (10:01→21:12)
[2018-10-19] MEDS: ALPRAZolam 0.25 MG Tablet PO SCH ×2 (10:01→21:12)
[2018-10-19] MEDS: Famotidine 20 MG Tablet PO SCH ×2 (10:02→21:12)
[2018-10-19] MEDS: Furosemide 20 MG Tablet PO SCH (10:02)
--- NOTE | 2018-10-19 19:37 | P.PNIM ---
Subjective Interval history: RN denies any changes overnight, patient only complaining of pain in her knees and ankles. Patient affirms that her shortness of breath is much better since day of admission. Physical Exam Vital signs: Vital Signs 10/18/18 20:00 10/18/18 20:36 10/19/18 00:00 Temperature 99.0 F 97.7 F Pulse Rate 82 86 88 Respiratory Rate 16 18 16 Blood Pressure 116/59 L 108/56 L Pulse Oximetry 96 96 10/19/18 03:28 10/19/18 03:29 10/19/18 04:00 Temperature 97.7 F Pulse Rate 77 76 Respiratory Rate 18 16 Blood Pressure 105/57 L Pulse Oximetry 97 97 10/19/18 08:00 10/19/18 08:49 10/19/18 12:00 Temperature 97.5 F L 97.4 F L Pulse Rate 92 H 70 86 Respiratory Rate 16 18 16 Blood Pressure 121/72 99/62 L Pulse Oximetry 96 96 97 10/19/18 16:00 10/19/18 18:03 Temperature 97.4 F L Pulse Rate 74 Respiratory Rate 14 Blood Pressure 108/67 Pulse Oximetry 97 93 L Intake & Output 10/19/18 10/19/18 10/20/18 06:59 18:59 06:59 Intake Total 480 / 480 Balance 480 / 480 Weight 83.6 kg Intake: Oral 480 / 480 Other: # Voids 2 2 Date of Last Bowel Movement 10/18/18 10/19/18 Narrative: Clear lungs bilaterally, unlabored breathing On nasal cannula Heart sounds regular rate and rhythm No lower extremity edema No deformities noted up bilateral knees/patella is in bilateral ankles, only mild tenderness to palpation is elicited upon percussion of both patellas and mid tibias Results - Labs CBC & Chem 7: 10/18/18 06:41 10/18/18 06:41 Laboratory Results - last 24 hr 10/19/18 06:25 PT 21.4 H INR 2.1 - Imaging Impressions Chest X-Ray 10/19/18 00:00 CONCLUSION: Stable appearance with no acute cardiopulmonary disease. Assessment and Plan - Assessment (1) Pulmonary embolism Code(s): I26.99 - Other pulmonary embolism without acute cor pulmonale Status : Acute (2) COPD exacerbation Code(s): J44.1 - Chronic obstructive pulmonary disease with (acute) exacerbation Status: Acute (3) Tobacco abuse Code(s): Z72.0 - Tobacco use Status: Chronic (4) H/O deep venous thrombosis Code(s): Z86.718 - Personal history of other venous thrombosis and embolism Status: Chronic (5) Hypoxia Code(s): R09.02 - Hypoxemia Status: Acute (6) Pneumonia Code(s): J18.9 - Pneumonia, unspecified organism Status: Resolved (7) Obesity Code(s): E66.9 - Obesity, unspecified Status: Chronic (8) Anxiety Code(s): F41.9 - Anxiety disorder, unspecified Status: Chronic (9) Hypokalemia Code(s): E87.6 - Hypokalemia Status: Acute (10) Pulmonary nodules Code(s): R91.8 - Other nonspecific abnormal finding of lung field Status: Acute (11) Lymphadenopathy, hilar Code(s): R59.0 - Localized enlarged lymph nodes Status: Acute (12) CAD (coronary artery disease) Code(s): I25.10 - Atherosclerotic heart disease of [place] coronary artery without angina pectoris Status: Chronic (13) Hx of CABG Code(s): Z95.1 - Presence of aortocoronary bypass graft Status: Chronic (14) HLD (hyperlipidemia) Code(s): E78.5 - Hyperlipidemia, unspecified Status: Chronic (15) HTN (hypertension) Code(s): I10 - Essential (primary) hypertension Status: Chronic - Plan 48-year-old white female admitted with shortness of breath Shortness of breath Multifactorial see below -this AM CXR clear Pulmonary embolism On Warfarin COPD exacerbation Pulmonology following, on steroids, nebulizer treatments, improved since admission, symbicort Mediastinal lymphadenopathy CT surgery entertaining mediastinoscopy, can be done as an outpatient status post CABG (2016), hypertension, hyperlipidemia Continue beta-jayce, Plavix and statin therapy -chronic chest pain since cabg - continue home pain meds Depression/anxiety Continue current regimen Nonspecific arthralgias -heating pad, on chronic home pain meds (1) Pulmonary embolism Qualifiers: Pulmonary embolism type: other Chronicity: acute Acute cor pulmonale presence: without acute cor pulmonale Qualified Code(s): I26.99 - Other pulmonary embolism without acute cor pulmonale (6) Pneumonia Qualifiers: Pneumonia type: due to unspecified organism Laterality: bilateral Lung location: unspecified part of lung Qualified Code(s): J18.9 - Pneumonia, unspecified organism (7) Obesity Qualifiers: Body mass index: BMI 34.0-34.9
[2018-10-20 03:50] VITALS: RESP 18
[2018-10-20 05:53] LABS: Prothrombin Time 19.8 sec (9.8-11.6)
[2018-10-20 08:38] VITALS: PULSE 77; O2SAT 96
[2018-10-20 08:40] VITALS: BP 99/68; TEMP 97.5
[2018-10-20] MEDS: Metoprolol Tartrate 50 MG Tablet PO SCH (09:32)
[2018-10-20] MEDS: ALPRAZolam 0.25 MG Tablet PO SCH (09:32)
[2018-10-20] MEDS: Famotidine 20 MG Tablet PO SCH (09:32)
[2018-10-20] MEDS: Furosemide 20 MG Tablet PO SCH (09:32)
[2018-10-20] MEDS: Senna/Docusate Sodium 8.6/50 MG Tablet PO SCH (09:33)
[2018-10-20] MEDS: Budesonide-Formoterol 160/4.5 MCG 6 GM Inhaler INH SCH (09:33)
--- NOTE | 2018-10-20 10:06 | P.CON ---
History of Present Illness Service: Cardiothoracic surgery Reason for Consult: Mediastinal adenopathy Primary Care Provider: German Sierra DO Chief Complaint: Shortness of breath History of Present Illness: 48-year-old female with a known history of coronary artery disease status post emergent coronary artery bypass grafting in 2017 by me, at which point she presented with acute myocardial infarction, cardiogenic shock with enteric balloon pump placement and left main stenosis in the setting of severe left ventricular dysfunction. She now presents with progressive symptoms of shortness of breath for the past few weeks. Patient was seen and evaluated and has undergone further workup including a chest CT which is demonstrated bilateral lower lobe small pulmonary emboli with incidental findings of pretracheal and bilateral hilar adenopathy. She also has multiple small nodules of unknown etiology. Since her admission her shortness of breath is markedly improved and presently she is on room air with no distress He denies any specific chest pain. I am now being consulted to offer my opinion regarding the mediastinal adenopathy. Review of Systems All other systems reviewed negative except as stated in HPI PMFSH - History History Provided By: Patient, Medical Record - Medical History Medical History: Medical History (Last Reviewed 10/17/18 @ 09:28 by Jayda Lockwood) Anxiety CAD (coronary artery disease) Depression Ectopic HLD (hyperlipidemia) History of forearm fracture delivery delivered DVT (deep venous thrombosis) Myocardial infarct - Surgical History Surgical History: Surgical History (Last Updated 10/07/18 @ 19:15 by Sheela Hagen MD) H/O dilation and curettage History of partial hysterectomy Hx of appendectomy Hx of cholecystectomy S/P CABG x 2 - Family History Family History: Family History (Last Updated 10/07/18 @ 19:16 by Sheela Hagen MD) Mother Diabetes CAD (coronary artery disease) Father Unknown family medical history - Tobacco History Second Hand Smoke Exposure: Yes Tobacco Use In Past 30 Days: Yes Smoking Status: Current every day smoker Tobacco Type: Cigarettes Packs Per Day: 2 Years Smoked: 40 - Alcohol History How Often Do You Have a Drink Containing Alcohol: Never - Substance Use History Substance History: No History of Abuse - Travel History Recent Travel in the [place] Within the Last 8 Weeks: No Recent Travel Out of the Country Within the Last 8 Weeks: No - Immunization History Tetanus Immunization: Unsure Hx Influenza Vaccine This Season: No Medications and Allergies Active Medications: Active Medications Acetaminophen (Tylenol) 650 mg PO Q6H PRN PRN Reason: PAIN 1-3 AND/OR FEVER >101F Hydrocodone Bitart/Acetaminophen (Hominy 10/325) 1 tab PO Q4H PRN PRN Reason: PAIN 1-10 Last Admin: 10/20/18 09:38 Dose: 1 tab Al Hydroxide/Mg Hydroxide (Milk Of Magnesia Liq) 30 ml PO Q12H PRN PRN Reason: Mild Constipation Albuterol (Albuterol Neb (Prn)) 2.5 mg NEB Q2HR NEB PRN PRN Reason: WHEEZING Last Admin: 10/12/18 04:39 Dose: 2.5 mg Albuterol (Duoneb Neb ([facility])) 1 ampul NEB TID NEB [facility] Last Admin: 10/20/18 08:36 Dose: 1 ampul Alprazolam (Xanax) 0.25 mg PO BID [facility] Last Admin: 10/20/18 09:32 Dose: 0.25 mg Atorvastatin Calcium (Lipitor) 80 mg PO DAILY [facility] Last Admin: 10/20/18 09:32 Dose: 80 mg Benzonatate (Tessalon Perles) 100 mg PO Q8H PRN PRN Reason: COUGH Last Admin: 10/13/18 20:50 Dose: 100 mg Bisacodyl (Dulcolax Supp) 10 mg RECTAL DAILY PRN PRN Reason: SEVERE CONSITIPATION Budesonide/Formoterol Fumarate (Symbicort 160/4.5 Mcg Inh) 2 puff INH Q12H [facility] Last Admin: 10/20/18 09:33 Dose: 2 puff Clopidogrel Bisulfate (Plavix) 75 mg PO DAILY [facility] Last Admin: 10/20/18 09:33 Dose: 75 mg Famotidine (Pepcid) 20 mg PO BID [facility] Last Admin: 10/20/18 09:32 Dose: 20 mg Furosemide (Lasix) 20 mg PO DAILY [facility] Last Admin: 10/20/18 09:32 Dose: 20 mg Lactulose (Lactulose Liq) 30 ml PO DAILY PRN PRN Reason: SEVERE CONSITIPATION Metoprolol Tartrate (Lopressor) 50 mg PO BID [facility] Last Admin: 10/20/18 09:32 Dose: 50 mg Ondansetron HCl (Zofran Inj) 4 mg IV.PUSH Q6H PRN PRN Reason: NAUSEA OR VOMITING Paroxetine HCl (Paxil) 40 mg PO DAILY [facility] Last Admin: 10/20/18 09:32 Dose: 40 mg Pharmacy Profile Note (Coumadin Consult Pharmacy) 1 each OTHER UNSCH PRN PRN Reason: PHARMACY DOCUMENTATION Senna/Docusate Sodium (Jennifer-Colace) 1 tab PO BID [facility] Last Admin: 10/20/18 09:33 Dose: 1 tab Sennosides (Senokot) 17.2 mg PO Q12H PRN PRN Reason: Moderate Constipation Sodium Chloride (Ns Flush) 2 ml IV.FLUSH BID [facility] Last Admin: 10/20/18 09:34 Dose: 2 ml Sodium Chloride (Ns Flush) 2 ml IV.FLUSH PRN PRN PRN Reason: FLUSH AFTER USING IV ACCESS Last Admin: 10/15/18 08:58 Dose: 2 ml Warfarin Sodium (Coumadin) 5 mg PO DAILY@1600 [facility] Last Admin: 10/18/18 17:19 Dose: 5 mg Allergies Allergy/AdvReac Type Severity Reaction Status Date / Time No Known Allergies Allergy Verified 10/07/18 14:57 Home Medications Medication Instructions Recorded Confirmed Type alprazolam [Xanax] 0.25 mg PO BID 07/31/18 10/07/18 History aspirin [Aspir-81] 81 mg PO DAILY 07/31/18 10/07/18 History atorvastatin 80 mg PO DAILY 07/31/18 10/07/18 History budesonide-formoterol [Symbicort] 2 puff INHALATION Q12H 07/31/18 10/07/18 History clopidogrel [Plavix] 75 mg PO DAILY 07/31/18 10/07/18 History docusate sodium 100 mg PO BID 07/31/18 10/07/18 History metoprolol tartrate 50 mg PO BID 07/31/18 10/07/18 History paroxetine HCl [Paxil] 40 mg PO DAILY 07/31/18 10/07/18 History hydrocodone-acetaminophen 1 tab PO Q4-6H PRN 09/29/18 10/07/18 History Physical Exam Vital signs: Vital Signs 10/19/18 12:00 10/19/18 16:00 10/19/18 18:03 Temperature 97.4 F L 97.4 F L Pulse Rate 86 74 Respiratory Rate 16 14 Blood Pressure 99/62 L 108/67 Pulse Oximetry 97 97 93 L 01/05/19 19:50 10/19/18 20:00 10/19/18 21:11 Temperature 97.8 F Pulse Rate 98 H 83 Respiratory Rate 18 18 Blood Pressure 116/73 Pulse Oximetry 92 L 92 L 92 L 10/20/18 00:00 10/20/18 03:49 10/20/18 05:00 Temperature 97.7 F 98.2 F Pulse Rate 67 81 Respiratory Rate 17 18 18 Blood Pressure 105/83 107/82 Pulse Oximetry 92 L 95 10/20/18 05:50 10/20/18 08:00 10/20/18 08:37 Temperature 97.5 F L Pulse Rate 81 77 Respiratory Rate 18 15 18 Blood Pressure 99/68 L Pulse Oximetry 95 96 Intake & Output 10/19/18 10/20/18 10/20/18 18:59 06:59 18:59 Intake Total 480 / 480 400 / 400 Balance 480 / 480 400 / 400 Weight 87.3 kg Intake: Oral 480 / 480 400 / 400 Other: # Voids 2 2 Date of Last Bowel Movement 10/19/18 - Constitutional no acute distress - Routine HEENT Exam Head: Present: normocephalic, atraumatic Eye: Present: EOMI, PERRL, normal accommodation ENT: Present: mucous membranes moist - Routine Neck Exam Present: supple, full ROM. Absent: JVD, carotid bruit, lymphadenopathy - Routine Respiratory Exam Present: CTA bilaterally, rhonchi. Absent: accessory muscle use - Routine Cardiovascular Exam Present: RRR, S1, S2. Absent: murmur, gallop, rubs Comments: Well-healed median sternotomy incision - Routine Abdominal Exam Present: soft, normoactive bowel sounds. Absent: tenderness, distended, rebound , guarding - Routine Extremities Exam Present: full ROM, pulses intact, normal capillary refill. Absent: cyanosis, clubbing, edema - Routine Skin Exam Present: intact. Absent: cyanosis, erythema - Routine Neurological Exam Present: alert, oriented X3, CN II-XII intact, normal reflexes. Absent: sensory deficit, motor deficit - Routine Psychiatric Exam Present: normal affect, normal thought process Results - Labs CBC & Chem 7: 10/18/18 06:41 10/18/18 06:41 Labs: Laboratory Results - last 24 hr 10/20/18 04:26 PT 19.8 H INR 2.0 Assessment and Plan - Assessment (1) Mediastinal lymphadenopathy Code(s): R59.0 - Localized enlarged lymph nodes Status: Acute (2) Pulmonary embolism Code(s): I26.99 - Other pulmonary embolism without acute cor pulmonale Status : Acute (3) CAD (coronary artery disease) Code(s): I25.10 - Atherosclerotic heart disease of [place] coronary artery without angina pectoris Status: Chronic (4) Hx of CABG Code(s): Z95.1 - Presence of aortocoronary bypass graft Status: Chronic - Plan The clinical and radiographic findings were discussed in detail with the patient. Given her previous median sternotomy for coronary artery bypass grafting, cervical mediastinoscopy is not a viable option to biopsy the mediastinal lymph nodes. She may be better served with bronchoscopy with endobronchial ultrasound and biopsy of the lymph nodes through that route. If that is not successful, then she will need a thoracoscopy or thoracotomy to obtain a definitive diagnosis of the hilar and mediastinal lymph nodes. At this point, I do not think she needs to be an inpatient to determine the etiology of the lymph nodes and can be discharged from my standpoint. Follow- up with Dr. Demetrio Yost in pulmonary to see if he can do an EBUS. Thank you for allowing me to participate in the care of this patient. (2) Pulmonary embolism Qualifiers: Pulmonary embolism type: other Chronicity: acute Acute cor pulmonale presence: without acute cor pulmonale Qualified Code(s): I26.99 - Other pulmonary embolism without acute cor pulmonale
--- NOTE | 2018-10-20 10:42 | P.DS ---
Date of admission: 10/07/18 16:49 Primary care physician: German Sierra DO Brief History from admission: 48-year-old female with past medical history of coronary artery disease status post CABG (06/2017), hyperlipidemia, hypertension, COPD, tobacco abuse who presents to [facility] emergency department with 2-week history of shortness of breath. She states she has also had a cough productive of green sputum. She has pleuritic pain in her right lower anterior and posterior thorax. No fever. She was recently admitted 09/29/18 after she presented with exertional shortness of breath and wheezing. She was treated with nebs and steroids but left AGAINST MEDICAL ADVICE within 24 hours. On that occasion her d-dimer was negative. Today her ED workup included CT pulmonary angiogram which demonstrated small bilateral lower lobe pulmonary emboli. She has bilateral hilar and pretracheal lymphadenopathy. There is alveolar consolidation in the right middle lobe and lingula which is consistent with atelectasis versus pneumonia. Sarcoidosis is also a consideration, as well as reactive/neoplastic lymphadenopathy. S In the ED she was started on heparin drip, given saline 1 L bolus, Solu-Medrol 125 mg IV, cefepime 2 g IV, azithromycin 500 mg IV, albuterol x2. Denies leg pain or swelling currently. She states she was diagnosed with a RLE DVT on outpatient ultrasound the end of 2016 which was provoked by her CABG. She was on DAPT but not on anticoagulation following the diagnosis. She had a right femoral DVT 07/31/18 which was diagnosed in the ED. She left AMA on that occasion as well. She was not on anticoagulation. She has recently taken multiple long car rides to [place], etc over the course of the summer. DS: Diagnosis - Discharge Diagnosis (1) Pulmonary embolism Status: Acute (2) COPD exacerbation Status: Acute (3) Tobacco abuse Status: Chronic (4) H/O deep venous thrombosis Status: Chronic (5) Hypoxia Status: Acute (6) Obesity Status: Chronic (7) Anxiety Status: Chronic (8) Hypokalemia Status: Acute (9) Pulmonary nodules Status: Acute (10) Lymphadenopathy, hilar Status: Acute (11) CAD (coronary artery disease) Status: Chronic (12) Hx of CABG Status: Chronic (13) HLD (hyperlipidemia) Status: Chronic (14) HTN (hypertension) Status: Chronic DS: Medications - Discharge Medications Prescriptions: budesonide-formoterol [Symbicort] 2 puff INH Q12H #1 inhaler hydrocodone-acetaminophen 1 tab PO Q6H PRN #24 tab PRN Reason: Pain prednisone See Label Instructions .ROUTE .COMPLEX #24 tab warfarin [Coumadin] 5 mg PO DAILY@1600 #30 tab DS: Summary Hospital Course: 48-year-old female with past medical history of coronary artery disease status post CABG (06/2017), hyperlipidemia, hypertension, COPD, tobacco abuse who presents to [facility] emergency department with 2-week history of shortness of breath. She states she has also had a cough productive of green sputum. She has pleuritic pain in her right lower anterior and posterior thorax. No fever. She was recently admitted 09/29/18 after she presented with exertional shortness of breath and wheezing. She was treated with nebs and steroids but left AGAINST MEDICAL ADVICE within 24 hours. On that occasion her d-dimer was negative. Today her ED workup included CT pulmonary angiogram which demonstrated small bilateral lower lobe pulmonary emboli. She has bilateral hilar and pretracheal lymphadenopathy. There is alveolar consolidation in the right middle lobe and lingula which is consistent with atelectasis versus pneumonia. Sarcoidosis is also a consideration, as well as reactive/neoplastic lymphadenopathy. S In the ED she was started on heparin drip, given saline 1 L bolus, Solu-Medrol 125 mg IV, cefepime 2 g IV, azithromycin 500 mg IV, albuterol x2. Denies leg pain or swelling currently. She states she was diagnosed with a RLE DVT on outpatient ultrasound the end of 2016 which was provoked by her CABG. She was on DAPT but not on anticoagulation following the diagnosis. She had a right femoral DVT 07/31/18 which was diagnosed in the ED. She left [facility] on that occasion as well. She was not on anticoagulation. She has recently taken multiple long car rides to [place], etc over the course of the summer. Inpatient course: Patient was admitted to the ICU, maintained initially on high flow nasal cannula. She was started on diuresis, steroids, and antibiotics. Was successfully weaned down over the next few days toShe had been bridged with heparin for her pulmonary embolus while her warfarin did become therapeutic. nasal cannula then eventually to room air as she was transitioned to the medical floor. Pulmonology had also followed the patient. Ultimately patient was recommended to follow-up with pulmonology as an outpatient by cardiothoracic surgery for possible bronchoscopy and biopsy of the mediastinal lymph nodes that were incidentally found on her CT scan. Patient's respiratory status otherwise stabilized and was doing well on room air. Patient has met maximal benefit from hospitalization is clinically stable for discharge. - Time Spent with Patient Total time spent providing and/or coordinating discharge services: Less than 30 minutes - Quality: VTE Deep Vein Thrombosis/Pulmonary Embolism Present on Admission: Yes Exam Vital signs: Vital Signs 10/19/18 12:00 10/19/18 16:00 10/19/18 18:03 Temperature 97.4 F L 97.4 F L Pulse Rate 86 74 Respiratory Rate 16 14 Blood Pressure 99/62 L 108/67 Pulse Oximetry 97 97 93 L 10/19/18 19:50 10/19/18 20:00 10/19/18 21:11 Temperature 97.8 F Pulse Rate 98 H 83 Respiratory Rate 18 18 Blood Pressure 116/73 Pulse Oximetry 92 L 92 L 92 L 10/20/18 00:00 10/20/18 03:49 10/20/18 05:00 Temperature 97.7 F 98.2 F Pulse Rate 67 81 Respiratory Rate 17 18 18 Blood Pressure 105/83 107/82 Pulse Oximetry 92 L 95 10/20/18 05:50 10/20/18 08:00 10/20/18 08:37 Temperature 97.5 F L Pulse Rate 81 77 Respiratory Rate 18 15 18 Blood Pressure 99/68 L Pulse Oximetry 95 96 Intake & Output 10/19/18 10/20/18 10/20/18 18:59 06:59 18:59 Intake Total 480 / 480 400 / 400 Balance 480 / 480 400 / 400 Weight 87.3 kg Intake: Oral 480 / 480 400 / 400 Other: # Voids 2 2 Date of Last Bowel Movement 10/19/18 Results Labs on day of discharge: Labs from last 24 hours 10/20/18 04:26 PT 19.8 H INR 2.0 - Impressions ITS Impressions Chest CTA 10/07/18 14:55 CONCLUSION: 1. Small lower lobe pulmonary emboli are noted bilaterally. 2. Bilateral hilar lymphadenopathy is noted. Pretracheal mediastinal lymphadenopathy is also noted. Diffuse increased interstitial markings are noted bilaterally. The combination of diffuse interstitial disease as well as the hilar and mediastinal lymphadenopathy raising possibility of sarcoidosis. Clinical correlation is recommended. Post reactive and neoplastic lymphadenopathy are also in the differential. 3. Scattered noncalcified nodules within the upper lung wiley bilaterally with the largest 2 on the left measuring 8 and 6 mm and the largest on the right measuring 5 mm. These are nonspecific. Follow-up CT of the chest in 6 months would be helpful to confirm stability of the nodules. 4. Degenerative changes and scoliosis of the thoracic spine are noted. 5. Minimal focal alveolar consolidation is noted within the right middle lobe and within the lingula of the left upper lobe consistent with probable atelectasis and/or mild pneumonia. 6. Enlarged fatty liver. Venous Doppler Study 10/08/18 00:00 CONCLUSION: 1. The study is negative for bilateral lower extremity deep venous thrombosis. Chest X-Ray 10/19/18 00:00 CONCLUSION: Stable appearance with no acute cardiopulmonary disease. Discharge Plan - Discharge Disposition Patient Disposition: Discharge Home - Discharge Condition Condition: Serious - Discharge Order Discharge Orders: Discharge Order (Routine); Ordered 10/20/18 Ordered By: Remberto Mclain - Physicians Team Primary Care Provider: German Sierra Attending Provider: Remberto Mclain Other Providers: Neetu Roldan MD ; Deepak Candelario MD
== END 2018-10-20 12:05 | disposition home or self-care (01) | DRG 175 ==
LOC: NEPC 14:48 → NEDA 16:49 → HIMC 17:45 → N04 10-16 16:52
PROVIDERS: ADMIT Hospitalist; ATTEND Hospitalist
DX: J81.1 Chronic pulmonary edema; Z68.34 Body mass index [BMI] 34.0-34.9, adult; F32.9 Major depressive disorder, single episode, unspecified; I26.99 Other pulmonary embolism without acute cor pulmonale; I25.10 Atherosclerotic heart disease of native coronary artery without angina pectoris; F41.9 Anxiety disorder, unspecified; Z90.49 Acquired absence of other specified parts of digestive tract; Z79.899 Other long term (current) drug therapy; E66.9 Obesity, unspecified; M25.50 Pain in unspecified joint; Z82.49 Family history of ischemic heart disease and other diseases of the circulatory system; J44.1 Chronic obstructive pulmonary disease with (acute) exacerbation; I25.2 Old myocardial infarction; Z79.51 Long term (current) use of inhaled steroids; H53.8 Other visual disturbances; Z95.1 Presence of aortocoronary bypass graft; F17.210 Nicotine dependence, cigarettes, uncomplicated; J96.01 Acute respiratory failure with hypoxia; J13 Pneumonia due to Streptococcus pneumoniae; Z86.718 Personal history of other venous thrombosis and embolism; Z79.02 Long term (current) use of antithrombotics/antiplatelets; R59.0 Localized enlarged lymph nodes; I10 Essential (primary) hypertension; E87.6 Hypokalemia; R00.0 Tachycardia, unspecified; E78.5 Hyperlipidemia, unspecified; Z86.711 Personal history of pulmonary embolism
CPT/HCPCS: 36600; 71010; 71045; 71275; 80048; 80053; 81001; 82164; 82550; 82552; 82805; 82948; 82962; 83520; 83605; 83735; 83880; 84100; 84484; 84702; 85025; 85027; 85610; 85730; 86038; 87040; 87070; 87086; 87205; 87275; 87276; 87449; 87641; 87804; 90765; 90775; 93005; 93306; 93970; 94003; 94060; 94150; 94640; 94651; 94657; 94664; 94665; 94667; 96365; 96375; 97110; 97116; 97162; 97530; 99291; J0456; J0692; J0696; J1644; J1815; J1940; J2270; J2920; J2930; J3480; J7030; J7050; Q9967